=== PATIENT | female | born 1965 | race Caucasian/White ===

== ENCOUNTER 2020-05-28 18:52 | Inpatient (IN) | payer SELFPAY ==
--- NOTE | ~2020-05-28 | XR_ITS ---
XR chest 1V portable DATE: 05/28/2020 20:13 INDICATION: Seizure. Hypertension. Trembling. TECHNIQUE: AP chest COMPARISON: 01/04/2018 PA chest FINDINGS: Chronic mild elevation of the right leaf of the diaphragm. No pulmonary infiltrate or conso lidation, pleural effusion or pulmonary vascular congestion or pneumothorax. Heart size appears borde rline. Degenerative spurring of the thoracic spine. IMPRESSION: No active disease Reviewed, dictated and finalized at location [facility]. IMPRESSION: No active disease
--- NOTE | ~2020-05-28 | US_ITS ---
US right upper quadrant DATE: 05/29/2020 14:36 INDICATION: Abnormal liver function tests TECHNIQUE: Real-time imaging of liver, pancreas, gallbladder areas COMPARISON: None FINDINGS: There is surface nodularity of the liver and heterogeneous echotexture, which may be compat ible with cirrhosis as clinically suggested. Hepatic steatosis is suggested as well. Normal hepatopedal portal venous flow. No gallstones or gallbladder wall thickening. Negative sonographic Tilley's sign. The pancreas is not well demonstrated due to interference from overlying bowel gas. The common bile duct measures approximately 7 mm diameter. IMPRESSION: Surface nodularity of the liver which would be compatible with cirrhosis. Hepatic steatosis is suggested as well Limited evaluation of the pancreas Reviewed, dictated and finalized at [facility]. Reviewed, dictated and finalized at location A. IMPRESSION: Surface nodularity of the liver which would be compatible with cirr hosis. Hepatic steatosis is suggested as well Limited evaluation of the pancreas
--- NOTE | ~2020-05-28 | CT_ITS ---
EXAMINATION: CT brain wo con DATE: 05/28/2020 20:00 INDICATION: Seizure. Hypotension. TECHNIQUE: Computed tomography (CT) of the head was performed without intravenous contrast. The mA wa s adjusted according to patient size. Iterative reconstruction technique was employed. Exam dose: 60 5.33 mGy-cm total exam DLP. COMPARISON: 01/04/2018 CTA brain/carotid 01/04/2018 CT brain FINDINGS: There is cerebral atherosclerosis. There is nonspecific diminished attenuation of the cereb ral white matter, likely due to chronic small vessel ischemic changes. Normal ventricular size. No intracranial mass lesion or hemorrhage or cerebrovascular accident. No mi dline shift or mass effects. No subdural or epidural hematoma. No fracture or bone destruction of the cranial vault. Included paranasal sinuses and the mastoid air cells are normally developed and aerated. IMPRESSION: Cerebral atherosclerosis and chronic small vessel ischemic changes of the cerebral white matter; no acute intracranial finding Reviewed, dictated and finalized at [facility]. Reviewed, dictated and finalized at location [facility].
[2020-05-28 19:07] LABS: Glucose Point of Care 94 (65-105)
[2020-05-28 19:11] VITALS: BP 104/66; PULSE 86; RESP 18; TEMP 36.4; O2SAT 97
--- NOTE | 2020-05-28 19:26 | ECG_ITS ---
Measurements Intervals [place] Rate: 78 P: 29 UT: 166 QRS: 14 QRSD: 105 T: 11 QT: 418 QTc: 478 Interpretive Statements SINUS RHYTHM BASELINE ARTIFACT- I, III, AVL NORMAL ECG Electronically Signed On 05-29-2020 6:45:19 CDT by Rocky Carlin D.O.
--- NOTE | 2020-05-28 19:27 | ED.SEIZURE ---
HPI - Seizure General Chief Complaint: Unspecified Stated Complaint: seizure like activity Time Seen by Provider: 05/28/20 19:00 Source: patient and family Mode of arrival: EMS Limitations: no limitations History of Present Illness HPI Narrative: This patient is a 55 year old female who presents via EMS for evaluation of possible seizure. Her is at bedside providing history. He states patient is an alcoholic and she has not had any alcohol today. She returned home from work 1.5 hours ago. He states she was sitting on the couch when he turned around to find her bleeding from her mouth with both arm shaking. He called 911 and they found patient had a blood sugar of 46. She was given glucose and her blood sugar was 40. He reports patient is a diabetic and she has not eaten today. Patient denies history of seizures but reports withdrawal history of tremors. She reports she normally drinks 2 pints of vodka daily but she has not had any today because she had to work. MD complaint: seizure Related Data Home Medications Medication Instructions Recorded Confirmed atenolol-chlorthalidone 1 tablet PO DAILY 05/28/20 05/28/20 glyburide-metformin 1 tablet PO BIDWM 05/28/20 05/28/20 levothyroxine [Euthyrox] 125 mcg PO DAILY 05/28/20 05/28/20 naltrexone 50 mg PO DAILY 05/28/20 05/28/20 potassium chloride 10 meq PO BID 05/28/20 05/28/20 pravastatin 10 mg PO HS 05/28/20 05/28/20 spironolactone 25 mg PO DAILY 05/28/20 05/28/20 Allergies Allergy/AdvReac Type Severity Reaction Status Date / Time No Known Allergies Allergy Verified 05/28/20 19:22 Review of Systems Review of Systems: All systems reviewed & are unremarkable except as noted in HPI and below Constitutional: Constitutional: Denies chills and Denies fever(s) ENT: Denies dizziness Respiratory: Respiratory: Denies cough and Denies dyspnea Gastrointestinal: Gastrointestinal: Denies abdominal pain, Denies diarrhea, Denies nausea and Denies vomiting Neurologic: Denies headache(s) Psychiatric: Psychiatric: Reports anxiety PMFSH Past Medical History Medical History (Updated 05/29/20 @ 07:47 by Cydney More DO) ADHD Alcoholism Depression with anxiety Diabetes mellitus hemoglobin A1c 05/29/2020 4.8 Dyslipidemia Essential hypertension Hypothyroidism Surgical History Surgical History (Updated 05/29/20 @ 07:47 by Cydney More DO) History of appendectomy History of colonoscopy with polypectomy History of total hysterectomy with bilateral salpingo-oophorectomy (BSO) due to fibroid Hx of tonsillectomy Family History Family History (Updated 05/29/20 @ 07:48 by Cydney More DO) Sibling Asthma Diabetes mellitus Mother Cerebrovascular accident Hypertension Sibling Diabetes mellitus Alcoholism Father Hypertension Social History Social History (Updated 05/29/20 @ 07:51 by Cydney More DO) Social History: The patient lives in [facility] with her of 12 years. She has had a struggle with alcoholism for the last 20 years. She went through alcohol treatment programs 13 years ago when her 1st . She went through alcohol treatment program again about 2 years ago at [place]. She drinks 2 pt of vodka several times a week. She does not retain the use marijuana and states that she does not like it because it makes her sleep. She has never smoked. 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 Primary care physician: Dr. Bud Valladares Smoking status: Never smoker Second hand tobacco smoke exposure: Yes Alcohol intake: current Drinks per week: 149 Alcohol use details: 2 pints vodka daily Substance use: never Other substance usage details: drinks 2 pts of vodka/day Last use: 05/27/2020 Gender identity (if verbalized by the patient): Female Spiritual care concerns: No Exam Const: General: no acute distress and alert Orientation/consciousness: patient oriented
[2020-05-28] MEDS: LACTATED RINGERS 1,000 ML 999 ML IV CONT (19:38)
[2020-05-28 19:50] LABS: Basophils Percent Auto 0.6 % (0.2-1.2); Eosinophils Percent Auto 0.3 % (0-4.4); Hematocrit 36.2 % (37.0-47.0); Hemoglobin 12.8 g/dL (12.0-15.0); Immature Granulocyte Absolute 0.02 K/mm3 (0.00-0.031); Immature Granulocyte Percent A 0.6 % (0-0.5); Lymphocytes Absolute Auto 0.84 K/mm3 (0.9-3.2); Lymphocytes Percent Auto 24.3 % (18.3-44.2); Mean Corpuscular HGB Conc 35.4 g/dl (32-36); Mean Platelet Volume 8.7 fl (7.4-10.4); Monocytes Absolute Auto 0.2 K/mm3 (0.1-0.6); Monocytes Percent Auto 6.1 % (2.6-8.5); Neutrophils Absolute Auto 2.4 K/mm3 (1.3-6.7); Neutrophils Percent Auto 68.1 % (45.5-73.1); Platelet Count Result 123 k/mm3 (150-375); Red Blood Count 3.77 M/mm3 (4.2-5.4); Red Cell Distribution Width 13.8 % (11.5-14.5); White Blood Count 3.5 K/mm3 (4.5-10.0)
[2020-05-28 20:00] LABS: INR 1.4; Prothrombin Time 16.8 Seconds (11.1-14.7)
[2020-05-28 20:01] LABS: Ammonia 11 umol/L (9-30); Ethanol < 10 mg/dL (<10)
[2020-05-28 20:08] LABS: Alanine Aminotransferase 38 U/L (4-35); Alkaline Phosphatase 99 U/L (38-126); Anion Gap 16 mmol/L (8-16); Aspartate Amino Transferase 87 U/L (14-36); Bilirubin,Total 0.7 mg/dL (0.2-1.3); Blood Urea Nitrogen 10 mg/dL (7-17); Calcium 8.4 mg/dL (8.4-10.2); Carbon Dioxide 26 mmol/L (22-30); Chloride 91 mmol/L (98-107); Creatine Kinase 94 U/L (30-135); Estimated CRCL calculation 103 ml/min; Estimated Glomerular Filt Rate > 60; Glucose 59 mg/dL (65-105); Magnesium 1.1 mg/dL (1.6-2.3); Potassium 3.2 mmol/L (3.4-5.0); Sodium 133 mmol/L (137-145)
[2020-05-28 20:37] LABS: Add Urine Microscopic? YES; Appearance Urine Cloudy (Clear); Bilirubin Urine Negative (Negative); Blood Urine Negative (Negative); Color Urine Yellow (Yellow); Glucose Urine UA Negative (Negative); Ketones Urine Trace mg/dL (Negative); Leukocyte Esterase Ur Negative LEU/UL (Negative); Mucus Urine Rare /lpf; Nitrate Urine Positive (Negative); Protein Urine Negative (Negative); RBC Urine 0-2 /hpf (0-2); Specific Grav Ur 1.017 (1.001-1.035); Squamous Epithelial Cell Urine Few /hpf (Few); Urobilinogen Urine Negative mg/dL (<2.0); WBC Urine 0-3 /hpf
[2020-05-28] MEDS: DEXTROSE 50% 25 GM/50 ML SYRINGE IV PUSH (20:45)
[2020-05-28 20:46] VITALS: BP 118/67; PULSE 84; RESP 24; O2SAT 95
[2020-05-28 20:46] LABS: Glucose Point of Care 113 (65-105)
[2020-05-28 20:52] LABS: Amphetamine Screen Urine Negative (Negative); Barbiturate Screen Urine Negative (Negative); Benzodiazepines Screen Urine Negative (Negative); Cannabinoid Screen Urine Negative (Negative); Cocaine Screen Urine Negative (Negative); Methadone Screen Urine Negative (Negative); Opiate Screen Urine Negative (Negative); Phencyclidine Screen Urine Negative (Negative)
[2020-05-28 21:01] VITALS: BP 114/69; PULSE 83; RESP 26; O2SAT 98
[2020-05-28 21:16] VITALS: BP 115/68; PULSE 81; RESP 23
[2020-05-28] MEDS: MAGNESIUM SULF 2 GM/WATER 50ML 2 GM/50 ML BAG IVPB (21:43)
[2020-05-28 21:58] LABS: Glucose Point of Care 289 (65-105)
[2020-05-28 22:32] VITALS: BP 116/63; PULSE 81; RESP 18; TEMP 37.7; O2SAT 96
[2020-05-28 22:33] VITALS: BMI 26.9
[2020-05-28 22:37] VITALS: PULSE 79
--- NOTE | 2020-05-28 23:24 | PC.NURSE ---
This patient, Viktoria Grant, was admitted to IMU Room 204-01. Pt too drowsy to receive full orientation. Valuables list has been completed.
[2020-05-29] VITALS (12 sets, daily range): BP systolic 108–124; BP diastolic 56–72; PULSE 79–88; RESP 16–18; TEMP 36.2–37.1; O2SAT 96–100
[2020-05-29 00:40] LABS: Glucose Point of Care 87 (65-105)
[2020-05-29 00:40] LABS: Glucose Point of Care 89 (65-105)
[2020-05-29] MEDS: DEXTROSE 5%/0.45% SOD CHL 1,000 ML 100 ML IV CONT ×2 (00:44→16:42)
[2020-05-29 03:55] LABS: Glucose Point of Care 72 (65-105)
[2020-05-29 04:59] LABS: Basophils Percent Auto 0.4 % (0.2-1.2); Eosinophils Percent Auto 0.8 % (0-4.4); Hematocrit 31.7 % (37.0-47.0); Hemoglobin 11.1 g/dL (12.0-15.0); Immature Granulocyte Absolute 0.01 K/mm3 (0.00-0.031); Immature Granulocyte Percent A 0.4 % (0-0.5); Lymphocytes Absolute Auto 0.95 K/mm3 (0.9-3.2); Lymphocytes Percent Auto 37.5 % (18.3-44.2); Mean Corpuscular Hemoglobin 33.5 pg (26-34); Mean Corpuscular Volume 95.8 fl (80-100); Mean Platelet Volume 9.2 fl (7.4-10.4); Monocytes Absolute Auto 0.2 K/mm3 (0.1-0.6); Monocytes Percent Auto 9.1 % (2.6-8.5); Neutrophils Absolute Auto 1.3 K/mm3 (1.3-6.7); Neutrophils Percent Auto 51.8 % (45.5-73.1); Platelet Count Result 112 k/mm3 (150-375); Red Blood Count 3.31 M/mm3 (4.2-5.4); Red Cell Distribution Width 13.6 % (11.5-14.5); White Blood Count 2.5 K/mm3 (4.5-10.0)
[2020-05-29 05:29] LABS: Alanine Aminotransferase 30 U/L (4-35); Albumin Level 3.2 g/dL (3.5-5.1); Alkaline Phosphatase 87 U/L (38-126); Anion Gap 7 mmol/L (8-16); Aspartate Amino Transferase 65 U/L (14-36); Bilirubin,Total 1.3 mg/dL (0.2-1.3); Blood Urea Nitrogen 9 mg/dL (7-17); Calcium 7.7 mg/dL (8.4-10.2); Carbon Dioxide 30 mmol/L (22-30); Chloride 94 mmol/L (98-107); Estimated CRCL calculation 103 ml/min; Estimated Glomerular Filt Rate > 60; Glucose 81 mg/dL (65-105); Magnesium 1.8 mg/dL (1.6-2.3); Phosphorus 2.5 mg/dL (2.5-4.5); Potassium 2.6 mmol/L (3.4-5.0); Sodium 131 mmol/L (137-145)
[2020-05-29] MEDS: LEVOTHYROXINE SODIUM 125 MCG TABLET PO (05:50)
[2020-05-29] MEDS: POTASSIUM CHLORIDE 20 MEQ TABLET 40 MEQ PO (05:50)
[2020-05-29 06:06] LABS: Hemoglobin A1C 4.8 % (<5.7)
[2020-05-29 06:45] LABS: Glucose Point of Care 125 (65-105)
--- NOTE | 2020-05-29 07:18 | PM.IMHP ---
H&P: HPI History of Present Illness Date/Time: 05/29/20 07:18 Chief complaint: seizure, low blood sugar Narrative: Viktoria Grant is a 55 year old pleasant female with a past medical history of alcoholism, hypothyroidism, depression and anxiety who presented to the ER via EMS after having a seizure at home. 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 She reported that she was feeling tired and laid down on the couch. While she was sitting on the couch her noted that she was making some unusual noises. When he looked over at her she was bleeding from her mouth and twitching her arms. Her called EMS. On EMS arrival to the patient's house patient was found to be hypoglycemic. Her initial glucose was 46. Her repeat blood sugar after IV dextrose administration was 40. The patient is a diabetic and has been continuing to take her glimepiride and metformin twice a day despite not eating. She denies having history of prior seizures. She has had a problem with alcohol for 20 years. She drinks 2 pt of vodka every 2 or 3 days. She has been to alcohol treatment programs multiple times the last time was about 2 or 3 years ago. She reports that she has been working 6 and a 7 days a week and has been under extra stress. Subsequently, she has not been eating as much in may be drinking more alcohol than usual. She does have symptoms of alcohol withdrawal. She reports that if she does not drink alcohol every 2 or 3 days she will get shaky and irritable. She has not had any alcohol since the evening of the . She denies feeling any more anxious than usual. She reports that she does chew on her thumbs and she has wounds in various stages of healing from where she chronically pick since she was at the base of her nail beds. She denies any nausea or vomiting. She has not been having any shortness of breath, cough or congestion. She reports that she sleeps poorly. She does struggle with anxiety and depression and has a prescription for Cymbalta. However, the patient had not picked up her prescription for Cymbalta in a couple of months. She denies any changes in her bowel habits. She had a colonoscopy several years ago and had several small polyps removed. She has not had any hematochezia or melena since that time. She denies any dysuria or changes in urinary frequency or urgency. She has not been having any fevers or chills. The patient is currently alert orient x4 and reports some mild generalized headache. She thinks that her headache is actually more related to the pain she is having in her tongue from where she bit her tongue. Review of Systems Review of Systems: Narrative: 12 systems were reviewed with pertinent positives and negatives per HPI. Except as documented in the HPI, all other systems were reviewed and are negative. [facility] Past Medical History Medical History (Updated 05/29/20 @ 07:59 by Cydney More DO) ADHD Alcoholism Depression with anxiety Diabetes mellitus hemoglobin A1c 05/29/2020 4.8 Dyslipidemia Essential hypertension Hypothyroidism Surgical History Surgical History (Updated 05/29/20 @ 07:47 by Cydney More DO) History of appendectomy History of colonoscopy with polypectomy History of total hysterectomy with bilateral salpingo-oophorectomy (BSO) due to fibroid Hx of tonsillectomy Family History Family History (Updated 05/29/20 @ 07:48 by Cydney More DO) Sibling Asthma Diabetes mellitus Mother Cerebrovascular accident Hypertension Sibling Diabetes mellitus Alcoholism Father Hypertension Social History Social History (Updated 05/29/20 @ 07:51 by Cydney More DO) Social History: The [facility] [place] her [facility] 12 years. She has had a struggle with alcoholism for the last 20 years. She went through alcohol treatment programs 13 years ago when her 1st . She went through alcohol treatment program again abou
[2020-05-29 08:04] LABS: Folic Acid > 20.0 ng/mL (2.76->20)
[2020-05-29 08:35] LABS: Glucose Point of Care 115 (65-105)
--- NOTE | 2020-05-29 09:24 | PM.IMPN ---
Progress Note: A&P Assessment and Plan (1) Diabetes mellitus with hypoglycemia: Qualifiers: Diabetes mellitus type: type 2 Diabetes mellitus mcc insulin use: without mcc use Diabetes mellitus complication detail: without coma Qualified Code(s): E11.649 - Type 2 diabetes mellitus with hypoglycemia without coma Code(s): E11.649 - Type 2 diabetes mellitus with hypoglycemia without coma Status: Acute Assessment and Plan: Manage w/o oral hypoglycemics (diet alone) (2) Pancytopenia: Code(s): D61.818 - Other pancytopenia Status: Acute Assessment and Plan: Suspect cirrhosis with portal HTN vs alcohol suppression of marrow vs both Medication induced marrow suppressiion less likely B12 and folate deficiencies excluded by lab (3) Abnormal liver enzymes: Code(s): R74.8 - Abnormal levels of other serum enzymes Status: Acute Assessment and Plan: Likely due to alcohol Check for hepatitis B & C FIB-4 score = 6.93 (based on admission labs) --> Advanced Fibrosis Likely U/s liver (4) Hypokalemia: Code(s): E87.6 - Hypokalemia Status: Acute Assessment and Plan: PO & IV KCL 05/29 f/u lab (5) Hypomagnesemia: Code(s): E83.42 - Hypomagnesemia Status: Acute Assessment and Plan: IV mag 05/28, 05/29 f/u lab (6) Seizure: Code(s): R56.9 - Unspecified convulsions Status: Acute Assessment and Plan: Hypoglycemia vs alcohol w/d Subjective Date/time seen: 05/29/20 09:24 Interval history: 05/29: Generalized aching. No further seizures. Tolerated breakfast. Tip of tongue very sore. Review of Systems Review of Systems: All systems reviewed & are unremarkable except as noted in HPI and below Exam Narrative: Exam Narrative: HEENT: EOMI, PERRL, sclerae nonicteric, pharyngeal mucosa pink and intact, except left tip of tongue with bite fern and ecchymosis NECK: No JVD CHEST: Clear to auscultation. Normal effort. HEART: NL S1/S2, regular, no murmur ABDOMEN: BS+, soft, nontender, no mass, no bruits EXTREMITIES: No cyanosis, edema, or clubbing NEUROLOGIC: CN intact and symmetric to inspection. MUSCULOSKELETAL: Tone and strength symmetric. PSYCH: Alert. Oriented to person, place, and time. Objective Data Vital Signs Vital Signs: Vital Signs - 24 hr 05/28/20 19:11 05/28/20 20:46 05/28/20 21:01 Temperature 97.6 F Pulse Rate 86 84 83 Respiratory Rate 18 24 H 26 H Blood Pressure 104/66 118/67 114/69 Pulse Oximetry 97 95 98 05/28/20 21:16 05/28/20 22:32 05/28/20 22:37 Temperature 99.8 F H Pulse Rate 81 81 79 Respiratory Rate 23 H 18 Blood Pressure 115/68 116/63 Pulse Oximetry 96 05/29/20 00:00 05/29/20 02:00 05/29/20 04:00 Temperature 97.3 F L 98.7 F Pulse Rate 81 79 81 Respiratory Rate 18 16 Blood Pressure 108/56 L 117/58 L Pulse Oximetry 96 98 05/29/20 06:00 05/29/20 07:54 Temperature 97.1 F L Pulse Rate 79 80 Respiratory Rate 16 Blood Pressure 118/70 Pulse Oximetry 98 Intake/Output Intake/Output: Intake & Output 05/26/20 05/27/20 05/28/20 05/29/20 23:59 23:59 23:59 23:59 Intake Total 2063.2 674 Output Total 1100 Balance 2063.2 -426 Meds/Results Medications: Active Medications Generic Name Dose Route Start Last Admin Trade Name Freq PRN Reason Stop Dose Admin Dextrose 12.5 gm 05/28/20 21:09 Dextrose 50% Syringe IV PUSH PRN PRN Hypoglycemia Protocol Folic Acid 1 mg 05/29/20 09:00 Folic Acid PO DAILY SHERRON Glucose 15 gm 05/28/20 21:09 Glutose 15 PO PRN PRN Hypoglycemia Protocol Dextrose 1,000 mls @ 100 mls/hr 05/28/20 21:09 Dextrose 5% 1,000 Ml IVPB PRN PRN Hypoglycemia Protocol Dextrose/Sodium Chloride 1,000 mls @ 100 mls/hr 05/29/20 00:40 05/29/20 05:59 Dextrose 5% Sodium Chloride 0.45% IV CONT 0 mls/hr .Q10H SHERRON Infusion Potassium Chlori
[2020-05-29] MEDS: POTASSIUM CHLORIDE 10 MEQ TABLET.ER PO ×2 (11:50→16:50)
[2020-05-29] MEDS: THIAMINE HCL 100 MG TABLET PO (12:44)
[2020-05-29] MEDS: FOLIC ACID 1 MG TABLET PO (12:44)
[2020-05-29 12:59] LABS: Glucose Point of Care 136 (65-105)
[2020-05-29 13:19] LABS: Magnesium 1.5 mg/dL (1.6-2.3); Potassium 3.7 mmol/L (3.4-5.0)
[2020-05-29 13:31] LABS: Anion Gap 7 mmol/L (8-16); Blood Urea Nitrogen 7 mg/dL (7-17); Calcium 7.9 mg/dL (8.4-10.2); Carbon Dioxide 28 mmol/L (22-30); Chloride 95 mmol/L (98-107); Estimated CRCL calculation 103 ml/min; Estimated Glomerular Filt Rate > 60; Glucose 143 mg/dL (65-105); Sodium 130 mmol/L (137-145)
[2020-05-29 13:45] LABS: Potassium 3.6 mmol/L (3.4-5.0)
[2020-05-29] MEDS: MAGNESIUM SULF 2 GM/WATER 50ML 2 GM/50 ML BAG IVPB (16:43)
[2020-05-29 16:58] LABS: Glucose Point of Care 161 (65-105)
--- NOTE | 2020-05-29 17:11 | PC.NURSE ---
This patient, Viktoria Grant, was received from U on 05/29/20 at 1714. Personal belongings list checked and signed. Patient/family oriented to unit policies and routines. Report received from MINERVA Shukla.
--- NOTE | 2020-05-29 17:21 | PC.NURSE ---
This patient, Viktoria Grant, was transferred to [2nd medical room 240] on 05/29/20 at 1710. Personal belongings sent with patient. Belongings list checked and signed with receiving [X ]. Report given to [Xiomara ]. Appropriate documentation sent with patient.
[2020-05-29] MEDS: PRAVASTATIN SODIUM 10 MG TABLET PO (20:05)
[2020-05-29 21:30] LABS: Glucose Point of Care 150 (65-105)
[2020-05-29 23:59] LABS: Glucose Point of Care 125 (65-105)
[2020-05-30 00:33] VITALS: BP 136/72; PULSE 84; RESP 16; TEMP 37.1; O2SAT 98
[2020-05-30] MEDS: DEXTROSE 5%/0.45% SOD CHL 1,000 ML 100 ML IV CONT ×2 (03:54→14:14)
[2020-05-30] MEDS: LEVOTHYROXINE SODIUM 125 MCG TABLET PO (05:44)
[2020-05-30 05:47] LABS: Glucose Point of Care 142 (65-105)
[2020-05-30 05:58] LABS: Iron 74 ug/dL (37-170)
[2020-05-30 06:00] VITALS: BP 149/79; PULSE 80; RESP 16; TEMP 36.9; O2SAT 98
[2020-05-30 06:07] LABS: Percent Iron Saturation 27 % (20-50)
[2020-05-30 06:47] LABS: Hepatitis C Virus Antibody Negative (Negative)
[2020-05-30 07:49] LABS: Glucose Point of Care 145 (65-105)
[2020-05-30] MEDS: FOLIC ACID 1 MG TABLET PO (08:44)
[2020-05-30] MEDS: THIAMINE HCL 100 MG TABLET PO (08:44)
[2020-05-30] MEDS: POTASSIUM CHLORIDE 10 MEQ TABLET.ER PO ×2 (08:44→16:53)
--- NOTE | 2020-05-30 09:09 | WPDGICN ---
Assessment and Plan Assessment and plan (1) Alcoholism: Code(s): F10.20 - Alcohol dependence, uncomplicated Status: Acute Assessment and Plan: Patient with long history of alcoholism. Patient is still drinking rather heavily. Alcohol rehab strongly encourage for this patient. (2) Alcoholic liver disease: Code(s): K70.9 - Alcoholic liver disease, unspecified Status: Acute Assessment and Plan: Patient with elevated liver function tests consistent with alcohol abuse. Ultrasound raises the question of underlying cirrhosis of liver. Long discussion with patient regarding implications of cirrhosis. Essential need to stop alcohol use. Continued supportive care. At present no external findings for cirrhosis. Follow-up electively as an outpatient is encouraged. (3) Pancytopenia: Code(s): D61.818 - Other pancytopenia Status: Acute Assessment and Plan: Pancytopenia noted at admission likely secondary to alcoholic bone marrow suppression. Possible platelet see quest radiation in within the enlarged spleen. Alcohol avoidance encourage. Follow-up CBC is an outpatient. Consider hematology evaluation should this worsen. (4) Diabetes mellitus with hypoglycemia: Qualifiers: Diabetes mellitus type: type 2 Diabetes mellitus termite control representative insulin use: without termite control representative use Diabetes mellitus complication detail: without coma Qualified Code(s): E11.649 - Type 2 diabetes mellitus with hypoglycemia without coma Code(s): E11.649 - Type 2 diabetes mellitus with hypoglycemia without coma Status: Acute (5) Seizure: Code(s): R56.9 - Unspecified convulsions Status: Acute Assessment and Plan: Seizure at admission may be secondary to hypoglycemia. However with her long history of alcohol abuse. And no alcohol for several days prior to presentation this could be an alcohol withdrawal seizure. Continue to monitor for signs of alcohol withdrawal. GI Consult Note Consult date/time: 05/30/20 09:09 HPI: Viktoria Grant is a 55 year old female seen in evaluation at the request of the hospitalist service. Patient has an underlying history of alcohol abuse. Hypothyroidism. At home she was noted to have a seizure. Apparently bit her tongue with some bleeding. Upon presenting to the emergency room was found to have significant hypoglycemia. Since admission her dose of diabetic medications has been adjusted. She had abstain from alcohol for 2 days prior to admission. After admission ultrasound of the right upper quadrant suggest that she likely has cirrhosis of the liver. Patient denies any peripheral edema. She states her mentation is normal in appears oriented today. She has had no prior history of blood loss or obvious bleeding. There is no family history of liver disease that she is aware of. She has never been exposed to hepatitis. Review of Systems Review of Systems: All systems reviewed & are unremarkable except as noted in HPI and below PMFSH Past Medical History Medical History (Updated 05/30/20 @ 09:14 by Ziyad Sheldon MD) ADHD Alcoholism Depression with anxiety Diabetes mellitus hemoglobin A1c 05/29/2020 4.8 Dyslipidemia Essential hypertension Hypothyroidism Surgical History Surgical History (Updated 05/29/20 @ 07:47 by Cydney More DO) History of appendectomy History of colonoscopy with polypectomy History of total hysterectomy with bilateral salpingo-oophorectomy (BSO) due to fibroid Hx of tonsillectomy Family History Family History (Updated 05/29/20 @ 07:48 by Cydney More DO) Sibling Asthma Diabetes mellitus Mother Cerebrovascular accident Hypertension Sibling Diabetes mellitus Alcoholism Father Hypertension Social History Social History (Updated 05/29/20 @ 07:51 by Cydney More DO) Social History: The patient lives in [facility] with her of 12 years. She has had a struggle
--- NOTE | 2020-05-30 09:29 | PM.IMPN ---
Progress Note: A&P Assessment and Plan (1) Diabetes mellitus with hypoglycemia: Qualifiers: Diabetes mellitus complication detail: without coma Diabetes mellitus long-term insulin use: without long-term use Diabetes mellitus type: type 2 Qualified Code(s): E11.649 - Type 2 diabetes mellitus with hypoglycemia without coma Code(s): E11.649 - Type 2 diabetes mellitus with hypoglycemia without coma Status: Acute Assessment and Plan: Manage w/o oral hypoglycemics (diet alone) (2) Pancytopenia: Code(s): D61.818 - Other pancytopenia Status: Acute Assessment and Plan: Suspect cirrhosis with portal HTN w/ alcohol suppression of marrow Medication induced marrow suppressiion less likely B12 and folate deficiencies excluded by lab (3) Abnormal liver enzymes: Code(s): R74.8 - Abnormal levels of other serum enzymes Status: Acute Assessment and Plan: Likely due to alcohol Check for hepatitis B & C FIB-4 score = 6.93 (based on admission labs) --> Advanced Fibrosis Likely U/s liver c/w cirrhosis (4) Hypokalemia: Code(s): E87.6 - Hypokalemia Status: Acute Assessment and Plan: PO & IV KCL 05/29 f/u lab (5) Hypomagnesemia: Code(s): E83.42 - Hypomagnesemia Status: Acute Assessment and Plan: IV mag 05/28, 05/29 f/u lab (6) Seizure: Code(s): R56.9 - Unspecified convulsions Status: Acute Assessment and Plan: Hypoglycemia vs alcohol w/d (7) Alcoholism: Code(s): F10.20 - Alcohol dependence, uncomplicated Status: Acute Assessment and Plan: 05/30 day 4 w/o alcohol Home 05/31 if stable Subjective Date/time seen: 05/30/20 09:29 Interval history: 05/30: Less generalized aching. No further seizures. Tolerated diet. Tip of tongue still sore. Review of Systems Review of Systems: All systems reviewed & are unremarkable except as noted in HPI and below Exam Narrative: Exam Narrative: HEENT: EOMI, PERRL, sclerae nonicteric, pharyngeal mucosa pink and intact, except left tip of tongue with bite fern and ecchymosis NECK: No JVD CHEST: Clear to auscultation. Normal effort. HEART: NL S1/S2, regular, no murmur ABDOMEN: BS+, soft, nontender, no mass, no bruits EXTREMITIES: No cyanosis, edema, or clubbing NEUROLOGIC: CN intact and symmetric to inspection. MUSCULOSKELETAL: Tone and strength symmetric. PSYCH: Alert. Oriented to person, place, and time. Objective Data Vital Signs Vital Signs: Vital Signs - 24 hr 05/29/20 10:00 05/29/20 12:00 05/29/20 12:11 Temperature 97.3 F L Pulse Rate 83 81 81 Pulse Rate [Bilateral Pedal (Dorsalis Pedis) Palpation] 81 Respiratory Rate 16 Blood Pressure 114/72 Pulse Oximetry 99 05/29/20 14:00 05/29/20 16:00 05/29/20 22:01 Temperature 97.2 F L 98.5 F Pulse Rate 83 88 81 Pulse Rate [Bilateral Pedal (Dorsalis Pedis) Palpation] 85 Respiratory Rate 16 16 Blood Pressure 123/71 124/69 Pulse Oximetry 100 97 05/30/20 00:33 05/30/20 06:00 Temperature 98.7 F 98.4 F Pulse Rate 84 80 Pulse Rate [Bilateral Pedal (Dorsalis Pedis) Palpation] Respiratory Rate 16 16 Blood Pressure 136/72 149/79 H Pulse Oximetry 98 98 Intake/Output Intake/Output: Intake & Output 05/27/20 05/28/20 05/29/20 05/30/20 23:59 23:59 23:59 23:59 Intake Total 2063.2 2660 890 Output Total 1950 Balance 2063.2 710 890 Meds/Results Medications: Active Medications Generic Name Dose Route Start Last Admin Trade Name Freq PRN Reason Stop Dose Admin Dextrose 12.5 gm 05/28/20 21:09 Dextrose 50% Syringe IV PUSH PRN PRN Hypoglycemia Protocol Folic Acid 1 mg 05/29/20 09:00 05/30/20 08:44 Folic Acid PO 1 mg DAILY SHERRON Administration Glucose 15 gm 05/28/20 21:09 Glutose 15 PO PRN PRN Hypoglycemia Protocol Dextrose 1,000 mls @ 100 mls/hr 05/28/20 21:09 Dextrose 5% 1,000 Ml IVPB PRN
[2020-05-30 10:00] VITALS: BP 129/82; PULSE 83; RESP 16; TEMP 36.6; O2SAT 99
[2020-05-30 12:35] LABS: Glucose Point of Care 137 (65-105)
[2020-05-30 14:00] VITALS: BP 133/77; PULSE 84; RESP 15; TEMP 37; O2SAT 98
[2020-05-30 14:40] LABS: Hepatitis B Surface Antigen Negative (Negative)
[2020-05-30 16:15] LABS: Glucose Point of Care 159 (65-105)
[2020-05-30 17:37] VITALS: BP 127/86; PULSE 88; RESP 15; TEMP 37; O2SAT 100
--- NOTE | 2020-05-30 18:30 | PC.NURSE ---
I sent the patient's Naltrexone to pharmacy to be verified.
--- NOTE | 2020-05-30 19:09 | PHAR ---
Drug Name: Naltrexone Hydrochloride Ingredients: Naltrexone Hydrochloride -- 50 MG Related Documents: [employer]UGDEX Evaluations - NALTREXONE Color: Yellow Shape: Capsule-shape Imprint: 1170 , 50 Form: Oral Tablet
[2020-05-30] MEDS: PRAVASTATIN SODIUM 10 MG TABLET PO (20:46)
[2020-05-30 20:56] LABS: Glucose Point of Care 136 (65-105)
[2020-05-30 22:00] VITALS: BP 138/78; PULSE 83; RESP 16; TEMP 37.2; O2SAT 100
[2020-05-31 00:39] LABS: Glucose Point of Care 137 (65-105)
[2020-05-31] MEDS: DEXTROSE 5%/0.45% SOD CHL 1,000 ML 100 ML IV CONT (00:41)
[2020-05-31 00:57] VITALS: BP 150/84; PULSE 81; RESP 18; TEMP 36.9; O2SAT 99
[2020-05-31 05:21] VITALS: BP 148/82; PULSE 84; RESP 16; TEMP 36.7; O2SAT 99
[2020-05-31 05:52] LABS: Basophils Percent Auto 0.7 % (0.2-1.2); Eosinophils Absolute Auto 0.1 K/mm3 (0-0.3); Eosinophils Percent Auto 2.7 % (0-4.4); Hematocrit 34.8 % (37.0-47.0); Hemoglobin 12.1 g/dL (12.0-15.0); Immature Granulocyte Absolute 0.01 K/mm3 (0.00-0.031); Immature Granulocyte Percent A 0.3 % (0-0.5); Lymphocytes Absolute Auto 1.08 K/mm3 (0.9-3.2); Lymphocytes Percent Auto 37.1 % (18.3-44.2); Mean Corpuscular HGB Conc 34.8 g/dl (32-36); Mean Corpuscular Hemoglobin 34.2 pg (26-34); Mean Corpuscular Volume 98.3 fl (80-100); Mean Platelet Volume 9.9 fl (7.4-10.4); Monocytes Absolute Auto 0.2 K/mm3 (0.1-0.6); Monocytes Percent Auto 7.6 % (2.6-8.5); Neutrophils Absolute Auto 1.5 K/mm3 (1.3-6.7); Neutrophils Percent Auto 51.6 % (45.5-73.1); Platelet Count Result 92 k/mm3 (150-375); Red Blood Count 3.54 M/mm3 (4.2-5.4); Red Cell Distribution Width 13.1 % (11.5-14.5); White Blood Count 2.9 K/mm3 (4.5-10.0)
[2020-05-31 05:59] LABS: INR 1.4; Prothrombin Time 16.5 Seconds (11.1-14.7)
[2020-05-31] MEDS: LEVOTHYROXINE SODIUM 125 MCG TABLET PO (06:00)
[2020-05-31 06:05] LABS: Glucose Point of Care 153 (65-105)
[2020-05-31 06:14] LABS: Alanine Aminotransferase 35 U/L (4-35); Albumin Level 3.2 g/dL (3.5-5.1); Alkaline Phosphatase 93 U/L (38-126); Anion Gap 6 mmol/L (8-16); Aspartate Amino Transferase 78 U/L (14-36); Bilirubin,Total 1.5 mg/dL (0.2-1.3); Blood Urea Nitrogen 6 mg/dL (7-17); Calcium 8.4 mg/dL (8.4-10.2); Carbon Dioxide 26 mmol/L (22-30); Chloride 101 mmol/L (98-107); Estimated CRCL calculation 103 ml/min; Estimated Glomerular Filt Rate > 60; Glucose 139 mg/dL (65-105); Magnesium 1.1 mg/dL (1.6-2.3); Potassium 3.6 mmol/L (3.4-5.0); Sodium 133 mmol/L (137-145)
--- NOTE | 2020-05-31 07:22 | WPDGIPROGNO ---
Progress Note: A&P Additional Plan Patient comfortable this morning. Denies being jittery. Denies abdominal pain. No additional seizure activity. Tolerating diet. Physical exam reveals patient be alert. Anicteric. Vital signs stable. Lungs are clear. Heart without murmur. Abdomen bowel sounds present soft without organomegaly. Labs reveal total bilirubin 1.5, AST 78, ALT 35, hepatitis B and C serologies are negative. Impression 1. Alcoholic liver disease. Cirrhosis suggested by ultrasound. Recommend conservative management at this time. Alcohol avoidance strongly encourage. Outpatient follow-up suggested. 2. Seizure. Likely secondary to hypoglycemia. I cannot exclude alcohol withdrawal seizure. Better control of diabetic glucose control encourage. 3. Diabetes mellitus. Subjective Date/time seen: 05/31/20 07:22 Objective Data Vital Signs Vital Signs: Vital Signs - 24 hr 05/30/20 10:00 05/30/20 14:00 05/30/20 17:37 Temperature 97.8 F 98.6 F 98.6 F Pulse Rate 83 84 88 Respiratory Rate 16 15 15 Blood Pressure 129/82 133/77 127/86 Pulse Oximetry 99 98 100 05/30/20 22:00 05/31/20 00:57 05/31/20 05:21 Temperature 99.0 F 98.5 F 98.0 F Pulse Rate 83 81 84 Respiratory Rate 16 18 16 Blood Pressure 138/78 150/84 H 148/82 H Pulse Oximetry 100 99 99 Intake/Output Intake/Output: Intake & Output 05/28/20 05/29/20 05/30/20 05/31/20 23:59 23:59 23:59 23:59 Intake Total 2063.2 2660 2960 890 Output Total 1950 500 600 Balance 2063.2 710 2460 290 Meds/Results Medications: Active Medications Generic Name Dose Route Start Last Admin Trade Name Freq PRN Reason Stop Dose Admin Dextrose 12.5 gm 05/28/20 21:09 Dextrose 50% Syringe IV PUSH PRN PRN Hypoglycemia Protocol Folic Acid 1 mg 05/29/20 09:00 05/30/20 08:44 Folic Acid PO 1 mg DAILY SHERRON Administration Glucose 15 gm 05/28/20 21:09 Glutose 15 PO PRN PRN Hypoglycemia Protocol Dextrose 1,000 mls @ 100 mls/hr 05/28/20 21:09 Dextrose 5% 1,000 Ml IVPB PRN PRN Hypoglycemia Protocol Dextrose/Sodium Chloride 1,000 mls @ 100 mls/hr 05/29/20 00:40 05/31/20 00:42 Dextrose 5% Sodium Chloride 0.45% IV CONT Not Given .Q10H SHERRON Levothyroxine Sodium 125 mcg 05/29/20 06:30 05/31/20 06:00 Synthroid PO 125 mcg DAILY@0630 SHERRON Administration Lorazepam 1 mg 05/28/20 21:08 Ativan Inj IV PUSH Q4H PRN CIWA score greater than 7 Ondansetron HCl 4 mg 05/28/20 21:09 Zofran Inj IV PUSH Q4H PRN Nausea Potassium Chloride 10 meq 05/29/20 08:00 05/30/20 16:53 Kcl Tablet PO 10 meq BIDWM SHERRON Administration Pravastatin Sodium 10 mg 05/29/20 21:00 05/30/20 20:46 Pravastatin Sodium PO 10 mg HS SHERRON Administration Thiamine HCl 100 mg 05/29/20 09:00 05/30/20 08:44 Vitamin B-1 PO 100 mg QAM SHERRON Administration Radiology Results: ITS Impressions Head CT 05/28/20 20:22 IMPRESSION: Cerebral atherosclerosis and chronic small vessel ischemic changes of the cerebral white matter; no acute intracranial finding Chest X-Ray 05/28/20 20:26 IMPRESSION: No active disease Upper Quadrant Ultrasound 05/29/20 18:08 IMPRESSION: Surface nodularity of the liver which would be compatible with cirrhosis. Hepatic steatosis is suggested as well Limited evaluation of the pancreas Labs Labs: Laboratory Results - last 24 hr 05/30/20 05/30/20 05/30/20 04:55 07:32 12:31 WBC RBC Hgb Hct MCV MCH MCHC RDW Plt Count MPV Immature Gran % (Auto) Neut % (Auto) Lymph % (Auto) Baker % (Auto) Eos % (Auto) Baso % (Auto) Lymph # (Auto) Baker # (Auto) Eos # (Auto) Baso # (Auto) Abs Immat Gran (auto) Absolute Neuts (auto) Absolute Nucleated RBC Nucleated RBC % PT INR Sodium Potassium Chloride Carbon
[2020-05-31 07:45] LABS: Glucose Point of Care 147 (65-105)
[2020-05-31] MEDS: POTASSIUM CHLORIDE 10 MEQ TABLET.ER PO (07:59)
[2020-05-31] MEDS: THIAMINE HCL 100 MG TABLET PO (07:59)
[2020-05-31] MEDS: FOLIC ACID 1 MG TABLET PO (07:59)
[2020-05-31] MEDS: MAGNESIUM SULF 2 GM/WATER 50ML 2 GM/50 ML BAG IVPB (09:35)
[2020-05-31 10:00] VITALS: BP 139/77; PULSE 81; RESP 14; TEMP 36.8; O2SAT 98
[2020-05-31 11:24] LABS: Glucose Point of Care 123 (65-105)
[2020-05-31 14:00] VITALS: BP 133/79; PULSE 81; RESP 15; TEMP 36.8; O2SAT 99
[2020-05-31 14:18] LABS: Magnesium 1.6 mg/dL (1.6-2.3)
--- NOTE | 2020-05-31 14:45 | PM.DS ---
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 A1c is 4.8. (2) Pancytopenia: Code(s): D61.818 - Other pancytopenia Status: Acute Assessment and Plan: This is likely secondary to cirrhosis with alcohol suppression of marrow. B12 and folate wnl. Repeat CBC in 1 week with results to PCP. Hematology referral may be beneficial at discretion of PCP. (3) Abnormal liver enzymes: Code(s): R74.8 - Abnormal levels of other serum enzymes Status: Acute Assessment and Plan: Likely due to alcohol. Hepatitis B and C negative. FIB-4 score = 6.93 based on admission labs indicating advanced fibrosis likely. RUQ US is consistent with cirrhosis. She was seen in consultation by gastroenterology and will follow up with Dr. Sheldon. (4) Hypokalemia: Code(s): E87.6 - Hypokalemia Status: Acute Assessment and Plan: Replaced with PO and IV potassium. Labs were monitored and remained stable. Repeat BMP in 1 week. (5) Hypomagnesemia: Code(s): E83.42 - Hypomagnesemia Status: Acute Assessment and Plan: Replaced with IV mag. Levels remained mildly low and therefore was given short course PO magnesium and should repeat mag level in 1 week. (6) Seizure: Code(s): R56.9 - Unspecified convulsions Status: Acute Assessment and Plan: Most likely secondary to hypoglycemia as initial blood sugar was 46. She denies any history of seizures. She bit her tongue during the episode. Blood sugards improved with IV dextrose. Patient had poor PO intake as she had been binge drinking vodka but continued to take her metformin and glimepiride, which is the likely etiology for hypoglycemia. Both oral hypoglycemic agents have been discontinued. Given her binge drinking, alcohol withdrawal seizure could not be ruled out, although less likely given blood sugar of 46. Patient instructed not to drive until follow up. (7) Alcoholism: Code(s): F10.20 - Alcohol dependence, uncomplicated Status: Acute Assessment and Plan: Reports drinking 2 pints of vodka every 2-3 days. She has completed outpatient treatment programs in the past. She did not have any signs of alcohol withdrawal. Discussed at length importance of complete alcohol cessation and attending formal rehab program. She understood and is motivated to quit drinking. She was given information on programs. She was started on thiamine and folate. DS: Summary Hospital Course Reason for hospitalization: Seizure Hospital Course: Date of admission: 05/28/2020 Date of discharge: 05/31/2020 Viktoria Grant is a 55 year old female with a history of alcoholism, HTN, hypothyroidism, HTN, and diabetes mellitus who presented to the emergency department on 05/28/2020 after having a seizure witnessed by her at home. She was found to be hypoglycemic by EMS. She bit her tongue during the episode. At presentation, vital signs stable, sodium 131, potassium 2.6, glucose 81, head CT with no acute findings, and CXR with no acute cardiopulmonary findings. She was admitted to the hospitalist service for further evaluation and management. Please see above for further details. Patient began feeling better and had no evidence of alcohol withdrawal. Blood sugars improved with cessation of oral hypoglycemics. We discussed alcohol cessation at length. She began f
[2020-06-03 05:34] LABS: Hepatitis B Core Ab Total Nonreactive (Nonreactive)
== END 2020-05-31 16:23 | disposition home or self-care (01) | DRG 420 ==
LOC: ANHED 21:16 → ANHIMU 21:42 → ANH2MED 05-31 07:46 → ANHIMU 06-04 09:03
PROVIDERS: Internal Medicine; Admitting Provider Internal Medicine; Emergency Provider General Practice; PCP Internal Medicine; Visit Provider Physician Assistant
DX: E11.649 Type 2 diabetes mellitus with hypoglycemia without coma (principal); G40.89 Other seizures; K70.30 Alcoholic cirrhosis of liver without ascites; F10.20 Alcohol dependence, uncomplicated; F41.8 Other specified anxiety disorders; E87.6 Hypokalemia; E83.42 Hypomagnesemia; D61.818 Other pancytopenia; F90.9 Attention-deficit hyperactivity disorder, unspecified type; E78.5 Hyperlipidemia, unspecified; E03.9 Hypothyroidism, unspecified; I10 Essential (primary) hypertension; Z90.710 Acquired absence of both cervix and uterus; Z90.722 Acquired absence of ovaries, bilateral
CPT/HCPCS: 36415; 70450; 71045; 76705; 80048; 80053; 80307; 81001; 82140; 82550; 82607; 82746; 82948; 83036; 83540; 83550; 83735; 84100; 84132; 84443; 85025; 85610; 85730; 86704; 86803; 87340; 93005; 96361; 96365; 96375; 99285; A9270; J2060; J3411; J3475; J3480; J7042; J7120

== ENCOUNTER 2020-06-08 20:02 | Emergency (ER) | payer SELFPAY ==
--- NOTE | ~2020-06-08 | XR_ITS ---
EXAMINATION: XR finger 5th LT min 2V DATE: 06/08/2020 22:42 INDICATION: Dislocation of left fifth metacarpophalangeal joint status post reduction. TECHNIQUE: 2 views of left hand fifth digit were obtained. COMPARISON: Left hand radiographs at 9:39 PM FINDINGS: There is dorsal dislocation of the fifth proximal phalanx with respect to the metacarpal. N o fracture. Other joint spaces are normal. IMPRESSION: 1. Persistent dislocation of fifth metacarpophalangeal joint. Reviewed, dictated and finalized at location A.
--- NOTE | ~2020-06-08 | XR_ITS ---
EXAMINATION: XR wrist LT min 3V DATE: 06/08/2020 21:54 INDICATION: Left wrist injury. TECHNIQUE: 4 views of left wrist were obtained. COMPARISON: None. FINDINGS: There is dorsal dislocation of fifth proximal phalanx with respect to the metacarpal. No fr acture. There is mild osteoarthritis of first carpometacarpal joint. IMPRESSION: 1. Dislocation of fifth metacarpophalangeal joint. Reviewed, dictated and finalized at location A.
--- NOTE | ~2020-06-08 | XR_ITS ---
EXAMINATION: XR hand LT min 3V DATE: 06/08/2020 21:53 INDICATION: Left hand injury. TECHNIQUE: 3 views of left hand were obtained. COMPARISON: None. FINDINGS: There is dorsal dislocation of fifth proximal phalanx with respect to the metacarpal. No fr acture. There is mild osteoarthritis of first carpometacarpal joint. IMPRESSION: 1. Dislocation of fifth metacarpophalangeal joint. Reviewed, dictated and finalized at location A.
[2020-06-08 20:14] VITALS: BP 138/80; PULSE 76; RESP 17; TEMP 35.9; O2SAT 100
--- NOTE | 2020-06-08 22:11 | ED.UPPEXIN ---
HPI - Extremity Injury (Upper) General Chief Complaint: Extremity Injury, Upper Stated Complaint: left hand injury Time Seen by Provider: 06/08/20 22:11 Source: patient Mode of arrival: ambulatory Limitations: no limitations History of Present Illness HPI narrative: Patient is a 55-year-old female with a history of diabetes and alcohol abuse who presents for evaluation of left finger pain. Patient states she had been drinking her others evening, fell while getting up from the couch, landing on her left hand. Patient is right-hand dominant. She reports dull, aching pain in the left hand and difficulty moving the left pinky finger. Patient denies head trauma or neck pain. No vision changes, nausea or vomiting. Patient denies numbness in that hand. Patient denies headache, head trauma, vision changes, nausea, vomiting or difficulty walking. She denies hip or back pain. Patient does endorse drinking alcohol this evening, states she is a daily drinker. denies any seizure activity or altered mentation. Related Data Home Medications Medication Instructions Recorded Confirmed atenolol-chlorthalidone 1 tablet PO DAILY 05/28/20 05/28/20 levothyroxine [Euthyrox] 125 mcg PO DAILY 05/28/20 05/28/20 naltrexone 50 mg PO DAILY 05/28/20 05/28/20 potassium chloride 10 meq PO BID 05/28/20 05/28/20 pravastatin 10 mg PO HS 05/28/20 05/28/20 spironolactone 25 mg PO DAILY 05/28/20 05/28/20 Allergies Allergy/AdvReac Type Severity Reaction Status Date / Time No Known Allergies Allergy Verified 06/08/20 20:13 Review of Systems Review of Systems: Narrative: CONSTITUTIONAL: Denies fever CARDIOVASCULAR: Denies chest pain RESPIRATORY: Denies cough or dyspnea. GASTROINTESTINAL: Denies abdominal pain SKIN: Denies rash MUSCULOSKELETAL: Denies back pain NEUROLOGIC: Denies headache [facility] Past Medical History Medical History ADHD Alcoholism Depression with anxiety Diabetes mellitus hemoglobin A1c 05/29/2020 4.8 Dyslipidemia Essential hypertension Hypothyroidism Surgical History Surgical History History of appendectomy History of colonoscopy with polypectomy History of total hysterectomy with bilateral salpingo-oophorectomy (BSO) due to fibroid Hx of tonsillectomy Family History Family History (Updated 05/29/20 @ 07:48 by Cydney More DO) Sibling Asthma Diabetes mellitus Mother Cerebrovascular accident Hypertension Sibling Diabetes mellitus Alcoholism Father Hypertension Social History Social History Social History: The patient lives in [facility] [place] with her of 12 years. She has had a struggle with alcoholism for the last 20 years. She went through alcohol treatment programs 13 years ago when her 1st . She went through alcohol treatment program again about 2 years ago at [place]. She drinks 2 pt of vodka several times a week. She does not retain the use marijuana and states that she does not like it because it makes her sleep. She has never smoked. 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 Primary care physician: Dr. Bud Valladares Smoking status: Never smoker Second hand tobacco smoke exposure: Yes Alcohol intake: current Drinks per week: 149 Substance use: never Other substance usage details: drinks 2 pts of vodka/day Last use: 05/27/2020 Gender identity (if verbalized by the patient): Female Spiritual care concerns: No Exam Narrative: Exam Narrative: GENERAL: Awake, alert, conversant HEAD: Normocephalic, atraumatic. EYES: PERRLA and EOMI. ENT: Nares clear, no rhinorrhea or epistaxis. Mucous membranes moist. NECK: Supple. CHEST: No respiratory distress, breathing even and non labored HEART: Regular rate, sinus rhythm ABDOMEN:Non distended, non tender EXTREMITIES: Deformity of left fif
== END 2020-06-08 22:53 | disposition home or self-care (01) ==
PROVIDERS: Emergency Provider Emergency Medicine; PCP Internal Medicine
DX: S63.267A Dislocation of metacarpophalangeal joint of left little finger, initial encounter (principal); F90.9 Attention-deficit hyperactivity disorder, unspecified type; F32.9 Major depressive disorder, single episode, unspecified; F41.9 Anxiety disorder, unspecified; E11.9 Type 2 diabetes mellitus without complications; E78.5 Hyperlipidemia, unspecified; I10 Essential (primary) hypertension; E03.9 Hypothyroidism, unspecified; W01.0XXA Fall on same level from slipping, tripping and stumbling without subsequent striking against object, initial encounter
CPT/HCPCS: 26770; 73110; 73130; 73140; 99285

== ENCOUNTER 2020-10-03 10:38 | Emergency (ER) | payer OTHER, SELFPAY ==
--- NOTE | ~2020-10-03 | XR_ITS ---
XR shoulder LT min 2V, XR humerus LT 10/03/2020 11:16 Indication: Left arm pain Procedure: 3 views left shoulder and 2 views left humerus Comparison: No prior studies for comparison. Findings: There is a spiral fracture of the left humeral diaphysis with approximately one cortical madhu ne width displacement. There are degenerative changes of the left glenohumeral joint with adjacent lo ose bodies. No significant angulation of humeral fracture. Impression: 1: Mildly displaced spiral fracture left humeral diaphysis. Reviewed, dictated and finalized at location A. [employer] Impression: 1: Mildly displaced spiral fracture left humeral diaphysis. Impression: 1: Mildly displaced spiral fracture left humeral diaphysis.
[2020-10-03 10:46] VITALS: BP 152/96; PULSE 131; RESP 18; TEMP 36.4; O2SAT 99
[2020-10-03] MEDS: MORPHINE SULFATE (*CRX) 4 MG/ML INJ IV PUSH (10:59)
[2020-10-03] MEDS: MORPHINE SULFATE (*CRX) 4 MG/ML INJ (12:17)
--- NOTE | 2020-10-03 12:23 | ED.GENADULT ---
HPI - General Adult General Chief complaint: Extremity Injury, Upper Stated complaint: fall, arm injury Time Seen by Provider: 10/03/20 10:49 Source: patient Mode of arrival: ambulatory Limitations: no limitations History of Present Illness HPI narrative: Patient is a 55-year-old female who presents to emergency department for evaluation of left shoulder injury occurred yesterday sustained a ground-level fall injuring the left shoulder patient notes it was a ground-level fall injured the shoulder only went home last night and continued to have pain in the morning and presented due to increasing pain and inability to perform range of motion. Patient denies head injury neck pain radicular symptoms or paresthesias and localizes the pain to the mid humerus and shoulder region patient has not had anything for pain presents in an uncomfortable state but does not appear to be distressed Related Data Home Medications Medication Instructions Recorded Confirmed atenolol-chlorthalidone 1 tablet PO DAILY 05/28/20 05/28/20 levothyroxine [Euthyrox] 125 mcg PO DAILY 05/28/20 05/28/20 naltrexone 50 mg PO DAILY 05/28/20 05/28/20 potassium chloride 10 meq PO BID 05/28/20 05/28/20 pravastatin 10 mg PO HS 05/28/20 05/28/20 spironolactone 25 mg PO DAILY 05/28/20 05/28/20 Allergies Allergy/AdvReac Type Severity Reaction Status Date / Time No Known Allergies Allergy Verified 10/03/20 10:50 Review of Systems Review of Systems: All systems reviewed & are unremarkable except as noted in HPI and below PMFSH Past Medical History Medical History (Updated 10/03/20 @ 12:28 by Nguyễn Gordon PA-C) ADHD Alcoholism Depression with anxiety Diabetes mellitus hemoglobin A1c 05/29/2020 4.8 Dyslipidemia Essential hypertension Hypothyroidism Surgical History Surgical History History of appendectomy History of colonoscopy with polypectomy History of total hysterectomy with bilateral salpingo-oophorectomy (BSO) due to fibroid Hx of tonsillectomy Family History Family History (Updated 05/29/20 @ 07:48 by Cydney More DO) Sibling Asthma Diabetes mellitus Mother Cerebrovascular accident Hypertension Sibling Diabetes mellitus Alcoholism Father Hypertension Social History Social History Social History: The patient lives in [facility] with her of 12 years. She has had a struggle with alcoholism for the last 20 years. She went through alcohol treatment programs 13 years ago when her 1st . She went through alcohol treatment program again about 2 years ago at [place]. She drinks 2 pt of vodka several times a week. She does not retain the use marijuana and states that she does not like it because it makes her sleep. She has never smoked. 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 Primary care physician: Dr. Bud Valladares Smoking status: Never smoker Second hand tobacco smoke exposure: Yes Alcohol intake: current Drinks per week: 149 Substance use: never Other substance usage details: drinks 2 pts of vodka/day Last use: 05/27/2020 Gender identity (if verbalized by the patient): Female Spiritual care concerns: No Exam Narrative: Exam Narrative: GENERAL: Well-appearing, well-nourished, and in no acute distress. HEAD: Normocephalic, atraumatic. EYES: PERRLA and EOMI. ENT: Nares clear, no rhinorrhea or epistaxis. Mucous membranes moist. CHEST: Clear to auscultation. No respiratory distress. No wheezes rales or rhonchi HEART: Regular rate and rhythm. No murmur heard. Normal peripheral pulses. ABDOMEN: Soft, nontender, nondistended EXTREMITIES: Slight swelling and tenderness of the left proximal humerus remainder of extremity nontender no deformity. No cervical spine tenderness SKIN: Warm, dry, no rash. NEURO: No focal deficits. Alert and oriented x3. Neurovascularly
[2020-10-03 13:01] VITALS: BP 146/105; PULSE 116; RESP 18; O2SAT 97
== END 2020-10-03 13:02 | disposition home or self-care (01) ==
PROVIDERS: Emergency Provider Emergency Medicine; PCP Internal Medicine
DX: S49.092A Other physeal fracture of upper end of humerus, left arm, initial encounter for closed fracture (principal); E11.9 Type 2 diabetes mellitus without complications; F41.8 Other specified anxiety disorders; F10.20 Alcohol dependence, uncomplicated; E78.5 Hyperlipidemia, unspecified; I10 Essential (primary) hypertension; E03.9 Hypothyroidism, unspecified; W19.XXXA Unspecified fall, initial encounter
CPT/HCPCS: 73030; 73060; 96374; 96376; 99284; A4565; J2270

== ENCOUNTER 2020-10-10 13:06 | Emergency (ER) | payer SELFPAY ==
[2020-10-10 13:25] VITALS: BP 150/91; PULSE 78; RESP 20; TEMP 36.6; O2SAT 96
--- NOTE | 2020-10-10 13:32 | ED.UPPEXIN ---
HPI - Extremity Injury (Upper) General Chief Complaint: Extremity Injury, Upper Stated Complaint: arm fracture/hand swelling Time Seen by Provider: 10/10/20 13:21 Source: patient Mode of arrival: ambulatory Limitations: no limitations History of Present Illness HPI narrative: A 55-year-old female presents to the emergency department with complaints of pain and swelling in her left upper extremity. Patient has a history of a fall with a humeral fracture for which she is already been seen. Patient was placed in a coaptation OCL splint, and a sling. She had followed up with her orthopedist who has left her in the sling at this point. Patient last night was sleeping noted that her arm slipped out of the sling and was dangling down. Patient notes increased pain and swelling associated with this. Upon arrival to the ED she notes that nursing staff readjusted her sling and moved her arm back into the sling into proper position. Between this and my interview the patient notes relief of her symptoms, decreased swelling and significant improvement in pain. Related Data Home Medications Medication Instructions Recorded Confirmed atenolol-chlorthalidone 1 tablet PO DAILY 05/28/20 05/28/20 levothyroxine [Euthyrox] 125 mcg PO DAILY 05/28/20 05/28/20 naltrexone 50 mg PO DAILY 05/28/20 05/28/20 potassium chloride 10 meq PO BID 05/28/20 05/28/20 pravastatin 10 mg PO HS 05/28/20 05/28/20 spironolactone 25 mg PO DAILY 05/28/20 05/28/20 Allergies Allergy/AdvReac Type Severity Reaction Status Date / Time No Known Allergies Allergy Verified 10/10/20 13:30 Review of Systems Review of Systems: Narrative: CONSTITUTIONAL: Denies fever, chills, or sweats. EYES: Denies visual changes, redness, or discharge. ENT: Denies rhinorrhea, congestion, sore throat, or otalgia. CARDIOVASCULAR: Denies chest pain, palpitations, or edema. RESPIRATORY: Denies cough or dyspnea. GASTROINTESTINAL: Denies abdominal pain, nausea, vomiting, or diarrhea. GENITOURINARY: Denies dysuria or hematuria. SKIN: Denies rash or itching. MUSCULOSKELETAL: Denies back pain, joint pain, or myalgia. NEUROLOGIC: Denies headache, numbness, dizziness, or weakness. PSYCHIATRIC: Denies anxiety or depression. [facility] Past Medical History Medical History ADHD Alcoholism BMI 26.0-26.9,adult Depression with anxiety Diabetes mellitus hemoglobin A1c 05/29/2020 4.8 Dyslipidemia Essential hypertension Fracture of humeral shaft, left, closed Hypertension Hypothyroidism Surgical History Surgical History History of appendectomy History of colonoscopy with polypectomy History of total hysterectomy with bilateral salpingo-oophorectomy (BSO) due to fibroid Hx of tonsillectomy Previous back surgery removed tumor from back 2009, [facility] Family History Family History Sibling Asthma Diabetes mellitus Mother Cerebrovascular accident Hypertension Sibling Diabetes mellitus Alcoholism Father Hypertension Social History Social History Social History: The patient lives in [facility] [place] with her of 12 years. She has had a struggle with alcoholism for the last 20 years. She went through alcohol treatment programs 13 years ago when her 1st . She went through alcohol treatment program again about 2 years ago at [place]. She drinks 2 pt of vodka several times a week. She does not retain the use marijuana and states that she does not like it because it makes her sleep. She has never smoked. 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 Primary care physician: Dr. Bud Valladares Smoking status: Never smoker Second hand tobacco smoke exposure: Yes Alcohol intake: current Drinks per week: 149 Substance use: never Other substance usag
== END 2020-10-10 13:42 | disposition home or self-care (01) ==
PROVIDERS: Emergency Provider Emergency Medicine; PCP Internal Medicine
DX: S42.302D Unspecified fracture of shaft of humerus, left arm, subsequent encounter for fracture with routine healing (principal); R60.9 Edema, unspecified; E11.9 Type 2 diabetes mellitus without complications; E78.5 Hyperlipidemia, unspecified; I10 Essential (primary) hypertension; E03.9 Hypothyroidism, unspecified; F90.9 Attention-deficit hyperactivity disorder, unspecified type; F41.8 Other specified anxiety disorders; X58.XXXD Exposure to other specified factors, subsequent encounter
CPT/HCPCS: 99281

== ENCOUNTER 2020-10-12 10:17 | Outpatient (CLI) | payer SELFPAY ==
[2020-10-12 18:38] LABS: SARS-CoV-2 RNA PCR Negative
== END 2020-10-12 10:18 | disposition home or self-care (01) ==
LOC: ANHCOVIDDT 10:17
PROVIDERS: PCP Internal Medicine; Visit Provider Orthopaedic Surgery
DX: Z01.812 Encounter for preprocedural laboratory examination (principal); Z20.822 Contact with and (suspected) exposure to COVID-19
CPT/HCPCS: C9803; U0003; U0005

== ENCOUNTER 2020-10-14 01:24 | Day surgery (SDC) | payer OTHER, SELFPAY ==
--- NOTE | 2020-10-13 13:41 | WPDANESEPPF ---
Anes - Initial Pre Proc Eval Procedure: Operation Date: 10/14/20 13:00 Proposed Procedures p Left Humeral Rodding - Gabino Dillon MD Date/Time: 10/13/20 13:41 Surgeon: Gabino Dillon MD Pre Op Diagnosis: Left Humeral Shaft Fracture Patient Data Age: 55 Gender: F Height: Weight: Allergies Allergy/AdvReac Type Severity Reaction Status Date / Time No Known Allergies Allergy Verified 10/14/20 11:32 Home Medications Medication Instructions Recorded Confirmed Type atenolol-chlorthalidone 1 tablet PO HS 05/28/20 10/13/20 History levothyroxine [Euthyrox] 125 mcg PO HS 05/28/20 10/13/20 History potassium chloride 10 meq PO HS 05/28/20 10/13/20 History pravastatin 10 mg PO HS 05/28/20 10/13/20 History spironolactone 25 mg PO DAILY 05/28/20 10/13/20 History tramadol 50 mg tablet 50 mg PO Q6H PRN #30 tablet 10/05/20 10/13/20 Rx acetaminophen 650 mg 650 mg PO Q8H 10/12/20 10/13/20 History tablet,extended release folic acid 1 mg PO HS 10/13/20 10/13/20 History magnesium oxide 400 mg PO HS 10/13/20 10/13/20 History thiamine HCl (vitamin B1) [Vitamin 100 mg PO HS 10/13/20 10/13/20 History B-1] aspirin [Aspirin Low Dose] 81 mg PO DAILY 10/14/20 10/14/20 History Patient hx anesthesia problems: none Family hx anesthesia problems: none PMFSH Past Medical History Medical History ADHD Alcoholism BMI 26.0-26.9,adult Depression with anxiety Diabetes mellitus hemoglobin A1c 05/29/2020 4.8 Dyslipidemia Essential hypertension Fracture of humeral shaft, left, closed Hypertension Hypothyroidism Surgical History Surgical History History of appendectomy History of colonoscopy with polypectomy History of total hysterectomy with bilateral salpingo-oophorectomy (BSO) due to fibroid Hx of tonsillectomy Previous back surgery removed tumor from back 2009, [facility] Family History Family History Sibling Asthma Diabetes mellitus Mother Cerebrovascular accident Hypertension Sibling Diabetes mellitus Alcoholism Father Hypertension Social History Social History Social History: The patient lives in [facility] with her of 12 years. She has had a struggle with alcoholism for the last 20 years. She went through alcohol treatment programs 13 years ago when her 1st . She went through alcohol treatment program again about 2 years ago at [place]. She drinks 2 pt of vodka several times a week. She does not retain the use marijuana and states that she does not like it because it makes her sleep. She has never smoked. 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 Primary care physician: Dr. Bud Valladares Smoking status: Never smoker Second hand tobacco smoke exposure: No Alcohol intake: former Drinks per week: 149 Substance use: never Other substance usage details: STATES DRANK 2PT VODKA/DAY Last use: 05/27/2020 Living arrangements: with family Gender identity (if verbalized by the patient): Female Spiritual care concerns: No Anes - Eval Final PreProcedure Day of Procedure 10/13/20 13:41 Patient weight: overweight Heart: regular rate and rhythm Lungs: clear to auscultation and normal air movement Airway: Mallampati scale class II Neurological: alert and oriented Last oral intake: >/= 8 hours ASA classification: III Emergent: no Anesthetic plan: proceed Anesthesia type and monitoring: general ETT Informed Consent: The patient's anesthetic plan and its attendant risks and benefits were discussed with the patient/family/POA. Questions were solicited and answers provided to the satisfaction of the patient/family/POA.
[2020-10-13 14:56] VITALS: BMI 25.1
[2020-10-14] VITALS (8 sets, daily range): BP systolic 114–156; BP diastolic 61–79; PULSE 69–82; RESP 12–20; TEMP 36.6–36.7; O2SAT 97–100; BMI 26.7
--- NOTE | ~2020-10-14 | XR_ITS ---
EXAMINATION: XR surgery orthopedic DATE: 10/14/2020 15:42 INDICATION: Left humeral deepti fixation TECHNIQUE: 3 fluoroscopic spot images of the left humerus were obtained during procedure performed by Dr. Dillon. Radiologist was not present for the imaging or procedure. The amount of fluoroscopy time u sed during this procedure was 2.1 minutes. COMPARISON: 10/12/2020 FINDINGS: Interval reduction and internal fixation of a spiral fracture of the proximal left humeral diaphysis with an antegrade intramedullary deepti with a pair of proximal interlocking screws at the humeral head. There is tube cortical widths of residual posterior displacement and approximately 10 degrees field artillery operations specialist ior and medial angulation. Expected postoperative gas in seen in the soft tissues at the lateral left shoulder. IMPRESSION: 1. Fluoroscopy utilized during internal fixation of a spiral fracture of the proximal left humerus. S ee procedure note for further detail. Reviewed, dictated and finalized at location A. SKILLS CONSULTANT IMPRESSION: 1. Fluoroscopy utilized during internal fixation of a spiral fracture of the pr oximal left humerus. See procedure note for further detail.
--- NOTE | ~2020-10-14 | XR_ITS ---
EXAMINATION: XR shoulder LT min 2V DATE: 10/14/2020 16:18 INDICATION: Internal fixation of a left humeral diaphyseal fracture. TECHNIQUE: AP internally and externally rotated and transscapular Y lateral views of the left shoulde r were obtained. COMPARISON: 10/12/2020 FINDINGS: Interval reduction and internal fixation of a spiral fracture of the proximal left humerus with anteg rade intramedullary deepti and single distal and pair of proximal interlocking screws. There is approxim ately one cortical width anterior displacement and 12 degrees medial angulation. No new fractures hakeem ntified. Left femoral head remains normally centered over the left glenoid. Joint space at the acromi oclavicular and elbow joint appear normal. Visualized portions of the right lung are clear. IMPRESSION: Minimal displacement and mild residual medial angulation of a now internally fixed spiral fracture of the proximal left humeral diaphysis. Reviewed, dictated and finalized at location A. E OPERATOR IMPRESSION: Minimal displacement and mild residual medial angulation of a now internally fi xed spiral fracture of the proximal left humeral diaphysis.
--- NOTE | 2020-10-14 11:49 | WPDANESPNB ---
Anes - Peripheral Nerve Block Date/Time: 10/14/20 11:49 I have discussed with the patient/family/POA the placement of a peripheral nerve block for post-operative pain management, including associated risks, benefits, complications, and side effects. Alternative methods of post-operative analgesia were detailed. Questions were solicited and answers provided to the satisfaction of the patient/family/POA. Time-Out: A pre-procedural Time-Out was completed immediately before starting the procedure and confirmed: Patient Identification, Site, Procedure, Patient Position and the Availability of Requisite Equipment. Clinical Indications: Acute post-operative pain management requested by the operative surgeon. Nerve Block Insertion Note Anes-nerve block: supraclavicular left Patient position: supine Skin prep: chlorhexidine Needle: 22 gauge, stimulating, insulated echogenic needle. Needle length: 80 mm Technique: ultrasound (in plane) Injectate: bupivacaine 0.5% with epi 5 mcg/ml (20cc) Observations: tolerated well Complications: none Procedure start time:: 1240 Procedure end time:: 1245
[2020-10-14] MEDS: LACTATED RINGERS 1,000 ML 30 ML IV CONT ×2 (11:50→15:46)
[2020-10-14] MEDS: KETOROLAC 15 MG/ML VIAL (*BKC) IV PUSH (11:50)
[2020-10-14] MEDS: ACETAMINOPHEN 500 MG TABLET 1000 MG PO (11:50)
[2020-10-14 12:13] LABS: Anion Gap 5 mmol/L (8-16); Blood Urea Nitrogen 11 mg/dL (7-17); Carbon Dioxide 27 mmol/L (22-30); Chloride 102 mmol/L (98-107); Estimated CRCL calculation 103 ml/min; Estimated Glomerular Filt Rate > 60; Glucose 150 mg/dL (65-105); Potassium 3.9 mmol/L (3.4-5.0); Sodium 134 mmol/L (137-145)
--- NOTE | 2020-10-14 12:19 | WPDHPUPDATE1 ---
History and Physical Update Update Date/Time: 10/14/20 12:19 History and Physical has been reviewed, including an updated exam of the patient. There are NO changes in the patient's condition. Risks, benefits, and alternatives have been discussed and questions answered. Patient agrees to proceed with procedure.
[2020-10-14] MEDS: ceFAZolin 2 GM/D5W 50 ML 2 GM/50 ML BAG IVPB (13:04)
[2020-10-14] MEDS: ceFAZolin SODIUM 1 GM VIAL IV PUSH (15:19)
--- NOTE | 2020-10-14 15:52 | PM.PROC ---
Procedure Note - Detailed Date of procedure: 10/14/20 Pre-op diagnosis: Left Humeral Shaft Fracture Post-op diagnosis: same Procedure performed: IM deepti left humerus Description of procedure: Patient was identified and proper site identified. She was administered of left upper extremity block in the preop holding area by the anesthesia team. She was then taken to the operating room and transferred to the OR table placing her supine taking care to pad her torso extremities. After general anesthetic induction and intubation, she was positioned in the right lateral decubitus position taking care to properly pad positioner torso extremities. The left upper extremity was prepped and draped usual sterile fashion. A incision was made over the anterolateral deltoid. Subcutaneous tissue carried down to the deltoid. A 4 cm split was made between the anterior middle thirds of the deltoid exposing the rotator cuff. A small split was made in the rotator cuff to allow for passage of the pin under fluoroscopic visualization into the humeral head. A small incision was made over the fracture site because of Ellen to satisfactory lined up the fracture fragments. Once this was done finger was used to guide the guide deepti into the distal fragment. Under fluoroscopic control the humerus was reamed to 9 mm. Proximally was opened up to 10. A 240 mm long 7 mm humeral nail was then inserted and locked with two screws proximally using the targeting device and then the distal freehand screw was placed from a posterior to anterior direction through another incision under fluoroscopic control. The construct was stable. The wounds were irrigated antibiotic solution. The rotator cuff was repaired 2. Vicryl as was the deltoid fascia. Deeper layers of subcu reapproximated with 2. Vicryl and skin with three 0 nylon interrupted suture. Sterile dressing was applied to the incisions. She was awakened, extubated and placed into a sling and then taken to recovery area in stable condition. There were no intraoperative complications. Estimated blood loss was 150 cc. She received perioperative antibiotics. Anesthesia: GETA and regional Surgeon: Gabino Dillon MD Estimated blood loss (mL): 150 Drains: No Packing: No Complications: No immediate complications Condition: stable Disposition: PACU
== END 2020-10-14 17:36 | disposition home or self-care (01) ==
PROVIDERS: Anesthesiology; Family Provider Internal Medicine; PCP Internal Medicine; Visit Provider Orthopaedic Surgery
PROC: (CPT 24516; principal; 2020-10-14 13:00)
DX: S42.342A Displaced spiral fracture of shaft of humerus, left arm, initial encounter for closed fracture (principal); G89.18 Other acute postprocedural pain; I10 Essential (primary) hypertension; E78.5 Hyperlipidemia, unspecified; E03.9 Hypothyroidism, unspecified; F41.8 Other specified anxiety disorders; E11.9 Type 2 diabetes mellitus without complications; F10.20 Alcohol dependence, uncomplicated; W19.XXXA Unspecified fall, initial encounter
CPT/HCPCS: 24516; 64415; 36415; 73030; 80048; A9270; J0690; J1100; J1170; J1885; J2250; J2405; J2704; J3010; J7120

== ENCOUNTER 2021-03-16 17:56 | Outpatient (CLI) | payer BC, SELFPAY ==
[2021-03-16 18:14] LABS: Basophils Absolute Auto 0.04 K/mm3 (0.00-0.10); Basophils Percent Auto 0.6 % (0.0-1.0); Eosinophils Absolute Auto 0.04 K/mm3 (0.02-0.50); Eosinophils Percent Auto 0.6 % (1.0-6.0); Hematocrit 40.7 % (35.0-49.0); Hemoglobin 14.2 g/dL (12.0-15.0); Immature Granulocyte Absolute 0.03 K/mm3 (0.00-0.00); Immature Granulocyte Percent A 0.4 % (0.0-0.0); Immature Platelet Fraction Pct 2.3 % (1.0-7.0); Lymphocytes Absolute Auto 1.95 K/mm3 (1.10-4.50); Lymphocytes Percent Auto 28.3 % (18.0-42.0); Mean Corpuscular HGB Conc 34.9 g/dL (32.0-36.0); Mean Corpuscular Hemoglobin 32.9 pg (27.0-31.0); Mean Corpuscular Volume 94.2 fL (78.0-102.0); Mean Platelet Volume 10.2 fl (9.2-11.8); Monocytes Absolute Auto 0.61 K/mm3 (0.10-0.90); Monocytes Percent Auto 8.9 % (2.0-11.0); Neutrophils Absolute Auto 4.2 K/mm3 (1.7-7.2); Neutrophils Percent Auto 61.2 % (50.0-70.0); Platelet Count Result 146 K/mm3 (150-420); Red Blood Count 4.32 M/mm3 (4.20-5.40); Red Cell Distribution Width 12.5 % (11.6-14.4); White Blood Count 6.9 K/mm3 (4.8-10.8)
[2021-03-16 18:27] LABS: Hemoglobin A1C 8.7 % (<5.7)
[2021-03-16 18:36] LABS: Alanine Aminotransferase 37 U/L (14-59); Albumin Level 3.2 g/dL (3.4-5.0); Alkaline Phosphatase 184 U/L (46-116); Anion Gap 12 mmol/L (8-16); Aspartate Amino Transferase 83 U/L (15-37); Bilirubin,Total 1.9 mg/dL (0.00-1.00); Blood Urea Nitrogen 21 mg/dL (7-18); Carbon Dioxide 28 mmol/L (21-32); Chloride 89 mmol/L (98-108); Estimated Glomerular Filt Rate > 60; Glucose 350 mg/dL (70-99); Magnesium 1.2 mg/dL (1.8-2.4); Osmolality Calculated 285 mOsm/kg (285-295); Potassium 3.2 mmol/L (3.5-5.1); Sodium 129 mmol/L (136-145); Thyroid Stimulating Hormone 12.55 uIU/mL (0.36-3.74); Total Protein 8.4 g/dL (6.4-8.2)
== END 2021-03-16 17:57 | disposition home or self-care (01) ==
LOC: CHSLAB 17:59
PROVIDERS: PCP Internal Medicine; Visit Provider Internal Medicine
DX: E11.9 Type 2 diabetes mellitus without complications (principal); E87.6 Hypokalemia; I10 Essential (primary) hypertension
CPT/HCPCS: 36415; 80053; 83036; 83735; 84443; 85025; 85055

== ENCOUNTER 2021-04-01 10:07 | Emergency (ER) | payer OTHER, BC, SELFPAY ==
--- NOTE | ~2021-04-01 | US_ITS ---
US venous doppler UE LT DATE: 04/01/2021 10:58 INDICATION: Left upper arm pain TECHNIQUE: Real-time and color flow imaging and Doppler analysis COMPARISON: None FINDINGS: The left internal jugular, subclavian, axillary, brachial, basilic, cephalic, radial and ul silvia veins are patent, without evidence of intraluminal thrombus or obstruction. There is normal compr ession of veins where applicable. IMPRESSION: No evidence of deep venous thrombosis of left upper extremity Reviewed, dictated and finalized at Location [facility]. Reviewed, dictated and finalized at location A.
--- NOTE | ~2021-04-01 | XR_ITS ---
EXAMINATION: XR humerus LT DATE: 04/01/2021 11:51 INDICATION: Left upper arm pain. TECHNIQUE: 2 views of left humerus on 3 radiographs were obtained. COMPARISON: Left humerus radiograph 02/09/2021 FINDINGS: There is an oblique fracture of proximal humeral diaphysis. The distal fracture fragment de monstrates 19 degrees anterior angulation, one half shaft width lateral displacement, and 5 degrees m edial angulation. Internal fixation is seen with antegrade intramedullary deepti, distal interlocking sc rew, and 2 proximal interlocking screws. There is solid callus formation. No acute fracture. There is mild osteoarthritis of glenohumeral joint and acromioclavicular joint. There are loose bodies in the glenohumeral joint. IMPRESSION: 1. Healed fracture of humeral diaphysis with internal fixation. 2. Mild polyarticular osteoarthritis. 3. Loose bodies in left glenohumeral joint. Reviewed, dictated and finalized at location A.
[2021-04-01 10:32] VITALS: BP 116/82; PULSE 86; RESP 12; TEMP 36.4; O2SAT 99
[2021-04-01 11:08] VITALS: BP 112/66; PULSE 81; RESP 20; O2SAT 98
--- NOTE | 2021-04-01 12:02 | ED.EXTPRO ---
HPI - Extremity Problem General Chief complaint: Extremity Problem,Nontraumatic Stated complaint: L arm pain and bruising, r/o DVT Time Seen by Provider: 04/01/21 10:59 Source: patient Mode of arrival: ambulatory Limitations: no limitations History of Present Illness HPI Narrative: Patient is a 55-year-old female who presents complaining of bruising, swelling and mild tenderness to left upper extremity. Patient reports humeral fracture with internal fixation in 10/14. She reports awaking today with bruising, mild swelling mild tenderness to left upper arm. Patient reports calling Dr. Dillon's office and being sent to the emergency department for further evaluation to rule out DVT. She denies known injury to her arm, however states I guess I could have bumped it . She denies other significant medical history. She denies fever or other complaints at this time. Related Data Home Medications Medication Instructions Recorded Confirmed atenolol-chlorthalidone 1 tablet PO HS 05/28/20 02/09/21 levothyroxine [Euthyrox] 125 mcg PO HS 05/28/20 02/09/21 potassium chloride 10 meq PO HS 05/28/20 02/09/21 pravastatin 10 mg PO HS 05/28/20 02/09/21 spironolactone 25 mg PO DAILY 05/28/20 02/09/21 folic acid 1 mg PO HS 10/13/20 02/09/21 magnesium oxide 400 mg PO HS 10/13/20 02/09/21 thiamine HCl (vitamin B1) [Vitamin 100 mg PO HS 10/13/20 02/09/21 B-1] vitamin E 200 unit capsule 200 unit PO DAILY 01/12/21 02/09/21 Allergies Allergy/AdvReac Type Severity Reaction Status Date / Time No Known Allergies Allergy Verified 04/01/21 11:11 Review of Systems Review of Systems: Narrative: CONSTITUTIONAL: Denies fever, chills, or sweats. EYES: Denies visual changes, redness, or discharge. ENT: Denies rhinorrhea, congestion, sore throat, or otalgia. CARDIOVASCULAR: Denies chest pain, palpitations, or edema. RESPIRATORY: Denies cough or dyspnea. GASTROINTESTINAL: Denies abdominal pain, nausea, vomiting, or diarrhea. GENITOURINARY: Denies dysuria or hematuria. SKIN: Denies rash or itching. MUSCULOSKELETAL: Reports left upper extremity tenderness and bruising NEUROLOGIC: Denies headache, numbness, dizziness, or weakness. PSYCHIATRIC: Denies anxiety or depression. [facility] Past Medical History Medical History ADHD Alcoholism BMI 26.0-26.9,adult Depression with anxiety Diabetes mellitus hemoglobin A1c 05/29/2020 4.8 Dyslipidemia Essential hypertension Hypertension Hypothyroidism Surgical History Surgical History Fracture of humeral shaft, left, closed IM deepti 09/2020 History of appendectomy History of colonoscopy with polypectomy History of total hysterectomy with bilateral salpingo-oophorectomy (BSO) due to fibroid Hx of tonsillectomy Previous back surgery removed tumor from back 2009, [facility] Family History Family History Sibling Asthma Diabetes mellitus Mother Cerebrovascular accident Hypertension Sibling Diabetes mellitus Alcoholism Father Hypertension Social History Social History Social History: The patient lives in [facility] with her of 12 years. She has had a struggle with alcoholism for the last 20 years. She went through alcohol treatment programs 13 years ago when her 1st . She went through alcohol treatment program again about 2 years ago at [place]. She drinks 2 pt of vodka several times a week. She does not retain the use marijuana and states that she does not like it because it makes her sleep. She has never smoked. 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 Primary care physician: Dr. Bud Valladares Smoking status: Never smoker Second hand tobacco smoke exposure: No Alcohol intake: former Drinks per week: 149 Alcohol use details: 2 pin
[2021-04-01 12:26] LABS: Basophils Percent Auto 0.7 % (0.2-1.2); Eosinophils Absolute Auto 0.1 K/mm3 (0-0.3); Eosinophils Percent Auto 1.7 % (0-4.4); Hematocrit 33.3 % (37.0-47.0); Hemoglobin 11.4 g/dL (12.0-15.0); Immature Granulocyte Absolute 0.02 K/mm3 (0.00-0.031); Immature Granulocyte Percent A 0.7 % (0-0.5); Lymphocytes Absolute Auto 1.35 K/mm3 (0.9-3.2); Lymphocytes Percent Auto 45.2 % (18.3-44.2); Mean Corpuscular HGB Conc 34.2 g/dl (32-36); Mean Corpuscular Hemoglobin 32.7 pg (26-34); Mean Corpuscular Volume 95.4 fl (80-100); Mean Platelet Volume 9.4 fl (7.4-10.4); Monocytes Absolute Auto 0.3 K/mm3 (0.1-0.6); Neutrophils Absolute Auto 1.3 K/mm3 (1.3-6.7); Neutrophils Percent Auto 41.7 % (45.5-73.1); Platelet Count Result 89 k/mm3 (150-375); Red Blood Count 3.49 M/mm3 (4.2-5.4); Red Cell Distribution Width 12.6 % (11.5-14.5)
[2021-04-01 12:53] VITALS: BP 118/73; PULSE 80; RESP 20; O2SAT 97
[2021-04-01 13:21] LABS: Alanine Aminotransferase 35 U/L (4-35); Albumin Level 3.6 g/dL (3.5-5.1); Alkaline Phosphatase 173 U/L (38-126); Anion Gap 12 mmol/L (8-16); Aspartate Amino Transferase 99 U/L (14-36); Bilirubin,Total 0.6 mg/dL (0.2-1.3); Blood Urea Nitrogen 10 mg/dL (7-17); Calcium 8.4 mg/dL (8.4-10.2); Carbon Dioxide 27 mmol/L (22-30); Chloride 98 mmol/L (98-107); Estimated CRCL calculation 103 ml/min; Estimated Glomerular Filt Rate > 60; Glucose 271 mg/dL (65-105); Potassium 2.8 mmol/L (3.4-5.0); Sodium 137 mmol/L (137-145)
[2021-04-01 13:29] VITALS: BP 116/72; PULSE 81; RESP 20; O2SAT 99
[2021-04-01] MEDS: POTASSIUM CHLORIDE 20 MEQ PACKET (FOR LIQUID) 40 MEQ PO (14:11)
[2021-04-01 14:12] VITALS: BP 116/72; PULSE 80; RESP 20; O2SAT 99
== END 2021-04-01 14:13 | disposition home or self-care (01) ==
PROVIDERS: Emergency Provider Nurse Practitioner; PCP Internal Medicine
DX: S40.022A Contusion of left upper arm, initial encounter (principal); E87.6 Hypokalemia; E11.9 Type 2 diabetes mellitus without complications; E78.5 Hyperlipidemia, unspecified; I10 Essential (primary) hypertension; E03.9 Hypothyroidism, unspecified; F10.20 Alcohol dependence, uncomplicated; X58.XXXA Exposure to other specified factors, initial encounter
CPT/HCPCS: 36415; 73060; 80053; 85025; 93971; 99284; A9270

== ENCOUNTER 2021-05-24 18:47 | Emergency (ER) | payer BC, SELFPAY ==
[2021-05-24 19:26] VITALS: BP 115/72; PULSE 89; RESP 18; TEMP 37.1; O2SAT 96
== END 2021-05-24 21:00 | disposition left against medical advice (07) ==
PROVIDERS: PCP Internal Medicine
DX: J00 Acute nasopharyngitis [common cold] (principal); Z53.21 Procedure and treatment not carried out due to patient leaving prior to being seen by health care provider
CPT/HCPCS: 99199

== ENCOUNTER 2021-09-30 14:27 | Outpatient (CLI) | payer OTHER, SELFPAY ==
[2021-09-30 15:16] LABS: SARS-CoV-2 Ag Positive (Negative)
== END 2021-09-30 14:28 | disposition home or self-care (01) ==
LOC: CHSLAB 14:30
PROVIDERS: PCP Internal Medicine; Visit Provider Internal Medicine
DX: U07.1 COVID-19 (principal); J06.9 Acute upper respiratory infection, unspecified
CPT/HCPCS: 87426; C9803

== ENCOUNTER 2021-10-13 15:29 | Emergency (ER) | payer OTHER, SELFPAY ==
--- NOTE | ~2021-10-13 | XR_ITS ---
EXAMINATION: XR chest 1V portable EXAM DATE: 10/13/2021 16:01 INDICATION: Cough. TECHNIQUE: Portable AP frontal chest x-ray was obtained. Comparison is made to prior examination from 05/28/2020. FINDINGS: The lungs are clear. There are no pleural effusions. Cardiomediastinal silhouette is norm al. There is no pneumothorax suspected. The bones and soft tissues are unremarkable. IMPRESSION: No acute cardiopulmonary findings. Reviewed, dictated and finalized at location B. F ANALYTICS OFFICER
--- NOTE | ~2021-10-13 | CT_ITS ---
EXAMINATION: CTA chest PE protocol DATE: 10/13/2021 17:51 INDICATION: Shortness of breath, COVID 19 positive TECHNIQUE: Computed tomography angiography (CTA) of the chest was performed with 100 mL Omnipaque-350 intravenous contrast timed to evaluate the pulmonary arteries. Coronal maximum intensity projection 3D-reconstructions were created by the technologist. The dose-length product (DLP) was 380.74 mGy-cm. Automated exposure control and iterative reconstruction technique were employed. COMPARISON: None. FINDINGS: The pulmonary arteries are well-opacified. No pulmonary embolism is identified. The lungs a re free of acute opacities. There is no pleural effusion or pneumothorax. No pathologically enlarged thoracic lymph nodes are identified. The heart size is normal. Calcified right hilar lymph nodes are consistent with old granulomatous disease. There are bridging osteophytes at multiple levels in the s pine, consistent with diffuse idiopathic skeletal hyperostosis (DISH). IMPRESSION: 1. No pulmonary embolism or acute cardiopulmonary abnormality. Reviewed, dictated and finalized at location F. RANDUM STATEMENT CLERK
[2021-10-13 15:31] VITALS: BP 152/98; PULSE 115; RESP 20; TEMP 36.7; O2SAT 98
[2021-10-13] MEDS: SODIUM CHLORIDE 0.9% IV 1,000 ML 999 ML IV CONT (15:52)
[2021-10-13 15:53] LABS: Basophils Percent Auto 0.4 % (0.2-1.2); Eosinophils Percent Auto 0.1 % (0-4.4); Hematocrit 41.4 % (37.0-47.0); Hemoglobin 14.6 g/dL (12.0-15.0); Immature Granulocyte Absolute 0.02 K/mm3 (0.00-0.031); Immature Granulocyte Percent A 0.3 % (0-0.5); Lymphocytes Absolute Auto 2.55 K/mm3 (0.9-3.2); Lymphocytes Percent Auto 35.6 % (18.3-44.2); Mean Corpuscular HGB Conc 35.3 g/dl (32-36); Mean Corpuscular Hemoglobin 30.5 pg (26-34); Mean Corpuscular Volume 86.4 fl (80-100); Mean Platelet Volume 9.1 fl (7.4-10.4); Monocytes Absolute Auto 0.5 K/mm3 (0.1-0.6); Monocytes Percent Auto 6.6 % (2.6-8.5); Neutrophils Absolute Auto 4.1 K/mm3 (1.3-6.7); Platelet Count Result 123 k/mm3 (150-375); Red Blood Count 4.79 M/mm3 (4.2-5.4); Red Cell Distribution Width 14.5 % (11.5-14.5); White Blood Count 7.2 K/mm3 (4.5-10.0)
[2021-10-13] MEDS: ONDANSETRON INJ 4 MG/2 ML VIAL IV PUSH (15:53)
[2021-10-13 16:05] LABS: Alanine Aminotransferase 34 U/L (4-35); Albumin Level 4.4 g/dL (3.5-5.1); Alkaline Phosphatase 134 U/L (38-126); Anion Gap 19 mmol/L (8-16); Aspartate Amino Transferase 78 U/L (14-36); Bilirubin,Total 1.2 mg/dL (0.2-1.3); Blood Urea Nitrogen 17 mg/dL (7-17); Calcium 9.1 mg/dL (8.4-10.2); Carbon Dioxide 19 mmol/L (22-30); Chloride 100 mmol/L (98-107); Estimated CRCL calculation 75 ml/min; Estimated Glomerular Filt Rate > 60; Glucose 107 mg/dL (65-110); Potassium 3.9 mmol/L (3.4-5.0); Sodium 138 mmol/L (137-145)
[2021-10-13 17:21] VITALS: BP 131/93; PULSE 107; RESP 16; TEMP 37.2; O2SAT 98
--- NOTE | 2021-10-13 17:22 | PC.NURSE ---
pt attempting po challenge
--- NOTE | 2021-10-13 17:29 | ED.GENADULT ---
HPI - General Adult General Chief complaint: Upper Respiratory Infection Stated complaint: COVID+ 09/30/2021 STILL SYMPTOMATIC Time Seen by Provider: 10/13/21 15:37 Source: patient Mode of arrival: ambulatory Limitations: no limitations History of Present Illness HPI narrative: Patient is a 56-year-old COVID-positive female with chief complaint of fatigue, occasional vomiting, cough that she feels should have resolved at this point. Patient reports she has been vaccinated. Patient reports she also has occasional headaches. Patient reports some feelings of shortness of breath. She denies chest pain, syncope, neurological deficits. Patient reports she feels that she should feel be better at this time. Patient reports that her primary care prescribed her azithromycin but she has not noticed an improvement in her symptoms. Related Data Home Medications Medication Instructions Recorded Confirmed atenolol-chlorthalidone 1 tablet PO HS 05/28/20 08/24/21 levothyroxine [Euthyrox] 125 mcg PO HS 05/28/20 08/24/21 potassium chloride 10 meq PO HS 05/28/20 08/24/21 pravastatin 10 mg PO HS 05/28/20 08/24/21 spironolactone 25 mg PO DAILY 05/28/20 08/24/21 folic acid 1 mg PO HS 10/13/20 08/24/21 magnesium oxide 400 mg PO HS 10/13/20 08/24/21 thiamine HCl (vitamin B1) [Vitamin 100 mg PO HS 10/13/20 08/24/21 B-1] vitamin E 200 unit capsule 200 unit PO DAILY 01/12/21 08/24/21 Allergies Allergy/AdvReac Type Severity Reaction Status Date / Time No Known Allergies Allergy Verified 04/01/21 11:11 Review of Systems Review of Systems: CONSTITUTIONAL: Reports intermittent body aches denies fever, chills, or sweats. EYES: Denies visual changes, redness, or discharge. ENT: Denies rhinorrhea, congestion, sore throat, or otalgia. CARDIOVASCULAR: Denies chest pain, palpitations, or edema. RESPIRATORY: Reports cough or dyspnea. GASTROINTESTINAL: Reports occasional vomiting denies abdominal pain, nausea, or diarrhea. GENITOURINARY: Denies dysuria or hematuria. SKIN: Denies rash or itching. MUSCULOSKELETAL: Denies back pain, joint pain, or myalgia. NEUROLOGIC: Reports intermittent headache denies numbness, dizziness, or weakness. PSYCHIATRIC: Denies anxiety or depression. [facility] Past Medical History Medical History ADHD Alcoholism BMI 26.0-26.9,adult Depression with anxiety Diabetes mellitus hemoglobin A1c 05/29/2020 4.8 Dyslipidemia Essential hypertension Hypertension Hypothyroidism Surgical History Surgical History Fracture of humeral shaft, left, closed IM deepti 09/2020 History of appendectomy History of colonoscopy with polypectomy History of total hysterectomy with bilateral salpingo-oophorectomy (BSO) due to fibroid Hx of tonsillectomy Previous back surgery removed tumor from back 2009, [facility] Family History Family History Sibling Asthma Diabetes mellitus Mother Cerebrovascular accident Hypertension Sibling Diabetes mellitus Alcoholism Father Hypertension Social History Social History Social History: The patient lives in [facility] with her of 12 years. She has had a struggle with alcoholism for the last 20 years. She went through alcohol treatment programs 13 years ago when her 1st . She went through alcohol treatment program again about 2 years ago at [place]. She drinks 2 pt of vodka several times a week. She does not retain the use marijuana and states that she does not like it because it makes her sleep. She has never smoked. 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 Primary care physician: Dr. Bud Valladares Smoking status: Never smoker Second hand tobacco smoke exposure: No Alcohol intake: former Drinks per week: 149 Alcohol use details: 2 p
[2021-10-13 18:29] LABS: Add Urine Microscopic? YES; Appearance Urine Clear (Clear); Bilirubin Urine Negative (Negative); Blood Urine Negative (Negative); Color Urine Straw (Yellow); Glucose Urine UA Negative (Negative); Ketones Urine Trace mg/dL (Negative); Leukocyte Esterase Ur Negative LEU/UL (Negative); Mucus Urine Rare /lpf; Nitrate Urine Negative (Negative); Protein Urine Negative (Negative); Squamous Epithelial Cell Urine Few /hpf (Few); Urobilinogen Urine Negative mg/dL (<2.0); WBC Urine 0-3 /hpf
[2021-10-13 18:30] LABS: Specific Grav Ur > 1.060 (1.001-1.035)
== END 2021-10-13 18:40 | disposition home or self-care (01) ==
PROVIDERS: Physician Assistant; Emergency Provider Emergency Medicine; PCP Internal Medicine
DX: U07.1 COVID-19 (principal); E11.9 Type 2 diabetes mellitus without complications; E78.5 Hyperlipidemia, unspecified; I10 Essential (primary) hypertension; E03.9 Hypothyroidism, unspecified
CPT/HCPCS: 36415; 71045; 71275; 80053; 81001; 85025; 87804; 96361; 96374; 99284; J2405; J7030; Q9967

== ENCOUNTER 2021-12-08 07:18 | Emergency (ER) | payer SELFPAY ==
[2021-12-08] VITALS (26 sets, daily range): BP systolic 71–134; BP diastolic 7–103; PULSE 67–82; RESP 9–28; TEMP 36.6; O2SAT 93–100
--- NOTE | ~2021-12-08 | CT_ITS ---
EXAMINATION: CT brain wo con DATE: 12/08/2021 08:17 INDICATION: Confusion. TECHNIQUE: Computed tomography (CT) of the head was performed without intravenous contrast. The dose- length product was 605.33 mGy-cm. Automated exposure control and iterative reconstruction technique w ere employed. COMPARISON: CT dated 05/28/2020 FINDINGS: No acute intracranial hemorrhage, infarction, mass or mass effect. No ventriculomegaly or m idline shift. Basilar cisterns are patent. There is mucosal thickening of the maxillary sinuses with mucoperiosteal reaction. Mastoids are pneumatized. No depressed skull fractures. IMPRESSION: 1. No acute intracranial abnormality. 2: Mild chronic maxillary sinus disease. Reviewed, dictated and finalized at location B.
--- NOTE | 2021-12-08 07:28 | ECG_ITS ---
Measurements Intervals [place] Rate: 74 P: 31 CO: 201 QRS: 31 QRSD: 108 T: 10 QT: 402 QTc: 447 Interpretive Statements SINUS RHYTHM MODERATE INTRAVENTRICULAR CONDUCTION DELAY [105+ ms QRS DURATION, 80+ ms Q/S IN V1/V2, NO Q AND 60+ ms R IN I/aVL/V5/V6] COMPARED TO ECG 05/28/2020 19:46:05 NO SIGNIFICANT CHANGE Electronically Signed On 12-08-2021 13:58:16 CDT by Diamante Santos M.D.
[2021-12-08 07:36] LABS: Basophils Percent Auto 0.4 % (0.2-1.2); Eosinophils Absolute Auto 0.1 K/mm3 (0-0.3); Eosinophils Percent Auto 1.8 % (0-4.4); Hematocrit 37.4 % (37.0-47.0); Hemoglobin 12.7 g/dL (12.0-15.0); Immature Granulocyte Absolute 0.01 K/mm3 (0.00-0.031); Immature Granulocyte Percent A 0.2 % (0-0.5); Immature Platelet Fraction Pct 2.6 % (0.9-11.2); Lymphocytes Absolute Auto 2.77 K/mm3 (0.9-3.2); Lymphocytes Percent Auto 56.6 % (18.3-44.2); Mean Corpuscular Volume 94.2 fl (80-100); Mean Platelet Volume 9.5 fl (7.4-10.4); Monocytes Absolute Auto 0.5 K/mm3 (0.1-0.6); Monocytes Percent Auto 10.8 % (2.6-8.5); Neutrophils Absolute Auto 1.5 K/mm3 (1.3-6.7); Neutrophils Percent Auto 30.2 % (45.5-73.1); Platelet Count Result 142 k/mm3 (150-375); Red Blood Count 3.97 M/mm3 (4.2-5.4); Red Cell Distribution Width 14.2 % (11.5-14.5); White Blood Count 4.9 K/mm3 (4.5-10.0)
[2021-12-08 07:46] LABS: Alanine Aminotransferase 53 U/L (4-35); Albumin Level 4.1 g/dL (3.5-5.1); Alkaline Phosphatase 124 U/L (38-126); Anion Gap 11 mmol/L (8-16); Aspartate Amino Transferase 96 U/L (14-36); Bilirubin,Total 0.6 mg/dL (0.2-1.3); Blood Urea Nitrogen 16 mg/dL (7-17); Calcium 8.5 mg/dL (8.4-10.2); Carbon Dioxide 27 mmol/L (22-30); Chloride 103 mmol/L (98-107); Estimated CRCL calculation 102 ml/min; Estimated Glomerular Filt Rate > 60; Glucose 216 mg/dL (65-110); Potassium 3.6 mmol/L (3.4-5.0); Sodium 141 mmol/L (137-145)
--- NOTE | 2021-12-08 07:57 | PC.NURSE ---
Patient's mother called and was updated after receiving approval from patient. Mother willing to transport patient at discharge if necessary. [phone] Kanchan Sims
--- NOTE | 2021-12-08 08:05 | PC.NURSE ---
Dr. Wood at bedside to assess pt.
--- NOTE | 2021-12-08 08:11 | ED.AMS ---
HPI - Altered Mental Status General Chief Complaint: Altered Mental Status Stated Complaint: Confusion Time Seen by Provider: 12/08/21 07:21 Source: patient Limitations: clinical condition History of Present Illness HPI narrative: Patient is 56 years old white female brought to the emergency room because of confusion, not acting right noticed by her coworkers this morning, unknown duration of the beginning of the symptoms Related Data Home Medications Medication Instructions Recorded Confirmed atenolol-chlorthalidone 1 tablet PO HS 05/28/20 08/24/21 levothyroxine [Euthyrox] 125 mcg PO HS 05/28/20 08/24/21 potassium chloride 10 meq PO HS 05/28/20 08/24/21 pravastatin 10 mg PO HS 05/28/20 08/24/21 spironolactone 25 mg PO DAILY 05/28/20 08/24/21 folic acid 1 mg PO HS 10/13/20 08/24/21 magnesium oxide 400 mg PO HS 10/13/20 08/24/21 thiamine HCl (vitamin B1) [Vitamin 100 mg PO HS 10/13/20 08/24/21 B-1] vitamin E 200 unit capsule 200 unit PO DAILY 01/12/21 08/24/21 Allergies Allergy/AdvReac Type Severity Reaction Status Date / Time No Known Allergies Allergy Verified 12/08/21 07:43 [facility] Past Medical History Medical History ADHD Alcoholism BMI 26.0-26.9,adult Depression with anxiety Diabetes mellitus hemoglobin A1c 05/29/2020 4.8 Dyslipidemia Essential hypertension Hypertension Hypothyroidism Surgical History Surgical History Fracture of humeral shaft, left, closed IM deepti 09/2020 History of appendectomy History of colonoscopy with polypectomy History of total hysterectomy with bilateral salpingo-oophorectomy (BSO) due to fibroid Hx of tonsillectomy Previous back surgery removed tumor from back 2009, [facility] Family History Family History Sibling Asthma Diabetes mellitus Mother Cerebrovascular accident Hypertension Sibling Diabetes mellitus Alcoholism Father Hypertension Social History Social History Social History: The patient lives in [facility] with her of 12 years. She has had a struggle with alcoholism for the last 20 years. She went through alcohol treatment programs 13 years ago when her 1st . She went through alcohol treatment program again about 2 years ago at [place]. She drinks 2 pt of vodka several times a week. She does not retain the use marijuana and states that she does not like it because it makes her sleep. She has never smoked. 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 Primary care physician: Dr. Bud Valladares Smoking status: Never smoker Second hand tobacco smoke exposure: No Alcohol intake: former Drinks per week: 149 Alcohol use details: 2 pints vodka daily Substance use: never Other substance usage details: STATES DRANK 2PT VODKA/DAY Last use: 05/27/2020 Gender identity (if verbalized by the patient): Female Spiritual care concerns: No Exam Narrative: General appearance: Well-developed, well-nourished Skin: Normal color Head: Normocephalic, nontraumatic Eyes: Clear conjunctiva ENT: Oropharynx normal, ears normal, nose normal Neck: Supple, nontender Chest and respiratory: Airway patent, no respiratory distress, no accessory muscle use Heart: Regular rate/rhythm Abdomen: Soft, nontender, no organomegaly, quiet bowel sounds Vascular: Normal peripheral pulses, normal capillary refill. Musculoskeletal: Normal range of motion, nontender back Neurologic: Alert and oriented to her name only Course Vital Signs
[2021-12-08 08:29] LABS: Ethanol 475 mg/dL (<10)
[2021-12-08 08:53] LABS: Amphetamine Screen Urine Negative (Negative); Barbiturate Screen Urine Negative (Negative); Benzodiazepines Screen Urine Negative (Negative); Cannabinoid Screen Urine Negative (Negative); Cocaine Screen Urine Negative (Negative); Methadone Screen Urine Negative (Negative); Opiate Screen Urine Positive (Negative); Phencyclidine Screen Urine Negative (Negative)
--- NOTE | 2021-12-08 09:00 | PC.NURSE ---
Patient noted todesat to 87% on room air while sleeping. Patient placed on 2L O2 per NC. Oxygen saturation improved to 100%.
[2021-12-08] MEDS: SODIUM CHLORIDE 0.9% IV 1,000 ML 999 ML IV CONT (10:28)
--- NOTE | 2021-12-08 11:09 | PC.NURSE ---
Patient report given to MINERVA Dominguez. All questions answered and care of patient transferred.
== END 2021-12-08 11:49 | disposition home or self-care (01) ==
PROVIDERS: Emergency Provider Emergency Medicine; PCP Internal Medicine
DX: F10.20 Alcohol dependence, uncomplicated (principal); Y90.8 Blood alcohol level of 240 mg/100 ml or more; E11.9 Type 2 diabetes mellitus without complications; E78.5 Hyperlipidemia, unspecified; I10 Essential (primary) hypertension; E03.9 Hypothyroidism, unspecified; J32.0 Chronic maxillary sinusitis; I45.9 Conduction disorder, unspecified
CPT/HCPCS: 36415; 70450; 80053; 80307; 85025; 85055; 93005; 96360; 99284; J7030

== ENCOUNTER 2022-01-12 12:25 | Emergency (ER) | payer OTHER, SELFPAY ==
--- NOTE | ~2022-01-12 | XR_ITS ---
EXAMINATION: XR chest 2V DATE: 01/12/2022 13:19 INDICATION: Chest pain and shortness of breath. TECHNIQUE: Frontal and lateral views of the chest were obtained. COMPARISON: Chest single view 10/13/2021, chest CT 10/13/2021 FINDINGS: The chest demonstrates clear lungs without pneumonia, pleural effusion, or pneumothorax. Th e heart size is normal. There is internal fixation of left humerus. IMPRESSION: 1. No acute cardiopulmonary disease. Reviewed, dictated and finalized at location B.
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
--- NOTE | 2022-01-12 12:31 | ECG_ITS ---
Measurements Intervals [place] Rate: 86 P: 14 OR: 161 QRS: 20 QRSD: 122 T: 16 QT: 379 QTc: 455 Interpretive Statements SINUS RHYTHM MODERATE INTRAVENTRICULAR CONDUCTION DELAY [110+ ms QRS DURATION] BORDERLINE ECG COMPARED TO ECG 12/08/2021 07:30:21 NO SIGNIFICANT CHANGES Electronically Signed On 01-12-2022 17:06:44 CDT by Kashmir Abreu M.D.
[2022-01-12 12:56] VITALS: BP 137/67; PULSE 87; RESP 18; TEMP 36.7; O2SAT 100
[2022-01-12 13:14] LABS: Basophils Percent Auto 0.5 % (0.2-1.2); Eosinophils Percent Auto 0.3 % (0-4.4); Hematocrit 38.3 % (37.0-47.0); Hemoglobin 13.3 g/dL (12.0-15.0); Immature Granulocyte Absolute 0.01 K/mm3 (0.00-0.031); Immature Granulocyte Percent A 0.3 % (0-0.5); Lymphocytes Absolute Auto 1.09 K/mm3 (0.9-3.2); Lymphocytes Percent Auto 29.6 % (18.3-44.2); Mean Corpuscular HGB Conc 34.7 g/dl (32-36); Mean Corpuscular Hemoglobin 31.8 pg (26-34); Mean Corpuscular Volume 91.6 fl (80-100); Mean Platelet Volume 9.8 fl (7.4-10.4); Monocytes Absolute Auto 0.3 K/mm3 (0.1-0.6); Monocytes Percent Auto 8.2 % (2.6-8.5); Neutrophils Absolute Auto 2.3 K/mm3 (1.3-6.7); Neutrophils Percent Auto 61.1 % (45.5-73.1); Platelet Count Result 139 k/mm3 (150-375); Red Blood Count 4.18 M/mm3 (4.2-5.4); Red Cell Distribution Width 13.6 % (11.5-14.5); White Blood Count 3.7 K/mm3 (4.5-10.0)
[2022-01-12 13:27] LABS: Alanine Aminotransferase 41 U/L (4-35); Albumin Level 4.1 g/dL (3.5-5.1); Alkaline Phosphatase 116 U/L (38-126); Anion Gap 14 mmol/L (8-16); Aspartate Amino Transferase 77 U/L (14-36); Bilirubin,Total 0.9 mg/dL (0.2-1.3); Blood Urea Nitrogen 17 mg/dL (7-17); Calcium 8.3 mg/dL (8.4-10.2); Carbon Dioxide 28 mmol/L (22-30); Chloride 94 mmol/L (98-107); Estimated CRCL calculation 102 ml/min; Estimated Glomerular Filt Rate > 60; Glucose 233 mg/dL (65-110); Potassium 2.9 mmol/L (3.4-5.0); Sodium 136 mmol/L (137-145)
[2022-01-12 13:35] VITALS: BP 137/67; PULSE 87; RESP 18; TEMP 36.7; O2SAT 100
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
[2022-01-12] MEDS: HYDROcodone/acetaminophen (*CRX) 5-325 MG TABLET 1 TAB PO (14:18)
[2022-01-12] MEDS: CYCLOBENZAPRINE HCL 10 MG TABLET PO (14:18)
[2022-01-12 14:19] VITALS: BP 138/75; PULSE 82; RESP 18; O2SAT 100
[2022-01-12 15:12] VITALS: BP 138/81; PULSE 82; RESP 14; O2SAT 100
[2022-01-12] MEDS: POTASSIUM CHLORIDE 20 MEQ TABLET 40 MEQ PO (16:11)
[2022-01-12 17:05] VITALS: BP 138/81; PULSE 89; RESP 17; O2SAT 99
== END 2022-01-12 17:08 | disposition home or self-care (01) ==
PROVIDERS: Emergency Medicine; Emergency Provider Nurse Practitioner Family; PCP Internal Medicine
DX: S20.211A Contusion of right front wall of thorax, initial encounter (principal); E87.6 Hypokalemia; E11.9 Type 2 diabetes mellitus without complications; E78.5 Hyperlipidemia, unspecified; I10 Essential (primary) hypertension; E03.9 Hypothyroidism, unspecified; I45.9 Conduction disorder, unspecified; K74.60 Unspecified cirrhosis of liver; V49.40XA Driver injured in collision with unspecified motor vehicles in traffic accident, initial encounter
CPT/HCPCS: 36415; 71046; 71260; 80053; 85025; 93005; 99284; A9270; Q9967

== ENCOUNTER 2022-04-30 20:42 | Emergency (ER) | payer BC, SELFPAY ==
--- NOTE | ~2022-04-30 | XR_ITS ---
EXAM: XR elbow RT min 3V DATE: 04/30/2022 21:42 HISTORY: fall TODAY, decreased ROM, POSTERIOR SIDED PAIN . COMPARISON: None available. FINDINGS: Decreased mineralization. No discrete fracture or dislocation. Slight displacement of the anterior fat pad. No lytic or blastic lesion. Joint spaces are maintained. No erosion or periosteal c hange. Soft tissues within normal limits. IMPRESSION: Small right elbow joint effusion which may indicate presence of an occult nondisplaced ra dial head fracture. Reviewed, dictated and finalized at location K. IMPRESSION: Small right elbow joint effusion which may indicate presence of an occult nondisplaced radial head fracture.
--- NOTE | ~2022-04-30 | XR_ITS ---
EXAMINATION: XR humerus RT DATE: 05/01/2022 00:18 INDICATION: Right upper arm pain. TECHNIQUE: 2 views of right humerus were obtained. COMPARISON: Right elbow radiographs 04/30/2022, chest 2 views 01/12/2022 FINDINGS: Bone alignment is normal. There is a nondisplaced avulsion fracture of greater tuberosity o f proximal right humerus. Glenohumeral joint is normal. There is mild acromioclavicular joint osteoar thritis. IMPRESSION: 1. Nondisplaced avulsion fracture of greater tuberosity of proximal right humerus. Reviewed, dictated and finalized at location A. IMPRESSION: 1. Nondisplaced avulsion fracture of greater tuberosity of proximal right humer us.
[2022-04-30 21:15] VITALS: BP 118/77; PULSE 88; RESP 20; TEMP 36.4; O2SAT 97
--- NOTE | 2022-04-30 23:48 | ED.UPPEXIN ---
HPI - Extremity Injury (Upper) General Chief Complaint: Extremity Injury, Upper Stated Complaint: right arm pain Time Seen by Provider: 04/30/22 23:40 History of Present Illness HPI narrative: 57-year-old female presents the emergency room for evaluation of right upper arm pain. Patient states that she was at a restaurant earlier today and slipped and fell landing on her right elbow. Fall was from a standing position. No other injuries noted. Patient states that it hurts when she fully extends her elbow and pronation and supinates. Related Data Home Medications Medication Instructions Recorded Confirmed atenolol 50 mg-chlorthalidone 25 1 tablet PO HS 05/28/20 08/24/21 mg tablet levothyroxine 125 mcg tablet 125 mcg PO HS 05/28/20 08/24/21 (Euthyrox) potassium chloride 10 mEq 10 meq PO HS 05/28/20 08/24/21 tablet,extended release pravastatin 10 mg tablet 10 mg PO HS 05/28/20 08/24/21 spironolactone 25 mg tablet 25 mg PO DAILY 05/28/20 08/24/21 folic acid 1 mg tablet 1 mg PO HS 10/13/20 08/24/21 magnesium oxide 400 mg PO HS 10/13/20 08/24/21 thiamine HCl (vitamin B1) 100 mg 100 mg PO HS 10/13/20 08/24/21 tablet (Vitamin B-1) vitamin E 200 unit capsule 200 unit PO DAILY 01/12/21 08/24/21 Allergies Allergy/AdvReac Type Severity Reaction Status Date / Time No Known Allergies Allergy Verified 12/08/21 07:43 Review of Systems Review of Systems: CONSTITUTIONAL: Denies fever, chills, or sweats. EYES: Denies visual changes, redness, or discharge. ENT: Denies rhinorrhea, congestion, sore throat, or otalgia. CARDIOVASCULAR: Denies chest pain, palpitations, or edema. RESPIRATORY: Denies cough or dyspnea. GASTROINTESTINAL: Denies abdominal pain, nausea, vomiting, or diarrhea. GENITOURINARY: Denies dysuria or hematuria. SKIN: Denies rash or itching. MUSCULOSKELETAL: Reports right upper arm pain NEUROLOGIC: Denies headache, numbness, dizziness, or weakness. PSYCHIATRIC: Denies anxiety or depression. COUNT INCLUDES THE [facility] Past Medical History Medical History ADHD Alcoholism BMI 26.0-26.9,adult Depression with anxiety Diabetes mellitus hemoglobin A1c 05/29/2020 4.8 Dyslipidemia Essential hypertension Hypertension Hypothyroidism Surgical History Surgical History Fracture of humeral shaft, left, closed IM deepti 09/2020 History of appendectomy History of colonoscopy with polypectomy History of total hysterectomy with bilateral salpingo-oophorectomy (BSO) due to fibroid Hx of tonsillectomy Previous back surgery removed tumor from back 2009, [facility] Family History Family History Sibling Asthma Diabetes mellitus Mother Cerebrovascular accident Hypertension Sibling Diabetes mellitus Alcoholism Father Hypertension Social History Social History Social History: The patient lives in [facility] with her of 12 years. She has had a struggle with alcoholism for the last 20 years. She went through alcohol treatment programs 13 years ago when her 1st . She went through alcohol treatment program again about 2 years ago at [place]. She drinks 2 pt of vodka several times a week. She does not retain the use marijuana and states that she does not like it because it makes her sleep. She has never smoked. 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 Primary care physician: Dr. Bud Valladares Smoking status: Never smoker Second hand tobacco smoke exposure: No Alcohol intake: former Drinks per week: 149 Alcohol use details: 2 pints vodka daily Substance use: never Other substance usage details: STATES DRANK 2PT VODKA/DAY Last use: 05/27/2020 Gender identity (if verbalized by the patient): Female Spiritual care concerns: No Exam Narrative: GENER
[2022-05-01 00:53] VITALS: BP 147/68; PULSE 68; RESP 18; TEMP 36.7; O2SAT 98
== END 2022-05-01 00:54 | disposition home or self-care (01) ==
PROVIDERS: Emergency Provider Nurse Practitioner Family; PCP Internal Medicine
DX: S42.254A Nondisplaced fracture of greater tuberosity of right humerus, initial encounter for closed fracture (principal); I10 Essential (primary) hypertension; E11.9 Type 2 diabetes mellitus without complications; E78.5 Hyperlipidemia, unspecified; E03.9 Hypothyroidism, unspecified; W01.0XXA Fall on same level from slipping, tripping and stumbling without subsequent striking against object, initial encounter
CPT/HCPCS: 73060; 73080; 99284; A4565

== ENCOUNTER 2023-05-23 14:09 | Emergency (ER) | payer SELFPAY ==
--- NOTE | ~2023-05-23 | CT_ITS ---
EXAMINATION: CT lumbar spine wo con DATE: 05/23/2023 15:18 INDICATION: Left lower back pain post fall TECHNIQUE: Computed tomography (CT) of the lumbar spine was performed without intravenous contrast. A utomated exposure control and iterative reconstruction technique were employed. The dose-length produ ct was 573.09 mGy-cm. COMPARISON: Lumbar spine radiographs dated 02/01/[address] dated 01/12/2022 FINDINGS: 1-2 mm retrolisthesis L2 on L3. Alignment is otherwise normal. Age-indeterminate T12 burst fracture w ith progressive 60% anterior vertebral body height loss and 3 mm retropulsion of the superior aspect of the posterior wall which is new since 01/12/2022. No evident sharply angulated cortex, linear lucen t fracture line or paravertebral edema to suggest an acute fracture. Chronic L2 compression fracture with 40% central vertebral body height loss. Mild disc height loss at L1-L2, L3-L4 and L4-L5. There a re disc bulges contributing to mild central canal stenosis at L1-L2 through L5-S1. Additional mild ce ntral canal stenosis resulting from the retropulsion at T12. Lumbar facet osteoarthritis, moderate se verity bilaterally at L4-L5 and on the left at L5-S1 and mild at the remaining lumbar levels. There i s moderate neural foraminal stenosis on the left at L4-L5 and L5-S1 and mild at the remaining neural foramina from L2-L3 through L5-S1. Paravertebral soft tissues are unremarkable. IMPRESSION: 1. T12 burst fracture and L2 compression fracture which appear chronic, the former new since 2. 2. Mild lumbar spondylosis. Reviewed, dictated and finalized at location A. IMPRESSION: 1. T12 burst fracture and L2 compression fracture which appear chronic, the for lesly new since 01/12/2022. 2. Mild lumbar spondylosis.
--- NOTE | ~2023-05-23 | CT_ITS ---
EXAMINATION: CT pelvis wo con DATE: 05/23/2023 15:18 INDICATION: Left hip pain post fall TECHNIQUE: High resolution computed tomography (CT) of the pelvis was performed without intravenous c ontrast. Additional sagittal and coronal reconstructions were performed. Automated exposure control a nd iterative reconstruction technique were employed. The dose-length product was 220.04 mGy-cm. COMPARISON: Radiographs dated 02/01/2017 FINDINGS: Nondisplaced fracture of the left inferior pubic ramus. Minimally displaced fracture of the left supe rior pubic ramus and pubic body. Alignment remains essentially anatomic. No other fractures identifie d. Mild osteoarthritis at the bilateral hip and sacroiliac joints. No hip joint effusions. There are few scattered diverticula along the descending and sigmoid colon without associated inflammatory stra nding to suggest diverticulitis. Postoperative change of prior appendectomy bladder is normal. The ut erus is not identified and has likely been surgically resected. No free fluid in the pelvis. No patho logically enlarged pelvic or inguinal lymphadenopathy. IMPRESSION: 1. Non to minimally displaced fracture of the left superior and inferior pubic rami and intervening p ubic body. Reviewed, dictated and finalized at location A. IMPRESSION: 1. Non to minimally displaced fracture of the left superior and inferior pubic rami and intervening pubic body.
[2023-05-23 14:08] VITALS: BP 114/76; PULSE 84; RESP 12; TEMP 36.4; O2SAT 100
--- NOTE | 2023-05-23 15:56 | ED.GENADULT ---
HPI - General Adult General Chief complaint: Extremity Injury, Lower Stated complaint: fall Time Seen by Provider: 05/23/23 14:26 Source: patient Mode of arrival: EMS Limitations: no limitations History of Present Illness HPI narrative: This is a 58-year-old female who presents to the ED with chief complaint of left hip pain after an injury that occurred 5 days ago. Patient states that she was carrying laundry down the stairs when she slipped and fell on her butt down 6 stairs. She reports that she has pain in the left hip especially when weightbearing. Certain movements also create the hip pain. She reports pain is in the left posterior buttocks area. There is minimal pain in the back. Denies any further site of pain or injury. Denies LOC, numbness, weakness. Related Data Home Medications Medication Instructions Recorded Confirmed atenolol 50 mg-chlorthalidone 25 1 tablet PO HS 05/28/20 05/16/22 mg tablet levothyroxine 125 mcg tablet 125 mcg PO HS 05/28/20 05/16/22 (Euthyrox) potassium chloride 10 mEq 10 meq PO HS 05/28/20 05/16/22 tablet,extended release pravastatin 10 mg tablet 10 mg PO HS 05/28/20 05/16/22 spironolactone 25 mg tablet 25 mg PO DAILY 05/28/20 05/16/22 folic acid 1 mg tablet 1 mg PO HS 10/13/20 05/16/22 magnesium oxide 400 mg PO HS 10/13/20 05/16/22 vitamin E 200 unit capsule 200 unit PO DAILY 01/12/21 05/16/22 multivitamin 1 tablet PO DAILY 05/16/22 05/16/22 Allergies Allergy/AdvReac Type Severity Reaction Status Date / Time No Known Allergies Allergy Verified 05/16/22 14:45 Review of Systems Review of Systems: All systems as dictated in [facility] Past Medical History Medical History ADHD Alcoholism BMI 26.0-26.9,adult Depression with anxiety Diabetes mellitus hemoglobin A1c 05/29/2020 4.8 Dyslipidemia Essential hypertension Hypertension Hypothyroidism Surgical History Surgical History Fracture of humeral shaft, left, closed IM deepti 09/2020 History of appendectomy History of colonoscopy with polypectomy History of total hysterectomy with bilateral salpingo-oophorectomy (BSO) due to fibroid Hx of tonsillectomy Previous back surgery removed tumor from back 2009, [facility] Family History Family History Sibling Asthma Diabetes mellitus Mother Cerebrovascular accident Hypertension Sibling Diabetes mellitus Alcoholism Father Hypertension Social History Social History Social History: The patient lives in [facility] with her of 12 years. She has had a struggle with alcoholism for the last 20 years. She went through alcohol treatment programs 13 years ago when her 1st . She went through alcohol treatment program again about 2 years ago at [place]. She drinks 2 pt of vodka several times a week. She does not retain the use marijuana and states that she does not like it because it makes her sleep. She has never smoked. 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 Primary care physician: Dr. Bud Valladares Smoking status: Never smoker Second hand tobacco smoke exposure: No Alcohol intake: former Drinks per week: 149 Alcohol use details: 2 pints vodka daily Substance use: never Other substance usage details: STATES DRANK 2PT VODKA/DAY Last use: 05/27/2020 Living arrangements: with family Gender identity (if verbalized by the patient): Female Spiritual care concerns: No Exam Narrative: GENERAL: Well-appearing, well-nourished, and in no acute distress. HEAD: Normocephalic, atraumatic. EYES: PERRLA and EOMI. ENT: Nares clear, no rhinorrhea or epistaxis. Mucous membranes moist. Oropharynx without tonsillar hypertrophy exudate or other lesions. NECK: Supple. No adenopathy or masses.
[2023-05-23] MEDS: HYDROmorphone HCL INJ (*CRX) 1 MG/ML SYR 0.5 MG IV PUSH (17:31)
[2023-05-23 19:30] VITALS: BP 108/75; PULSE 83; RESP 18; O2SAT 98
== END 2023-05-23 19:30 | disposition home or self-care (01) ==
PROVIDERS: Emergency Provider Physician Assistant; PCP Internal Medicine
DX: S32.592A Other specified fracture of left pubis, initial encounter for closed fracture (principal); E78.5 Hyperlipidemia, unspecified; E11.9 Type 2 diabetes mellitus without complications; I10 Essential (primary) hypertension; E03.9 Hypothyroidism, unspecified; W10.9XXA Fall (on) (from) unspecified stairs and steps, initial encounter
CPT/HCPCS: 72131; 72192; 96374; 99284; J1170

== ENCOUNTER 2023-10-10 11:47 | Inpatient (IN) | payer SELFPAY ==
[2023-10-10] VITALS (33 sets, daily range): BP systolic 105–150; BP diastolic 64–93; PULSE 99–143; RESP 13–33; TEMP 36.3–36.6; O2SAT 92–100; BMI 24.7
--- NOTE | ~2023-10-10 | CT_ITS ---
Clinical Indication: Tachycardia, shortness of breath CT Scan of the Chest with Contrast: Technique: Contiguous sections were acquired throughout the chest after intravenous administration of 100 cc of Omnipaque 350. Dose reduction technique was used on this scan by utilizing automated expos ure control and iterative reconstruction technique. The dose-length product (DLP) was 282.87 mGy-cm. COMPARISON: 01/12/2022 Findings: There is no evidence of any significant mediastinal, hilar or axillary lymphadenopathy. There is no f illing defect in the pulmonary arterial tree to suggest pulmonary embolus. There is no evidence of ao rtic dissection or aneurysm. There is no evidence of pleural or pericardial effusion. The lungs are clear. No pulmonary nodules or infiltrates are noted. Images through the upper abdomen reveal probable cirrhotic change of the liver, stable from prior exa m. T12 compression fractures partially imaged, new from prior exam. Impression: No evidence of pulmonary embolus, aortic dissection, or aortic aneurysm. Clear lungs. T12 compression fracture, new from prior exam. Reviewed, dictated and finalized at location [facility] Impression: No evidence of pulmonary embolus, aortic dissection, or aortic aneurysm. Clear lungs. T12 compression fracture, new from prior exam.
--- NOTE | 2023-10-10 12:26 | ECG_ITS ---
Measurements Intervals [place] Rate: 124 P: 161 UT: 188 QRS: 53 QRSD: 101 T: 34 QT: 333 QTc: 479 Interpretive Statements SINUS TACHYCARDIA ABNORMAL ECG COMPARED TO ECG 01/12/2022 13:03:52 SINUS TACHYCARDIA NOW PRESENT Electronically Signed On 10-10-2023 13:02:55 [employer] by Rocky Carlin D.O.
--- NOTE | 2023-10-10 12:27 | ED.GENADULT ---
HPI - General Adult General Chief complaint: Unspecified Stated complaint: sore throat, cough Time Seen by Provider: 10/10/23 12:01 History of Present Illness HPI narrative: Patient is a 58-year-old female with a history of hypertension presenting with cough. Patient states that several of her family members had cold-like symptoms over the holidays. For about the last week she has had persistent coughing. States it has been keeping her up at night. Reports mild chest pain and shortness of breath only with coughing. States it has been hard for her to keep her meds down and she has coughing fits that lead to emesis. States she is otherwise able to keep fluids down. No abdominal pain, diarrhea, leg swelling. No fevers or chills. No further complaints. Related Data Home Medications Medication Instructions Recorded Confirmed atenolol 50 mg-chlorthalidone 25 1 tablet PO HS 05/28/20 10/10/23 mg tablet levothyroxine 125 mcg tablet 125 mcg PO HS 05/28/20 10/10/23 (Euthyrox) potassium chloride 10 mEq 10 meq PO HS 05/28/20 10/10/23 tablet,extended release pravastatin 10 mg tablet 10 mg PO HS 05/28/20 10/10/23 spironolactone 25 mg tablet 25 mg PO DAILY 05/28/20 10/10/23 folic acid 1 mg tablet 1 mg PO HS 10/13/20 10/10/23 magnesium oxide 400 mg PO HS 10/13/20 10/10/23 vitamin E 200 unit capsule 200 unit PO DAILY 01/12/21 10/10/23 multivitamin 1 tablet PO DAILY 05/16/22 10/10/23 Allergies Allergy/AdvReac Type Severity Reaction Status Date / Time No Known Allergies Allergy Verified 10/10/23 12:00 Review of Systems Review of Systems: All systems reviewed & are unremarkable except as noted in HPI and below [facility] Past Medical History Medical History (Updated 10/14/23 @ 13:59 by Darlyn Turner MD) ADHD Alcoholism BMI 26.0-26.9,adult Depression with anxiety Diabetes mellitus hemoglobin A1c 05/29/2020 4.8 Dyslipidemia Essential hypertension Hypertension Hypothyroidism Surgical History Surgical History (Updated 10/10/23 @ 23:50 by Eva Chirinos APRN) Fracture of humeral shaft, left, closed IM deepti 09/2020 History of appendectomy History of colonoscopy with polypectomy History of total hysterectomy with bilateral salpingo-oophorectomy (BSO) due to fibroid Hx of tonsillectomy Previous back surgery removed tumor from back 2009, [facility] Family History Family History Sibling Asthma Diabetes mellitus Mother Cerebrovascular accident Hypertension Sibling Diabetes mellitus Alcoholism Father Hypertension Social History Social History Social History: The patient lives in [facility] with her of 12 years. She has had a struggle with alcoholism for the last 20 years. She went through alcohol treatment programs 13 years ago when her 1st . She went through alcohol treatment program again about 2 years ago at [place]. She drinks 2 pt of vodka several times a week. She does not retain the use marijuana and states that she does not like it because it makes her sleep. She has never smoked. 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 Primary care physician: Dr. Bud Valladares Smoking status: Never smoker Second hand tobacco smoke exposure: No Alcohol intake: current Drinks per week: 149 Alcohol use details: 2 pints vodka daily Substance use: never Other substance usage details: STATES DRANK 2PT VODKA/DAY Last use: last drink 09/23/23 Do You Feel Safe in your Home?: Yes Lack of Transportation: No Lack of Food: Never True Current Housing: I Have Housing Concerned About Future Housing: No Difficulty Paying Gas/Electric Bills: No Difficulty Paying for Meds: No Currently Unemployed: No Education: Associate Degree Difficulty w/ Childcare or Family Care: No Living arrangements: with family Gender identity (if ve
[2023-10-10 12:45] LABS: Strep Group A RT-PCR NOT DETECTED (Negative)
[2023-10-10] MEDS: SODIUM CHLORIDE 0.9% IV 1,000 ML 999 ML IV CONT ×2 (12:48→14:41)
[2023-10-10 12:57] LABS: Basophils Percent Auto 0.6 % (0.2-1.2); Eosinophils Percent Auto 0.3 % (0-4.4); Hemoglobin 11.8 g/dL (12.0-15.0); Immature Granulocyte Absolute 0.03 K/mm3 (0.00-0.031); Immature Granulocyte Percent A 0.5 % (0-0.5); Lymphocytes Absolute Auto 0.79 K/mm3 (0.9-3.2); Lymphocytes Percent Auto 12.2 % (18.3-44.2); Mean Corpuscular HGB Conc 34.7 g/dl (32-36); Mean Corpuscular Hemoglobin 31.4 pg (26-34); Mean Corpuscular Volume 90.4 fl (80-100); Mean Platelet Volume 9.8 fl (7.4-10.4); Monocytes Absolute Auto 0.5 K/mm3 (0.1-0.6); Monocytes Percent Auto 8.3 % (2.6-8.5); Neutrophils Absolute Auto 5.1 K/mm3 (1.3-6.7); Neutrophils Percent Auto 78.1 % (45.5-73.1); Platelet Count Result 116 k/mm3 (150-375); Red Blood Count 3.76 M/mm3 (4.2-5.4); Red Cell Distribution Width 12.8 % (11.5-14.5); White Blood Count 6.5 K/mm3 (4.5-10.0)
[2023-10-10 12:59] LABS: Influenza A QL RT-PCR Negative (Negative); Influenza B QL RT-PCR Negative (Negative); RSV RNA, RT-PCR Negative (Negative); SARS-CoV-2 RNA PCR Negative (Negative)
[2023-10-10 13:12] LABS: Alanine Aminotransferase 21 U/L (6-35); Albumin Level 3.6 g/dL (3.5-5.1); Alkaline Phosphatase 123 U/L (38-126); Anion Gap 9 mmol/L (8-16); Aspartate Amino Transferase 40 U/L (14-36); Blood Urea Nitrogen 13 mg/dL (7-17); Carbon Dioxide 28 mmol/L (22-30); Chloride 95 mmol/L (98-107); Estimated CRCL calculation 99 ml/min; Estimated Glomerular Filt Rate > 60; Glucose 270 mg/dL (65-110); Potassium 3.1 mmol/L (3.4-5.0); Sodium 132 mmol/L (137-145)
[2023-10-10 13:22] LABS: D Dimer 0.89 ug/mL (<0.48)
[2023-10-10 13:28] LABS: Troponin I 0.051 ng/mL (0.000-0.034)
[2023-10-10] MEDS: POTASSIUM CHLORIDE INJ 40 MEQ in SODIUM CHLORIDE 0.9% IV 500 ML 130 MEQ IVPB (14:41)
--- NOTE | 2023-10-10 14:51 | ECG_ITS ---
Measurements Intervals [place] Rate: 117 P: -9 OK: 159 QRS: 44 QRSD: 100 T: 14 QT: 338 QTc: 472 Interpretive Statements SINUS TACHYCARDIA ABNORMAL ECG COMPARED TO ECG 10/10/2023 12:54:05 NO SIGNIFICANT CHANGES Electronically Signed On 10-10-2023 15:22:24 [employer]IC [employer]OR[employer] by Rocky Carlin D.O.
[2023-10-10 15:16] LABS: Troponin I 0.047 ng/mL (0.000-0.034)
[2023-10-10] MEDS: BENZONATATE 100 MG CAPSULE 200 MG PO (16:54)
[2023-10-10 17:46] LABS: Total Triiodothyronine (T3) 1.49 NG/ML (0.97-1.69)
[2023-10-10 18:10] LABS: Troponin I 0.033 ng/mL (0.000-0.034)
--- NOTE | 2023-10-10 18:52 | PM.IMHP ---
H&P: HPI History of Present Illness Date/Time: 10/10/23 18:52 Chief Complaint: Cough, Dizziness Narrative: 58-year-old female presents here with cough, sore throat, nausea/vomiting with past medical history of ADHD, former alcoholism, depression/anxiety, diabetes, dyslipidemia, HTN, and hypothyroidism. Patient reports that she is been experiencing a cough, sore throat, post-tussive nausea/vomiting, and insomnia secondary to the cough. Reports multiple family members were sick around [place] and [place]. Symptom onset was 6 days ago. Also accompanied by dizziness with position changes. Due to nausea/vomiting secondary to cough, she has been unable to keep down her medications for the past 5 days. No current diarrhea or constipation. Poor p.o. intake. Reports history of alcohol abuse, now occasionally binge drinks approximately 1 pint of hard alcohol every few weeks. last drink was on e. ED workup revealed a normal WBC, mild anemia at 11.8, elevated D-dimer, mild hyponatremia with a sodium of 132, mild hypokalemia at 3.1, creatinine at baseline at 0.5, initial glucose 270, calcium 8.0, and troponin 0.047. Chest CTA showed no PE or dissection, clear lungs and new T12 compression fracture when compared to prior. Review of Systems Review of Systems: All systems reviewed & are unremarkable except as noted in HPI and below PMF[facility] Past Medical History Medical History (Updated 10/10/23 @ 23:50 by Eva Chirinos APRN) ADHD Alcoholism BMI 26.0-26.9,adult Depression with anxiety Diabetes mellitus hemoglobin A1c 05/29/2020 4.8 Dyslipidemia Essential hypertension Hypertension Hypothyroidism Surgical History Surgical History (Updated 10/10/23 @ 23:50 by Eva Chirinos APRN) Fracture of humeral shaft, left, closed IM deepti 09/2020 History of appendectomy History of colonoscopy with polypectomy History of total hysterectomy with bilateral salpingo-oophorectomy (BSO) due to fibroid Hx of tonsillectomy Previous back surgery removed tumor from back 2009, [facility] Family History Family History Sibling Asthma Diabetes mellitus Mother Cerebrovascular accident Hypertension Sibling Diabetes mellitus Alcoholism Father Hypertension Social History Social History Social History: The patient lives in [facility] with her of 12 years. She has had a struggle with alcoholism for the last 20 years. She went through alcohol treatment programs 13 years ago when her 1st . She went through alcohol treatment program again about 2 years ago at [place]. She drinks 2 pt of vodka several times a week. She does not retain the use marijuana and states that she does not like it because it makes her sleep. She has never smoked. 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 Primary care physician: Dr. Bud Valladares Smoking status: Never smoker Second hand tobacco smoke exposure: No Alcohol intake: current Drinks per week: 149 Alcohol use details: 2 pints vodka daily Substance use: never Other substance usage details: STATES DRANK 2PT VODKA/DAY Last use: last drink 09/23/23 Do You Feel Safe in your Home?: Yes Lack of Transportation: No Lack of Food: Never True Current Housing: I Have Housing Concerned About Future Housing: No Difficulty Paying Gas/Electric Bills: No Difficulty Paying for Meds: No Currently Unemployed: No Education: Associate Degree Difficulty w/ Childcare or Family Care: No Living arrangements: with family Gender identity (if verbalized by the patient): Female Spiritual care concerns: No Meds Home Medications and Allergies Home Medications Medication Instructions Recorded Confirmed Type atenolol 50 mg-chlorthalidone 25 1 tablet PO HS 05/28/20 10/10/23 History mg tablet levothyroxine 125
[2023-10-10] MEDS: POTASSIUM CHLORIDE 10 MEQ ER TABLET PO (22:09)
[2023-10-10] MEDS: CHLORTHALIDONE 25 MG TABLET PO (22:09)
[2023-10-10] MEDS: MAGNESIUM OXIDE 400 MG TABLET PO (22:10)
[2023-10-10] MEDS: FOLIC ACID 1 MG TABLET PO (22:10)
[2023-10-10] MEDS: PRAVASTATIN SODIUM 10 MG TABLET PO (22:10)
[2023-10-10] MEDS: atenoloL 50 MG TABLET PO (22:25)
[2023-10-10 22:29] LABS: Glucose Point of Care 103 mg/dl (65-105)
[2023-10-10] MEDS: IPRATROPIUM 0.5 MG/ALBUTEROL SULFATE 2.5 MG AMPUL.NEB 3 ML INHALATION (22:34)
[2023-10-11] VITALS (21 sets, daily range): BP systolic 120–142; BP diastolic 65–112; PULSE 89–111; RESP 15–25; TEMP 36.6–37.6; O2SAT 92–100
--- NOTE | 2023-10-11 | ECHO_ITS ---
Patient Info Name: Viktoria Grant Age: 58 years : 1965 Gender: Female Ht: 67 in Wt: 159 lbs BSA: 1.86 m2 HR: 92 bpm BP: 120 / 65 mmHg Heart Rhythm: Indeterminant Technical Quality: Fair Exam Date: 10/11/2023 1:03 PM Exam Location: Echo Lab Exam Room: ICU5 Patient Status: Inpatient Admit Date: 10/10/2023 Staff Ordering Physician: Viviane Luevano MD Multi Slide Machine Tender: Malinda Saucedo RDCS Attending Provider: Joshua Sheridan MD Exam Type: CA echo doppler color flow Study Info Indications - ELEVATED TROPONINS Complete two-dimensional, color flow and Doppler transthoracic echocardiogram is performed. Summary 1. Complete two-dimensional, color flow and Doppler transthoracic echocardiogram is performed. 2. Normal left ventricular size and thickness with good contractility of all segments. No segmental wall motion abnormalities. Ejection fraction 60-65%. Normal diastolic function. 3. Left atrial chamber dimension is mildly enlarged. 4. No significant valve disease. 5. Borderline pulmonary hypertension, RVSP 35 mmHg. 6. Probable sinus rhythm. Left Ventricle Left ventricular chamber dimension is normal. Left ventricular systolic function is normal, estimated at 60-65%. There is no increased left ventricular wall thickness. Left ventricular septal wall motion is normal. The left ventricular diastolic function is normal. Right Ventricle Right ventricular chamber dimension is normal. Right ventricular systolic function is normal. Left Atria Left atrial chamber dimension is mildly enlarged. Right Atria Right atrial chamber dimension is normal. Aortic Valve The aortic valve is trileaflet. There is no aortic valve sclerosis. There is no aortic valve stenosis. There is no aortic valve regurgitation. Pulmonic Valve The pulmonic valve is normal. There is no pulmonic valve stenosis. There is no pulmonic regurgitation. Mitral Valve The mitral valve has thickened leaflets. There is no mitral valve stenosis. There is no mitral valve regurgitation. The mitral valve annulus is mildly calcified. Tricuspid Valve The tricuspid valve leaflets are normal. There is no significant tricuspid valve stenosis. There is trace tricuspid valve regurgitation. Mild pulmonary hypertension, estimated pulmonary arterial systolic pressure is 35 mmHg. Pericardium/Pleural The pericardium appears normal. There is no pericardial effusion. Inferior Vena Cava Normal inferior vena cava with >50% collapse upon inspiration consistent with Empty right atrial pressure, 10 mmHg. Aorta The aortic root size at the sinus of Valsalva is normal. The prox ascending aorta size is normal. Left Ventricular Outflow Tract Name Value Normal LVOT 2D LVOT Diameter 2.0 cm LVOT Doppler LVOT Peak Gradient 4 mmHg LVOT Mean Gradient 3 mmHg LVOT VTI 20 cm LVOT VTI/AV VTI Ratio 0.8 LVOT Stroke Volume 64 ml LVOT CO 15.8 l/min LVOT CI 8.5 l/min/m2 Pulmonic Valve
[2023-10-11] MEDS: IPRATROPIUM 0.5 MG/ALBUTEROL SULFATE 2.5 MG AMPUL.NEB 3 ML INHALATION ×4 (01:50→20:20)
[2023-10-11 04:17] LABS: Basophils Percent Auto 0.5 % (0.2-1.2); Eosinophils Absolute Auto 0.1 K/mm3 (0-0.3); Eosinophils Percent Auto 0.9 % (0-4.4); Hematocrit 34.8 % (37.0-47.0); Hemoglobin 11.3 g/dL (12.0-15.0); Immature Granulocyte Absolute 0.03 K/mm3 (0.00-0.031); Immature Granulocyte Percent A 0.5 % (0-0.5); Immature Platelet Fraction Pct 3.9 % (0.9-11.2); Lymphocytes Absolute Auto 0.91 K/mm3 (0.9-3.2); Lymphocytes Percent Auto 16.4 % (18.3-44.2); Mean Corpuscular HGB Conc 32.5 g/dl (32-36); Mean Corpuscular Hemoglobin 30.9 pg (26-34); Mean Corpuscular Volume 95.1 fl (80-100); Mean Platelet Volume 10.6 fl (7.4-10.4); Monocytes Absolute Auto 0.6 K/mm3 (0.1-0.6); Monocytes Percent Auto 10.4 % (2.6-8.5); Neutrophils Percent Auto 71.3 % (45.5-73.1); Platelet Count Result 118 k/mm3 (150-375); Red Blood Count 3.66 M/mm3 (4.2-5.4); Red Cell Distribution Width 13.1 % (11.5-14.5); White Blood Count 5.6 K/mm3 (4.5-10.0)
[2023-10-11 04:28] LABS: Alanine Aminotransferase 19 U/L (6-35); Albumin Level 3.2 g/dL (3.5-5.1); Alkaline Phosphatase 122 U/L (38-126); Anion Gap 8 mmol/L (8-16); Aspartate Amino Transferase 45 U/L (14-36); Bilirubin,Total 2.1 mg/dL (0.2-1.3); Blood Urea Nitrogen 10 mg/dL (7-17); Calcium 7.9 mg/dL (8.4-10.2); Carbon Dioxide 25 mmol/L (22-30); Chloride 99 mmol/L (98-107); Estimated CRCL calculation 84 ml/min; Estimated Glomerular Filt Rate > 60; Glucose 149 mg/dL (65-110); Magnesium 0.9 mg/dL (1.6-2.3); Potassium 3.4 mmol/L (3.4-5.0); Sodium 132 mmol/L (137-145)
[2023-10-11 04:40] LABS: Hemoglobin A1C 6.1 % (<5.7)
[2023-10-11] MEDS: LEVOTHYROXINE SODIUM INJ 100 MCG/5 ML VIAL 62.5 MCG IV PUSH (06:36)
[2023-10-11] MEDS: SODIUM CHLORIDE 0.9% IV 1,000 ML 100 ML IV CONT (06:37)
[2023-10-11 08:03] LABS: Glucose Point of Care 132 mg/dl (65-105)
--- NOTE | 2023-10-11 08:46 | PM.IMPN ---
Progress Note: A&P Assessment and Plan (1) Hypothyroidism: Code(s): E03.9 - Hypothyroidism, unspecified Status: Acute (2) Elevated hemoglobin: Code(s): D58.2 - Other hemoglobinopathies Status: Acute (3) Cough: Code(s): R05.9 - Cough, unspecified Status: Acute (4) Elevated troponin: Code(s): R79.89 - Other specified abnormal findings of blood chemistry Status: Acute (5) Diabetes mellitus: Code(s): E11.9 - Type 2 diabetes mellitus without complications Status: Acute (6) Hypokalemia: Code(s): E87.6 - Hypokalemia Status: Acute (7) Seizure: Code(s): R56.9 - Unspecified convulsions Status: Acute Plan 58-year-old female presents here with cough, sore throat, nausea/vomiting with past medical history of ADHD, former alcoholism, depression/anxiety, diabetes, dyslipidemia, HTN, and hypothyroidism. Patient reports that she is been experiencing a cough, sore throat, post-tussive nausea/vomiting, and insomnia secondary to the cough.?? Symptom onset was 6 days ago.? Also accompanied by dizziness with position changes.? Due to nausea/vomiting secondary to cough, she has been unable to keep down her medications for the past 5 days.? No current diarrhea or constipation.? Poor p.o. intake.? Reports history of alcohol abuse, now occasionally binge drinks approximately 1 pint of hard alcohol every few weeks. last drink was on new year's [place]. ED workup revealed a normal WBC, mild anemia at 11.8, elevated D-dimer, mild hyponatremia with a sodium of 132, mild hypokalemia at 3.1, creatinine at baseline at 0.5, initial glucose 270, calcium 8.0, and troponin 0.047.? Chest CTA showed no PE or dissection, clear lungs and new T12 compression fracture when compared to prior. (1) Elevated troponin: ?Code(s): R79.89 - Other specified abnormal findings of blood chemistry ?Status:?Acute ?Assessment and Plan: Troponin: 0.051 ->? 0.047 -> 0.033. EKG, initial:? Sinus tachycardia with a rate of 124, abnormal EKG when compared to prior in 2021, sinus tachycardia now present.? EKG, repeat:? Sinus tachycardia with a rate of 117, abnormal EKG, when compared to prior earlier today, no significant changes. Initial heart rate 130s to 140s, post IV fluids, now low 100s.? Suspect initial troponin bumped due to demand ischemia secondary to heart rate and possible dehydration. 10/11 TNP nwl and ekg shows sinus rhythm, sinus tachycardia nonspecific ST T-wave changes Telemetry monitoring order echocardiogram (2) Cough, possible atypical pneumonia ?Code(s): R05.9 - Cough, unspecified ?Status:?Acute ?Assessment and Plan: Viral PCR negative for COVID, flu, RSV.? Strep A negative.? CTA of chest showed no evidence of PE, aortic dissection, or aortic aneurysm.? Clear lungs.? T12 compression fracture, new compared to prior exam in 2021.? Started on antitussives and lozenges. cough is dry Continue albuterol/Atrovent. Patient still has severe cough, shortness with cough Denies any previous history of smoking. Patient may have atypical pneumonia Start Levaquin IV and methylprednisolone IV Follow-up chlamydia pneumoniae PCR and Legionella urine antigen Possible alcoholic gastritis N&V, starting PPI - pantoprazole IVP. Dehydration, hyponatremia, hypokalemia, hypomagnesemia anemia RBC 3.76, hemoglobin 11.8, hct 34 - hemoconcentrated.? Has been unable to tolerate p.o. for 5 days and reporting dizziness with positional changes.? Suspect dehydration.? Given 2 L of NS and 520 mLs for K IVPB. Started on maintenance fluids - 100 mL/hr of NS x1L. Reassess CBC and orthostatic VS QShift. Magnesium 0.9, potassium 3.1 sodium 132 Start normal saline IV Replete with potassium chloride IV and p.o., replete with magnesium sulfate 2 g IV x2 (4) Diabetes mellitus: ?Code(s): E11.9 - Type 2 diabetes mellitus without complications ?Status:?Acute ?Assessment and Erica
[2023-10-11] MEDS: MAGNESIUM SULF 2 GM/WATER 50ML 2 GM/50 ML BAG IVPB ×2 (09:11→12:17)
[2023-10-11] MEDS: POTASSIUM CHLORIDE 20 MEQ ER TABLET 40 MEQ PO (09:12)
[2023-10-11] MEDS: ENOXAPARIN 40 MG/0.4 ML SYRINGE SUB-Q (09:12)
[2023-10-11] MEDS: SPIRONOLACTONE 25 MG TABLET PO (09:12)
[2023-10-11] MEDS: BENZONATATE 100 MG CAPSULE 200 MG PO ×3 (09:12→17:42)
[2023-10-11] MEDS: VITAMIN E 100 UNIT CAPSULE 200 UNIT PO (09:13)
[2023-10-11] MEDS: PANTOPRAZOLE SODIUM IV 40 MG VIAL IV PUSH (09:13)
[2023-10-11] MEDS: MULTIVITAMINS THERAPEUTIC TAB (*BKC) 1 TABLET PO (09:14)
[2023-10-11 11:28] LABS: Glucose Point of Care 220 mg/dl (65-105)
[2023-10-11] MEDS: guaiFENesin/DEXTROMETHORPHAN 10 ML UDC PO (12:18)
[2023-10-11] MEDS: INSULIN ASPART (*BKC) 100 UNITS/ML SUB-Q ×2 (12:20→20:14)
[2023-10-11 14:00] LABS: Anion Gap 8 mmol/L (8-16); Blood Urea Nitrogen 9 mg/dL (7-17); Calcium 7.8 mg/dL (8.4-10.2); Carbon Dioxide 23 mmol/L (22-30); Chloride 100 mmol/L (98-107); Estimated CRCL calculation 84 ml/min; Estimated Glomerular Filt Rate > 60; Glucose 184 mg/dL (65-110); Potassium 3.4 mmol/L (3.4-5.0); Sodium 131 mmol/L (137-145)
[2023-10-11 14:30] LABS: Magnesium 2.4 mg/dL (1.6-2.3)
[2023-10-11 15:54] LABS: Glucose Point of Care 160 mg/dl (65-105)
[2023-10-11] MEDS: methylPREDNISolone SOD SUCC 40 MG VIAL IV PUSH (17:44)
[2023-10-11] MEDS: levoFLOXacin 750 MG/D5W 150 ML 750 MG/150 ML BAG 100 MG IVPB (17:44)
[2023-10-11] MEDS: guaiFENesin/CODEINE (*CRX) 200/20 MG 10 ML SYRUP PO ×2 (18:05→22:07)
[2023-10-11] MEDS: atenoloL 50 MG TABLET PO (20:08)
[2023-10-11] MEDS: POTASSIUM CHLORIDE 10 MEQ ER TABLET PO (20:08)
[2023-10-11] MEDS: MAGNESIUM OXIDE 400 MG TABLET PO (20:08)
[2023-10-11] MEDS: CHLORTHALIDONE 25 MG TABLET PO (20:08)
[2023-10-11] MEDS: FOLIC ACID 1 MG TABLET PO (20:08)
[2023-10-11] MEDS: PRAVASTATIN SODIUM 10 MG TABLET PO (20:09)
[2023-10-11 20:20] LABS: Glucose Point of Care 232 mg/dl (65-105)
[2023-10-12] VITALS (12 sets, daily range): BP systolic 110–130; BP diastolic 67–84; PULSE 86–133; RESP 19–28; TEMP 36.3–37.3; O2SAT 94–99
[2023-10-12] MEDS: methylPREDNISolone SOD SUCC 40 MG VIAL IV PUSH ×4 (00:33→22:52)
[2023-10-12] MEDS: IPRATROPIUM 0.5 MG/ALBUTEROL SULFATE 2.5 MG AMPUL.NEB 3 ML INHALATION ×2 (02:05→08:19)
[2023-10-12] MEDS: guaiFENesin/CODEINE (*CRX) 200/20 MG 10 ML SYRUP PO ×5 (02:40→21:48)
[2023-10-12] MEDS: LEVOTHYROXINE SODIUM INJ 100 MCG/5 ML VIAL 62.5 MCG IV PUSH (06:41)
[2023-10-12 08:02] LABS: Glucose Point of Care 266 mg/dl (65-105)
[2023-10-12] MEDS: VITAMIN E 100 UNIT CAPSULE 200 UNIT PO (08:30)
[2023-10-12] MEDS: INSULIN ASPART (*BKC) 100 UNITS/ML SUB-Q ×4 (08:30→21:56)
[2023-10-12] MEDS: BENZONATATE 100 MG CAPSULE 200 MG PO ×3 (08:30→16:29)
[2023-10-12] MEDS: PANTOPRAZOLE SODIUM IV 40 MG VIAL IV PUSH (08:30)
[2023-10-12] MEDS: MULTIVITAMINS THERAPEUTIC TAB (*BKC) 1 TABLET PO (08:30)
[2023-10-12] MEDS: ENOXAPARIN 40 MG/0.4 ML SYRINGE SUB-Q (08:30)
[2023-10-12] MEDS: SPIRONOLACTONE 25 MG TABLET PO (08:30)
[2023-10-12] MEDS: BENZOCAINE/MENTHOL (*BKC) 18 EA LOZENGE 1 LOZENGE PO (08:40)
--- NOTE | 2023-10-12 10:37 | PM.IMPN ---
Progress Note: A&P Assessment and Plan (1) Hypothyroidism: Code(s): E03.9 - Hypothyroidism, unspecified Status: Acute (2) Elevated hemoglobin: Code(s): D58.2 - Other hemoglobinopathies Status: Acute (3) Cough: Code(s): R05.9 - Cough, unspecified Status: Acute (4) Elevated troponin: Code(s): R79.89 - Other specified abnormal findings of blood chemistry Status: Acute (5) Diabetes mellitus: Code(s): E11.9 - Type 2 diabetes mellitus without complications Status: Acute (6) Hypokalemia: Code(s): E87.6 - Hypokalemia Status: Acute (7) Seizure: Code(s): R56.9 - Unspecified convulsions Status: Acute Plan 58-year-old female presents here with cough, sore throat, nausea/vomiting with past medical history of ADHD, former alcoholism, depression/anxiety, diabetes, dyslipidemia, HTN, and hypothyroidism. Patient reports that she is been experiencing a cough, sore throat, post-tussive nausea/vomiting, and insomnia secondary to the cough.?? Symptom onset was 6 days ago.? Also accompanied by dizziness with position changes.? Due to nausea/vomiting secondary to cough, she has been unable to keep down her medications for the past 5 days.? No current diarrhea or constipation.? Poor p.o. intake.? Reports history of alcohol abuse, now occasionally binge drinks approximately 1 pint of hard alcohol every few weeks. last drink was on new year's [place]. ED workup revealed a normal WBC, mild anemia at 11.8, elevated D-dimer, mild hyponatremia with a sodium of 132, mild hypokalemia at 3.1, creatinine at baseline at 0.5, initial glucose 270, calcium 8.0, and troponin 0.047.? Chest CTA showed no PE or dissection, clear lungs and new T12 compression fracture when compared to prior. (1) Elevated troponin: ?Code(s): R79.89 - Other specified abnormal findings of blood chemistry ?Status:?Acute ?Assessment and Plan: Troponin: 0.051 ->? 0.047 -> 0.033. EKG, initial:? Sinus tachycardia with a rate of 124, abnormal EKG when compared to prior in 2021, sinus tachycardia now present.? EKG, repeat:? Sinus tachycardia with a rate of 117, abnormal EKG, when compared to prior earlier today, no significant changes. Initial heart rate 130s to 140s, post IV fluids, now low 100s.? Suspect initial troponin bumped due to demand ischemia secondary to heart rate and possible dehydration. 10/11 TNP nwl and ekg shows sinus rhythm, sinus tachycardia nonspecific ST T-wave changes Telemetry monitoring order echocardiogram (2) Cough, possible atypical pneumonia ?Code(s): R05.9 - Cough, unspecified ?Status:?Acute ?Assessment and Plan: Viral PCR negative for COVID, flu, RSV.? Strep A negative.? CTA of chest showed no evidence of PE, aortic dissection, or aortic aneurysm.? Clear lungs.? T12 compression fracture, new compared to prior exam in 2021.? Started on antitussives and lozenges. cough is dry Continue albuterol/Atrovent. Patient still has severe cough, shortness with cough Denies any previous history of smoking. Patient may have atypical pneumonia Start Levaquin IV and methylprednisolone IV Follow-up mycoplasma IgM and Legionella urine antigen Patient feels symptoms have improved significantly, continue Levaquin and with Apresoline IV 10/12 Possible alcoholic gastritis N&V, starting PPI - pantoprazole IVP. Dehydration, hyponatremia, hypokalemia, hypomagnesemia anemia RBC 3.76, hemoglobin 11.8, hct 34 - hemoconcentrated.? Has been unable to tolerate p.o. for 5 days and reporting dizziness with positional changes.? Suspect dehydration.? Given 2 L of NS and 520 mLs for K IVPB. Started on maintenance fluids - 100 mL/hr of NS x1L. Reassess CBC and orthostatic VS QShift. Magnesium 0.9, potassium 3.1 sodium 132 Start normal saline IV Replete with potassium chloride IV and p.o., replete with magnesium sulfate 2 g IV x2 Magnesium 2.1 today 10/12 (4) Diabetes mellitus: ? ?
[2023-10-12 11:09] LABS: Basophils Percent Auto 0.1 % (0.2-1.2); Hematocrit 34.6 % (37.0-47.0); Hemoglobin 11.6 g/dL (12.0-15.0); Immature Granulocyte Absolute 0.14 K/mm3 (0.00-0.031); Lymphocytes Percent Auto 5.6 % (18.3-44.2); Mean Corpuscular HGB Conc 33.5 g/dl (32-36); Mean Corpuscular Hemoglobin 31.3 pg (26-34); Mean Corpuscular Volume 93.3 fl (80-100); Mean Platelet Volume 9.9 fl (7.4-10.4); Monocytes Absolute Auto 0.3 K/mm3 (0.1-0.6); Monocytes Percent Auto 4.4 % (2.6-8.5); Neutrophils Absolute Auto 6.3 K/mm3 (1.3-6.7); Neutrophils Percent Auto 87.9 % (45.5-73.1); Platelet Count Result 151 k/mm3 (150-375); Red Blood Count 3.71 M/mm3 (4.2-5.4); Red Cell Distribution Width 12.9 % (11.5-14.5); White Blood Count 7.1 K/mm3 (4.5-10.0)
[2023-10-12 11:27] LABS: Anion Gap 12 mmol/L (8-16); Blood Urea Nitrogen 13 mg/dL (7-17); Calcium 8.6 mg/dL (8.4-10.2); Carbon Dioxide 20 mmol/L (22-30); Chloride 100 mmol/L (98-107); Estimated CRCL calculation 84 ml/min; Estimated Glomerular Filt Rate > 60; Glucose 264 mg/dL (65-110); Potassium 3.5 mmol/L (3.4-5.0); Sodium 132 mmol/L (137-145)
[2023-10-12 12:15] LABS: Glucose Point of Care 286 mg/dl (65-105)
--- NOTE | 2023-10-12 16:08 | ADMGEN ---
This patient, Viktoria Grant, was admitted to 3 Medical Room 340-01 from ICU - 5. Patient/family oriented to hospital policies and general routines including ID bracelet, bed and alarms, visiting hours, pain management, procedures, bathroom and other care routines, personal items, smoking policy, room service/diet, and visiting hours. Information on how to activate the Rapid Response Team has been discussed. Patient/Family are encouraged to report perceived risks to care and to ask questions if they do not understand what they are told or what they should do.
--- NOTE | 2023-10-12 16:11 | PC.NURSE ---
This patient, Viktoria Grant, was transferred to [340 ] on 10/12/23 at 1600. Personal belongings sent with patient. Appropriate documentation sent with patient.
[2023-10-12] MEDS: levoFLOXacin 750 MG/D5W 150 ML 750 MG/150 ML BAG 100 MG IVPB (16:22)
[2023-10-12 17:41] LABS: Glucose Point of Care 310 mg/dl (65-105)
[2023-10-12] MEDS: CHLORTHALIDONE 25 MG TABLET PO (21:47)
[2023-10-12] MEDS: MAGNESIUM OXIDE 400 MG TABLET PO (21:47)
[2023-10-12] MEDS: FOLIC ACID 1 MG TABLET PO (21:47)
[2023-10-12] MEDS: POTASSIUM CHLORIDE 10 MEQ ER TABLET PO (21:47)
[2023-10-12] MEDS: PRAVASTATIN SODIUM 10 MG TABLET PO (21:47)
[2023-10-12] MEDS: atenoloL 50 MG TABLET PO (22:03)
[2023-10-13] MEDS: guaiFENesin/CODEINE (*CRX) 200/20 MG 10 ML SYRUP PO ×2 (01:53→06:23)
[2023-10-13 06:00] VITALS: BP 158/90; PULSE 73; RESP 20; TEMP 36.1; O2SAT 98
[2023-10-13] MEDS: LEVOTHYROXINE SODIUM INJ 100 MCG/5 ML VIAL 62.5 MCG IV PUSH (06:23)
[2023-10-13 07:02] LABS: Glucose Point of Care 242 mg/dl (65-105)
[2023-10-13 07:42] VITALS: BP 158/90; PULSE 73; RESP 20; TEMP 36.1; O2SAT 98
[2023-10-13] MEDS: methylPREDNISolone SOD SUCC 40 MG VIAL IV PUSH (08:26)
[2023-10-13] MEDS: MULTIVITAMINS THERAPEUTIC TAB (*BKC) 1 TABLET PO (08:26)
[2023-10-13] MEDS: PANTOPRAZOLE SODIUM IV 40 MG VIAL IV PUSH (08:26)
[2023-10-13] MEDS: SPIRONOLACTONE 25 MG TABLET PO (08:26)
[2023-10-13] MEDS: ENOXAPARIN 40 MG/0.4 ML SYRINGE SUB-Q (08:26)
[2023-10-13] MEDS: BENZONATATE 100 MG CAPSULE 200 MG PO ×2 (08:26→12:31)
[2023-10-13 08:32] LABS: Glucose Point of Care 219 mg/dl (65-105)
[2023-10-13] MEDS: INSULIN ASPART (*BKC) 100 UNITS/ML SUB-Q ×2 (08:39→12:23)
[2023-10-13] MEDS: VITAMIN E 100 UNIT CAPSULE 200 UNIT PO (10:00)
[2023-10-13 10:11] LABS: Basophils Percent Auto 0.1 % (0.2-1.2); Hematocrit 35.1 % (37.0-47.0); Hemoglobin 11.2 g/dL (12.0-15.0); Immature Granulocyte Absolute 0.07 K/mm3 (0.00-0.031); Immature Granulocyte Percent A 0.8 % (0-0.5); Lymphocytes Absolute Auto 0.67 K/mm3 (0.9-3.2); Lymphocytes Percent Auto 7.8 % (18.3-44.2); Mean Corpuscular HGB Conc 31.9 g/dl (32-36); Mean Corpuscular Hemoglobin 30.9 pg (26-34); Mean Corpuscular Volume 96.7 fl (80-100); Mean Platelet Volume 9.7 fl (7.4-10.4); Monocytes Absolute Auto 0.5 K/mm3 (0.1-0.6); Monocytes Percent Auto 6.1 % (2.6-8.5); Neutrophils Absolute Auto 7.3 K/mm3 (1.3-6.7); Neutrophils Percent Auto 85.2 % (45.5-73.1); Platelet Count Result 160 k/mm3 (150-375); Red Blood Count 3.63 M/mm3 (4.2-5.4); Red Cell Distribution Width 13.2 % (11.5-14.5); White Blood Count 8.6 K/mm3 (4.5-10.0)
[2023-10-13 10:21] LABS: Anion Gap 10 mmol/L (8-16); Blood Urea Nitrogen 19 mg/dL (7-17); Calcium 8.8 mg/dL (8.4-10.2); Carbon Dioxide 23 mmol/L (22-30); Chloride 100 mmol/L (98-107); Estimated CRCL calculation 84 ml/min; Estimated Glomerular Filt Rate > 60; Glucose 250 mg/dL (65-110); Potassium 3.8 mmol/L (3.4-5.0); Sodium 133 mmol/L (137-145)
--- NOTE | 2023-10-13 10:27 | PM.IMPN ---
Progress Note: A&P Assessment and Plan (1) Hypothyroidism: Code(s): E03.9 - Hypothyroidism, unspecified Status: Acute (2) Elevated hemoglobin: Code(s): D58.2 - Other hemoglobinopathies Status: Acute (3) Cough: Code(s): R05.9 - Cough, unspecified Status: Acute (4) Elevated troponin: Code(s): R79.89 - Other specified abnormal findings of blood chemistry Status: Acute (5) Diabetes mellitus: Code(s): E11.9 - Type 2 diabetes mellitus without complications Status: Acute (6) Hypokalemia: Code(s): E87.6 - Hypokalemia Status: Acute (7) Seizure: Code(s): R56.9 - Unspecified convulsions Status: Acute Plan 58-year-old female presents here with cough, sore throat, nausea/vomiting with past medical history of ADHD, former alcoholism, depression/anxiety, diabetes, dyslipidemia, HTN, and hypothyroidism. Patient reports that she is been experiencing a cough, sore throat, post-tussive nausea/vomiting, and insomnia secondary to the cough.?? Symptom onset was 6 days ago.? Also accompanied by dizziness with position changes.? Due to nausea/vomiting secondary to cough, she has been unable to keep down her medications for the past 5 days.? No current diarrhea or constipation.? Poor p.o. intake.? Reports history of alcohol abuse, now occasionally binge drinks approximately 1 pint of hard alcohol every few weeks. last drink was on new year's Lam[place]. ED workup revealed a normal WBC, mild anemia at 11.8, elevated D-dimer, mild hyponatremia with a sodium of 132, mild hypokalemia at 3.1, creatinine at baseline at 0.5, initial glucose 270, calcium 8.0, and troponin 0.047.? Chest CTA showed no PE or dissection, clear lungs and new T12 compression fracture when compared to prior. (1) Elevated troponin: ?Code(s): R79.89 - Other specified abnormal findings of blood chemistry ?Status:?Acute ?Assessment and Plan: Troponin: 0.051 ->? 0.047 -> 0.033. EKG, initial:? Sinus tachycardia with a rate of 124, abnormal EKG when compared to prior in 2021, sinus tachycardia now present.? EKG, repeat:? Sinus tachycardia with a rate of 117, abnormal EKG, when compared to prior earlier today, no significant changes. Initial heart rate 130s to 140s, post IV fluids, now low 100s.? Suspect initial troponin bumped due to demand ischemia secondary to heart rate and possible dehydration. 10/11 TNP nwl and ekg shows sinus rhythm, sinus tachycardia nonspecific ST T-wave changes Telemetry monitoring order echocardiogram 10/13: echo reports ? 1. Complete two-dimensional, color flow and Doppler transthoracic echocardiogram is performed. ? 2. Normal left ventricular size and thickness with good contractility of all segments.? No segmental wall motion abnormalities.? Ejection fraction 60-65%. Normal diastolic function. ? 3. Left atrial chamber dimension is mildly enlarged. ? 4. No significant valve disease. ? 5. Borderline pulmonary hypertension, RVSP 35 mmHg. ? 6. Probable sinus rhythm. Elevated troponin likely secondary to demand ischemia (2) Cough, possible atypical pneumonia ?Code(s): R05.9 - Cough, unspecified ?Status:?Acute ?Assessment and Plan: Viral PCR negative for COVID, flu, RSV.? Strep A negative.? CTA of chest showed no evidence of PE, aortic dissection, or aortic aneurysm.? Clear lungs.? T12 compression fracture, new compared to prior exam in 2021.? Started on antitussives and lozenges. cough is dry Continue albuterol/Atrovent. Patient still has severe cough, shortness with cough Denies any previous history of smoking. Patient may have atypical pneumonia Start Levaquin IV and methylprednisolone IV Follow-up mycoplasma IgM and Legionella urine antigen Patient feels symptoms have improved significantly, continue Levaquin and with methylprednisolone IV 10/12 10/13 dc methylprednisolone today, changed to Levaquin 750 mg daily for 4 more days, Possible alcoholic g
[2023-10-13 12:02] LABS: Glucose Point of Care 350 mg/dl (65-105)
--- NOTE | 2023-10-13 12:27 | PM.DS ---
DS: Admitting Diagnosis Discharge Date 10/13/23 Admitting Diagnosis (1) Hypothyroidism: ?Code(s): E03.9 - Hypothyroidism, unspecified ?Status:?Acute (2) Elevated hemoglobin: ?Code(s): D58.2 - Other hemoglobinopathies ?Status:?Acute (3) Cough: ?Code(s): R05.9 - Cough, unspecified ?Status:?Acute (4) Elevated troponin: ?Code(s): R79.89 - Other specified abnormal findings of blood chemistry ?Status:?Acute (5) Diabetes mellitus: ?Code(s): E11.9 - Type 2 diabetes mellitus without complications ?Status:?Acute (6) Hypokalemia: ?Code(s): E87.6 - Hypokalemia ?Status:?Acute (7) Seizure: ?Code(s): R56.9 - Unspecified convulsions ?Status:?Acute DS: Discharge Diagnosis Discharge Diagnosis (1) Hypothyroidism: Code(s): E03.9 - Hypothyroidism, unspecified Status: Acute (2) Elevated hemoglobin: Code(s): D58.2 - Other hemoglobinopathies Status: Acute (3) Cough: Code(s): R05.9 - Cough, unspecified Status: Acute (4) Elevated troponin: Code(s): R79.89 - Other specified abnormal findings of blood chemistry Status: Acute (5) Diabetes mellitus: Code(s): E11.9 - Type 2 diabetes mellitus without complications Status: Acute (6) Hypokalemia: Code(s): E87.6 - Hypokalemia Status: Acute (7) Seizure: Code(s): R56.9 - Unspecified convulsions Status: Acute DS: Summary Hospital Course Hospital Course: Per H&P, 58-year-old female presents here with cough, sore throat, nausea/vomiting with past medical history of ADHD, former alcoholism, depression/anxiety, diabetes, dyslipidemia, HTN, and hypothyroidism. Patient reports that she is been experiencing a cough, sore throat, post-tussive nausea/vomiting, and insomnia secondary to the cough.?? Symptom onset was 6 days ago.? Also accompanied by dizziness with position changes.? Due to nausea/vomiting secondary to cough, she has been unable to keep down her medications for the past 5 days.? No current diarrhea or constipation.? Poor p.o. intake.? Reports history of alcohol abuse, now occasionally binge drinks approximately 1 pint of hard alcohol every few weeks. last drink was on new year's [place]. ED workup revealed a normal WBC, mild anemia at 11.8, elevated D-dimer, mild hyponatremia with a sodium of 132, mild hypokalemia at 3.1, creatinine at baseline at 0.5, initial glucose 270, calcium 8.0, and troponin 0.047.? Chest CTA showed no PE or dissection, clear lungs and new T12 compression fracture when compared to prior. The following medical issues have been addressed during hospitalization (1) Elevated troponin: ?Code(s): R79.89 - Other specified abnormal findings of blood chemistry ?Status:?Acute ?Assessment and Plan: Troponin: 0.051 ->? 0.047 -> 0.033. EKG, initial:? Sinus tachycardia with a rate of 124, abnormal EKG when compared to prior in 2021, sinus tachycardia now present.? EKG, repeat:? Sinus tachycardia with a rate of 117, abnormal EKG, when compared to prior earlier today, no significant changes. Initial heart rate 130s to 140s, post IV fluids, now low 100s.? Suspect initial troponin bumped due to demand ischemia secondary to heart rate and possible dehydration. 10/11 TNP nwl and ekg shows sinus rhythm, sinus tachycardia nonspecific ST T-wave changes Telemetry monitoring order echocardiogram 10/13: echo reports ? 1. Complete two-dimensional, color flow and Doppler transthoracic echocardiogram is performed. ? 2. Normal left ventricular size and thickness with good contractility of all segments.? No segmental wall motion abnormalities.? Ejection fraction 60-65%. Normal diastolic function. ? 3. Left atrial chamber dimension is mildly enlarged. ? 4. No significant valve disease. ? 5. Borderline pulmonary hypertension, RVSP 35 mmHg. ? 6. Probable sinus rhythm. Elevated troponin likely secondary to demand ischemia (2) Coug
[2023-10-16 14:11] LABS: Mycoplasma IgM Antibody Titer 576 U/mL (<770)
== END 2023-10-13 14:10 | disposition home or self-care (01) | DRG 198 ==
LOC: ANHED 14:05 → ANHICU 15:10 → ANH3MED 10-13 12:19 → ANHICU 10-15 15:34
PROVIDERS: Student in an Organized Health Care Education/Training Program; Admitting Provider Internal Medicine; Emergency Provider Emergency Medicine; PCP Internal Medicine; Visit Provider Hospitalist
DX: R79.89 Other specified abnormal findings of blood chemistry (principal); I24.89 Other forms of acute ischemic heart disease; E87.1 Hypo-osmolality and hyponatremia; E86.0 Dehydration; E87.6 Hypokalemia; I10 Essential (primary) hypertension; R05.9 Cough, unspecified; D58.2 Other hemoglobinopathies; E11.9 Type 2 diabetes mellitus without complications; E78.5 Hyperlipidemia, unspecified; E03.9 Hypothyroidism, unspecified; F10.20 Alcohol dependence, uncomplicated; F41.8 Other specified anxiety disorders; R56.9 Unspecified convulsions; Z90.49 Acquired absence of other specified parts of digestive tract; Z20.822 Contact with and (suspected) exposure to COVID-19; Z90.710 Acquired absence of both cervix and uterus
CPT/HCPCS: 36415; 71275; 80048; 80053; 82948; 83036; 83735; 84439; 84443; 84480; 84484; 85025; 85055; 85380; 86738; 87486; 87637; 87651; 93005; 93306; 94640; 96361; 96365; 96366; 96367; 96372; 96374; 96375; 96376; 99285; A9270; C9113; G0378; J1650; J1815; J1956; J2920; J3475; J3480; J7030; J7040; Q9967

== ENCOUNTER 2024-03-23 18:15 | Emergency (ER) | payer OTHER, SELFPAY ==
--- NOTE | ~2024-03-23 | XR_ITS ---
EXAMINATION: XR forearm RT 2V DATE: 03/23/2024 19:05 INDICATION: Fall. Right forearm injury. TECHNIQUE: 2 views of right forearm were obtained. COMPARISON: Right elbow radiograph 03/16/2022 FINDINGS: Bone alignment is normal. No fracture. Joint spaces are normal. No elbow joint effusion. IMPRESSION: 1. No fracture. Reviewed, dictated and finalized at location E. IMPRESSION: 1. No fracture.
[2024-03-23 18:18] VITALS: BP 167/94; PULSE 102; RESP 16; TEMP 37; O2SAT 100
--- NOTE | 2024-03-23 19:48 | ED.FALL ---
HPI - Fall General Chief Complaint: Fall Stated Complaint: fall Time Seen by Provider: 03/23/24 19:13 Source: patient Mode of arrival: ambulatory Limitations: no limitations History of Present Illness HPI Narrative: Patient presents to the emergency department for right forearm injury sustained several days prior to arrival. Reports hitting her forearm on a table. She did not hit her head or lose consciousness. Reports bruising and mild pain to the area. Her work wanted to make sure that she did not have a fracture and wanted her to be seen. Denies decreased ROM or numbness. Related Data Home Medications Medication Instructions Recorded Confirmed atenolol 50 mg-chlorthalidone 25 1 tablet PO HS 05/28/20 10/10/23 mg tablet levothyroxine 125 mcg tablet 125 mcg PO HS 05/28/20 10/10/23 (Euthyrox) potassium chloride 10 mEq 10 meq PO HS 05/28/20 10/10/23 tablet,extended release pravastatin 10 mg tablet 10 mg PO HS 05/28/20 10/10/23 spironolactone 25 mg tablet 25 mg PO DAILY 05/28/20 10/10/23 folic acid 1 mg tablet 1 mg PO HS 10/13/20 10/10/23 magnesium oxide 400 mg PO HS 10/13/20 10/10/23 vitamin E 200 unit capsule 200 unit PO DAILY 01/12/21 10/10/23 multivitamin 1 tablet PO DAILY 05/16/22 10/10/23 Allergies Allergy/AdvReac Type Severity Reaction Status Date / Time No Known Allergies Allergy Verified 10/10/23 12:00 Review of Systems Review of Systems: CONSTITUTIONAL: Denies fever SKIN: Reports bruising MUSCULOSKELETAL: Denies joint pain, or myalgia. All systems reviewed & are unremarkable except as noted in HPI and below [facility] Past Medical History Medical History (Updated 03/23/24 @ 19:49 by Liliana Chauhan PA-C) ADHD Alcoholism BMI 26.0-26.9,adult Depression with anxiety Diabetes mellitus hemoglobin A1c 05/29/2020 4.8 Dyslipidemia Essential hypertension Hypertension Hypothyroidism Surgical History Surgical History (Updated 10/10/23 @ 23:50 by Eva Chirinos APRN) Fracture of humeral shaft, left, closed IM deepti 09/2020 History of appendectomy History of colonoscopy with polypectomy History of total hysterectomy with bilateral salpingo-oophorectomy (BSO) due to fibroid Hx of tonsillectomy Previous back surgery removed tumor from back 2009, [facility] Family History Family History Sibling Asthma Diabetes mellitus Mother Cerebrovascular accident Hypertension Sibling Diabetes mellitus Alcoholism Father Hypertension Social History Social History Social History: The patient lives [facility] with her of 12 years. She has had a struggle with alcoholism for the last 20 years. She went through alcohol treatment programs 13 years ago when her 1st . She went through alcohol treatment program again about 2 years ago at [place]. She drinks 2 pt of vodka several times a week. She does not retain the use marijuana and states that she does not like it because it makes her sleep. She has never smoked. 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 Primary care physician: Dr. Bud Valladares Smoking status: Never smoker Second hand tobacco smoke exposure: No Alcohol intake: current Drinks per week: 149 Alcohol use details: 2 pints vodka daily Substance use: never Other substance usage details: STATES DRANK 2PT VODKA/DAY Last use: last drink 09/23/23 Do You Feel Safe in your Home?: Yes Lack of Transportation: No Lack of Food: Never True Current Housing: I Have Housing Concerned About Future Housing: No Difficulty Paying Gas/Electric Bills: No Difficulty Paying for Meds: No Currently Unemployed: No Education: Associate Degree Difficulty w/ Childcare or Family Care: No Living arrangements: with family Gender identity (if verbalized by the patient): Female Spiritual care concerns: No Exa
== END 2024-03-23 20:04 | disposition home or self-care (01) ==
PROVIDERS: Emergency Provider Physician Assistant; PCP Internal Medicine
DX: S50.11XA Contusion of right forearm, initial encounter (principal); I10 Essential (primary) hypertension; E78.5 Hyperlipidemia, unspecified; E11.9 Type 2 diabetes mellitus without complications; E03.9 Hypothyroidism, unspecified; Z86.010 Personal history of colon polyps; Z90.710 Acquired absence of both cervix and uterus; Z90.79 Acquired absence of other genital organ(s); Z90.722 Acquired absence of ovaries, bilateral; W01.190A Fall on same level from slipping, tripping and stumbling with subsequent striking against furniture, initial encounter; Z79.84 Long term (current) use of oral hypoglycemic drugs; Z79.899 Other long term (current) drug therapy
CPT/HCPCS: 73090; 99283

== ENCOUNTER 2024-05-19 11:35 | Emergency (ER) | payer OTHER, SELFPAY ==
--- NOTE | ~2024-05-19 | CT_ITS ---
EXAMINATION: CT cervical spine wo con DATE: 05/19/2024 12:37 INDICATION: Fall with unsteady gait and slurred speech TECHNIQUE: Computed tomography (CT) of the cervical spine was performed without intravenous contrast. Automated exposure control and iterative reconstruction technique were employed. The dose-length pro duct was 387.12 mGy-cm. COMPARISON: None FINDINGS: Bone alignment is normal. Vertebral body heights are normal. No fracture. Moderate disc height loss a t C5-C6. Mild disc height loss at C3-C4 and C4-C5. Disc bulges result in mild central canal stenosis at C2-C3 through C5-C6. There is moderate to severe bilateral uncovertebral osteoarthritis at C5-C6 w ith mild to moderate uncovertebral osteoarthritis at the remainder of the cervical spine. There is se laura facet osteoarthritis on the right that C3-C4 and C4-C5. Mild to moderate facet osteoarthritis th roughout remainder of the cervical spine. There is moderate neural foraminal stenosis on the right at C5-C6 with mild neural from stenosis. Additional levels in both the left and right. Densely calcifie d small bilateral thyroid nodules. Cervical soft tissues are otherwise unremarkable. The visualized a pices of the lungs are clear. IMPRESSION: 1. Moderate cervical spondylosis. No acute osseous abnormality. Reviewed, dictated and finalized at location A.
--- NOTE | ~2024-05-19 | XR_ITS ---
Clinical Indication: Status post fall PA and lateral views of the chest: Comparison: 01/12/2022 Findings: The lungs are clear, without evidence of focal consolidation or pleural effusion. Cardiome diastinal silhouette is within normal limits. There is moderate compression deformity of L1. Impression: Clear lungs. Moderate L1 compression deformity, age-indeterminate. Reviewed, dictated and finalized at location . Impression: Clear lungs. Moderate L1 compression deformity, age-indeterminate.
--- NOTE | ~2024-05-19 | XR_ITS ---
EXAMINATION: XR hand LT min 3V DATE: 05/19/2024 12:57 INDICATION: Fall with injury, decreased range of motion and abrasions to the left fifth digit TECHNIQUE: Posteroanterior, oblique and lateral views of the left hand were obtained. COMPARISON: None. FINDINGS: There is dorsal dislocation at the fifth metacarpophalangeal joint with one similar proximal migratio n of the base of the proximal phalanx relative to the head of the fifth metacarpal. No fracture. Alig nment is otherwise normal. Mild particular osteoporosis of multiple joints in the left hand. Diffuse osteopenia. IMPRESSION: 1. Dorsal dislocation of the left fifth metacarpophalangeal joint. No fracture. Reviewed, dictated and finalized at location A.
--- NOTE | ~2024-05-19 | XR_ITS ---
EXAMINATION: XR pelvis 1-2V DATE: 05/19/2024 12:57 INDICATION: Pelvic pain post fall TECHNIQUE: An anteroposterior view of the pelvis was obtained. COMPARISON: 05/23/2023 FINDINGS: Alignment is normal. Old healed fracture deformity of the left pubic body and inferior pubic ramus. N o acute fracture. Mild osteoarthritis of the bilateral hip and sacroiliac joints. A few phleboliths i n the pelvis. IMPRESSION: 1. No acute osseous abnormality. Reviewed, dictated and finalized at location A.
--- NOTE | ~2024-05-19 | CT_ITS ---
EXAMINATION: CT brain wo con DATE: 05/19/2024 12:37 INDICATION: Fall with slurred speech and unsteady gait. TECHNIQUE: Computed tomography (CT) of the head was performed without intravenous contrast. Sagittal and coronal reconstructions were performed. The mA was adjusted according to patient size. Iterative reconstruction technique was employed. The dose-length product was 605.33 mGy-cm. COMPARISON: head CT dated 12/08/2021 FINDINGS: No fracture. No acute intracranial hemorrhage, acute infarction or abnormal extra axial fluid collect ion. There is mild scattered white matter hypoattenuation consistent with chronic small vessel ischem ic disease. Ventricles are normal and symmetric. Symmetric prominence of the sulci consistent with mi ld age-appropriate diffuse cerebral volume loss. No mass/mass effect. Moderate mucosal thickening in the bilateral ethmoid sinuses. The orbits and mastoid air cells are normal. IMPRESSION: 1. No fracture or acute intracranial process. Line 2. Age-related changes in the brain including mild diffuse volume loss and mild scattered white matte r hypoattenuation consistent with chronic small vessel ischemic disease. Reviewed, dictated and finalized at location A. IMPRESSION: 1. No fracture or acute intracranial process. Line 2. Age-related changes in the brain including mild diffuse volume loss and mild scattered white matter hypoattenuation consistent with chronic small vessel is chemic disease.
[2024-05-19 11:55] VITALS: BP 123/70; PULSE 82; RESP 16; TEMP 36.4; O2SAT 97
--- NOTE | 2024-05-19 12:16 | ECG_ITS ---
Test Date: 2024-05-19 12:17:52 Measurements Intervals Howe Rate: 80 P: 7 OH: 159 QRS: 12 QRSD: 119 T: 0 QT: 407 QTc: 470 Interpretive Statements SINUS RHYTHM WITHIN NORMAL LIMITS No previous ECG available for comparison Electronically Signed On 05-20-2024 07:23:53 CDT by Reji Kim M.D.
--- NOTE | 2024-05-19 12:17 | ED.NEUROSD ---
HPI - Neuro Symptoms/Deficit General Chief Complaint: Neuro Symptoms/Deficit <Liliana Chauhan PA-C - Last Filed: 05/20/24 09:43> Stated Complaint: unable to keep balance, slurring when speaking <Liliana Chauhan PA-C - Last Filed: 05/20/24 09:43> Time Seen by Provider: 05/19/24 12:17 <Liliana Chauhan PA-C - Last Filed: 05/20/24 09:43> Focused HPI: This is a 59 year old female that presents to the ER after a fall at work today. Reports she tripped and fell. Her coworkers were concerned that she didn't seem to be able to keep her balance and was slurring her words so sent her in for evaluation. She sustained an injury to her left hand. Otherwise has no complaints. GENERAL: Well-appearing, well-nourished, and in no acute distress. HEAD: Normocephalic, atraumatic. CHEST: Clear to auscultation. ?No respiratory distress. HEART: Regular rate and rhythm.? NEURO: ?Alert and oriented x3. Patient screened in triage and initial orders placed.? ?Additional care and disposition to be based upon?diagnostic testing and treatment. <Liliana Chauhan PA-C - Last Filed: 05/20/24 09:43> History of Present Illness HPI Narrative: 59-year-old with a history of hypertension hypercholesteremia, alcoholism was brought in with slurring of speech and fall. Patient states that she drinks alcohol daily had few drinks before going to work fell at work no complaints of pain to her left breast and her 5th finger of the left hand <Vamsi Lewis MD - Last Filed: 05/19/24 20:23> History of same: Yes <Vamsi Lewis MD - Last Filed: 05/19/24 20:23> Context: sudden onset <Vamsi Lewis MD - Last Filed: 05/19/24 20:23> Associated symptoms: denies other symptoms <Vamsi Lewis MD - Last Filed: 05/19/24 20:23> Related Data Home Medications: Home Medications Medication Instructions Recorded Confirmed atenolol 50 mg-chlorthalidone 25 1 tablet PO HS 05/28/20 10/10/23 mg tablet levothyroxine 125 mcg tablet 125 mcg PO HS 05/28/20 10/10/23 (Euthyrox) potassium chloride 10 mEq 10 meq PO HS 05/28/20 10/10/23 tablet,extended release pravastatin 10 mg tablet 10 mg PO HS 05/28/20 10/10/23 spironolactone 25 mg tablet 25 mg PO DAILY 05/28/20 10/10/23 folic acid 1 mg tablet 1 mg PO HS 10/13/20 10/10/23 magnesium oxide 400 mg PO HS 10/13/20 10/10/23 vitamin E 200 unit capsule 200 unit PO DAILY 01/12/21 10/10/23 multivitamin 1 tablet PO DAILY 05/16/22 10/10/23 <Liliana Chauhan PA-C - Last Filed: 05/20/24 09:43> Allergies/Adverse Reactions: Allergies Allergy/AdvReac Type Severity Reaction Status Date / Time No Known Allergies Allergy Verified 05/19/24 11:36 <Liliana Chauhan PA-C - Last Filed: 05/20/24 09:43> Review of Systems Review of Systems: All systems reviewed & are unremarkable except as noted in HPI and below <Vamsi Lewis MD - Last Filed: 05/19/24 20:23> Constitutional: Constitutional: Reports no additional constitutional complaints <Vamsi Lewis MD - Last Filed: 05/19/24 20:23> Eyes: Eyes: Reports no additional eye complaints <Vamsi Lewis MD - Last Filed: 05/19/24 20:23> ENT: Reports system reviewed and no additional complaints, except as documented <Vamsi Lewis MD - Last Filed: 05/19/24 20:23> Cardiovascular: Cardiovascular: Reports no additional cardiovascular complaints <Vamsi Lewis MD - Last Filed: 05/19/24 20:23> Respiratory: Respiratory: Reports no additional respiratory complaints <Vamsi Lewis MD - Last Filed: 05/19/24 20:23> Gastrointestinal: Gastrointestinal: Reports no additional gastrointestinal complaints <Vasmi Lewis MD - Last Filed: 05/19/24 20:23> Musculoskeletal: Musculoskeletal: Reports as per HPI <Vamsi Lewis MD - Last Filed: 05/19/24 20:23> Neurologic: Reports system reviewed and no additional complaints, except as documented <Vamsi Lewis MD - Last Filed: 05/19/24 20:23> PMFSH Past Medical History Medical His
[2024-05-19 12:33] LABS: Basophils Absolute Auto 0.1 K/mm3 (0.0-0.1); Basophils Percent Auto 1.1 % (0.2-1.2); Eosinophils Absolute Auto 0.1 K/mm3 (0-0.3); Eosinophils Percent Auto 1.9 % (0-4.4); Hematocrit 34.1 % (37.0-47.0); Hemoglobin 11.3 g/dL (12.0-15.0); Immature Granulocyte Absolute 0.02 K/mm3 (0.00-0.031); Immature Granulocyte Percent A 0.4 % (0-0.5); Lymphocytes Absolute Auto 2.08 K/mm3 (0.9-3.2); Mean Corpuscular HGB Conc 33.1 g/dl (32-36); Mean Corpuscular Hemoglobin 27.8 pg (26-34); Mean Corpuscular Volume 83.8 fl (80-100); Mean Platelet Volume 9.5 fl (7.4-10.4); Monocytes Absolute Auto 0.5 K/mm3 (0.1-0.6); Monocytes Percent Auto 8.8 % (2.6-8.5); Neutrophils Absolute Auto 2.6 K/mm3 (1.3-6.7); Neutrophils Percent Auto 48.8 % (45.5-73.1); Platelet Count Result 114 k/mm3 (150-375); Red Blood Count 4.07 M/mm3 (4.2-5.4); Red Cell Distribution Width 17.2 % (11.5-14.5); White Blood Count 5.3 K/mm3 (4.5-10.0)
[2024-05-19 12:44] LABS: Alanine Aminotransferase 24 U/L (6-35); Albumin Level 3.7 g/dL (3.5-5.1); Alkaline Phosphatase 142 U/L (38-126); Anion Gap 18 mmol/L (4-12); Aspartate Amino Transferase 69 U/L (14-36); Bilirubin,Total 1.3 mg/dL (0.2-1.3); Blood Urea Nitrogen 15 mg/dL (7-17); Calcium 7.7 mg/dL (8.4-10.2); Carbon Dioxide 27 mmol/L (22-30); Chloride 93 mmol/L (98-107); Estimated CRCL calculation 83 ml/min; Estimated Glomerular Filt Rate > 60; Glucose 337 mg/dL (65-110); Potassium 2.9 mmol/L (3.4-5.0); Sodium 138 mmol/L (137-145)
[2024-05-19 12:50] LABS: INR 1.7; Prothrombin Time 20.6 Seconds (11.1-14.7)
[2024-05-19 13:17] LABS: Ethanol 488 mg/dL (<10)
[2024-05-19 15:36] VITALS: O2SAT 97
[2024-05-19 17:18] LABS: Add Urine Microscopic? YES; Appearance Urine Cloudy (Clear); Bacteria Urine 3+ /hpf; Bilirubin Urine Negative (Negative); Blood Urine 2+ (Negative); Budding Yeast Urine Present /hpf; Color Urine Yellow (Yellow); Glucose Urine UA Negative (Negative); Ketones Urine Negative (Negative); Leukocyte Esterase Ur Negative LEU/UL (Negative); Need Manual Microscopic Reviewed; Nitrate Urine Negative (Negative); Non Pathogenic Casts 0-2; Protein Urine Trace mg/dL (Negative); RBC Urine 21-50 /hpf (0-2); Specific Grav Ur 1.022 (1.001-1.035); Squamous Epithelial Cell Urine Many /hpf (Few)
[2024-05-19] MEDS: SODIUM CHLORIDE 0.9% IV 1,000 ML 250 ML IV CONT (18:26)
[2024-05-19] MEDS: KCL 20 MEQ/SW 100 ML 100 ML 50 MEQ IVPB (18:27)
[2024-05-19 18:32] VITALS: BP 125/71; PULSE 84; RESP 16; O2SAT 94
[2024-05-19 18:38] LABS: Ethanol 358 mg/dL (<10)
[2024-05-19 19:50] VITALS: O2SAT 93
[2024-05-19 19:52] VITALS: BP 105/65; PULSE 83; RESP 16; O2SAT 92
== END 2024-05-19 20:57 | disposition home or self-care (01) ==
PROVIDERS: Physician Assistant; Emergency Provider Family Medicine; PCP Internal Medicine
DX: S63.267A Dislocation of metacarpophalangeal joint of left little finger, initial encounter (principal); E87.6 Hypokalemia; F10.20 Alcohol dependence, uncomplicated; Y90.8 Blood alcohol level of 240 mg/100 ml or more; I10 Essential (primary) hypertension; E11.9 Type 2 diabetes mellitus without complications; E03.9 Hypothyroidism, unspecified; E78.5 Hyperlipidemia, unspecified; F41.8 Other specified anxiety disorders; F90.9 Attention-deficit hyperactivity disorder, unspecified type; Z79.84 Long term (current) use of oral hypoglycemic drugs; Z79.899 Other long term (current) drug therapy; M47.812 Spondylosis without myelopathy or radiculopathy, cervical region; W01.0XXA Fall on same level from slipping, tripping and stumbling without subsequent striking against object, initial encounter
CPT/HCPCS: 26700; 26770; 36415; 70450; 71046; 72125; 72170; 73130; 80053; 80307; 81001; 85025; 85610; 85730; 87086; 87088; 93005; 96365; 96366; 99285; J3480; J7030

== ENCOUNTER 2024-09-27 11:25 | Emergency (ER) | payer OTHER, SELFPAY ==
[2024-09-27 11:32] VITALS: BP 117/75; PULSE 91; RESP 18; TEMP 36.7; O2SAT 100
--- NOTE | 2024-09-27 13:47 | PC.NURSE ---
Patient seen walking out of ED without difficulty and in no distress. patient then seen getting into car and car leaving facility.
--- OUTSIDE RECORDS SUMMARY | 2024-10-04 16:12 | XMS_ITS | Encounter Summary ---
Author Organization [facility] Address [address] [place] [id number] Care Team Providers Care Executive Business Coach Name Role Phone Unavailable Primary Care Provider Unavailabl e Encounter Details Date Type Department Care Team (Late st Contact Info) Description 09/22/2020 12:30 PM DATA DELIVERABLES MANAGER Rapid Evaluation [place] [facility] [address] [address] Social History Tobacco Use Types Packs/Day Years Used Date Smoking Tobacco: Never Assessed Comments Unknown Sex and Gender Information Value Date Recorded Sex Assigned at Not on file Legal Sex Female 12:09 PM DATA 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
--- OUTSIDE RECORDS SUMMARY | 2024-10-04 16:12 | XMS_ITS | Clinical Summary ---
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 Gender Identity Not on file Sexual Orientation Not on file Plan of Treatment Health Maintenance Due Date Last Done Comments Hepatitis C Virus (HCV) Screening 1965 TdaP Immunization 1965 Hepatitis B Immunization (1 of 3 - 19+ 3-dose series) 1984 Pap Smear 1986 Cervical Cancer Screening (CCS) 1995 HPV/Cotest 1995 Colonoscopy 2010 Colorectal Cancer Screening 2010 Cologuard 2015 Immunochemical Fecal Occult Blood 2015 Mammogram 2015 Zoster Immunization (1 of 2) 2015 Pneumococcal Immunization (5 0+ years) (2 of 2 - PCV) 09/27/2019 09/27/2018 Influenza Immunization (#1) 2024 06/16/2019 SARS-COV-2 Immunization ( season) 2024 Respiratory Syncytial Virus (RSV) Immunization (Adult) (1 - 1-dose 75+ series) 2040 Pneumococcal Immunization Combined Discontinued 2018 Meningococcal Immunization (ACWY) Aged Out No longer eligible based on patient's age to complete this topic Rotavirus Immunization Aged Out No lo nger eligible based on patient's age to complete this topic
--- OUTSIDE RECORDS SUMMARY | 2024-10-04 16:12 | XMS_ITS | Clinical Summary ---
Author Organization [facility] Address [address] [place] [address]. [place], [place] [id number] [place] [address] Care Team Providers Care Customs Compliance Manager Name Role Phone Unavailable Primary Care Provider Unavailabl e Social History Tobacco Use Types Packs/Day Years Used Date Smoking Tobacco: Never Assessed Comments Unknown Sex and Gender Information Value Date Recorded Sex Assigned at Not on file Legal Sex Female 9:58 AM CDT Gender Identity Not on file Sexual Orientation Not on file Plan of Treatment Health Maintenance Due Date Last Done Comments Cervical Cancer Screening Pa p Smear (Age 30 to 64) Every 3 Years 1965 Colorectal Cancer Screening Colonoscopy (10 Years) 1965 Annual Physical 1968 Hepatitis C 1983 Cervical Cancer Screening Pa p with HPV Testing (Age 30 to 64) Every 5 Years 1995 Cervical Cancer Screening wi th HPV 1995 Mammogram Screening 2005 Zoster Vaccines (2 of 2) 05/24/2022 03/29/2022 COVID-19 Vaccine (2 - 2023-2 5 season) 2024 02/13/2021 Influenza Adult (#1) 2024 09/29/2022, 06/16/2021, 06/16/2019 DTaP, Tdap and Td Vaccines ( 2 - Td or Tdap) 03/29/2032 03/29/2022 Pneumococcal Vaccine: Pediatrics (0 to 5 Years) and At-Risk Patients (6 to 64 Years) Aged Out 09/27/2018 No longer eligible b ased on patient's age to complete this topic Meningococcal Vaccine Aged Out No tete melanie eligible based on patient's age to complete this topic RSV Immunizations Under 20 Months Aged Out No longer eligible b ased on patient's age to complete this topic
--- OUTSIDE RECORDS SUMMARY | 2024-10-04 16:12 | XMS_ITS | Clinical Summary ---
Author Organization [facility] on Address [address] [place] [address] GW[place] Amaya [address] Phone Care Team Providers Care Compressor Station Chief Engineer Name Role Phone Bud Valladares MD Primary Care Provider [phone] Allergies No known active allergies Medications Medication Sig Dispensed Refills Start Date End Date Status ATENOLOL ORAL Take by mouth. Active SITAGLIPTIN PHOS/METFORMIN HCL (JANUMET ORAL) Take by mouth. Active PRAVASTATIN SODIUM (PRAVASTATIN ORAL) Take by mouth. Ac tive LEVOTHYROXINE SODIUM (LEVOTHYROXINE ORAL) Take by mouth. Active fluticasone (FLONASE) 50 mcg/spray Both Nostril SpSnIndications:Nasa l congestion Administer 2 Sprays in each nostril daily. 1 Gram 0 06/18/2012 Active Active Problems No known active problems Social History Tobacco Use Types Packs/Day Years Used Date Smoking Tobacco: Never Alcohol Use Standard Drinks/Week Comments Yes 0 (1 standard drink = 0.6 oz pur e alcohol) Sex and Gender Information Value Date Recorded Sex Assigned at Not on file Gender Identity Not on file Sexual Orientation Not on file Last Filed Vital Signs Vital Sign Reading Time Taken Comments Blood Pressure 146/86 06/18/2012 1:09 PM CDT Pulse 88 06/18/2012 1:09 PM CDT Temperature 37 ??C (98.6 ??F) 06/18/2012 1:09 PM CDT Respiratory Rate 16 06/18/2012 1:09 PM CDT Oxygen Saturation 99% 06/18/2012 1:09 PM CDT Inhaled Oxygen Concentration - - Weight 95.3 kg (210 lb) 06/18/2012 1:09 PM CDT Height 167.6 cm (5' 6 ) 06/18/2012 1:09 PM CDT Body Mass Index 33.89 06/18/2012 1:09 PM CDT Plan of Treatment Health Maintenance Due Date Last Done Comments DTAP/TDAP/TD VACCINES (1 - Tdap) 1984 HEPATITIS B VACCINES (1 of 3 - 19+ 3-dose series) 1984 CERVICAL CANCER SCREENING 1995 BREAST CANCER SCREENING 2005 COLORECTAL SCREENING 2010 Colorectal Cancer Screening 2010 FIT-DNA Q 3 years 2010 FIT/FOBT Q 1 year 2010 Flex Sig/CT Colonography Q 5 years 2010 ZOSTER VACCINE (1 of 2) 2015 INFLUENZA VACCINE (#1) 2024 PNEUMOCOCCAL VACCINE 0-64 YEARS Aged Out No longer eligible based on patient's age to complete this topic Care Teams Compressor Station Chief Engineer Relationship Specialty Start Date End Date Bud Valladares MD [address] [place] [address] PCP - General 09/14/15
--- OUTSIDE RECORDS SUMMARY | 2024-10-04 16:12 | XMS_ITS | Encounter Summary ---
Author Organization [facility] Address [address] [place] [address] Care Team Providers Care Vmware Consultant Name Role Phone Bud Valladares MD Primary Care Provider [phone] Encounter Details Date Type Department Care Team (Late st Contact Info) Description 01/29/2000 Outpatient Historical [facility] [place] [facility], Authorized P NO ADDRESS ON FILE Acute atopic conjunctivitis (Primary Dx) Social History Tobacco Use Types Packs/Day Years Used Date Smoking Tobacco: Never Assessed Sex and Gender Information Value Date Recorded Sex Assigned at Not on file Gender Identity Not on file Sexual Orientation Not on file documented as of this encounter Plan of Treatment Not on file documented as of this encounter Visit Diagnoses Diagnosis Acute atopic conjunctivitis- Primary documented in this encounter Care Teams Vmware Consultant Relationship Specialty Start Date End Date Bud Valladares MD [address] [place] [address] PCP - General 09/14/15 documented as of this encounter
--- OUTSIDE RECORDS SUMMARY | 2024-10-04 16:12 | XMS_ITS | Encounter Summary ---
Author Organization [facility] Address [address] [place] [address]. [place] [id number] [place] [address] Care Team Providers Care Business Agent Name Role Phone Unavailable Primary Care Provider Unavailabl e Encounter Details Date Type Department Care Team (Latest Contact Info) Description 03/10/2024 Travel Social History Tobacco Use Types Packs/Day Years [...]
--- OUTSIDE RECORDS SUMMARY | 2024-10-04 16:12 | XMS_ITS | Encounter Summary ---
Author Organization [facility] Address [address] [place] [address] Care Team Providers Care Software Quality Test Engineer Name Role Phone Unavailable Primary Care Provider Unavailabl e Encounter Details Date Type Department Care Team (Late st Contact Info) Description 09/22/2020 Lab Requisition [facility] Community [facility] [address] [place] [address] Libby, [place] [address] [place] [address] Social History Tobacco Use Types Packs/Day Years Used Date Smoking Tobacco: Never Assessed Comments Unknown Sex and Gender Information Value Date Recorded Sex Assigned at Not on file Legal Sex Female 12:09 PM CONSULTING SERVICES ASSOCIATE Gender Identity Not on file Sexual Orientation Not on file documented as of this encounter Plan of Treatment Not on file documented as of this encounter Procedures Procedure Name Priority Date/Time Associated Diagnosis Comments SARS-COV-2 PCR [facility] ONLY Routine 09/22/2020 12:34 PM CONSULTING SERVICES ASSOCIATE documented in this encounter Visit Diagnoses Not on filedocumented in this encounter
--- OUTSIDE RECORDS SUMMARY | 2024-10-04 16:12 | XMS_ITS | Encounter Summary ---
Author Organization [facility] Address [address] [place] [address] Care Team Providers Care Services Delivery Driver Name Role Phone Bud Valladares MD Primary Care Provider Unavaila ble Reason for Visit * Reason Comments Headache with cough for the l ast two weeks. [email or web address] 06/18/12 1306 * Auth/Cert - Closed Specialty Diagnoses / Procedures Referred By Contac t Referred To Contact Urgent Care Diagnoses COUGH,HEADACHE [facility] Carlos Alberto [address], [address] [address] Referral ID Status Reason Start Date Expiration Date Visits Re quested Visits Authorized [id number] Closed 1 1 Encounter Details Date Type Department Care Team (Late st Contact Info) Description 06/18/2012 12:55 PM CDT [facility] [address], [place] [address] [place] [address] Kanu Van, [address] [place] [address] Gray Carvalho, OPHTHALMIC TECHNICIAN NO ADDRESS ON FILE Acute sinusitis (Primary Dx); Nasal congestion Social History Tobacco Use Types Packs/Day Years Used Date Smoking Tobacco: Never Alcohol Use Standard Drinks/Week Comments Yes 0 (1 standard drink = 0.6 oz pur e alcohol) Sex and Gender Information Value Date Recorded Sex Assigned at Not on file Gender Identity Not on file Sexual Orientation Not on file documented as of this encounter Last Filed Vital Signs Vital Sign Reading [...] Mass Index 33.89 06/18/2012 1:09 PM CDT documented in this encounter Progress Notes * Christy Carvalho NP - 06/18/2012 1:41 PM CDT Subjective: Viktoria Rebolledo 47 y.o. female presents with a 14 day history of nasal congestion, cough, postnasal d/c, WYMAN. She noted the sinus pain and WYMAN worsened today. Tried Tylenol with no improvement. Patient denies chest pain or SOB. No N/V/D. Positive ROS for fatigue. History Social History ??? Marital Status: Spouse Name: N/A Number of Children: N/A ??? Years of Education: N/A Occupational History ??? Not on file. Social History Main Topics ??? Smoking status: Never Smoker ??? Smokeless tobacco: Not on file ??? Alcohol Use: Yes ??? Drug Use: No ??? Sexually Active: Other Topics Concern ??? Not on file Social History Narrative ??? No narrative on file Objective: BP 146/86 Pulse 88 Temp(Src) 98.6 ??F (37 ??C) (Oral) Resp 16 Ht 5' 6 (1.676 m) Wt 210 lb (95.255 kg) BMI 33.89 kg/m2 SpO2 99% LMP 06/10/2012 Gen'l: NAD HEENT: Perrla, eomi. Sinuses tender to palpation over the frontal sinuses. Throat erythematous without exudates. Neck: Supple. No lymphadenopathy Lungs: Clear CV: RRR. No murmur. Ext: No edema Skin: No rash 1. Acute sinusitis (461.9) amoxicillin-clavulanate (AUGMENTIN) 875-125 mg Oral tablet 2. Nasal congestion (478.19) fluticasone (FLONASE) 50 mcg/spray Both Nostril SpSn Augmentin and Flonase as above. Rest, fluids. F/U with PCP if symptoms do not improve or worsen. * Rukhsana Barber RN - 06/18/2012 1:08 PM CDT Pt with headache, light sensitive, and cough for the last two weeks. Pt alert and oriented, pt skinPWD<pt afebrile. documented in this encounter Miscellaneous Notes * Assessment & Plan Note - [facility] - 06/18/2012 8:31 PM CDT * Patient Instructions - Christy Carvalho NP - 06/18/2012 1:26 PM CDT Images from the original note were not included. Kazakh Bulgarian Rima Patient Instructions Sinusitis: After Your Visit Your Care Instructions Sinusitis is an infection of the lining of the sinus cavities in your head. Sinusitis often followsa cold and causes pain and pressure in your head and face. Antibiotics can help cure sinusitis caused by bacteria. You should begin to feel better within a couple of days, but some symptoms may last for a month or more. If your doctor thinks that you have a bacterial infection, he or she will probably prescribe antibiotics. Follow-up care is a tavera part of your treatment and safety. Be sure to make and go to all appointments, and call your doctor if you are having problems. It???s also a good idea to know your test results and keep a list of the medicines you take. How can you care for yourself at home? ?? Take your antibiotics as directed. Do not stop taking them just because you feel better. You need to take the full course of antibiotics. ?? Take an iodg-syf-ksszmnp pain medicine, such as acetaminophen (Tylenol), ibuprofen (Advil, Motrin), or naproxen (Aleve). Read and follow all instructions on the label. ?? Be careful when taking wgbj-dnl-inweyoc cold or flu medicines and Tylenol at the same time. Manyof these medicines have acetaminophen, which is Tylenol. Read the labels to make sure that you are not taking more than the recommended dose. Too much acetaminophen (Tylenol) can be harmful. ?? Breathe warm, moist air from a steamy shower, a hot bath, or a sink filled with hot water. Avoidcold, dry air. Using a humidifier in your home may help. Follow the instructions for cleaning the machine. ?? Use saline (saltwater) nasal washes to help keep your nasal passages open and wash out mucus andbacteria. You can buy saline nose drops at a grocery store or drugstore. Or you can make your own at home by adding 1 teaspoon of salt and 1 teaspoon of baking soda to 2 cups of distilled water. If you make your own, fill a bulb syringe with the solution, insert the tip into your nostril, and squeeze gently. Blow your nose. ?? Put a hot, wet towel or a warm gel pack on your face 3 or 4 times a day for 5 to 10 minutes eachtime. ?? Try a decongestant nasal spray like oxymetazoline (Afrin). Do not use it for more than 3 days birgit row. Using it for more than 3 days can make your congestion worse. ?? Take a decongestant such as pseudoephedrine (Sudafed) if your doctor recommends it. ?? Try a cough medicine with guaifenesin if your doctor recommends it. This can thin your mucus. ?? If you need to blow your nose, do it gently. Forceful blowing may force thick mucus back into your sinuses. Keep both nostrils open when you blow your nose. When should you call for help? Call your doctor now or seek immediate medical care if: ?? You have new or worse swelling or redness in your face or around your eyes. Watch closely for changes in your health, and be sure to contact your doctor if: ?? You have a new or higher fever. ?? You have new or worse facial pain. ?? You are not getting better after 2 days (48 hours). ?? The mucus from your nose becomes thicker (like pus) or has new blood in it. Where can you learn more? Go to www.[employer].net in the Health Information search box Enter I933 in the search box to learn more about Sinusitis: After Your Visit. ?? 4918-2102 [employer]. Care instructions adapted under license by Rima. Rima disclaims any warranty or liability for your use of this information. This information is not intended to represent the ethical and buddhist beliefs of Rima. This care instruction is for use with your licensed healthcare professional. If you have questions about a medical condition or this instruction, always ask your healthcare professional. [employer] disclaims any warranty or liability for your use of this information. Content Version: 9.4.56626; Last Revised: November 06, 2011 Please follow with your primary care physician, Bud Valladares MD in 48-72 hours if NO better. If your symptoms worsen recheck at your local ER. If you do not have a primary doctor, [facility] offers a free referral service by calling [phone], , or toll free . This information can also be accessed on the web at [email or web address]. If a test or physician referral was ordered for you today, you can schedule these by calling Central Testing Scheduling (CTS),[phone], or Central Referral Scheduling (CRS), during normal work hours. Inform them you had a test or referral ordered during your visit at the [facility]. If you are female and on hormone based control there is a slight increase in risk with the use of antibiotics, the patient is asked to back up her OCP with condom or other method during this (or any) cycle during which she is taking antibiotics. Thank you for choosing to the [facility] Location [address] [facility] [address] [place] [address] [place], [place] [id number] [place] [address] [facility] [address] [place] [address] IMPORTANT: You were examined and treated today on an urgent basis. This was not a substitute for, nor an effort to provide, complete and ongoing medical care. On arrival to [facility], you may have reported taking home medications that will be listed on your After Visit Summary. If applicable, this regimen is not being changed, except as noted and discussed with you. You should follow up with your primary care physician for ongoing medication management. This AVS (after visit summary) is a printed copy of the form that is part of your permanent electronic medical record. By accepting this form you acknowledge that your tests, diagnosis, treatment plan, and follow up care has been discussed with you by appropriate medical personnel. Thank-you again for choosing [facility]. documented in this encounter Plan of Treatment Not on file documented as of this encounter Visit Diagnoses Diagnosis Acute sinusitis- Primary Acute sinusitis, unspecified Nasal congestion Other diseases of nasal cavity and sinuses documented in this encounter Care Teams Services Delivery Driver Relationship Specialty Start Date End Date Bud Valladares MD PCP - General Internal Medicine 06/18/12 09/13/15 documented as of this encounter
--- OUTSIDE RECORDS SUMMARY | 2024-10-04 20:54 | XMS_ITS | Encounter Summary ---
Author Organization [facility] Address [address] [place] [address] Care Team Providers Care Datastage Developer Name Role Phone Bud Valladares MD Primary Care Provider [phone] Encounter Details Date Type Department Care Team [...] Primary documented in this encounter Care Teams Datastage Developer Relationship Specialty Start Date End Date Bud Valladares MD [address] [place] [address] PCP - General 09/14/15 documented as of this encounter
--- OUTSIDE RECORDS SUMMARY | 2024-10-04 20:54 | XMS_ITS | Clinical Summary ---
Author Organization [facility] on Address [address] [place] [address] [place] [address] Phone Care Team Providers Care Journeyman Lineman Name Role Phone Bud Valladares MD Primary Care Provider [phone] Allergies No known active allergies Medications Medication [...] age to complete this topic Care Teams Journeyman Lineman Relationship Specialty Start Date End Date Bud Valladares MD [address] [place] [address] PCP - General 09/14/15
--- OUTSIDE RECORDS SUMMARY | 2024-10-04 20:54 | XMS_ITS | Encounter Summary ---
Author Organization [facility] Address [address] [place] [address] Care Team Providers Care Telecommunications Field Engineer Name Role Phone Unavailable Primary Care Provider Unavailabl e Encounter Details Date Type Department Care Team (Late st Contact Info) Description 09/22/2020 12:30 PM INSPECTOR COATED FABRICS Rapid Evaluation [place] [facility] Community Testing [address] [address] Social History Tobacco Use Types Packs/Day Years Used Date Smoking Tobacco: Never Assessed Comments Unknown Sex and Gender Information Value Date Recorded Sex Assigned at Not on file Legal Sex Female 12:09 PM INSPECTOR COATED FABRICS Gender Identity Not on file Sexual Orientation Not on file documented as of this encounter Plan of Treatment Not on file documented as of this encounter Visit Diagnoses Not on filedocumented in this encounter
--- OUTSIDE RECORDS SUMMARY | 2024-10-04 20:54 | XMS_ITS | Encounter Summary ---
Author Organization [facility] Address [address] [place] [address] Care Team Providers Care Sex Offender Treatment Professional Name Role Phone Bud Valladares MD Primary Care Provider Unavaila ble Reason for Visit * Reason Comments Headache with cough for the l ast two weeks. [email or web address] 06/18/12 1306 * Auth/Cert - Closed Specialty Diagnoses / Procedures Referred By Contac t Referred To Contact Urgent Care Diagnoses COUGH,HEADACHE [facility] Carlos Alberto [address], [address] [address] Referral ID Status Reason Start Date Expiration Date Visits Re quested Visits Authorized [id number] Closed 1 1 Encounter Details Date Type Department Care Team (Late st Contact Info) Description 06/18/2012 12:55 PM CDT Office [facility] [address], [place] [address] [place] [address] Kanu Van, [address] [place] [address] Gray Carvalho, HOUSE VISITOR NO ADDRESS ON FILE Acute sinusitis (Primary [...] Assessment & Plan Note - [facility] - 06/18/2012 8:31 PM CDT * Patient Instructions - Christy Carvalho NP - 06/18/2012 1:26 PM CDT Images from the original note were not included. Yoruba Irish Rima Patient Instructions Sinusitis: After Your Visit [...] full course of antibiotics. ?? Take an bnnj-gva-zisgjig pain medicine, such as acetaminophen (Tylenol), ibuprofen (Advil, Motrin), or naproxen (Aleve). Read and follow all instructions on the label. ?? Be careful when taking tzyt-mak-ogfzxnm cold or flu medicines and Tylenol at [...] Where can you learn more? Go to www.[employer] You.net in the Health Information search box Enter I933 in the search box to learn more about Sinusitis: After Your Visit. ?? [id number] [employer]. Care instructions adapted under license by Rima. Rima disclaims any warranty or liability for your use of this information. This information is not intended to represent the ethical and hoahaoism beliefs of Rima. This care instruction is for use with your licensed healthcare professional. If you have questions about a medical condition or this instruction, always ask your healthcare professional. [employer] disclaims any warranty or liability for your use of this information. Content Version: 9.4.46367; Last Revised: November 06, 2011 Please follow with your primary care physician, Bud Valladares MD in 48-72 hours if NO better. If your symptoms worsen recheck at your local ER. If you do not have a primary doctor, [facility] offers a free referral service by calling [phone], , or toll free . This information can also be accessed on the web at [email or web address] Solutions. If a test or physician referral was ordered for you today, you can schedule these by calling Central Testing Scheduling (CTS),[phone], or Central Referral Scheduling (CRS), during normal work hours. Inform them you had a test or referral ordered during your visit at the [facility]. If you are female and on hormone based control there is a slight increase in risk with the use of antibiotics, the patient is asked to back up her OCP with condom or other method during this (or any) cycle during which she is taking antibiotics. Thank you for choosing to the [facility] Location [address] [facility] [address] [place] [address] [place], [place] [id number] [place] [address] [facility] [address] [place] [address] IMPORTANT: You were examined and treated today on an urgent basis. This was not a substitute for, nor an effort to provide, complete and ongoing medical care. On arrival to [facility], you may have reported taking home medications [...] appropriate medical personnel. Thank-you again for choosing [facility]. documented in this encounter Plan of Treatment Not on file documented as of this encounter Visit Diagnoses Diagnosis Acute sinusitis- Primary Acute sinusitis, unspecified Nasal congestion Other diseases of nasal cavity and sinuses documented in this encounter Care Teams Sex Offender Treatment Professional Relationship Specialty Start Date End Date Bud Valladares MD PCP - General Internal Medicine 06/18/12 09/13/15 documented as of this encounter
--- OUTSIDE RECORDS SUMMARY | 2024-10-04 20:54 | XMS_ITS | Clinical Summary ---
Author Organization [facility] Address [address] [place] [address]. [place], [place] [address] [place] [address] Care Team Providers Care Tape Recorder Mechanic Name Role Phone Unavailable Primary Care Provider [...]
--- OUTSIDE RECORDS SUMMARY | 2024-10-04 20:54 | XMS_ITS | Encounter Summary ---
Author Organization [facility] Address [address] [place] [id number] Care Team Providers Care Material Mover Name Role Phone Unavailable Primary Care Provider Unavailabl e Encounter Details Date Type Department Care Team (Late st Contact Info) Description 09/22/2020 Lab Requisition [facility] Community Testing [facility] [address] [place] [address] [place], [place] [address] [place] [address] Social History Tobacco Use Types Packs/Day Years Used Date Smoking Tobacco: Never Assessed Comments Unknown Sex and Gender Information Value Date Recorded Sex Assigned at Not on file Legal Sex Female 12:09 PM COUNTY HOME DEMONSTRATION AGENT Gender Identity Not on file Sexual Orientation Not on file documented as of this encounter Plan of Treatment Not on file documented as of this encounter Procedures Procedure Name Priority Date/Time Associated Diagnosis Comments SARS-COV-2 PCR [facility] ONLY Routine 09/22/2020 12:34 PM COUNTY HOME DEMONSTRATION AGENT documented in this encounter Visit Diagnoses Not on filedocumented in this encounter
--- OUTSIDE RECORDS SUMMARY | 2024-10-04 20:54 | XMS_ITS | Encounter Summary ---
Author Organization [facility] Address [address] [place] [address]. [place] [id number] [place] [address] Care Team Providers Care Armor Senior Sergeant Name Role Phone Unavailable Primary Care Provider [...]
--- OUTSIDE RECORDS SUMMARY | 2024-10-04 20:54 | XMS_ITS | Clinical Summary ---
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
== END 2024-09-27 14:18 | disposition left against medical advice (07) ==
PROVIDERS: PCP Internal Medicine
DX: R23.4 Changes in skin texture (principal)
CPT/HCPCS: 99199

== ENCOUNTER 2024-12-27 13:02 | Inpatient (IN) | payer SELFPAY ==
[2024-12-27] VITALS (12 sets, daily range): BP systolic 126–145; BP diastolic 76–114; PULSE 114–126; RESP 16–29; TEMP 36.4–37.4; O2SAT 92–100; BMI 29.2
--- NOTE | ~2024-12-27 | CT_ITS ---
EXAMINATION: CT abdomen pelvis w con DATE: 12/27/2024 15:36 INDICATION: abd pain TECHNIQUE: Computed tomography (CT) of the abdomen and pelvis was performed with 100 mL Omnipaque-350 intravenous contrast. Automated exposure control and iterative reconstruction technique were employe d. The dose-length product was 689.93 mGy-cm. COMPARISON: CT pelvis 05/23/2023; CTPA 10/10/2023. FINDINGS: Lower thorax: Coronary artery/mitral calcification, minimal bibasilar scar/atelectasis. Liver: Enlarged. Diffusely heterogeneous parenchyma, with innumerable small hypodensities. Biliary/Gallbladder: Gallbladder is distended, with mild pericholecystic fluid, probably related to a scites. No bile duct dilation. Pancreas: No mass or duct dilation. Spleen: Enlarged. Adrenals:No mass. Kidneys: Punctate bilateral calcifications. Simple left renal cyst. Bilateral hypodensities that are too small to characterize but most likely represent cysts. GI tract: Mild distal esophageal and gastric wall edema. Mild diffuse colonic wall edema. No small or large bowel dilation. Appendix not confidently visualized. Mesentery/Peritoneum: No mass or free air. Moderate volume of simple ascites. Retroperitoneum: No mass. Atherosclerotic calcifications of intra-abdominal arterial vessels. Pelvis: The urinary bladder is decompressed by Malone catheter. Absent uterus. Atrophic or surgically absent ovaries. Soft Tissues: Uncomplicated small fat-containing umbilical hernia. Mild body wall edema. Bones: No acute osseous finding. Stable moderate T12 burst fracture and superior endplate deformity at L2. IMPRESSION: Cirrhosis with portal hypertension and moderate ascites. Heterogeneous liver parenchyma with the suggestion of multiple low density lesions, may be related to cirrhotic change, hepatic microabscesses, or metastatic disease. Gallbladder hydrops, without inflammatory change or bile duct dilation. Mild esophagitis/gastritis. Mild diffuse colonic wall edema, may be related to portal enteropathy or colitis. Reviewed, dictated and finalized at location K. IMPRESSION: Cirrhosis with portal hypertension and moderate ascites. Heterogeneous liver parenchyma with the suggestion of multiple low density lesi ons, may be related to cirrhotic change, hepatic microabscesses, or metastatic disease. Gallbladder hydrops, without inflammatory change or bile duct dilation. Mild esophagitis/gastritis. Mild diffuse colonic wall edema, may be related to portal enteropathy or coliti s.
--- NOTE | ~2024-12-27 | US_ITS ---
EXAMINATION: US paracentesis abd w/image DATE: 12/29/2024 11:31 INDICATION: Ascites and abdominal pain. Concern for spontaneous bacterial peritonitis. TECHNIQUE: The procedure and its risks and benefits were discussed with the patient. Potential risks discussed included bleeding and infection. The skin was prepped and draped in sterile fashion. 1% lid ocaine was used for local anesthesia. Under ultrasound guidance, a 5 Fr catheter with trochar was adv anced into the ascites in the right lower quadrant. Fluid was aspirated into vacuum bottles. The cath eter was removed, and a dressing was applied. There were no immediate complications. FINDINGS: Ultrasound images demonstrate ascites and the catheter within the fluid. IMPRESSION: 1. Successful ultrasound-guided paracentesis yielding 1300 mL of yellow-colored fluid. Reviewed, dictated and finalized at location A. IMPRESSION: 1. Successful ultrasound-guided paracentesis yielding 1300 mL of yellow-colore d fluid.
--- OUTSIDE RECORDS SUMMARY | 2024-12-27 13:05 | XMS_ITS | Clinical Summary ---
Author Organization [facility] Address [facility] [place] [address] Care Team Providers Care Credit Card Analyst Name Role Phone Unavailable Primary Care Provider [...] Every 5 Years 1995 Cervical Cancer Screening with HPV 1995 Mammogram Screening 2005 Zoster Vaccines (2 of 2) 05/24/2022 03/29/2022 COVID-19 Vaccine (2 - 2023-2 5 season) 2024 02/13/2021 PHQ-2 (Physician Bethany) 09/24/2024 DTaP, Tdap and Td Vaccines ( 2 - Td or Tdap) 03/29/2032 03/29/2022 Pneumococcal Vaccine: Pediat rics (0 to 5 Years) and At-Risk Patients (6 to 64 Years) Aged Out 09/27/2018 No longer eligi ble based on patient's age to complete this topic Meningococcal B Vaccine Aged Out No l onger eligible based on patient's age to complete this topic Meningococcal Vaccine Aged Out No tete melanie eligible based on patient's age to complete this topic RSV Immunizations Under 20 Months Aged Out No longer eligible based on patient's age to complete this topic
--- OUTSIDE RECORDS SUMMARY | 2024-12-27 13:05 | XMS_ITS | Clinical Summary ---
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
--- OUTSIDE RECORDS SUMMARY | 2024-12-27 13:05 | XMS_ITS | Encounter Summary ---
Author Organization [facility] Address 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
--- OUTSIDE RECORDS SUMMARY | 2024-12-27 13:05 | XMS_ITS | Clinical Summary ---
Author Organization [facility] on Address [address] [facility] [place] [address] Phone Care Team Providers Care Rectifier Operator Name Role Phone Bud Valladares MD Primary Care Provider [phone] Allergies No known active allergies Medications ATENOLOL ORAL Take by mouth. A ctive SITAGLIPTIN PHOS/METFORMIN HCL (JANUMET ORAL) Take by mouth. Activ e PRAVASTATIN SODIUM (PRAVASTATIN ORAL) Take by mouth. Activ e LEVOTHYROXINE SODIUM (LEVOTHYROXINE ORAL) Take by mouth. Activ e fluticasone (FLONASE) 50 mcg/spray Both Nostril SpSnIndications :Nasal congestion Administer 2 Sprays in each nostril daily. 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 Gender Identity Not on file Sexual Orientation Not on file Last Filed Vital Signs Vital Sign Reading Time Taken Comments Blood Pressure 146/86 06/18/2012 1:09 PM CDT Pulse 88 06/18/2012 1:09 PM CDT Temperature 37 C (98.6 F) 06/18/2012 1:09 PM CDT Respiratory Rate 16 [...] of 3 - 19+ 3-dose series) 1984 HPV/Cotest (21-29) 1986 PAP SMEAR 1986 CERVICAL CANCER SCREENING 1995 HPV/Cotest (30-65) 1995 PAP SMEAR 1995 BREAST CANCER SCREENING 2005 COLORECTAL SCREENING 2010 Colorectal Cancer Screening 2010 FIT-DNA Q 3 years 2010 FIT/FOBT Q 1 year 2010 Flex Sig/CT Colonography Q 5 years 2010 ZOSTER VACCINE (1 of 2) 2015 INFLUENZA VACCINE (#1) 2024 PNEUMOCOCCAL VACCINE 0-49 YEARS Aged Out No longer eligible based on patient's age to complete this topic Insurance BLUE ACCESS CHOICE Care Teams Rectifier Operator Relationship Specialty Start Date End Date Bud Valladares MD [address] [place] [address] PCP - General 09/14/15
--- NOTE | 2024-12-27 14:18 | PC.NURSE ---
pt has had a hysterectomy years ago
--- NOTE | 2024-12-27 14:22 | PC.NURSE ---
this RN bladder scanned pt due to pt saying she hasnt peed since last night. bladder scan found >739 mL of urine. this RN reported this to EDP Nina and EDP gave verbal order to place krishnamurthy catheter
[2024-12-27 14:28] LABS: Basophils Percent Auto 0.9 % (0.2-1.2); Eosinophils Percent Auto 0.6 % (0-4.4); Hematocrit 31.8 % (37.0-47.0); Immature Granulocyte Absolute 0.02 K/mm3 (0.00-0.031); Immature Granulocyte Percent A 0.6 % (0-0.5); Immature Platelet Fraction Pct 2.7 % (0.9-11.2); Lymphocytes Absolute Auto 0.84 K/mm3 (0.9-3.2); Lymphocytes Percent Auto 24.7 % (18.3-44.2); Mean Corpuscular HGB Conc 31.4 g/dl (32-36); Mean Corpuscular Hemoglobin 26.5 pg (26-34); Mean Corpuscular Volume 84.4 fl (80-100); Mean Platelet Volume 9.3 fl (7.4-10.4); Monocytes Absolute Auto 0.3 K/mm3 (0.1-0.6); Monocytes Percent Auto 8.2 % (2.6-8.5); Neutrophils Absolute Auto 2.2 K/mm3 (1.3-6.7); Platelet Count Result 63 k/mm3 (150-375); Red Blood Count 3.77 M/mm3 (4.2-5.4); Red Cell Distribution Width 20.8 % (11.5-14.5); White Blood Count 3.4 K/mm3 (4.5-10.0)
[2024-12-27 14:31] LABS: Bacteria Urine 2+ /hpf; RBC Urine 0-2 /hpf (0-2); Squamous Epithelial Cell Urine None Seen /hpf (Few)
[2024-12-27 14:36] LABS: Alanine Aminotransferase 22 U/L (6-35); Albumin Level 3.6 g/dL (3.5-5.1); Alkaline Phosphatase 142 U/L (38-126); Anion Gap 19 mmol/L (4-12); Aspartate Amino Transferase 59 U/L (14-36); Bilirubin,Total 1.3 mg/dL (0.2-1.3); Blood Urea Nitrogen 9 mg/dL (7-17); Calcium 7.7 mg/dL (8.4-10.2); Carbon Dioxide 21 mmol/L (22-30); Chloride 101 mmol/L (98-107); Estimated CRCL calculation 93 ml/min; Estimated Glomerular Filt Rate > 60; Glucose 265 mg/dL (65-110); Lipase 101 U/L (23-300); Potassium 3.5 mmol/L (3.4-5.0); Sodium 141 mmol/L (137-145)
[2024-12-27 14:39] LABS: Ethanol 275 mg/dL (<10)
[2024-12-27 14:43] LABS: Add Urine Microscopic? YES; Appearance Urine Clear (Clear); Bilirubin Urine 1+ (Negative); Blood Urine Negative (Negative); Color Urine Orange (Yellow); Glucose Urine UA Trace mg/dL (Negative); Ketones Urine Trace mg/dL (Negative); Leukocyte Esterase Ur 1+ LEU/UL (Negative); Nitrate Urine Positive (Negative); Protein Urine 1+ mg/dL (Negative); Specific Grav Ur 1.025 (1.001-1.035); pH Urine 5.5 (5.0-9.0)
[2024-12-27 14:49] LABS: Platelet Estimate Decreased (Adequate)
[2024-12-27 14:50] LABS: Anisocytosis 1+; Hypochromasia 1+; Schistocytes Rare
--- NOTE | 2024-12-27 14:52 | ED.ABDPAIN ---
HPI - Abdominal Pain General Chief Complaint: Abdominal Pain Stated Complaint: ABD BLOATING SINCE TODAY, HX ETOH ABUSE Time Seen by Provider: 12/27/24 14:45 Source: patient Mode of arrival: ambulatory Limitations: no limitations History of Present Illness HPI narrative: 59 years old white female came to the ED from home with her complaining of abdominal distension without any pain noticed this morning. at the bedside. Is telling me that patient drinks 3-4 pt of vodka daily for years. Last drink was last night, patient usually started drinking roll bucker. Patient denies any fever, chills, nausea, vomiting, diarrhea, constipation, feeling restless and shaking. Related Data Home Medications ?Medication ?Instructions ?Recorded ?Confirmed ?Last Taken ?Type atenolol 50 mg-chlorthalidone 25 1 tablet PO 05/28/20 10/10/23 10/05/23 09:00 History mg tablet levothyroxine 125 mcg tablet 125 mcg PO 05/28/20 10/10/23 10/05/23 09:00 History (Euthyrox) 125 potassium chloride 10 mEq 10 meq PO 05/28/20 10/10/23 10/05/23 09:00 History tablet,extended release 10 pravastatin 10 mg tablet 10 mg PO 05/28/20 10/10/23 10/05/23 09:00 History 10 spironolactone 25 mg tablet 25 mg PO DAILY 05/28/20 10/10/23 10/05/23 09:00 History 25 folic acid 1 mg tablet 1 mg PO 10/13/20 10/10/23 10/05/23 09:00 History 1 magnesium oxide 400 mg PO 10/13/20 10/10/23 10/05/23 09:00 History 400 vitamin E 200 unit capsule 200 unit PO DAILY 01/12/21 10/10/23 10/05/23 09:00 History 200 multivitamin 1 tablet PO DAILY 05/16/22 10/10/23 10/05/23 09:00 History Allergies Allergy/AdvReac Type Severity Reaction Status Date / Time No Known Allergies Allergy Verified 12/27/24 14:25 Review of Systems Review of Systems: All systems reviewed & are unremarkable except as noted in HPI and below PMFSH Past Medical History Medical History BMI 26.0-26.9,adult Hypertension Depression with anxiety ADHD Dyslipidemia Essential hypertension Hypothyroidism Alcoholism Diabetes mellitus hemoglobin A1c 05/29/2020 4.8 Surgical History Surgical History Fracture of humeral shaft, left, closed IM deepti 09/2020 Previous back surgery removed tumor from back 2009, [facility] History of total hysterectomy with bilateral salpingo-oophorectomy (BSO) due to fibroid Hx of tonsillectomy History of appendectomy History of colonoscopy with polypectomy Family History Family History Sibling Asthma Diabetes mellitus Mother Cerebrovascular accident Hypertension Sibling Diabetes mellitus Alcoholism Father Hypertension Social History Social History Social History: The patient lives in [facility] with her of 12 years. She has had a struggle with alcoholism for the last 20 years. She went through alcohol treatment programs 13 years ago when her 1st . She went through alcohol treatment program again about 2 years ago at [facility]. She drinks 2 pt of vodka several times a week. She does not retain the use marijuana and states that she does not like it because it makes her sleep. She has never smoked. 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 Primary care physician: Dr. Bud Valladares Smoking status: Never smoker Second hand tobacco smoke exposure: No Alcohol intake: current Drinks per week: 149 Alcohol use details: 2 pints vodka daily Substance use: never Other substance usage details: STATES DRANK 2PT VODKA/DAY Last use: last drink 09/23/23 Do You Feel Safe in your Home?: Yes Lack of Transportation: No Lack of Food: Never True Current Housing: I Have Housing Concerned About Future Housing: No Difficulty Paying Gas/Electric Bills: No Difficulty Paying for Meds: No Currently Unemployed: No Education: Associate Degree Difficulty w/ Childcare or Family Care: No Living arrangements: with family Gender identity (if verbalized by the patient): Female Spiritual care concerns: No Exam Narrative: General appearance: Well-developed, well-nourished, shaking, restless Skin: Normal color Head: Normocephalic, nontraumatic Eyes: Clear conjunctiva ENT: Oropharynx normal, ears normal, nose normal Neck: Supple, nontender Chest and respiratory: Airway patent, no respiratory distress, no accessory muscle use Heart: Regular rate/rhythm Abdomen: Soft, nontender, no organomegaly, quiet bowel sounds, distended, ascites Vascular: Normal peripheral pulses, normal capillary refill. 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 OROZCO Date: 12/27/24 Vital Signs Vital signs: Vital Signs Temperature 36.4 C 12/27/24 13:16 Pulse Rate 126 H 12/27/24 13:16 Respiratory Rate 20 12/27/24 13:16 Blood Pressure 126/85 12/27/24 13:16 Pulse Oximetry 99 12/27/24 13:16 Oxygen Delivery Room Air 12/27/24 13:16 Temperature 36.4 C 12/27/24 13:16 Pulse Rate 121 H 12/27/24 20:47 Respiratory Rate 21 H 12/27/24 20:47 Blood Pressure 134/77 12/27/24 20:47 Pulse Oximetry 99 12/27/24 20:47 Oxygen Delivery Room Air 12/27/24 13:16 MDM - Abdominal Pain MDM Narrative Medical decision making narrative: Patient came to the ED with abdominal distension Vital signs showing heart rate of 126 otherwise within normal limit Physical examination showing large nontender abdomen, us itis Differential diagnosis and liver cirrhosis with ascites, ileus, constipation. Blood workup today includes CBC, CMP, lipase showed hemoglobin of 10.0, platelets 63, glucose 265, calcium 7.7, Urinalysis showed urine infection CT abdomen and pelvis with IV contrast showed cirrhosis with portal hypertension and moderate ascites, mild gastritis, esophagitis, Differential Diagnosis Differential diagnosis: Likely other (As above) Medical Records Attestation: I reviewed the patient's medical records. Lab Data Attestation: I reviewed the patient's lab results. 12/27/24 14:17 12/27/24 14:17 Labs: Lab Results 12/27/24 Range/Units 14:17 WBC 3.4 L (4.5-10.0) K/mm3 RBC 3.77 L (4.2-5.4) M/mm3 Hgb 10.0 L (12.0-15.0) g/dL Hct 31.8 L (37.0-47.0) % MCV 84.4 (80-100) fl MCH 26.5 (26-34) pg MCHC 31.4 L (32-36) g/dl RDW 20.8 H (11.5-14.5) % Plt Count 63 L (150-375) k/mm3 MPV 9.3 (7.4-10.4) fl Immature Gran % (Auto) 0.6 H (0-0.5) % Neut % (Auto) 65.0 (45.5-73.1) % Lymph % (Auto) 24.7 (18.3-44.2) % [place]gett % (Auto) 8.2 (2.6-8.5) % Eos % (Auto) 0.6 (0-4.4) % Baso % (Auto) 0.9 (0.2-1.2) % Lymph # (Auto) 0.84 L (0.9-3.2) K/mm3 Daggett # (Auto) 0.3 (0.1-0.6) K/mm3 Eos # (Auto) 0.0 (0-0.3) K/mm3 Baso # (Auto) 0.0 (0.0-0.1) K/mm3 Abs Immat Gran (auto) 0.02 (0.00-0.031) K/mm3 Absolute Neuts (auto) 2.2 (1.3-6.7) K/mm3 Absolute Nucleated RBC 0.000 (0.0-0.012) K/mm3 Band Neutrophils % Not Reportable Nucleated RBC % 0.0 (0.0-0.2) % Platelet Estimate Decreased (Adequate) % Immature Plt Fraction 2.7 (0.9-11.2) % Hypochromasia 1+ Anisocytosis 1+ Schistocytes Rare Sodium 141 (137-145) mmol/L Potassium 3.5 (3.4-5.0) mmol/L Chloride 101 (98-107) mmol/L Carbon Dioxide 21 L (22-30) mmol/L Anion Gap 19 H (4-12) mmol/L BUN 9 D (7-17) mg/dL Creatinine 0.53 L (0.7-1.0) mg/dL Estim Creat Clear Calc 93 ml/min Estimated GFR > 60 (59 - ) Glucose 265 H (65-110) mg/dL Calcium 7.7 L (8.4-10.2) mg/dL Total Bilirubin 1.3 (0.2-1.3) mg/dL AST 59 H (14-36) U/L ALT 22 (6-35) U/L Alkaline Phosphatase 142 H (38-126) U/L Total Protein 7.0 (6.3-8.2) g/dL Albumin 3.6 (3.5-5.1) g/dL Lipase 101 (23-300) U/L Urine Color [place] H (Yellow) Urine Appearance Clear (Clear) Urine pH 5.5 (5.0-9.0) Ur Specific [place] 1.025 (1.001-1.035) Urine Protein 1+ H (Negative) mg/dL Urine Glucose (UA) Trace H (Negative) mg/dL Urine Ketones Trace H (Negative) mg/dL Ur Blood (Man) Negative (Negative) Urine Nitrate Positive H (Negative) Urine Bilirubin 1+ H (Negative) Urine Urobilinogen 1.0 (<2.0) mg/dL Leukocyte Esterase Rfl 1+ H (Negative) TIM/UL Urine RBC 0-2 (0-2) /hpf Urine WBC 11-20 H (0-3) /hpf Ur Squamous Epith Cells None seen (Few) /hpf Urine Bacteria 2+ H /hpf Urine Casts 3-5 Ethyl Alcohol 275 (<10) mg/dL Imaging Data Radiologist's impression: ITS Impressions Abdomen/Pelvis CT 12/27/24 15:50 IMPRESSION: Cirrhosis with portal hypertension and moderate ascites. Heterogeneous liver parenchyma with the suggestion of multiple low density lesions, may be related to cirrhotic change, hepatic microabscesses, or metastatic disease. Gallbladder hydrops, without inflammatory change or bile duct dilation. Mild esophagitis/gastritis. Mild diffuse colonic wall edema, may be related to portal enteropathy or colitis. Critical Care Time Critical Care Time Critical Care Time: No Discharge Plan Discharge Clinical Impression: Alcoholic cirrhosis of liver with ascites, Hypertension, portal, Urinary tract infection, Alcoholic Patient Disposition: Home, Self-Care Condition: Stable
[2024-12-27] MEDS: NACL 0.9% IRRIGATION POUR BOTTLE 500 ML (15:01)
--- NOTE | 2024-12-27 15:01 | PC.NURSE ---
pt krishnamurthy stopped draining. this RN tried to deflate the balloon, push the catheter in further and reinflate the balloon. attempt was unsuccessful. tried irrigating the bladder but bladder still not draining
[2024-12-27] MEDS: LORazepam INJ (*CRX) 2 MG/ML VIAL IV PUSH (15:10)
--- NOTE | 2024-12-27 15:11 | PC.NURSE ---
pt says she drinks every day, last drink was last night, 12/26/24, around 1999. pt is having tremors. sezirure precautions in place and seizure pads are on the rails
--- OUTSIDE RECORDS SUMMARY | 2024-12-27 15:23 | XMS_ITS | Clinical Summary ---
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
--- OUTSIDE RECORDS SUMMARY | 2024-12-27 15:23 | XMS_ITS | Encounter Summary ---
Author Organization [facility] Address 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
--- OUTSIDE RECORDS SUMMARY | 2024-12-27 15:23 | XMS_ITS | Clinical Summary ---
Author Organization [facility] Address [facility] [place] [address] Care Team Providers Care Fire And Explosion Investigator Name Role Phone Unavailable Primary Care Provider [...] 2023-2 5 season) 2024 02/13/2021 PHQ-2 (Physician Bassett) 09/24/2024 DTaP, Tdap and Td Vaccines ( [...]
--- OUTSIDE RECORDS SUMMARY | 2024-12-27 15:23 | XMS_ITS | Clinical Summary ---
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
[2024-12-27] MEDS: THIAMINE HCL INJ 100 MG, FOLIC ACID INJ 1 MG, MAGNESIUM SULFATE INJ 1 GM, MULTIVITAMINS... 1000 MG IV CONT (16:18)
--- NOTE | 2024-12-27 20:02 | PC.NURSE ---
per edp ok to start abx without blood cultures.
--- NOTE | 2024-12-27 20:40 | PC.NURSE ---
[facility] EDP Wood Ativan 2 mg Q4-6 H PRN.
--- NOTE | 2024-12-27 20:54 | P.HP_ITS ---
H&P: HPI History of Present Illness Date/Time: 12/27/24 20:54 Chief Complaint: Abdominal distension Narrative: This is a 59-year-old female with past medical history impression and anxiety, hypertension, dyslipidemia, hypothyroidism, olc-wowmbnq-xaxeexjco diabetes mellitus, alcohol use disorder, tobacco dependence who presents to [facility] with complaint of abdominal swelling. Patient has been drinking 2 pt of vodka for 20 years at least. She denies any knowledge of liver disorder. She reports over 24 hours developed rapid swelling in the abdomen. It has caused her to have decreased mobility. She denies any pain, fever, diarrhea. Endorses difficulty urinating. Her last drink was about 1 day prior to admission and she reports she has had the onset of withdrawal with tremors in her arms. Your workup revealed sinus tachycardia, WBC 3.4, hemoglobin 10, platelet count 63, total bilirubin 1.3, AST 59, ALT 22, alkaline phosphatase 142, urinalysis positive for nitrites leukocyte esterase, wbc's, 2+ bacteria. Serum ETOH to 75. CT abdomen pelvis with contrast revealed cirrhosis with portal hypertension and moderate ascites, heterogeneous liver parenchyma, gallbladder hydrops without inflammatory change or bile duct dilation, mild esophagitis/gastritis, mild diffuse colonic wall edema. She was given Ativan, banana bag, 1 L normal saline, ceftriaxone, Protonix. Review of Systems Review of Systems: All systems reviewed & are unremarkable except as noted in HPI and below (HPI) PMFSH Past Medical History Medical History BMI 26.0-26.9,adult Hypertension Depression with anxiety ADHD Dyslipidemia Essential hypertension Hypothyroidism Alcoholism Diabetes mellitus hemoglobin A1c 05/29/2020 4.8 Surgical History Surgical History Fracture of humeral shaft, left, closed IM deepti 09/2020 Previous back surgery removed tumor from back 2009, [facility] History of total hysterectomy with bilateral salpingo-oophorectomy (BSO) due to fibroid Hx of tonsillectomy History of appendectomy History of colonoscopy with polypectomy Family History Family History Sibling Asthma Diabetes mellitus Mother Cerebrovascular accident Hypertension Sibling Diabetes mellitus Alcoholism Father Hypertension Social History Social History Social History: The patient lives in [facility] with her of 12 years. She has had a struggle with alcoholism for the last 20 years. She went through alcohol treatment programs 13 years ago when her 1st . She went through alcohol treatment program again about 2 years ago at [facility]. She drinks 2 pt of vodka several times a week. She does not retain the use marijuana and states that she does not like it because it makes her sleep. She has never smoked. 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 Primary care physician: Dr. Bud Valladares Smoking status: Never smoker Second hand tobacco smoke exposure: No Alcohol intake: current Drinks per week: 149 Alcohol use details: 2 pints vodka daily Substance use: never Other substance usage details: STATES DRANK 2PT VODKA/DAY Last use: last drink 09/23/23 Do You Feel Safe in your Home?: Yes Lack of Transportation: No Lack of Food: Never True Current Housing: I Have Housing Concerned About Future Housing: No Difficulty Paying Gas/Electric Bills: No Difficulty Paying for Meds: No Currently Unemployed: No Education: Associate Degree Difficulty w/ Childcare or Family Care: No Living arrangements: with family Gender identity (if verbalized by the patient): Female Spiritual care concerns: No Meds Home Medications and Allergies Home Medications ?Medication ?Instructions ?Recorded ?Confirmed ?Type atenolol 50 mg-chlorthalidone 25 1 tablet PO HS 05/28/20 10/10/23 History mg tablet levothyroxine 125 mcg tablet 125 mcg PO HS 05/28/20 10/10/23 History (Euthyrox) potassium chloride 10 mEq 10 meq PO HS 05/28/20 10/10/23 History tablet,extended release pravastatin 10 mg tablet 10 mg PO HS 05/28/20 10/10/23 History spironolactone 25 mg tablet 25 mg PO DAILY 05/28/20 10/10/23 History folic acid 1 mg tablet 1 mg PO HS 10/13/20 10/10/23 History magnesium oxide 400 mg PO HS 10/13/20 10/10/23 History vitamin E 200 unit capsule 200 unit PO DAILY 01/12/21 10/10/23 History multivitamin 1 tablet PO DAILY 05/16/22 10/10/23 History codeine 10 mg-guaifenesin 100 mg/5 5 ml PO Q4H PRN Cough #100 mL 10/13/23 Rx mL oral liquid levofloxacin 750 mg tablet 750 mg PO DAILY #4 tabs 10/13/23 Rx metformin 500 mg tablet 500 mg PO BID #60 tabs 10/13/23 Rx multivitamin with folic acid 400 1 tablet PO DAILY 10/13/23 Rx mcg tablet (Thera) pantoprazole 40 mg tablet,delayed 40 mg PO HS #30 tabs 10/13/23 Rx release (Protonix) pravastatin 20 mg tablet 10 mg (1/2 x 20 mg) PO HS 10/13/23 Rx Allergies Allergy/AdvReac Type Severity Reaction Status Date / Time No Known Allergies Allergy Verified 12/27/24 14:25 Vital Signs Vital Signs - 24 hr 12/27/24 13:16 12/27/24 14:31 12/27/24 14:46 Temperature 97.6 F Pulse Rate 126 H 116 H 123 H Respiratory Rate 20 20 23 H Blood Pressure 126/85 133/77 140/114 H Pulse Oximetry 99 99 99 Oxygen Delivery Room Air 12/27/24 15:01 12/27/24 17:00 12/27/24 17:30 Temperature Pulse Rate 116 H 114 H 124 H Respiratory Rate 29 H 21 H 22 H Blood Pressure 133/82 137/80 129/83 Pulse Oximetry 98 99 92 Oxygen Delivery 12/27/24 18:01 12/27/24 18:30 12/27/24 19:00 Temperature Pulse Rate 125 H 124 H 124 H Respiratory Rate 21 H 22 H 24 H Blood Pressure 130/76 129/80 145/81 H Pulse Oximetry 98 96 Oxygen Delivery 12/27/24 19:25 12/27/24 20:47 Temperature Pulse Rate 121 H 121 H Respiratory Rate 23 H 21 H Blood Pressure 137/88 134/77 Pulse Oximetry 98 99 Oxygen Delivery Exam Const: General: comfortable and no acute distress Other: A&O x3 HENMT: Mouth: Yes moist mucous membranes Eyes: Pupils: Equal, round and reactive pupils present Neck: Neck: supple Resp: Effort & Inspection: normal respiratory effort Auscultation: clear to auscultation bilaterally Cardio: Rate: regular rate Rhythm: regular rhythm GI: Inspection: distended GI Palp: Yes Soft to palpation Auscultation: normal bowel sounds Other: Dullness to percussion : General: Yes bladder normal to palpation Skin: Other: Spider angiomas Neuro: Motor exam (neuro): 5/5 motor strength present throughout Extrem: General: no edema H&P: Results Labs Labs: Short CBC 12/27/24 Range/Units 14:17 WBC 3.4 L (4.5-10.0) K/mm3 Hgb 10.0 L (12.0-15.0) g/dL Hct 31.8 L (37.0-47.0) % Plt Count 63 L (150-375) k/mm3 BMP 12/27/24 14:17 Sodium 141 Potassium 3.5 Chloride 101 Carbon Dioxide 21 L BUN 9 D Creatinine 0.53 L Glucose 265 H Calcium 7.7 L Liver Function 12/27/24 Range/Units 14:17 Total Bilirubin 1.3 (0.2-1.3) mg/dL AST 59 H (14-36) U/L ALT 22 (6-35) U/L Alkaline Phosphatase 142 H (38-126) U/L Albumin 3.6 (3.5-5.1) g/dL Urine 12/27/24 Range/Units 14:17 Urine Color [place] H (Yellow) Urine Appearance Clear (Clear) Urine pH 5.5 (5.0-9.0) Ur Specific [place] 1.025 (1.001-1.035) Urine Protein 1+ H (Negative) mg/dL Urine Glucose (UA) Trace H (Negative) mg/dL Assessment and Plan Assessment and plan (1) Alcoholic cirrhosis of liver with ascites: Code(s): K70.31 - Alcoholic cirrhosis of liver with ascites Status: Acute (2) Urinary tract infection: Code(s): N39.0 - Urinary tract infection, site not specified Status: Acute Plan This is a 59-year-old female with past medical history impression and anxiety, hypertension, dyslipidemia, hypothyroidism, bwe-cgrwveo-nqxfaaapt diabetes mellitus, alcohol use disorder, tobacco dependence who presents to [facility] with complaint of abdominal swelling. Patient has been drinking 2 pt of vodka for 20 years at least. She denies any knowledge of liver disorder. She reports over 24 hours developed rapid swelling in the abdomen. It has caused her to have decreased mobility. She denies any pain, fever, diarrhea. Endorses difficulty urinating. Her last drink was about 1 day prior to admission and she reports she has had the onset of withdrawal with tremors in her arms. Your workup revealed sinus tachycardia, WBC 3.4, hemoglobin 10, platelet count 63, total bilirubin 1.3, AST 59, ALT 22, alkaline phosphatase 142, urinalysis positive for nitrites leukocyte esterase, wbc's, 2+ bacteria. Serum ETOH to 75. CT abdomen pelvis with contrast revealed cirrhosis with portal hypertension and moderate ascites, heterogeneous liver parenchyma, gallbladder hydrops without inflammatory change or bile duct dilation, mild esophagitis/gastritis, mild diffuse colonic wall edema. She was given Ativan, banana bag, 1 L normal saline, ceftriaxone, Protonix. ----- Cirrhosis with fairly rapid onset of ascites. This has caused her to have decreased mobility. PT OT larry as. Will need to follow-up closely with hepatology. Patient requests to forego paracentesis for now. Begin 2 g salt restriction per day. Start spironolactone 100 mg p.o. q.a.m. and furosemide 40 mg p.o. q.a.m.. Will give a dose of furosemide 40 mg IV x1 now. Counseled on alcohol cessation and patient is amenable. Care coordination consult. Currently beginning to have alcohol withdrawal with mild tremors of the upper extremities. CIWA protocol. Received Ativan in the ER. Start Librium 25 mg p.o. q.6 hours. She received banana bag in the ER. Thiamine and folic acid daily. Continue ceftriaxone for UTI in follow-up urine cultures. Monitor pancytopenia likely related to cirrhosis. ----- SCDs. Full code. Salt restriction. PT ROGELIO juarez. CIWA protocol fall precautions, ambulate with assistance. Hospitalist MIPS Advance Care Plan I have confirmed that the patient's Advanced Care Plan is present, code status is documented, or surrogate decision maker is listed in patient medical record.: Yes Medication Reconciliation I have utilized all available resources to obtain, update and review the patients current medications (includes all prescriptions, OTC, herbals, cannabis, and nutritional supplements).: Yes
[2024-12-27] MEDS: chlordiazePOXIDE (*CRX) 25 MG CAPSULE PO ×2 (21:17→23:09)
--- NOTE | 2024-12-27 21:48 | ADMGEN ---
This patient, Viktoria Grant, was admitted to 2 Medical Room 259-01. Patient/family oriented to hospital policies and general routines including ID bracelet, bed and alarms, visiting hours, pain management, procedures, bathroom and other care routines, personal items, smoking policy, room service/diet, and visiting hours. Information on how to activate the Rapid Response Team has been discussed. Patient/Family are encouraged to report perceived risks to care and to ask questions if they do not understand what they are told or what they should do.
[2024-12-27] MEDS: FUROSEMIDE INJ 40 MG/4 ML VIAL IV PUSH (22:15)
[2024-12-28] VITALS (12 sets, daily range): BP systolic 107–144; BP diastolic 49–80; PULSE 96–127; RESP 16–18; TEMP 36.4–38.6; O2SAT 94–99
[2024-12-28 00:06] LABS: Glucose Point of Care 246 mg/dl (65-105)
[2024-12-28] MEDS: atenoloL 50 MG TABLET PO (05:26)
[2024-12-28] MEDS: LEVOTHYROXINE SODIUM 125 MCG TABLET PO (05:27)
[2024-12-28] MEDS: chlordiazePOXIDE (*CRX) 25 MG CAPSULE PO ×2 (05:27→06:05)
[2024-12-28 05:58] LABS: Basophils Percent Auto 0.5 % (0.2-1.2); Eosinophils Percent Auto 0.2 % (0-4.4); Immature Granulocyte Absolute 0.01 K/mm3 (0.00-0.031); Immature Granulocyte Percent A 0.2 % (0-0.5); Immature Platelet Fraction Pct 3.3 % (0.9-11.2); Lymphocytes Absolute Auto 0.94 K/mm3 (0.9-3.2); Lymphocytes Percent Auto 23.4 % (18.3-44.2); Mean Corpuscular HGB Conc 32.1 g/dl (32-36); Mean Corpuscular Hemoglobin 26.6 pg (26-34); Mean Corpuscular Volume 82.8 fl (80-100); Mean Platelet Volume 9.3 fl (7.4-10.4); Monocytes Absolute Auto 0.4 K/mm3 (0.1-0.6); Monocytes Percent Auto 9.2 % (2.6-8.5); Neutrophils Absolute Auto 2.7 K/mm3 (1.3-6.7); Neutrophils Percent Auto 66.5 % (45.5-73.1); Platelet Count Result 49 k/mm3 (150-375); Red Blood Count 3.38 M/mm3 (4.2-5.4); Red Cell Distribution Width 21.1 % (11.5-14.5)
[2024-12-28 06:07] LABS: Glucose Point of Care 200 mg/dl (65-105)
[2024-12-28 06:09] LABS: Alanine Aminotransferase 23 U/L (6-35); Albumin Level 3.5 g/dL (3.5-5.1); Alkaline Phosphatase 154 U/L (38-126); Anion Gap 12 mmol/L (4-12); Aspartate Amino Transferase 56 U/L (14-36); Bilirubin,Total 2.3 mg/dL (0.2-1.3); Blood Urea Nitrogen 6 mg/dL (7-17); Calcium 7.3 mg/dL (8.4-10.2); Carbon Dioxide 26 mmol/L (22-30); Chloride 96 mmol/L (98-107); Estimated CRCL calculation 122 ml/min; Estimated Glomerular Filt Rate > 60; Glucose 183 mg/dL (65-110); Magnesium 0.7 mg/dL (1.6-2.3); Potassium 2.9 mmol/L (3.4-5.0); Sodium 134 mmol/L (137-145)
[2024-12-28 06:38] LABS: Anisocytosis 2+; Ovalocytes 1+; Platelet Estimate Decreased (Adequate)
[2024-12-28 06:40] LABS: Schistocytes Rare
[2024-12-28] MEDS: MAGNESIUM SULF 4 GM/WATER100ML 4 GM/100 ML BAG IVPB (07:45)
[2024-12-28 08:08] LABS: Glucose Point of Care 193 mg/dl (65-105)
[2024-12-28] MEDS: SPIRONOLACTONE 50 MG TABLET 100 MG PO (08:20)
[2024-12-28] MEDS: MAGNESIUM OXIDE 400 MG TABLET PO (08:21)
[2024-12-28] MEDS: MULTIVITAMINS THERAPEUTIC TAB (*BKC) 1 TABLET PO (08:21)
[2024-12-28] MEDS: POTASSIUM CHLORIDE 20 MEQ ER TABLET 40 MEQ PO (08:21)
[2024-12-28] MEDS: PRAVASTATIN SODIUM 10 MG TABLET PO (08:21)
[2024-12-28] MEDS: FUROSEMIDE INJ 40 MG/4 ML VIAL IV PUSH (08:22)
[2024-12-28] MEDS: PANTOPRAZOLE SODIUM IV 40 MG VIAL IV PUSH (08:22)
[2024-12-28] MEDS: THIAMINE HCL 200 MG/2 ML VIAL 100 MG IV PUSH (08:35)
[2024-12-28] MEDS: FOLIC ACID 1 MG TABLET PO (08:57)
--- NOTE | 2024-12-28 10:55 | PM.IMPN ---
Progress Note: A&P Assessment and Plan (1) Alcoholic cirrhosis of liver with ascites: Code(s): K70.31 - Alcoholic cirrhosis of liver with ascites Status: Acute (2) Urinary tract infection: Code(s): N39.0 - Urinary tract infection, site not specified Status: Acute Plan This is a 59-year-old female with past medical history impression and anxiety, hypertension, dyslipidemia, hypothyroidism, lhz-skddnml-ydpeibagl diabetes mellitus, alcohol use disorder, tobacco dependence who presents to [place] [facility] with complaint of abdominal swelling. Patient has been drinking 2 pt of vodka for 20 years at least. She denies any knowledge of liver disorder. She reports over 24 hours developed rapid swelling in the abdomen. It has caused her to have decreased mobility. She denies any pain, fever, diarrhea. Endorses difficulty urinating. Her last drink was about 1 day prior to admission and she reports she has had the onset of withdrawal with tremors in her arms. Your workup revealed sinus tachycardia, WBC 3.4, hemoglobin 10, platelet count 63, total bilirubin 1.3, AST 59, ALT 22, alkaline phosphatase 142, urinalysis positive for nitrites leukocyte esterase, wbc's, 2+ bacteria. Serum ETOH to 75. CT abdomen pelvis with contrast revealed cirrhosis with portal hypertension and moderate ascites, heterogeneous liver parenchyma, gallbladder hydrops without inflammatory change or bile duct dilation, mild esophagitis/gastritis, mild diffuse colonic wall edema. She was given Ativan, banana bag, 1 L normal saline, ceftriaxone, Protonix. ----- Abdominal distension Secondary to cirrhosis and ascites Cirrhosis with fairly rapid onset of ascites. Plan for paracentesis diagnosis June 25 she needs to follow-up closely with hepatology. 2 g salt restriction per day. spironolactone 100 mg p.o. q.a.m. and furosemide 40 mg p.o. q.a.m.. Recommended to quit alcohol GI team has been consulted Alcohol abuse Counseled on alcohol cessation and patient is amenable. Care coordination consult. [facility] protocol. lorazepam. She received banana bag in the ER. Thiamine and folic acid daily. UTI: Continue ceftriaxone follow-up urine cultures. pancytopenia likely related to cirrhosis. Hypothyroidism Levothyroxin Hypokalemia, hyponatremia Replaced as needed DM 2 SSI and accuchecks Subjective Date/time seen: 12/28/24 10:55 Interval history: per HPI: This is a 59-year-old female with past medical history impression and anxiety, hypertension, dyslipidemia, hypothyroidism, upv-yezwyqk-rppyduqrg diabetes mellitus, alcohol use disorder, tobacco dependence who presents to [place] ER with complaint of abdominal swelling. Patient has been drinking 2 pt of vodka for 20 years at least. She denies any knowledge of liver disorder. She reports over 24 hours developed rapid swelling in the abdomen. It has caused her to have decreased mobility. She denies any pain, fever, diarrhea. Endorses difficulty urinating. Her last drink was about 1 day prior to admission and she reports she has had the onset of withdrawal with tremors in her arms. Your workup revealed sinus tachycardia, WBC 3.4, hemoglobin 10, platelet count 63, total bilirubin 1.3, AST 59, ALT 22, alkaline phosphatase 142, urinalysis positive for nitrites leukocyte esterase, wbc's, 2+ bacteria. Serum ETOH to 75. CT abdomen pelvis with contrast revealed cirrhosis with portal hypertension and moderate ascites, heterogeneous liver parenchyma, gallbladder hydrops without inflammatory change or bile duct dilation, mild esophagitis/gastritis, mild diffuse colonic wall edema. She was given Ativan, banana bag, 1 L normal saline, ceftriaxone, Protonix. 12/28/24 Patient seen examined at bedside. Denies any chest pain, shortness off illness, abdominal pain, nausea vomiting. denies any black stool. Her main complaint he has abdominal distension. Continue with Rocephin, Lasix, spironolactone continue with CIWA protocol. Plan for paracentesis diagnostic/therapeutic GI team has been consulted Review of Systems Review of Systems: All systems reviewed & are unremarkable except as noted in HPI and below (HPI) Exam Const: General: comfortable and no acute distress Other: A&O x3 HENMT: Mouth: Yes moist mucous membranes Eyes: Pupils: Equal, round and reactive pupils present Neck: Neck: supple Resp: Effort & Inspection: normal respiratory effort Auscultation: clear to auscultation bilaterally Cardio: Rate: regular rate Rhythm: regular rhythm GI: Inspection: distended Auscultation: normal bowel sounds Other: Dullness to percussion : General: Yes bladder normal to palpation Bimanual exam- vagina & uterus: bladder normal to palpation Skin: Other: Spider angiomas Neuro: Cranial nerves: Yes Equal, round and reactive pupils present Motor exam (neuro): /5 motor strength present throughout Extrem: General: no edema Objective Data Vital Signs Vital Signs: Vital Signs - 24 hr 12/27/24 13:16 12/27/24 14:31 12/27/24 14:46 Temperature 97.6 F Pulse Rate 126 H 116 H 123 H Respiratory Rate 20 20 23 H Blood Pressure 126/85 133/77 140/114 H Pulse Oximetry 99 99 99 Oxygen Delivery Room Air 12/27/24 15:01 12/27/24 17:00 12/27/24 17:30 Temperature Pulse Rate 116 H 114 H 124 H Respiratory Rate 29 H 21 H 22 H Blood Pressure 133/82 137/80 129/83 Pulse Oximetry 98 99 92 Oxygen Delivery 12/27/24 18:01 12/27/24 18:30 12/27/24 19:00 Temperature Pulse Rate 125 H 124 H 124 H Respiratory Rate 21 H 22 H 24 H Blood Pressure 130/76 129/80 145/81 H Pulse Oximetry 98 96 Oxygen Delivery 12/27/24 19:25 12/27/24 20:47 12/27/24 22:00 Temperature 99.4 F Pulse Rate 121 H 121 H 123 H Respiratory Rate 23 H 21 H 16 Blood Pressure 137/88 134/77 144/90 H Pulse Oximetry 98 99 100 Oxygen Delivery 12/27/24 22:00 12/28/24 00:00 12/28/24 00:00 Temperature 99.8 F H Pulse Rate 127 H 126 H Respiratory Rate 18 Blood Pressure 144/80 H Pulse Oximetry 98 Oxygen Delivery Room Air 12/28/24 04:00 12/28/24 04:00 12/28/24 05:18 Temperature 101.5 F H 99.2 F Pulse Rate 123 H 123 H Respiratory Rate 16 Blood Pressure 123/75 Pulse Oximetry 96 Oxygen Delivery 12/28/24 05:26 12/28/24 08:00 12/28/24 09:35 Temperature 97.7 F Pulse Rate 124 H 100 Respiratory Rate 17 Blood Pressure 118/49 L Pulse Oximetry 97 99 Oxygen Delivery Room Air Intake/Output Intake/Output: Intake & Output 12/25/24 12/26/24 12/27/24 12/28/24 23:59 23:59 23:59 23:59 Intake Total 1063.2 820 Output Total 1900 1050 Balance -836.8 -230 Meds/Results Medications: Active Medications Generic Name Dose Route Start Last Admin Trade Name Freq PRN Reason Stop Dose Admin Atenolol 50 mg 12/28/24 04:30 12/28/24 05:26 Atenolol 50 Mg Tablet PO 50 mg DAILY SHERRON Administration Chlordiazepoxide HCl 50 mg 12/28/24 12:00 Chlordiazepoxide (*Crx) 25 Mg Capsule PO Q6HR SHERRON Folic Acid 1 mg 12/28/24 09:00 12/28/24 08:57 Folic Acid 1 Mg Tablet PO 1 mg DAILY SHERRON Administration Furosemide 40 mg 12/27/24 20:50 12/28/24 08:22 Furosemide Inj 40 Mg/4 Ml Vial IV PUSH 40 mg DAILY SHERRON Administration Ceftriaxone Sodium 1 gm in 50 mls @ 100 mls/hr 12/27/24 20:00 12/27/24 20:45 Rocephin 1 Gm/Ns 50 Ml IVPB Infused Q24H SHERRON Infusion Magnesium Sulfate 4 gm in 100 mls @ 25 mls/hr 12/28/24 07:11 12/28/24 07:45 Magnesium Sulf 4 Gm/[id number] IVPB 12/28/24 11:10 25 mls/hr ONCE ONE Administration Levothyroxine Sodium 125 mcg 12/28/24 06:30 12/28/24 05:27 Levothyroxine Sodium 125 Mcg Tablet PO 125 mcg DAILY@0630 SHERRON Administration Lorazepam 2 mg 12/27/24 20:49 Lorazepam Inj (*Crx) 2 Mg/Ml Vial IV PUSH Q2H PRN CIWA > 15 Lorazepam 2 mg 12/27/24 21:19 Lorazepam Inj (*Crx) 2 Mg/Ml Vial IV PUSH Q4H PRN Agitation Magnesium Oxide 400 mg 12/28/24 09:00 12/28/24 08:21 Magnesium Oxide 400 Mg Tablet PO 400 mg DAILY SHERRON Administration Multivitamins Therapeutic 1 tablet 12/28/24 09:00 12/28/24 08:21 Multivitamins Therapeutic Tab (*Bkc) PO 1 tablet DAILY SHERRON Administration Pantoprazole Sodium 40 mg 12/28/24 09:00 12/28/24 08:22 Pantoprazole Sodium Iv 40 Mg Vial IV PUSH 40 mg QAM SHERRON Administration Pravastatin Sodium 10 mg 12/28/24 09:00 12/28/24 08:21 Pravastatin Sodium 10 Mg Tablet PO 10 mg DAILY SHERRON Administration Spironolactone 100 mg 12/28/24 09:00 12/28/24 08:20 Spironolactone 50 Mg Tablet PO 100 mg QAM SHERRON Administration Thiamine HCl 100 mg 12/28/24 09:00 12/28/24 08:35 Thiamine Hcl 200 Mg/2 Ml Vial IV PUSH 100 mg DAILY SHERRON Administration Radiology Results: ITS Impressions Abdomen/Pelvis CT 12/27/24 15:50 IMPRESSION: Cirrhosis with portal hypertension and moderate ascites. Heterogeneous liver parenchyma with the suggestion of multiple low density lesions, may be related to cirrhotic change, hepatic microabscesses, or metastatic disease. Gallbladder hydrops, without inflammatory change or bile duct dilation. Mild esophagitis/gastritis. Mild diffuse colonic wall edema, may be related to portal enteropathy or colitis. Labs Labs: Laboratory Results - last 24 hr 12/27/24 12/28/24 12/28/24 14:17 00:00 05:45 WBC 3.4 L 4.0 L RBC 3.77 L 3.38 L Hgb 10.0 L 9.0 L Hct 31.8 L 28.0 L MCV 84.4 82.8 MCH 26.5 26.6 MCHC 31.4 L 32.1 RDW 20.8 H 21.1 H Plt Count 63 L 49 L MPV 9.3 9.3 Immature Gran % (Auto) 0.6 H 0.2 Neut % (Auto) 65.0 66.5 Lymph % (Auto) 24.7 23.4 [place] % (Auto) 8.2 9.2 H Eos % (Auto) 0.6 0.2 Baso % (Auto) 0.9 0.5 Lymph # (Auto) 0.84 L 0.94 [place] # (Auto) 0.3 0.4 Eos # (Auto) 0.0 0.0 Baso # (Auto) 0.0 0.0 Abs Immat Gran (auto) 0.02 0.01 Absolute Neuts (auto) 2.2 2.7 Absolute Nucleated RBC 0.000 0.000 Band Neutrophils % Not Reportable Not Reportable Nucleated RBC % 0.0 0.0 Platelet Estimate Decreased Decreased % Immature Plt Fraction 2.7 3.3 Hypochromasia 1+ Anisocytosis 1+ 2+ Ovalocytes 1+ Schistocytes Rare Rare Sodium 141 134 L Potassium 3.5 2.9 L Chloride 101 96 L Carbon Dioxide 21 L 26 Anion Gap 19 H 12 BUN 9 D 6 L Creatinine 0.53 L 0.46 L Estim Creat Clear Calc 93 122 Estimated GFR > 60 > 60 Glucose 265 H 183 H POC Capillary Glucose 246 H Calcium 7.7 L 7.3 L Magnesium 0.7 L Total Bilirubin 1.3 2.3 H AST 59 H 56 H ALT 22 23 Alkaline Phosphatase 142 H 154 H Total Protein 7.0 7.0 Albumin 3.6 3.5 Lipase 101 Urine Color [place] H Urine Appearance Clear Urine pH 5.5 Ur Specific [place] 1.025 Urine Protein 1+ H Urine Glucose (UA) Trace H Urine Ketones Trace H Ur Blood (Man) Negative Urine Nitrate Positive H Urine Bilirubin 1+ H Urine Urobilinogen 1.0 Leukocyte Esterase Rfl 1+ H Urine RBC 0-2 Urine WBC 11-20 H Ur Squamous Epith Cells None seen Urine Bacteria 2+ H Urine Casts 3-5 Ethyl Alcohol 275 12/28/24 12/28/24 06:04 08:00 WBC RBC Hgb Hct MCV MCH MCHC RDW Plt Count MPV Immature Gran % (Auto) Neut % (Auto) Lymph % (Auto) [place] % (Auto) Eos % (Auto) Baso % (Auto) Lymph # (Auto) [place] # (Auto) Eos # (Auto) Baso # (Auto) Abs Immat Gran (auto) Absolute Neuts (auto) Absolute Nucleated RBC Band Neutrophils % Nucleated RBC % Platelet Estimate % Immature Plt Fraction Hypochromasia Anisocytosis Ovalocytes Schistocytes Sodium Potassium Chloride Carbon Dioxide Anion Gap BUN Creatinine Estim Creat Clear Calc Estimated GFR Glucose POC Capillary Glucose 200 H 193 H Calcium Magnesium Total Bilirubin AST ALT Alkaline Phosphatase Total Protein Albumin Lipase Urine Color Urine Appearance Urine pH Ur Specific [place] Urine Protein Urine Glucose (UA) Urine Ketones Ur Blood (Man) Urine Nitrate Urine Bilirubin Urine Urobilinogen Leukocyte Esterase Rfl Urine RBC Urine WBC Ur Squamous Epith Cells Urine Bacteria Urine Casts Ethyl Alcohol
[2024-12-28 11:38] LABS: Albumin Level 3.5 g/dL (3.5-5.1)
[2024-12-28 11:51] LABS: Hemoglobin A1C 7.1 % (<5.7)
[2024-12-28 12:14] LABS: Glucose Point of Care 220 mg/dl (65-105)
[2024-12-28] MEDS: chlordiazePOXIDE (*CRX) 25 MG CAPSULE 50 MG PO ×3 (12:15→23:54)
[2024-12-28] MEDS: INSULIN ASPART (*BKC) 100 UNITS/ML SUB-Q (12:19)
--- NOTE | 2024-12-28 13:44 | P.CONGI_ITS ---
Assessment and Plan Assessment and plan (1) Alcoholic cirrhosis of liver with ascites: Code(s): K70.31 - Alcoholic cirrhosis of liver with ascites Status: Acute Assessment and Plan: new diagnosis of cirrhosis, this is from alcohol abuse but will check also hepatitis will ask radiologist to get paracentesis and assess if SBP (on abx but for uti) she is aware that already has cirrhosis and needs to stop drinking altogether thiamine, nutrition support started on aldactone 100mg, will switch to oral lasix 40 mg and monitor lytes/renal function get inr tomorrow to calculate meld score (2) Abnormal liver enzymes: Code(s): R74.8 - Abnormal levels of other serum enzymes Status: Acute Assessment and Plan: from cirrhosis monitor (3) Urinary tract infection: Code(s): N39.0 - Urinary tract infection, site not specified Status: Acute Assessment and Plan: on abx (4) Alcohol withdrawal: Code(s): F10.939 - Alcohol use, unspecified with withdrawal, unspecified Status: Acute Assessment and Plan: ciks protocol thiamine, mvi (5) Pancytopenia: Code(s): D61.818 - Other pancytopenia Status: Acute Assessment and Plan: probably from cirrhosis and alcohol abuse GI Consult Note Consult date/time: 12/28/24 13:44 Reason for consult: alcoholic cirrhosis HPI: Viktoria Grant is a 59 year old female with past medical history anxiety, alcohol abuse (2 pint vodka every 2-3 days for several years), hypertension, lut-totttvf-gaibqclxl diabetes mellitus who came to [facility] ER with abdominal swelling. She noted last few days progressive increase abdominal girth, no fever or nausea. Also some difficulty urinating. Her last drink was about 1 day prior to admission. She had previous hospitalization visit with alcohol withdrawal. Blood work showed WBC 3.4, hemoglobin 10, platelet count 63, total bilirubin 1.3, AST 59, ALT 22, alkaline phosphatase 142, urinalysis positive for nitrites leukocyte esterase, wbc's, 2+ bacteria. Serum ETOH to 75. CT abdomen pelvis with contrast revealed cirrhosis with portal hypertension and moderate ascites, heterogeneous liver parenchyma, gallbladder hydrops without inflammatory change or bile duct dilation, mild esophagitis/gastritis, mild diffuse colonic wall edema. Started on rocephin for uti and diuretics. She says that had egd and colonoscopy about 5 years ago. No report of gib. Review of Systems 2 Constitutional: Constitutional: Denies chills Eyes: Eyes: Denies blurry vision ENT: Reports Normal hearing present, Denies headache(s) and Denies neck pain Cardiovascular: Cardiovascular: Denies chest pain and Denies dyspnea Respiratory: Respiratory: Denies dyspnea Gastrointestinal: Gastrointestinal: Reports no additional gastrointestinal complaints Genitourinary: Genitourinary: Reports dysuria Musculoskeletal: Musculoskeletal: Denies neck pain Integumentary/Breasts: Skin/Breast: Denies rash Neurologic: Reports Normal hearing present, Denies headache(s) and Denies weakness Psychiatric: Psychiatric: Reports anxiety PMFSH Past Medical History Medical History (Updated 12/28/24 @ 13:53 by Carlos Enrique Suero MD) Alcohol withdrawal BMI 26.0-26.9,adult Hypertension Depression with anxiety ADHD Dyslipidemia Essential hypertension Hypothyroidism Alcoholism Diabetes mellitus hemoglobin A1c 05/29/2020 4.8 Surgical History Surgical History Fracture of humeral shaft, left, closed IM deepti 09/2020 Previous back surgery removed tumor from back 2009, [facility] History of total hysterectomy with bilateral salpingo-oophorectomy (BSO) due to fibroid Hx of tonsillectomy History of appendectomy History of colonoscopy with polypectomy Family History Family History Sibling Asthma Diabetes mellitus Mother Cerebrovascular accident Hypertension Sibling Diabetes mellitus Alcoholism Father Hypertension Social History Social History Social History: The patient lives in [facility] with her of 12 years. She has had a struggle with alcoholism for the last 20 years. She went through alcohol treatment programs 13 years ago when her 1st . She went through alcohol treatment program again about 2 years ago at [place]. She drinks 2 pt of vodka several times a week. She does not retain the use marijuana and states that she does not like it because it makes her sleep. She has never smoked. 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 Primary care physician: Dr. Bud Valladares Smoking status: Never smoker Second hand tobacco smoke exposure: No Alcohol intake: current Drinks per week: 70 Alcohol use details: 2 pints vodka daily Substance use: never Substance use type: does not use Other substance usage details: STATES DRANK 2PT VODKA/DAY Last use: 12/26/2024 Do You Feel Safe in your Home?: Yes Lack of Transportation: No Lack of Food: Never True Current Housing: I Have Housing Concerned About Future Housing: No Difficulty Paying Gas/Electric Bills: No Difficulty Paying for Meds: No Currently Unemployed: No Education: Associate Degree Difficulty w/ Childcare or Family Care: No Living arrangements: with family Gender identity (if verbalized by the patient): Female Spiritual care concerns: No Meds Home Medications and Allergies Home Medications ?Medication ?Instructions ?Recorded ?Confirmed ?Type atenolol 50 mg-chlorthalidone 25 1 tablet PO HS 05/28/20 12/27/24 History mg tablet levothyroxine 125 mcg tablet 125 mcg PO DAILY@0630 05/28/20 12/27/24 History (Euthyrox) potassium chloride 10 mEq 10 meq PO DAILY 05/28/20 12/27/24 History tablet,extended release pravastatin 10 mg tablet 10 mg PO DAILY 05/28/20 12/27/24 History spironolactone 25 mg tablet 25 mg PO DAILY 05/28/20 12/27/24 History folic acid 1 mg tablet 1 mg PO HS 10/13/20 12/27/24 History magnesium oxide 400 mg PO DAILY 10/13/20 12/27/24 History vitamin E 200 unit capsule 200 unit PO DAILY 01/12/21 12/27/24 History multivitamin 1 tablet PO DAILY 05/16/22 12/27/24 History multivitamin with folic acid 400 1 tablet PO DAILY 10/13/23 12/27/24 Rx mcg tablet (Thera) pravastatin 20 mg tablet 10 mg (1/2 x 20 mg) PO HS 10/13/23 12/27/24 Rx glimepiride 1 mg tablet 1 mg PO BID 12/27/24 12/27/24 History Allergies Allergy/AdvReac Type Severity Reaction Status Date / Time No Known Allergies Allergy Verified 12/27/24 14:25 Vital Signs Vital Signs - 24 hr 12/27/24 14:31 12/27/24 14:46 12/27/24 15:01 Temperature Pulse Rate 116 H 123 H 116 H Respiratory Rate 20 23 H 29 H Blood Pressure 133/77 140/114 H 133/82 Pulse Oximetry 99 99 98 Oxygen Delivery 12/27/24 17:00 12/27/24 17:30 12/27/24 18:01 Temperature Pulse Rate 114 H 124 H 125 H Respiratory Rate 21 H 22 H 21 H Blood Pressure 137/80 129/83 130/76 Pulse Oximetry 99 92 98 Oxygen Delivery 12/27/24 18:30 12/27/24 19:00 12/27/24 19:25 Temperature Pulse Rate 124 H 124 H 121 H Respiratory Rate 22 H 24 H 23 H Blood Pressure 129/80 145/81 H 137/88 Pulse Oximetry 96 98 Oxygen Delivery 12/27/24 20:47 12/27/24 22:00 12/27/24 22:00 Temperature 99.4 F Pulse Rate 121 H 123 H Respiratory Rate 21 H 16 Blood Pressure 134/77 144/90 H Pulse Oximetry 99 100 Oxygen Delivery Room Air 12/28/24 00:00 12/28/24 00:00 12/28/24 04:00 Temperature 99.8 F H Pulse Rate 127 H 126 H 123 H Respiratory Rate 18 Blood Pressure 144/80 H Pulse Oximetry 98 Oxygen Delivery 12/28/24 04:00 12/28/24 05:18 12/28/24 05:26 Temperature 101.5 F H 99.2 F Pulse Rate 123 H 124 H Respiratory Rate 16 Blood Pressure 123/75 Pulse Oximetry 96 Oxygen Delivery 12/28/24 08:00 12/28/24 09:35 12/28/24 12:00 Temperature 97.7 F 97.6 F Pulse Rate 100 98 Respiratory Rate 17 18 Blood Pressure 118/49 L 116/58 L Pulse Oximetry 97 99 97 Oxygen Delivery Room Air Exam 2 Const: General: comfortable and no acute distress Other: tremors HENMT: Face/Nose/Sinus: Normal nares present Eyes: General: appearance normal, both eyes and all related structures Neck: Neck: supple Resp: Auscultation: clear to auscultation bilaterally Cardio: Rate: regular rate Rhythm: regular rhythm GI: Inspection: distended GI Palp: Yes Soft to palpation Auscultation: n ormal bowel sounds Other: + fluid wave, no rebound Skin: General skin exam: normal color Neuro: Speech: normal speech Other: tremors Extrem: General: normal to inspection Psych: Affect: Anxious affect present Results Labs 12/28/24 05:45 04/06/25 05:45 Labs: Short CBC 12/27/24 12/28/24 Range/Units 14:17 05:45 WBC 3.4 L 4.0 L (4.5-10.0) K/mm3 Hgb 10.0 L 9.0 L (12.0-15.0) g/dL Hct 31.8 L 28.0 L (37.0-47.0) % Plt Count 63 L 49 L (150-375) k/mm3 BMP 12/27/24 12/28/24 14:17 05:45 Sodium 141 134 L Potassium 3.5 2.9 L Chloride 101 96 L Carbon Dioxide 21 L 26 BUN 9 D 6 L Creatinine 0.53 L 0.46 L Glucose 265 H 183 H Calcium 7.7 L 7.3 L Liver Function 12/27/24 12/28/24 12/28/24 Range/Units 14:17 05:41 05:45 Total Bilirubin 1.3 2.3 H (0.2-1.3) mg/dL AST 59 H 56 H (14-36) U/L ALT 22 23 (6-35) U/L Alkaline Phosphatase 142 H 154 H (38-126) U/L Albumin 3.6 3.5 3.5 (3.5-5.1) g/dL Urine 12/27/24 Range/Units 14:17 Urine Color [place] H (Yellow) Urine Appearance Clear (Clear) Urine pH 5.5 (5.0-9.0) Ur Specific [place] 1.025 (1.001-1.035) Urine Protein 1+ H (Negative) mg/dL Urine Glucose (UA) Trace H (Negative) mg/dL
[2024-12-28 17:21] LABS: Glucose Point of Care 168 mg/dl (65-105)
[2024-12-28 20:30] LABS: Glucose Point of Care 171 mg/dl (65-105)
[2024-12-28 23:58] LABS: Glucose Point of Care 163 mg/dl (65-105)
[2024-12-29] VITALS (8 sets, daily range): BP systolic 90–114; BP diastolic 50–66; PULSE 86–103; RESP 12–18; TEMP 37–37.3; O2SAT 93–100; BMI 29.2
[2024-12-29 05:46] LABS: Hemoglobin 8.4 g/dL (12.0-15.0); Immature Platelet Fraction Pct 6.2 % (0.9-11.2); Mean Corpuscular HGB Conc 31.1 g/dl (32-36); Mean Corpuscular Hemoglobin 26.8 pg (26-34); Mean Platelet Volume 9.5 fl (7.4-10.4); Platelet Count Result 38 k/mm3 (150-375); Red Blood Count 3.14 M/mm3 (4.2-5.4); Red Cell Distribution Width 21.5 % (11.5-14.5); White Blood Count 2.3 K/mm3 (4.5-10.0)
[2024-12-29 05:48] LABS: Alanine Aminotransferase 17 U/L (6-35); Albumin Level 2.9 g/dL (3.5-5.1); Alkaline Phosphatase 120 U/L (38-126); Anion Gap 8 mmol/L (4-12); Aspartate Amino Transferase 42 U/L (14-36); Bilirubin,Total 2.5 mg/dL (0.2-1.3); Blood Urea Nitrogen 8 mg/dL (7-17); Calcium 7.1 mg/dL (8.4-10.2); Carbon Dioxide 30 mmol/L (22-30); Chloride 95 mmol/L (98-107); Estimated CRCL calculation 113 ml/min; Estimated Glomerular Filt Rate > 60; Glucose 154 mg/dL (65-110); Potassium 2.5 mmol/L (3.4-5.0); Sodium 133 mmol/L (137-145)
[2024-12-29 06:03] LABS: INR 1.9; Prothrombin Time 21.7 Seconds (11.1-14.7)
[2024-12-29] MEDS: LEVOTHYROXINE SODIUM 125 MCG TABLET PO (06:13)
[2024-12-29] MEDS: POTASSIUM CHLORIDE INJ 40 MEQ in SODIUM CHLORIDE 0.9% IV 500 ML 130 MEQ IVPB ×2 (06:13→11:33)
[2024-12-29] MEDS: chlordiazePOXIDE (*CRX) 25 MG CAPSULE 50 MG PO ×4 (06:13→23:53)
[2024-12-29 06:19] LABS: Magnesium 1.2 mg/dL (1.6-2.3)
[2024-12-29] MEDS: MAGNESIUM SULF 2 GM/WATER 50ML 2 GM/50 ML BAG IVPB (06:30)
[2024-12-29 09:27] LABS: Glucose Point of Care 162 mg/dl (65-105)
--- NOTE | 2024-12-29 10:14 | PM.IMPN ---
Progress Note: A&P Assessment and Plan (1) Alcoholic cirrhosis of liver with ascites: Code(s): K70.31 - Alcoholic cirrhosis of liver with ascites Status: Acute (2) Urinary tract infection: Code(s): N39.0 - Urinary tract infection, site not specified Status: Acute Plan This is a 59-year-old female with past medical history impression and anxiety, hypertension, dyslipidemia, hypothyroidism, [id number] diabetes mellitus, alcohol use disorder, tobacco dependence who presents to [facility] with complaint of abdominal swelling. Patient has been drinking 2 pt of vodka for 20 years at least. She denies any knowledge of liver disorder. She reports over 24 hours developed rapid swelling in the abdomen. It has caused her to have decreased mobility. She denies any pain, fever, diarrhea. Endorses difficulty urinating. Her last drink was about 1 day prior to admission and she reports she has had the onset of withdrawal with tremors in her arms. Your workup revealed sinus tachycardia, WBC 3.4, hemoglobin 10, platelet count 63, total bilirubin 1.3, AST 59, ALT 22, alkaline phosphatase 142, urinalysis positive for nitrites leukocyte esterase, wbc's, 2+ bacteria. Serum ETOH to 75. CT abdomen pelvis with contrast revealed cirrhosis with portal hypertension and moderate ascites, heterogeneous liver parenchyma, gallbladder hydrops without inflammatory change or bile duct dilation, mild esophagitis/gastritis, mild diffuse colonic wall edema. She was given Ativan, banana bag, 1 L normal saline, ceftriaxone, Protonix. ----- Abdominal distension Secondary to cirrhosis and ascites Cirrhosis with fairly rapid onset of ascites. Plan for paracentesis diagnosis today. follow analysis she needs to follow-up closely with hepatology. 2 g salt restriction per day. spironolactone 100 mg p.o. q.a.m. and furosemide 40 mg p.o. q.a.m.. Recommended to quit alcohol GI team has been consulted Alcohol abuse Counseled on alcohol cessation and patient is amenable. Care coordination consult. [facility] protocol. lorazepam. She received banana bag in the ER. Thiamine and folic acid daily. UTI: Continue ceftriaxone follow-up urine cultures. pancytopenia likely related to cirrhosis. monitor Hypothyroidism Levothyroxin Hypokalemia, hyponatremia Replaced as needed will repeat labs DM 2 SSI and accuchecks Subjective Date/time seen: 12/29/24 10:14 Interval history: per HPI: This is a 59-year-old female with past medical history impression and anxiety, hypertension, dyslipidemia, hypothyroidism, [id number] diabetes mellitus, alcohol use disorder, tobacco dependence who presents to [facility] with complaint of abdominal swelling. Patient has been drinking 2 pt of vodka for 20 years at least. She denies any knowledge of liver disorder. She reports over 24 hours developed rapid swelling in the abdomen. It has caused her to have decreased mobility. She denies any pain, fever, diarrhea. Endorses difficulty urinating. Her last drink was about 1 day prior to admission and she reports she has had the onset of withdrawal with tremors in her arms. Your workup revealed sinus tachycardia, WBC 3.4, hemoglobin 10, platelet count 63, total bilirubin 1.3, AST 59, ALT 22, alkaline phosphatase 142, urinalysis positive for nitrites leukocyte esterase, wbc's, 2+ bacteria. Serum ETOH to 75. CT abdomen pelvis with contrast revealed cirrhosis with portal hypertension and moderate ascites, heterogeneous liver parenchyma, gallbladder hydrops without inflammatory change or bile duct dilation, mild esophagitis/gastritis, mild diffuse colonic wall edema. She was given Ativan, banana bag, 1 L normal saline, ceftriaxone, Protonix. 12/28/24 Patient seen examined at bedside. Denies any chest pain, shortness off illness, abdominal pain, nausea vomiting. denies any black stool. Her main complaint he has abdominal distension. Continue with Rocephin, Lasix, spironolactone continue with CIWA protocol. Plan for paracentesis diagnostic/therapeutic GI team has been consulted 12/29/24 Patient was seen examined bedside. She is feeling better. Denies any chest pain, shortness off breath, nausea vomiting. Abdominal distended. Reviewed GI team recommendation. paracentesis today. Continue with the spironolactone and Lasix. Continue with CIWA protocol Patient has low potassium and magnesium. Will replace. Monitor levels Pancytopenia. Secondary to liver failure. Monitor for now Review of Systems Review of Systems: All systems reviewed & are unremarkable except as noted in HPI and below (HPI) Exam Const: General: comfortable and no acute distress Other: A&O x3 HENMT: Mouth: Yes moist mucous membranes Eyes: Pupils: Equal, round and reactive pupils present Neck: Neck: supple Resp: Effort & Inspection: normal respiratory effort Auscultation: clear to auscultation bilaterally Cardio: Rate: regular rate Rhythm: regular rhythm GI: Inspection: distended Auscultation: normal bowel sounds Other: Dullness to percussion : General: Yes bladder normal to palpation Bimanual exam- vagina & uterus: bladder normal to palpation Skin: Other: Spider angiomas Neuro: Cranial nerves: Yes Equal, round and reactive pupils present Motor exam (neuro): 5/5 motor strength present throughout Extrem: General: no edema Objective Data Vital Signs Vital Signs: Vital Signs - 24 hr 12/28/24 12:00 12/28/24 12:00 12/28/24 12:00 Temperature 97.6 F Pulse Rate 98 98 Pulse Rate [Apical Auscultation] Pulse Rate [Monitor] Respiratory Rate 18 Blood Pressure 116/58 L 116/58 L Pulse Oximetry 97 Oxygen Delivery 12/28/24 16:00 12/28/24 16:00 12/28/24 16:00 Temperature 97.8 F Pulse Rate 98 97 Pulse Rate [Apical Auscultation] Pulse Rate [Monitor] Respiratory Rate 18 Blood Pressure 116/58 L 120/66 Pulse Oximetry 98 Oxygen Delivery 12/28/24 20:00 12/28/24 20:00 12/28/24 20:15 Temperature 98.8 F Pulse Rate 101 H 101 H Pulse Rate [Apical Auscultation] 102 H Pulse Rate [Monitor] Respiratory Rate 18 Blood Pressure 114/72 114/72 Pulse Oximetry 99 Oxygen Delivery 12/28/24 20:15 12/28/24 23:46 12/28/24 23:52 Temperature 99.0 F Pulse Rate 96 Pulse Rate [Apical Auscultation] Pulse Rate [Monitor] 97 Respiratory Rate 16 Blood Pressure 107/58 L Pulse Oximetry 99 94 Oxygen Delivery Room Air 12/29/24 00:00 12/29/24 04:00 12/29/24 04:00 Temperature Pulse Rate 96 95 Pulse Rate [Apical Auscultation] Pulse Rate [Monitor] 95 Respiratory Rate Blood Pressure Pulse Oximetry Oxygen Delivery 12/29/24 04:26 12/29/24 08:00 12/29/24 08:00 Temperature 99.1 F 99.1 F Pulse Rate 98 103 H 96 Pulse Rate [Apical Auscultation] Pulse Rate [Monitor] Respiratory Rate 16 18 Blood Pressure 114/58 L 112/66 Pulse Oximetry 94 99 Oxygen Delivery 12/29/24 08:30 12/29/24 08:35 Temperature Pulse Rate Pulse Rate [Apical Auscultation] Pulse Rate [Monitor] Respiratory Rate Blood Pressure Pulse Oximetry Oxygen Delivery Room Air Room Air Intake/Output Intake/Output: Intake & Output 12/26/24 12/27/24 12/28/24 12/29/24 23:59 23:59 23:59 23:59 Intake Total 1063.2 1314 600 Output Total 1900 1051 Balance -836.8 263 600 Meds/Results Medications: Active Medications Generic Name Dose Route Start Last Admin Trade Name Freq PRN Reason Stop Dose Admin Atenolol 50 mg 12/28/24 04:30 12/28/24 05:26 Atenolol 50 Mg Tablet PO 50 mg DAILY SHERRON Administration Chlordiazepoxide HCl 50 mg 12/28/24 12:00 12/29/24 06:13 Chlordiazepoxide (*Crx) 25 Mg Capsule PO 50 mg Q6HR SH[facility]ON Administration Dextrose 12.5 gm 12/28/24 11:07 Dextrose 50% 25 Gm/50 Ml Syringe IV PUSH PRN PRN Hypoglycemia Protocol Folic Acid 1 mg 12/28/24 09:00 12/28/24 08:57 Folic Acid 1 Mg Tablet PO 1 mg DAILY SH[facility]ON Administration Furosemide 40 mg 12/29/24 09:00 Furosemide 40 Mg Tablet PO DAILY SHERRON Glucagon 1 mg 12/28/24 11:07 Glucagon For Inj 1 Mg Vial IM PRN PRN Hypoglycemia Protocol Glucose 15 gm 12/28/24 11:07 Glucose Oral Gel 15 Gm Of Glucse In 37.5 Gm Tube PO PRN PRN Hypoglycemia Protocol Ceftriaxone Sodium 1 gm in 50 mls @ 100 mls/hr 12/27/24 20:00 12/28/24 20:37 Rocephin 1 Gm/Ns 50 Ml IVPB Infused Q24H SH[facility]ON Infusion Dextrose 1,000 mls @ 100 mls/hr 12/28/24 11:07 Dextrose 5% 1,000 Ml IVPB PRN PRN Hypoglycemia Protocol Potassium Chloride 40 meq/ 520 mls @ 130 mls/hr 12/29/24 10:00 Sodium Chloride IVPB 12/29/24 13:59 ONCE ONE Insulin Aspart 1 - 2 units 12/28/24 21:00 12/28/24 20:29 Insulin Aspart (*Bkc) 100 Units/Ml SUB-Q Not Given HS [facility] Protocol Insulin Aspart 3 - 6 units 12/28/24 12:00 12/28/24 17:20 Insulin Aspart (*Bkc) 100 Units/Ml SUB-Q Not Given TIDWM [facility] Protocol Levothyroxine Sodium 125 mcg 12/28/24 06:30 12/29/24 06:13 Levothyroxine Sodium 125 Mcg Tablet PO 125 mcg DAILY@0630 [facility]ON Administration Lorazepam 2 mg 12/27/24 20:49 Lorazepam Inj (*Crx) 2 Mg/Ml Vial IV PUSH Q2H PRN CIWA > 15 Lorazepam 2 mg 12/27/24 21:19 Lorazepam Inj (*Crx) 2 Mg/Ml Vial IV PUSH Q4H PRN Agitation Magnesium Oxide 400 mg 12/28/24 09:00 12/28/24 08:21 Magnesium Oxide 400 Mg Tablet PO 400 mg DAILY SHERRON Administration Multivitamins Therapeutic 1 tablet 12/28/24 09:00 12/28/24 08:21 Multivitamins Therapeutic Tab (*Bkc) PO 1 tablet DAILY SH[facility]ON Administration Pantoprazole Sodium 40 mg 12/28/24 09:00 12/28/24 08:22 Pantoprazole Sodium Iv 40 Mg Vial IV PUSH 40 mg QAM SH[facility]ON Administration Pravastatin Sodium 10 mg 12/28/24 09:00 12/28/24 08:21 Pravastatin Sodium 10 Mg Tablet PO 10 mg DAILY SHERRON Administration Spironolactone 100 mg 12/28/24 09:00 12/28/24 08:20 Spironolactone 50 Mg Tablet PO 100 mg QAM SH[facility]ON Administration Thiamine HCl 100 mg 12/28/24 09:00 12/28/24 08:35 Thiamine Hcl 200 Mg/2 Ml Vial IV PUSH 100 mg DAILY SHERRNO Administration Radiology Results: ITS Impressions Abdomen/Pelvis CT 12/27/24 15:50 IMPRESSION: Cirrhosis with portal hypertension and moderate ascites. Heterogeneous liver parenchyma with the suggestion of multiple low density lesions, may be related to cirrhotic change, hepatic microabscesses, or metastatic disease. Gallbladder hydrops, without inflammatory change or bile duct dilation. Mild esophagitis/gastritis. Mild diffuse colonic wall edema, may be related to portal enteropathy or colitis. Labs Labs: Laboratory Results - last 24 hr 12/28/24 12/28/24 12/28/24 05:41 11:46 17:08 WBC RBC Hgb Hct MCV MCH MCHC RDW Plt Count MPV % Immature Plt Fraction PT INR Sodium Potassium Chloride Carbon Dioxide Anion Gap BUN Creatinine Estim Creat Clear Calc Estimated GFR Glucose POC Capillary Glucose 220 H 168 H Hemoglobin A1c 7.1 H Calcium Magnesium Total Bilirubin AST ALT Alkaline Phosphatase Total Protein Albumin 3.5 12/28/24 12/28/24 12/29/24 20:22 23:41 05:18 WBC 2.3 L RBC 3.14 L Hgb 8.4 L Hct 27.0 L MCV 86.0 MCH 26.8 MCHC 31.1 L RDW 21.5 H Plt Count 38 L MPV 9.5 % Immature Plt Fraction 6.2 PT 21.7 H INR 1.9 Sodium 133 L Potassium 2.5 L* Chloride 95 L Carbon Dioxide 30 Anion Gap 8 BUN 8 Creatinine 0.50 L Estim Creat Clear Calc 113 Estimated GFR > 60 Glucose 154 H POC Capillary Glucose 171 H 163 H Hemoglobin A1c Calcium 7.1 L Magnesium 1.2 L Total Bilirubin 2.5 H AST 42 H ALT 17 Alkaline Phosphatase 120 Total Protein 6.0 L Albumin 2.9 L 12/29/24 09:23 WBC RBC Hgb Hct MCV MCH MCHC RDW Plt Count MPV % Immature Plt Fraction PT INR Sodium Potassium Chloride Carbon Dioxide Anion Gap BUN Creatinine Estim Creat Clear Calc Estimated GFR Glucose POC Capillary Glucose 162 H Hemoglobin A1c Calcium Magnesium Total Bilirubin AST ALT Alkaline Phosphatase Total Protein Albumin
[2024-12-29] MEDS: SPIRONOLACTONE 50 MG TABLET 100 MG PO (11:29)
[2024-12-29] MEDS: MAGNESIUM OXIDE 400 MG TABLET PO (11:29)
[2024-12-29] MEDS: FOLIC ACID 1 MG TABLET PO (11:29)
[2024-12-29] MEDS: PRAVASTATIN SODIUM 10 MG TABLET PO (11:29)
[2024-12-29] MEDS: atenoloL 50 MG TABLET PO (11:30)
[2024-12-29] MEDS: FUROSEMIDE 40 MG TABLET PO (11:30)
[2024-12-29] MEDS: MULTIVITAMINS THERAPEUTIC TAB (*BKC) 1 TABLET PO (11:31)
[2024-12-29] MEDS: THIAMINE HCL 200 MG/2 ML VIAL 100 MG IV PUSH (11:32)
[2024-12-29] MEDS: PANTOPRAZOLE SODIUM IV 40 MG VIAL IV PUSH (11:33)
[2024-12-29 11:41] LABS: Glucose Point of Care 163 mg/dl (65-105)
[2024-12-29 12:58] LABS: Appearance Peritoneal Fluid Turbid (Clear); Color Peritoneal Fluid Yellow (Colorless); Lymphocytes Peritoneal Fluid 35 %; Macrophages Peritoneal Fluid 32 %; Mesothelial Cells Peritoneal Fluid 3 %; Monocytes Peritoneal Fluid 26 %; Neutrophils Peritoneal Fluid 4 % (0-25); Nucleated Cells Peritoneal Flu 189 /uL (0-500); RBC Peritoneal Fluid < 2000 /uL (0-10000); Source Peritoneal Fluid Peritoneal Fluid
[2024-12-29 16:42] LABS: Glucose Point of Care 278 mg/dl (65-105)
--- NOTE | 2024-12-29 17:21 | WPDGIPROGNO ---
Progress Note: A&P Assessment and Plan (1) Alcoholic cirrhosis of liver with ascites: Code(s): K70.31 - Alcoholic cirrhosis of liver with ascites Status: Acute Assessment and Plan: no sbp on oral aldactone and lasix, normal creatinine but will replace low K 2g na diet will need to follow-up in office and get liver us every 6 months meld 3 score 20 (2) Alcoholic liver disease: Code(s): K70.9 - Alcoholic liver disease, unspecified Status: Acute Assessment and Plan: thiamine, nutrition support ciwa protocol (3) Abnormal liver enzymes: Code(s): R74.8 - Abnormal levels of other serum enzymes Status: Acute (4) Hypokalemia: Code(s): E87.6 - Hypokalemia Status: Acute Assessment and Plan: repleting (5) Urinary tract infection: Code(s): N39.0 - Urinary tract infection, site not specified Status: Acute Assessment and Plan: on abx (6) Diabetes mellitus: Code(s): E11.9 - Type 2 diabetes mellitus without complications Status: Acute Subjective Date/time seen: 12/29/24 17:21 Interval history: had paracentesis with ~ 1 liter removed, feeling better Review of Systems Review of Systems: All systems reviewed & are unremarkable except as noted in HPI and below Exam Const: General: comfortable and no acute distress Other: tremors HENMT: Face/Nose/Sinus: Normal nares present Eyes: General: appearance normal, both eyes and all related structures Neck: Neck: supple Resp: Auscultation: clear to auscultation bilaterally Cardio: Rate: regular rate Rhythm: regular rhythm GI: Inspection: distended GI Palp: Yes Soft to palpation and No Guarding due to palpation present (GI) Auscultation: normal bowel sounds Other: less distended Skin: General skin exam: normal color Neuro: Speech: normal speech Other: tremors Extrem: General: normal to inspection Psych: Affect: Anxious affect present Objective Data Vital Signs Vital Signs: Vital Signs - 24 hr 12/28/24 20:00 12/28/24 20:00 12/28/24 20:15 Temperature 98.8 F Pulse Rate 101 H 101 H Pulse Rate [Apical Auscultation] 102 H Pulse Rate [Monitor] Respiratory Rate 18 Blood Pressure 114/72 114/72 Pulse Oximetry 99 Oxygen Delivery 12/28/24 20:15 12/28/24 23:46 12/28/24 23:52 Temperature 99.0 F Pulse Rate 96 Pulse Rate [Apical Auscultation] Pulse Rate [Monitor] 97 Respiratory Rate 16 Blood Pressure 107/58 L Pulse Oximetry 99 94 Oxygen Delivery Room Air 12/29/24 00:00 12/29/24 04:00 12/29/24 04:00 Temperature Pulse Rate 96 95 Pulse Rate [Apical Auscultation] Pulse Rate [Monitor] 95 Respiratory Rate Blood Pressure Pulse Oximetry Oxygen Delivery 12/29/24 04:26 12/29/24 08:00 12/29/24 08:00 Temperature 99.1 F 99.1 F Pulse Rate 98 103 H 96 Pulse Rate [Apical Auscultation] Pulse Rate [Monitor] Respiratory Rate 16 18 Blood Pressure 114/58 L 112/66 Pulse Oximetry 94 99 Oxygen Delivery 12/29/24 08:30 12/29/24 08:35 12/29/24 09:43 Temperature Pulse Rate Pulse Rate [Apical Auscultation] Pulse Rate [Monitor] Respiratory Rate Blood Pressure Pulse Oximetry Oxygen Delivery Room Air Room Air Room Air 12/29/24 11:30 12/29/24 12:00 12/29/24 12:00 Temperature 98.6 F Pulse Rate 96 97 94 Pulse Rate [Apical Auscultation] Pulse Rate [Monitor] Respiratory Rate 18 Blood Pressure 111/66 Pulse Oximetry 100 Oxygen Delivery 12/29/24 16:00 12/29/24 16:00 Temperature 98.8 F Pulse Rate 94 93 Pulse Rate [Apical Auscultation] Pulse Rate [Monitor] Respiratory Rate 18 Blood Pressure 90/50 L Pulse Oximetry 99 Oxygen Delivery Intake/Output Intake/Output: Intake & Output 12/26/24 12/27/24 12/28/24 12/29/24 23:59 23:59 23:59 23:59 Intake Total 1063.2 1314 600 Output Total 1900 1051 1300 Balance -836.8 263 -700 Meds/Results Medications: Active Medications Generic Name Dose Route Start Last Admin Trade Name Freq PRN Reason Stop Dose Admin Atenolol 50 mg 12/28/24 04:30 12/29/24 11:30 Atenolol 50 Mg Tablet PO 50 mg DAILY SHERRON Administration Chlordiazepoxide HCl 50 mg 12/28/24 12:00 12/29/24 11:32 Chlordiazepoxide (*Crx) 25 Mg Capsule PO 50 mg Q6HR SHERRON Administration Dextrose 12.5 gm 12/28/24 11:07 Dextrose 50% 25 Gm/50 Ml Syringe IV PUSH PRN PRN Hypoglycemia Protocol Folic Acid 1 mg 12/28/24 09:00 12/29/24 11:29 Folic Acid 1 Mg Tablet PO 1 mg DAILY SHERRON Administration Furosemide 40 mg 12/29/24 09:00 12/29/24 11:30 Furosemide 40 Mg Tablet PO 40 mg DAILY SHERRON Administration Glucagon 1 mg 12/28/24 11:07 Glucagon For Inj 1 Mg Vial IM PRN PRN Hypoglycemia Protocol Glucose 15 gm 12/28/24 11:07 Glucose Oral Gel 15 Gm Of Glucse In 37.5 Gm Tube PO PRN PRN Hypoglycemia Protocol Ceftriaxone Sodium 1 gm in 50 mls @ 100 mls/hr 12/27/24 20:00 12/28/24 20:37 Rocephin 1 Gm/Ns 50 Ml IVPB Infused Q24H [facility]ERRON Infusion Dextrose 1,000 mls @ 100 mls/hr 12/28/24 11:07 Dextrose 5% 1,000 Ml IVPB PRN PRN Hypoglycemia Protocol Insulin Aspart 1 - 2 units 12/28/24 21:00 12/28/24 20:29 Insulin Aspart (*Bkc) 100 Units/Ml SUB-Q Not Given HS [facility] Protocol Insulin Aspart 3 - 6 units 12/28/24 12:00 12/29/24 11:42 Insulin Aspart (*Bkc) 100 Units/Ml SUB-Q Not Given TIDWM [facility] Protocol Levothyroxine Sodium 125 mcg 12/28/24 06:30 12/29/24 06:13 Levothyroxine Sodium 125 Mcg Tablet PO 125 mcg DAILY@0630 [facility]ON Administration Lorazepam 2 mg 12/27/24 20:49 Lorazepam Inj (*Crx) 2 Mg/Ml Vial IV PUSH Q2H PRN CIWA > 15 Lorazepam 2 mg 12/27/24 21:19 Lorazepam Inj (*Crx) 2 Mg/Ml Vial IV PUSH Q4H PRN Agitation Magnesium Oxide 400 mg 12/28/24 09:00 12/29/24 11:29 Magnesium Oxide 400 Mg Tablet PO 400 mg DAILY SHERRON Administration Multivitamins Therapeutic 1 tablet 12/28/24 09:00 12/29/24 11:31 Multivitamins Therapeutic Tab (*Bkc) PO 1 tablet DAILY [facility]ERRON Administration Pantoprazole Sodium 40 mg 12/28/24 09:00 12/29/24 11:33 Pantoprazole Sodium Iv 40 Mg Vial IV PUSH 40 mg QAM [facility]ON Administration Pravastatin Sodium 10 mg 12/28/24 09:00 12/29/24 11:29 Pravastatin Sodium 10 Mg Tablet PO 10 mg DAILY SHERRON Administration Spironolactone 100 mg 12/28/24 09:00 12/29/24 11:29 Spironolactone 50 Mg Tablet PO 100 mg QAM SHERRON Administration Thiamine HCl 100 mg 12/28/24 09:00 12/29/24 11:32 Thiamine Hcl 200 Mg/2 Ml Vial IV PUSH 100 mg DAILY SHERRON Administration Radiology Results: ITS Impressions Abdomen/Pelvis CT 12/27/24 15:50 IMPRESSION: Cirrhosis with portal hypertension and moderate ascites. Heterogeneous liver parenchyma with the suggestion of multiple low density lesions, may be related to cirrhotic change, hepatic microabscesses, or metastatic disease. Gallbladder hydrops, without inflammatory change or bile duct dilation. Mild esophagitis/gastritis. Mild diffuse colonic wall edema, may be related to portal enteropathy or colitis. Paracentesis Ultrasound 12/29/24 11:48 IMPRESSION: 1. Successful ultrasound-guided paracentesis yielding 1300 mL of yellow-colored fluid. Labs Labs: Laboratory Results - last 24 hr 12/28/24 12/28/24 12/28/24 17:08 20:22 23:41 WBC RBC Hgb Hct MCV MCH MCHC RDW Plt Count MPV % Immature Plt Fraction PT INR Sodium Potassium Chloride Carbon Dioxide Anion Gap BUN Creatinine Estim Creat Clear Calc Estimated GFR Glucose POC Capillary Glucose 168 H 171 H 163 H Calcium Magnesium Total Bilirubin AST ALT Alkaline Phosphatase Total Protein Albumin Peritoneal Source Peritoneal Color Peritoneal Appearance Peritoneal RBC Periton Nuc Cells Periton Neutrophils Periton Lymphocytes Peritoneal Monocytes Periton Mesothelial Periton Macrophages 12/29/24 12/29/24 12/29/24 05:18 09:23 11:00 WBC 2.3 L RBC 3.14 L Hgb 8.4 L Hct 27.0 L MCV 86.0 MCH 26.8 MCHC 31.1 L RDW 21.5 H Plt Count 38 L MPV 9.5 % Immature Plt Fraction 6.2 PT 21.7 H INR 1.9 Sodium 133 L Potassium 2.5 L* Chloride 95 L Carbon Dioxide 30 Anion Gap 8 BUN 8 Creatinine 0.50 L Estim Creat Clear Calc 113 Estimated GFR > 60 Glucose 154 H POC Capillary Glucose 162 H Calcium 7.1 L Magnesium 1.2 L Total Bilirubin 2.5 H AST 42 H ALT 17 Alkaline Phosphatase 120 Total Protein 6.0 L Albumin 2.9 L Peritoneal Source Peritoneal fluid Peritoneal Color Yellow Peritoneal Appearance Turbid A Peritoneal RBC < 2000 Periton Nuc Cells 189 Periton Neutrophils 4 Periton Lymphocytes 35 Peritoneal Monocytes 26 Periton Mesothelial 3 Periton Macrophages 32 12/29/24 12/29/24 11:26 16:35 WBC RBC Hgb Hct MCV MCH MCHC RDW Plt Count MPV % Immature Plt Fraction PT INR Sodium Potassium Chloride Carbon Dioxide Anion Gap BUN Creatinine Estim Creat Clear Calc Estimated GFR Glucose POC Capillary Glucose 163 H 278 H Calcium Magnesium Total Bilirubin AST ALT Alkaline Phosphatase Total Protein Albumin Peritoneal Source Peritoneal Color Peritoneal Appearance Peritoneal RBC Periton Nuc Cells Periton Neutrophils Periton Lymphocytes Peritoneal Monocytes Periton Mesothelial Periton Macrophages
[2024-12-29 17:22] LABS: Platelet Count Result 42 k/mm3 (150-375)
[2024-12-29] MEDS: INSULIN ASPART (*BKC) 100 UNITS/ML SUB-Q (17:28)
[2024-12-29 17:31] LABS: Alanine Aminotransferase 20 U/L (6-35); Albumin Level 3.2 g/dL (3.5-5.1); Alkaline Phosphatase 116 U/L (38-126); Anion Gap 10 mmol/L (4-12); Aspartate Amino Transferase 43 U/L (14-36); Blood Urea Nitrogen 7 mg/dL (7-17); Calcium 7.2 mg/dL (8.4-10.2); Carbon Dioxide 28 mmol/L (22-30); Chloride 96 mmol/L (98-107); Estimated CRCL calculation 107 ml/min; Estimated Glomerular Filt Rate > 60; Glucose 233 mg/dL (65-110); Magnesium 1.3 mg/dL (1.6-2.3); Potassium 3.1 mmol/L (3.4-5.0); Sodium 134 mmol/L (137-145)
[2024-12-29] MEDS: POTASSIUM CHLORIDE 20 MEQ ER TABLET 40 MEQ PO (18:23)
[2024-12-29] MEDS: MAGNESIUM SULF 4 GM/WATER100ML 4 GM/100 ML BAG IVPB (18:45)
[2024-12-29 21:08] LABS: Glucose Point of Care 148 mg/dl (65-105)
[2024-12-30] VITALS (8 sets, daily range): BP systolic 98–138; BP diastolic 48–68; PULSE 68–101; RESP 16–18; TEMP 36.4–37.1; O2SAT 96–100
[2024-12-30] MEDS: LEVOTHYROXINE SODIUM 125 MCG TABLET PO (06:24)
[2024-12-30] MEDS: chlordiazePOXIDE (*CRX) 25 MG CAPSULE 50 MG PO ×4 (06:24→23:48)
[2024-12-30 07:28] LABS: Hepatitis B Surface Antigen Negative (Negative)
[2024-12-30 07:37] LABS: HAV RESULT Negative (Negative); Hepatitis B Core IgM Result Negative (Negative)
[2024-12-30 07:46] LABS: Hepatitis C Virus Antibody Negative (Negative)
[2024-12-30 08:09] LABS: Basophils Percent Auto 1.1 % (0.2-1.2); Eosinophils Absolute Auto 0.1 K/mm3 (0-0.3); Eosinophils Percent Auto 3.2 % (0-4.4); Hematocrit 25.5 % (37.0-47.0); Hemoglobin 7.7 g/dL (12.0-15.0); Immature Platelet Fraction Pct 8.5 % (0.9-11.2); Lymphocytes Absolute Auto 0.59 K/mm3 (0.9-3.2); Lymphocytes Percent Auto 31.7 % (18.3-44.2); Mean Corpuscular HGB Conc 30.2 g/dl (32-36); Mean Corpuscular Hemoglobin 26.6 pg (26-34); Mean Corpuscular Volume 87.9 fl (80-100); Mean Platelet Volume 9.9 fl (7.4-10.4); Monocytes Absolute Auto 0.2 K/mm3 (0.1-0.6); Monocytes Percent Auto 9.7 % (2.6-8.5); Neutrophils Percent Auto 54.3 % (45.5-73.1); Platelet Count Result 36 k/mm3 (150-375); Red Cell Distribution Width 21.6 % (11.5-14.5)
[2024-12-30 08:11] LABS: Anion Gap 4 mmol/L (4-12); Blood Urea Nitrogen 9 mg/dL (7-17); Calcium 7.1 mg/dL (8.4-10.2); Carbon Dioxide 28 mmol/L (22-30); Chloride 100 mmol/L (98-107); Estimated CRCL calculation 108 ml/min; Estimated Glomerular Filt Rate > 60; Glucose 205 mg/dL (65-110); Magnesium 1.9 mg/dL (1.6-2.3); Potassium 3.2 mmol/L (3.4-5.0); Sodium 132 mmol/L (137-145)
[2024-12-30 09:09] LABS: White Blood Count 1.9 K/mm3 (4.5-10.0)
[2024-12-30 09:10] LABS: Anisocytosis 2+; Hypochromasia 1+; Ovalocytes 1+; Schistocytes None Seen
[2024-12-30 09:13] LABS: Platelet Estimate Decreased (Adequate)
[2024-12-30] MEDS: SPIRONOLACTONE 50 MG TABLET 100 MG PO (09:38)
[2024-12-30] MEDS: FOLIC ACID 1 MG TABLET PO (09:38)
[2024-12-30] MEDS: PRAVASTATIN SODIUM 10 MG TABLET PO (09:39)
[2024-12-30] MEDS: MULTIVITAMINS THERAPEUTIC TAB (*BKC) 1 TABLET PO (09:39)
[2024-12-30] MEDS: MAGNESIUM OXIDE 400 MG TABLET PO (09:39)
[2024-12-30] MEDS: atenoloL 50 MG TABLET PO (09:39)
[2024-12-30] MEDS: FUROSEMIDE 40 MG TABLET PO (09:39)
[2024-12-30] MEDS: THIAMINE HCL 200 MG/2 ML VIAL 100 MG IV PUSH (09:40)
[2024-12-30] MEDS: ALPRAZolam (*CRX) 0.25 MG TABLET PO (09:40)
[2024-12-30] MEDS: POTASSIUM CHLORIDE 20 MEQ ER TABLET 40 MEQ PO (09:40)
[2024-12-30] MEDS: PANTOPRAZOLE SODIUM IV 40 MG VIAL IV PUSH (09:44)
--- NOTE | 2024-12-30 12:25 | P.PNGI_ITS ---
Progress Note: A&P Assessment and Plan (1) Alcoholic cirrhosis of liver with ascites: Code(s): K70.31 - Alcoholic cirrhosis of liver with ascites Status: Acute Assessment and Plan: no sbp continue with oral aldactone and lasix, still normal creatinine low K is repleted 2g na diet will need to follow-up in office and get liver us every 6 months meld 3 on admission score 20 (2) Alcoholic liver disease: Code(s): K70.9 - Alcoholic liver disease, unspecified Status: Acute Assessment and Plan: thiamine, nutrition support wa protocol (3) Abnormal liver enzymes: Code(s): R74.8 - Abnormal levels of other serum enzymes Status: Acute (4) Pancytopenia: Code(s): D61.818 - Other pancytopenia Status: Acute Assessment and Plan: this probably is combination from cirrhosis, BM suppression from alcohol abuse, 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 (5) Hypokalemia: Code(s): E87.6 - Hypokalemia Status: Acute Assessment and Plan: repleting, better today (6) Urinary tract infection: Code(s): N39.0 - Urinary tract infection, site not specified Status: Acute Assessment and Plan: on abx (7) Diabetes mellitus: Code(s): E11.9 - Type 2 diabetes mellitus without complications Status: Acute Subjective Date/time seen: 12/30/24 12:25 Interval history: no changes less distended after paracentesis yesterday at bedside- discussed that she has advanced liver disease and should stop drinking alcohol Review of Systems Review of Systems: All systems reviewed & are unremarkable except as noted in HPI and below Exam Const: General: comfortable and no acute distress Other: less tremors HENMT: Face/Nose/Sinus: Normal nares present Eyes: General: appearance normal, both eyes and all related structures Neck: Neck: supple Resp: Auscultation: clear to auscultation bilaterally Cardio: Rate: regular rate Rhythm: regular rhythm GI: Inspection: distended GI Palp: Yes Soft to palpation and No Guarding due to palpation present (GI) Auscultation: normal bowel sounds Other: less distended Skin: General skin exam: normal color Neuro: Speech: normal speech Other: tremors Extrem: General: normal to inspection Psych: Affect: Anxious affect present Objective Data Vital Signs Vital Signs: Vital Signs - 24 hr 12/29/24 16:00 12/29/24 16:00 12/29/24 20:00 Temperature 98.8 F 99.0 F Pulse Rate 94 93 86 Pulse Rate [Monitor] Respiratory Rate 18 12 Blood Pressure 90/50 L 102/60 Pulse Oximetry 99 93 Oxygen Delivery 12/29/24 20:00 12/29/24 20:00 12/29/24 20:00 Temperature Pulse Rate 90 Pulse Rate [Monitor] 90 Respiratory Rate Blood Pressure Pulse Oximetry Oxygen Delivery Room Air 12/30/24 00:00 12/30/24 00:00 12/30/24 04:00 Temperature 98.3 F 98.8 F Pulse Rate 97 93 85 Pulse Rate [Monitor] Respiratory Rate 16 16 Blood Pressure 111/68 107/62 Pulse Oximetry 99 98 Oxygen Delivery 12/30/24 04:28 12/30/24 08:00 12/30/24 08:00 Temperature 97.9 F Pulse Rate 88 76 88 Pulse Rate [Monitor] Respiratory Rate 18 Blood Pressure 111/66 Pulse Oximetry 100 Oxygen Delivery 12/30/24 09:39 12/30/24 09:40 Temperature Pulse Rate 76 Pulse Rate [Monitor] Respiratory Rate Blood Pressure Pulse Oximetry Oxygen Delivery Room Air Intake/Output Intake/Output: Intake & Output 12/27/24 12/28/24 12/29/24 12/30/24 23:59 23:59 23:59 23:59 Intake Total 1063.2 1314 890 530 Output Total 1900 1051 1300 Balance -836.8 263 -410 530 Meds/Results Medications: Active Medications Generic Name Dose Route Start Last Admin Trade Name Freq PRN Reason Stop Dose Admin Alprazolam 0.25 mg 12/30/24 09:32 12/30/24 09:40 Alprazolam (*Crx) 0.25 Mg Tablet PO 0.25 mg TID PRN Administration Anxiety Atenolol 50 mg 12/28/24 04:30 12/30/24 09:39 Atenolol 50 Mg Tablet PO 50 mg DAILY SHERRON Administration Chlordiazepoxide HCl 50 mg 12/28/24 12:00 12/30/24 06:24 Chlordiazepoxide (*Crx) 25 Mg Capsule PO 50 mg Q6HR SHERRON Administration Dextrose 12.5 gm 12/28/24 11:07 Dextrose 50% 25 Gm/50 Ml Syringe IV PUSH PRN PRN Hypoglycemia Protocol Folic Acid 1 mg 12/28/24 09:00 12/30/24 09:38 Folic Acid 1 Mg Tablet PO 1 mg DAILY SHERRON Administration Furosemide 40 mg 12/29/24 09:00 12/30/24 09:39 Furosemide 40 Mg Tablet PO 40 mg DAILY SHERRON Administration Glucagon 1 mg 12/28/24 11:07 Glucagon For Inj 1 Mg Vial IM PRN PRN Hypoglycemia Protocol Glucose 15 gm 12/28/24 11:07 Glucose Oral Gel 15 Gm Of Glucse In 37.5 Gm Tube PO PRN PRN Hypoglycemia Protocol Ceftriaxone Sodium 1 gm in 50 mls @ 100 mls/hr 12/27/24 20:00 12/29/24 23:06 Rocephin 1 Gm/Ns 50 Ml IVPB Infused Q24H SHERRON Infusion Dextrose 1,000 mls @ 100 mls/hr 12/28/24 11:07 Dextrose 5% 1,000 Ml IVPB PRN PRN Hypoglycemia Protocol Insulin Aspart 1 - 2 units 12/28/24 21:00 12/29/24 21:55 Insulin Aspart (*Bkc) 100 Units/Ml SUB-Q Not Given HS SHERRON Protocol Insulin Aspart 3 - 6 units 12/28/24 12:00 12/30/24 09:12 Insulin Aspart (*Bkc) 100 Units/Ml SUB-Q Not Given TIDWM SHERRON Protocol Levothyroxine Sodium 125 mcg 12/28/24 06:30 12/30/24 06:24 Levothyroxine Sodium 125 Mcg Tablet PO 125 mcg DAILY@0630 SHERRON Administration Lorazepam 2 mg 12/27/24 20:49 Lorazepam Inj (*Crx) 2 Mg/Ml Vial IV PUSH Q2H PRN CIWA > 15 Lorazepam 2 mg 12/27/24 21:19 Lorazepam Inj (*Crx) 2 Mg/Ml Vial IV PUSH Q4H PRN Agitation Magnesium Oxide 400 mg 12/28/24 09:00 12/30/24 09:39 Magnesium Oxide 400 Mg Tablet PO 400 mg DAILY SHERRON Administration Multivitamins Therapeutic 1 tablet 12/28/24 09:00 12/30/24 09:39 Multivitamins Therapeutic Tab (*Bkc) PO 1 tablet DAILY SHERRON Administration Pantoprazole Sodium 40 mg 12/28/24 09:00 12/30/24 09:44 Pantoprazole Sodium Iv 40 Mg Vial IV PUSH 40 mg QAM SHERRON Administration Pravastatin Sodium 10 mg 12/28/24 09:00 12/30/24 09:39 Pravastatin Sodium 10 Mg Tablet PO 10 mg DAILY SHERRON Administration Spironolactone 100 mg 12/28/24 09:00 12/30/24 09:38 Spironolactone 50 Mg Tablet PO 100 mg QAM SHERRON Administration Thiamine HCl 100 mg 12/28/24 09:00 12/30/24 09:40 Thiamine Hcl 200 Mg/2 Ml Vial IV PUSH 100 mg DAILY SHERRON Administration Radiology Results: ITS Impressions Abdomen/Pelvis CT 12/27/24 15:50 IMPRESSION: Cirrhosis with portal hypertension and moderate ascites. Heterogeneous liver parenchyma with the suggestion of multiple low density lesions, may be related to cirrhotic change, hepatic microabscesses, or metasta tic disease. Gallbladder hydrops, without inflammatory change or bile duct dilation. Mild esophagitis/gastritis. Mild diffuse colonic wall edema, may be related to portal enteropathy or colitis. Paracentesis Ultrasound 12/29/24 11:48 IMPRESSION: 1. Successful ultrasound-guided paracentesis yielding 1300 mL of yellow-colored fluid. Labs Labs: Laboratory Results - last 24 hr 12/29/24 12/29/24 12/29/24 11:00 16:35 17:17 WBC RBC Hgb Hct MCV MCH MCHC RDW Plt Count 42 L MPV TNP Immature Gran % (Auto) Neut % (Auto) Lymph % (Auto) [place] % (Auto) Eos % (Auto) Baso % (Auto) Lymph # (Auto) [place] # (Auto) Eos # (Auto) Baso # (Auto) Abs Immat Gran (auto) Absolute Neuts (auto) Absolute Nucleated RBC Band Neutrophils % Nucleated RBC % Platelet Estimate % Immature Plt Fraction Hypochromasia Anisocytosis Ovalocytes Schistocytes Sodium 134 L Potassium 3.1 L Chloride 96 L Carbon Dioxide 28 Anion Gap 10 BUN 7 Creatinine 0.53 L Estim Creat Clear Calc 107 Estimated GFR > 60 Glucose 233 H POC Capillary Glucose 278 H Calcium 7.2 L Magnesium 1.3 L Total Bilirubin 2.0 H AST 43 H ALT 20 Alkaline Phosphatase 116 Total Protein 7.0 Albumin 3.2 L Peritoneal Source Peritoneal fluid Peritoneal Color Yellow Peritoneal Appearance Turbid A Peritoneal RBC < 2000 Periton Nuc Cells 189 Periton Neutrophils 4 Periton Lymphocytes 35 Peritoneal Monocytes 26 Periton Mesothelial 3 Periton Macrophages 32 Hepatitis A IgM Ab Hep Bs Antigen Hep B Core IgM Ab Hepatitis C Ab Screen 12/29/24 12/30/24 12/30/24 20:45 04:42 04:43 WBC 1.9 L* RBC 2.90 L Hgb 7.7 L Hct 25.5 L MCV 87.9 MCH 26.6 MCHC 30.2 L RDW 21.6 H Plt Count 36 L MPV 9.9 Immature Gran % (Auto) 0.0 Neut % (Auto) 54.3 Lymph % (Auto) 31.7 [place] % (Auto) 9.7 H Eos % (Auto) 3.2 Baso % (Auto) 1.1 Lymph # (Auto) 0.59 L [place] # (Auto) 0.2 Eos # (Auto) 0.1 Baso # (Auto) 0.0 Abs Immat Gran (auto) 0.00 Absolute Neuts (auto) 1.0 L Absolute Nucleated RBC 0.000 Band Neutrophils % Not Reportable Nucleated RBC % 0.0 Platelet Estimate Decreased % Immature Plt Fraction 8.5 Hypochromasia 1+ Anisocytosis 2+ Ovalocytes 1+ Schistocytes None seen Sodium 132 L Potassium 3.2 L Chloride 100 Carbon Dioxide 28 Anion Gap 4 BUN 9 Creatinine 0.52 L Estim Creat Clear Calc 108 Estimated GFR > 60 Glucose 205 H POC Capillary Glucose 148 H Calcium 7.1 L Magnesium 1.9 Total Bilirubin AST ALT Alkaline Phosphatase Total Protein Albumin Peritoneal Source Peritoneal Color Peritoneal Appearance Peritoneal RBC Periton Nuc Cells Periton Neutrophils Periton Lymphocytes Peritoneal Monocytes Periton Mesothelial Periton Macrophages Hepatitis A IgM Ab Negative Hep Bs Antigen Negative Hep B Core IgM Ab Negative Hepatitis C Ab Screen Negative
--- NOTE | 2024-12-30 12:49 | P.PNIM_ITS ---
Progress Note: A&P Assessment and Plan (1) Alcoholic cirrhosis of liver with ascites: Code(s): K70.31 - Alcoholic cirrhosis of liver with ascites Status: Acute (2) Urinary tract infection: Code(s): N39.0 - Urinary tract infection, site not specified Status: Acute Plan This is a 59-year-old female with past medical history impression and anxiety, hypertension, dyslipidemia, hypothyroidism, [id number] diabetes mellitus, alcohol use disorder, tobacco dependence who presents to [place] ER with complaint of abdominal swelling. Patient has been drinking 2 pt of vodka for 20 years at least. She denies any knowledge of liver disorder. She reports over 24 hours developed rapid swelling in the abdomen. It has caused her to have decreased mobility. She denies any pain, fever, diarrhea. Endorses difficulty urinating. Her last drink was about 1 day prior to admission and she reports she has had the onset of withdrawal with tremors in her arms. Your workup revealed sinus tachycardia, WBC 3.4, hemoglobin 10, platelet count 63, total bilirubin 1.3, AST 59, ALT 22, alkaline phosphatase 142, urinalysis positive for nitrites leukocyte esterase, wbc's, 2+ bacteria. Serum ETOH to 75. CT abdomen pelvis with contrast revealed cirrhosis with portal hypertension and moderate ascites, heterogeneous liver parenchyma, gallbladder hydrops without inflammatory change or bile duct dilation, mild esophagitis/gastritis, mild diffuse colonic wall edema. She was given Ativan, banana bag, 1 L normal saline, ceftriaxone, Protonix. ----- Abdominal distension Secondary to cirrhosis and ascites Cirrhosis with fairly rapid onset of ascites. Successful ultrasound-guided paracentesis yielding 1300 mL of yellow-colored f luid. 12/29/24 follow analysis she needs to follow-up closely with hepatology. 2 g salt restriction per day. spironolactone 100 mg p.o. q.a.m. and furosemide 40 mg p.o. q.a.m.. Recommended to quit alcohol GI team has been consulted Alcohol abuse Counseled on alcohol cessation and patient is amenable. Care coordination consult. [facility] protocol. lorazepam. She received banana bag in the ER. Thiamine and folic acid daily. UTI: Continue levaquin follow-up urine cultures. pancytopenia likely related to cirrhosis/ alcohol abuse levaquin oncology has been consulted. monitor Hypothyroidism Levothyroxin Hypokalemia, hypomagnezemia Replaced as needed will repeat labs DM 2 SSI and accuchecks Subjective Date/time seen: 12/30/24 12:49 Interval history: per HPI: This is a 59-year-old female with past medical history impression and anxiety, hypertension, dyslipidemia, hypothyroidism, [id number] diabetes mellitus, alcohol use disorder, tobacco dependence who presents to [place] ER with complaint of abdominal swelling. Patient has been drinking 2 pt of vodka for 20 years at least. She denies any knowledge of liver disorder. She reports over 24 hours developed rapid swelling in the abdomen. It has caused her to have decreased mobility. She denies any pain, fever, diarrhea. Endorses difficulty urinating. Her last drink was about 1 day prior to admission and she reports she has had the onset of withdrawal with tremors in her arms. Your workup revealed sinus tachycardia, WBC 3.4, hemoglobin 10, platelet count 63, total bilirubin 1.3, AST 59, ALT 22, alkaline phosphatase 142, urinalysis positive for nitrites leukocyte esterase, wbc's, 2+ bacteria. Serum ETOH to 75. CT abdomen pelvis with contrast revealed cirrhosis with portal hypertension and moderate ascites, heterogeneous liver parenchyma, gallbladder hydrops without inflammatory change or bile duct dilation, mild esophagitis/gastritis, mild diffuse colonic wall edema. She was given Ativan, banana bag, 1 L normal saline, ceftriaxone, Protonix. 12/28/24 Patient seen examined at bedside. Denies any chest pain, shortness off illness, abdominal pain, nausea vomiting. denies any black stool. Her main complaint he has abdominal distension. Continue with Rocephin, Lasix, spironolactone continue with CIWA protocol. Plan for paracentesis diagnostic/therapeutic GI team has been consulted 12/29/24 Abdominal distended. Reviewed GI team recommendation. paracentesis today. Continue with the spironolactone and Lasix. Continue with CIWA protocol Patient has low potassium and magnesium. Will replace. Monitor levels Pancytopenia. Secondary to liver failure. Monitor for now 12/30/24 Patient was seen examined bedside. She is feeling better. Denies any chest pain, shortness off breath, nausea vomiting. Underwent paracentesis yesterday. Potassium and magnesium is getting better. Have worsening pancytopenia. Started on Levaquin. Oncology team has been consulted. Review of Systems Review of Systems: All systems reviewed & are unremarkable except as noted in HPI and below (HPI) Exam Const: General: comfortable and no acute distress Other: A&O x3 HENMT: Mouth: Yes moist mucous membranes Eyes: Pupils: Equal, round and reactive pupils present Neck: Neck: supple Resp: Effort & Inspection: normal respiratory effort Auscultation: clear to auscultation bilaterally Cardio: Rate: regular rate Rhythm: regular rhythm GI: Inspection: distended Auscultation: normal bowel sounds Other: Dullness to percussion : General: Yes bladder normal to palpation Bimanual exam- vagina & uterus: bladder normal to palpation Skin: Other: Spider angiomas Neuro: Cranial nerves: Yes Equal, round and reactive pupils present Motor exam (neuro): 5/5 motor strength present throughout Extrem: General: no edema Objective Data Vital Signs Vital Signs: Vital Signs - 24 hr 12/29/24 16:00 12/29/24 16:00 12/29/24 20:00 Temperature 98.8 F 99.0 F Pulse Rate 94 93 86 Pulse Rate [Monitor] Respiratory Rate 18 12 Blood Pressure 90/50 L 102/60 Pulse Oximetry 99 93 Oxygen Delivery 12/29/24 20:00 12/29/24 20:00 12/29/24 20:00 Temperature Pulse Rate 90 Pulse Rate [Monitor] 90 Respiratory Rate Blood Pressure Pulse Oximetry Oxygen Delivery Room Air 12/30/24 00:00 12/30/24 00:00 12/30/24 04:00 Temperature 98.3 F 98.8 F Pulse Rate 97 93 85 Pulse Rate [Monitor] Respiratory Rate 16 16 Blood Pressure 111/68 107/62 Pulse Oximetry 99 98 Oxygen Delivery 12/30/24 04:28 12/30/24 08:00 12/30/24 08:00 Temperature 97.9 F Pulse Rate 88 76 88 Pulse Rate [Monitor] Respiratory Rate 18 Blood Pressure 111/66 Pulse Oximetry 100 Oxygen Delivery 12/30/24 09:39 12/30/24 09:40 Temperature Pulse Rate 76 Pulse Rate [Monitor] Respiratory Rate Blood Pressure Pulse Oximetry Oxygen Delivery Room Air Intake/Output Intake/Output: Intake & Output 12/27/24 12/28/24 12/29/24 12/30/24 23:59 23:59 23:59 23:59 Intake Total 1063.2 1314 890 530 Output Total 1900 1051 1300 Balance -836.8 263 -410 530 Meds/Results Medications: Active Medications Generic Name Dose Route Start Last Admin Trade Name Freq PRN Reason Stop Dose Admin Alprazolam 0.25 mg 12/30/24 09:32 12/30/24 09:40 Alprazolam (*Crx) 0.25 Mg Tablet PO 0.25 mg TID PRN Administration Anxiety Atenolol 50 mg 12/28/24 04:30 12/30/24 09:39 Atenolol 50 Mg Tablet PO 50 mg DAILY SHERRON Administration Chlordiazepoxide HCl 50 mg 12/28/24 12:00 12/30/24 12:30 Chlordiazepoxide (*Crx) 25 Mg Capsule PO 50 mg Q6HR SHERRON Administration Dextrose 12.5 gm 12/28/24 11:07 Dextrose 50% 25 Gm/50 Ml Syringe IV PUSH PRN PRN Hypoglycemia Protocol Folic Acid 1 mg 12/28/24 09:00 12/30/24 09:38 Folic Acid 1 Mg Tablet PO 1 mg DAILY SHERRON Administration Furosemide 40 mg 12/29/24 09:00 12/30/24 09:39 Furosemide 40 Mg Tablet PO 40 mg DAILY SHERRON Administration Glucagon 1 mg 12/28/24 11:07 Glucagon For Inj 1 Mg Vial IM PRN PRN Hypoglycemia Protocol Glucose 15 gm 12/28/24 11:07 Glucose Oral Gel 15 Gm Of Glucse In 37.5 Gm Tube PO PRN PRN Hypoglycemia Protocol Ceftriaxone Sodium 1 gm in 50 mls @ 100 mls/hr 12/27/24 20:00 12/29/24 23:06 Rocephin 1 Gm/Ns 50 Ml IVPB Infused Q24H SHERRON Infusion Dextrose 1,000 mls @ 100 mls/hr 12/28/24 11:07 Dextrose 5% 1,000 Ml IVPB PRN PRN Hypoglycemia Protocol Insulin Aspart 1 - 2 units 12/28/24 21:00 12/29/24 21:55 Insulin Aspart (*Bkc) 100 Units/Ml SUB-Q Not Given HS SHERRON Protocol Insulin Aspart 3 - 6 units 12/28/24 12:00 12/30/24 12:30 Insulin Aspart (*Bkc) 100 Units/Ml SUB-Q Not Given TIDWM [facility] Protocol Levothyroxine Sodium 125 mcg 12/28/24 06:30 12/30/24 06:24 Levothyroxine Sodium 125 Mcg Tablet PO 125 mcg DAILY@0630 SHERRON Administration Lorazepam 2 mg 12/27/24 20:49 Lorazepam Inj (*Crx) 2 Mg/Ml Vial IV PUSH Q2H PRN CIWA > 15 Lorazepam 2 mg 12/27/24 21:19 Lorazepam Inj (*Crx) 2 Mg/Ml Vial IV PUSH Q4H PRN Agitation Magnesium Oxide 400 mg 12/28/24 09:00 12/30/24 09:39 Magnesium Oxide 400 Mg Tablet PO 400 mg DAILY SHERRON Administration Multivitamins Therapeutic 1 tablet 12/28/24 09:00 12/30/24 09:39 Multivitamins Therapeutic Tab (*Bkc) PO 1 tablet DAILY SHERRON Administration Pantoprazole Sodium 40 mg 12/28/24 09:00 12/30/24 09:44 Pantoprazole Sodium Iv 40 Mg Vial IV PUSH 40 mg QAM SHERRON Administration Pravastatin Sodium 10 mg 12/28/24 09:00 12/30/24 09:39 Pravastatin Sodium 10 Mg Tablet PO 10 mg DAILY SHERRON Administration Spironolactone 100 mg 12/28/24 09:00 12/30/24 09:38 Spironolactone 50 Mg Tablet PO 100 mg QAM SHERRON Administration Thiamine HCl 100 mg 12/28/24 09:00 12/30/24 09:40 Thiamine Hcl 200 Mg/2 Ml Vial IV PUSH 100 mg DAILY SHERRON Administration Radiology Results: ITS Impressions Abdomen/Pelvis CT 12/27/24 15:50 IMPRESSION: Cirrhosis with portal hypertension and moderate ascites. Heterogeneous liver parenchyma with the suggestion of multiple low density lesions, may be related to cirrhotic change, hepatic microabscesses, or metastatic disease. Gallbladder hydrops, without inflammatory change or bile duct dilation. Mild esophagitis/gastritis. Mild diffuse colonic wall edema, may be related to portal enteropathy or colitis. Paracentesis Ultrasound 12/29/24 11:48 IMPRESSION: 1. Successful ultrasound-guided paracentesis yielding 1300 mL of yellow-colored fluid. Labs Labs: Laboratory Results - last 24 hr 12/29/24 12/29/24 12/29/24 11:00 16:35 17:17 WBC RBC Hgb Hct MCV MCH MCHC RDW Plt Count 42 L MPV TNP Immature Gran % (Auto) Neut % (Auto) Lymph % (Auto) [place] % (Auto) Eos % (Auto) Baso % (Auto) Lymph # (Auto) [place] # (Auto) Eos # (Auto) Baso # (Auto) Abs Immat Gran (auto) Absolute Neuts (auto) Absolute Nucleated RBC Band Neutrophils % Nucleated RBC % Platelet Estimate % Immature Plt Fraction Hypochromasia Anisocytosis Ovalocytes Schistocytes Sodium 134 L Potassium 3.1 L Chloride 96 L Carbon Dioxide 28 Anion Gap 10 BUN 7 Creatinine 0.53 L Estim Creat Clear Calc 107 Estimated GFR > 60 Glucose 233 H POC Capillary Glucose 278 H Calcium 7.2 L Magnesium 1.3 L Total Bilirubin 2.0 H AST 43 H ALT 20 Alkaline Phosphatase 116 Total Protein 7.0 Albumin 3.2 L Peritoneal Source Peritoneal fluid Peritoneal Color Yellow Peritoneal Appearance Turbid A Peritoneal RBC < 2000 Periton Nuc Cells 189 Periton Neutrophils 4 Periton Lymphocytes 35 Peritoneal Monocytes 26 Periton Mesothelial 3 Periton Macrophages 32 Hepatitis A IgM Ab Hep Bs Antigen Hep B Core IgM Ab Hepatitis C Ab Screen 12/29/24 12/30/24 12/30/24 20:45 04:42 04:43 WBC 1.9 L* RBC 2.90 L Hgb 7.7 L Hct 25.5 L MCV 87.9 MCH 26.6 MCHC 30.2 L RDW 21.6 H Plt Count 36 L MPV 9.9 Immature Gran % (Auto) 0.0 Neut % (Auto) 54.3 Lymph % (Auto) 31.7 [place] % (Auto) 9.7 H Eos % (Auto) 3.2 Baso % (Auto) 1.1 Lymph # (Auto) 0.59 L [place] # (Auto) 0.2 Eos # (Auto) 0.1 Baso # (Auto) 0.0 Abs Immat Gran (auto) 0.00 Absolute Neuts (auto) 1.0 L Absolute Nucleated RBC 0.000 Band Neutrophils % Not Reportable Nucleated RBC % 0.0 Platelet Estimate Decreased % Immature Plt Fraction 8.5 Hypochromasia 1+ Anisocytosis 2+ Ovalocytes 1+ Schistocytes None seen Sodium 132 L Potassium 3.2 L Chloride 100 Carbon Dioxide 28 Anion Gap 4 BUN 9 Creatinine 0.52 L Estim Creat Clear Calc 108 Estimated GFR > 60 Glucose 205 H POC Capillary Glucose 148 H Calcium 7.1 L Magnesium 1.9 Total Bilirubin AST ALT Alkaline Phosphatase Total Protein Albumin Peritoneal Source Peritoneal Color Peritoneal Appearance Peritoneal RBC Periton Nuc Cells Periton Neutrophils Periton Lymphocytes Peritoneal Monocytes Periton Mesothelial Periton Macrophages Hepatitis A IgM Ab Negative Hep Bs Antigen Negative Hep B Core IgM Ab Negative Hepatitis C Ab Screen Negative
[2024-12-30 14:29] LABS: Glucose Point of Care 186 mg/dl (65-105)
[2024-12-30 17:04] LABS: Glucose Point of Care 183 mg/dl (65-105)
--- NOTE | 2024-12-30 18:00 | P.CONONC_ITS ---
Assessment and Plan Assessment and plan (1) Pancytopenia: Code(s): D61.818 - Other pancytopenia Status: Acute Assessment and Plan: This is the 59-year-old female with history of alcohol abuse and liver cirrhosis along with history of type 2 diabetes, hyperlipidemia, hypertension and hypothyroidism came into the hospital with abdominal distention. She has been drinking 2 pt of vodka per week for last [address] scan showed liver cirrhosis with portal hypertension and suggestion of multiple low-density lesions could be related to cirrhotic changes, micro abscesses or metastatic disease. Labs showed pancytopenia. ANC is 1000. If ANC drops below then we will start Neupogen for neutropenia. We would recommend supportive blood transfusion for platelet count of less than 20,000 and hemoglobin of less than 7. These findings are consistent with liver cirrhosis. I will order alpha- fetoprotein. I will also check iron studies, vitamin B12 level and folic acid level. I have strongly recommended to quit drinking. She will follow-up in the office. HPI Data of Consult Date/Time: 12/30/24 18:00 Requesting Physician: Len Collazo MD Primary Care Provider: Bud Valladares MD Consult Narrative Narrative: Viktoria Grant is a 59 year old female with history of alcohol abuse, hypertension, hyperlipidemia, hypothyroidism and type 2 diabetes came into the hospital with abdominal swelling and discomfort. She has been doing binge drinking. Denies any bleeding. CT scan abdomen and pelvis showed portal hypertension with moderate ascites and liver cirrhosis. There was multiple low- density lesions in the liver parenchyma concerning for cirrhotic changes, hepatic microabscesses are metastatic disease. Labs showed hemoglobin of 7.7 [place] 1[place] [address]. She denies any fevers and chills. No other new complaints. Review of Systems 2 Review of Systems: Review of system as per HPI otherwise negative [facility] Past Medical History Medical History (Updated 12/28/24 @ 13:53 by Carlos Enrique Suero MD) Alcohol withdrawal BMI 26.0-26.9,adult Hypertension Depression with anxiety ADHD Dyslipidemia Essential hypertension Hypothyroidism Alcoholism Diabetes mellitus hemoglobin A1c 05/29/2020 4.8 Surgical History Surgical History Fracture of humeral shaft, left, closed IM deepti 09/2020 Previous back surgery removed tumor from back 2009, [facility] History of total hysterectomy with bilateral salpingo-oophorectomy (BSO) due to fibroid Hx of tonsillectomy History of appendectomy History of colonoscopy with polypectomy Family History Family History Sibling Asthma Diabetes mellitus Mother Cerebrovascular accident Hypertension Sibling Diabetes mellitus Alcoholism Father Hypertension Social History Social History Social History: The patient lives in [facility] with her of 12 years. She has had a struggle with alcoholism for the last 20 years. She went through alcohol treatment programs 13 years ago when her 1st . She went through alcohol treatment program again about 2 years ago at [place]. She drinks 2 pt of vodka several times a week. She does not retain the use marijuana and states that she does not like it because it makes her sleep. She has never smoked. 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 Primary care physician: Dr. Bud Valladares Smoking status: Never smoker Second hand tobacco smoke exposure: No Alcohol intake: current Drinks per week: 70 Alcohol use details: 2 pints vodka daily Substance use: never Substance use type: does not use Other substance usage details: STATES DRANK 2PT VODKA/DAY Last use: 12/26/2024 Do You Feel Safe in your Home?: Yes Lack of Transportation: No Lack of Food: Never True Current Housing: I Have Housing Concerned About Future Housing: No Difficulty Paying Gas/Electric Bills: No Difficulty Paying for Meds: No Currently Unemployed: No Education: Associate Degree Difficulty w/ Childcare or Family Care: No Living arrangements: with family Gender identity (if verbalized by the patient): Female Spiritual care concerns: No Meds Home Medications and Allergies Home Medications ?Medication ?Instructions ?Recorded ?Confirmed ?Type atenolol 50 mg-chlorthalidone 25 1 tablet PO HS 05/28/20 12/27/24 History mg tablet levothyroxine 125 mcg tablet 125 mcg PO DAILY@0630 05/28/20 12/27/24 History (Euthyrox) potassium chloride 10 mEq 10 meq PO DAILY 05/28/20 12/27/24 History tablet,extended release pravastatin 10 mg tablet 10 mg PO DAILY 05/28/20 12/27/24 History spironolactone 25 mg tablet 25 mg PO DAILY 05/28/20 12/27/24 History folic acid 1 mg tablet 1 mg PO HS 10/13/20 12/27/24 History magnesium oxide 400 mg PO DAILY 10/13/20 12/27/24 History vitamin E 200 unit capsule 200 unit PO DAILY 01/12/21 12/27/24 History multivitamin 1 tablet PO DAILY 05/16/22 12/27/24 History multivitamin with folic acid 400 1 tablet PO DAILY 10/13/23 12/27/24 Rx mcg tablet (Thera) pravastatin 20 mg tablet 10 mg (1/2 x 20 mg) PO HS 10/13/23 12/27/24 Rx glimepiride 1 mg tablet 1 mg PO BID 12/27/24 12/27/24 History Allergies Allergy/AdvReac Type Severity Reaction Status Date / Time No Known Allergies Allergy Verified 12/27/24 14:25 Vital Signs Vital Signs - 24 hr 12/29/24 20:00 12/29/24 20:00 12/29/24 20:00 Temperature 37.2 C Pulse Rate 86 Pulse Rate [Monitor] 90 Respiratory Rate 12 Blood Pressure 102/60 Pulse Oximetry 93 Oxygen Delivery Room Air 12/29/24 20:00 12/30/24 00:00 12/30/24 00:00 Temperature 36.8 C Pulse Rate 90 97 93 Pulse Rate [Monitor] Respiratory Rate 16 Blood Pressure 111/68 Pulse Oximetry 99 Oxygen Delivery 12/30/24 04:00 12/30/24 04:28 12/30/24 08:00 Temperature 37.1 C 36.6 C Pulse Rate 85 88 76 Pulse Rate [Monitor] Respiratory Rate 16 18 Blood Pressure 107/62 111/66 Pulse Oximetry 98 100 Oxygen Delivery 12/30/24 08:00 12/30/24 09:39 12/30/24 09:40 Temperature Pulse Rate 88 76 Pulse Rate [Monitor] Respiratory Rate Blood Pressure Pulse Oximetry Oxygen Delivery Room Air 12/30/24 12:00 12/30/24 12:00 12/30/24 16:00 Temperature 36.9 C Pulse Rate 71 92 86 Pulse Rate [Monitor] Respiratory Rate 18 Blood Pressure 138/64 Pulse Oximetry 96 Oxygen Delivery 12/30/24 16:00 Temperature 36.4 C Pulse Rate 68 Pulse Rate [Monitor] Respiratory Rate 17 Blood Pressure 98/58 L Pulse Oximetry 100 Oxygen Delivery Exam 2 Narrative: Lungs are clear to auscultation bilaterally Cardiovascular regular rate rhythm no murmurs Abdomen soft nontender distended with ascites Extremities no edema Results Labs 12/30/24 04:42 12/30/24 04:42 Labs: Short CBC 12/30/24 Range/Units 04:42 WBC 1.9 L* (4.5-10.0) K/mm3 Hgb 7.7 L (12.0-15.0) g/dL Hct 25.5 L (37.0-47.0) % Plt Count 36 L (150-375) k/mm3 BMP 12/30/24 04:42 Sodium 132 L Potassium 3.2 L Chloride 100 Carbon Dioxide 28 BUN 9 Creatinine 0.52 L Glucose 205 H Calcium 7.1 L
[2024-12-30] MEDS: levoFLOXacin 750 MG TABLET PO (21:37)
[2024-12-30 21:50] LABS: Glucose Point of Care 221 mg/dl (65-105)
[2024-12-30] MEDS: INSULIN ASPART (*BKC) 100 UNITS/ML SUB-Q (21:55)
[2024-12-31] VITALS: BP 92/54; PULSE 70; PULSE 88; RESP 20; TEMP 36.9; O2SAT 95
[2024-12-31 04:00] VITALS: BP 108/66; PULSE 89; PULSE 91; RESP 20; TEMP 36.8; O2SAT 99
[2024-12-31 05:27] LABS: Anion Gap 5 mmol/L (4-12); Blood Urea Nitrogen 9 mg/dL (7-17); Calcium 7.5 mg/dL (8.4-10.2); Carbon Dioxide 30 mmol/L (22-30); Chloride 99 mmol/L (98-107); Estimated CRCL calculation 96 ml/min; Estimated Glomerular Filt Rate > 60; Glucose 166 mg/dL (65-110); Magnesium 1.1 mg/dL (1.6-2.3); Potassium 3.5 mmol/L (3.4-5.0); Sodium 134 mmol/L (137-145)
[2024-12-31 05:47] LABS: Iron 32 ug/dL (37-170)
[2024-12-31 05:56] LABS: Percent Iron Saturation 10 % (20-50)
[2024-12-31] MEDS: chlordiazePOXIDE (*CRX) 25 MG CAPSULE 50 MG PO (06:18)
[2024-12-31] MEDS: LEVOTHYROXINE SODIUM 125 MCG TABLET PO (06:18)
[2024-12-31] MEDS: ALPRAZolam (*CRX) 0.25 MG TABLET PO ×2 (06:22→10:17)
[2024-12-31 06:33] LABS: Folic Acid 16.4 ng/mL (2.76->20)
[2024-12-31 06:58] LABS: Basophils Percent Auto 0.5 % (0.2-1.2); Eosinophils Absolute Auto 0.1 K/mm3 (0-0.3); Eosinophils Percent Auto 2.3 % (0-4.4); Hematocrit 26.1 % (37.0-47.0); Hemoglobin 7.9 g/dL (12.0-15.0); Immature Granulocyte Absolute 0.02 K/mm3 (0.00-0.031); Immature Granulocyte Percent A 0.9 % (0-0.5); Immature Platelet Fraction Pct 6.3 % (0.9-11.2); Lymphocytes Absolute Auto 0.67 K/mm3 (0.9-3.2); Lymphocytes Percent Auto 30.5 % (18.3-44.2); Mean Corpuscular HGB Conc 30.3 g/dl (32-36); Mean Corpuscular Volume 89.1 fl (80-100); Mean Platelet Volume 10.4 fl (7.4-10.4); Monocytes Absolute Auto 0.3 K/mm3 (0.1-0.6); Monocytes Percent Auto 11.4 % (2.6-8.5); Neutrophils Absolute Auto 1.2 K/mm3 (1.3-6.7); Neutrophils Percent Auto 54.4 % (45.5-73.1); Platelet Count Result 46 k/mm3 (150-375); Red Blood Count 2.93 M/mm3 (4.2-5.4); White Blood Count 2.2 K/mm3 (4.5-10.0)
[2024-12-31 07:27] LABS: Platelet Estimate Decreased (Adequate)
[2024-12-31 07:29] LABS: Anisocytosis 1+; Hypochromasia 1+
[2024-12-31 07:30] LABS: Ovalocytes 1+; Schistocytes None Seen
[2024-12-31 08:00] VITALS: BP 108/62; BP 108/65; PULSE 78; PULSE 91; RESP 19; TEMP 36.6; O2SAT 98
[2024-12-31 08:10] LABS: Glucose Point of Care 170 mg/dl (65-105)
[2024-12-31] MEDS: PANTOPRAZOLE 40 MG TABLET PO (09:04)
[2024-12-31] MEDS: PRAVASTATIN SODIUM 10 MG TABLET PO (09:04)
[2024-12-31] MEDS: THIAMINE HCL 100 MG TABLET PO (09:04)
[2024-12-31] MEDS: MAGNESIUM SULF 2 GM/WATER 50ML 2 GM/50 ML BAG IVPB (09:05)
[2024-12-31] MEDS: MULTIVITAMINS THERAPEUTIC TAB (*BKC) 1 TABLET PO (09:05)
[2024-12-31] MEDS: FOLIC ACID 1 MG TABLET PO (09:05)
[2024-12-31] MEDS: MAGNESIUM OXIDE 400 MG TABLET PO (09:05)
[2024-12-31 10:13] VITALS: PULSE 91
[2024-12-31] MEDS: FUROSEMIDE 40 MG TABLET PO (10:13)
[2024-12-31] MEDS: atenoloL 50 MG TABLET PO (10:13)
[2024-12-31] MEDS: SPIRONOLACTONE 50 MG TABLET 100 MG PO (10:13)
[2024-12-31 12:00] VITALS: BP 110/60; PULSE 80; PULSE 88; RESP 18; TEMP 36.5; O2SAT 98
--- NOTE | 2024-12-31 12:12 | PCOTNOTE ---
The patient treatment was not able to be completed. Patient getting blood draw. Will plan to continue treatment per plan of care.
[2024-12-31 12:18] LABS: Glucose Point of Care 196 mg/dl (65-105)
[2024-12-31 13:48] LABS: Magnesium 1.5 mg/dL (1.6-2.3)
--- NOTE | 2024-12-31 14:37 | P.DS_ITS ---
DS: Admitting Diagnosis Discharge Date 12/31/24 Admitting Diagnosis Abdominal distension DS: Discharge Diagnosis Discharge Diagnosis (1) Alcoholic cirrhosis of liver with ascites: Code(s): K70.31 - Alcoholic cirrhosis of liver with ascites Status: Acute (2) Alcoholic: Code(s): F10.20 - Alcohol dependence, uncomplicated Status: Acute (3) Urinary tract infection: Code(s): N39.0 - Urinary tract infection, site not specified Status: Acute (4) Pancytopenia: Code(s): D61.818 - Other pancytopenia Status: Acute (5) Diabetes mellitus: Code(s): E11.9 - Type 2 diabetes mellitus without complications Status: Acute (6) Hypothyroidism: Code(s): E03.9 - Hypothyroidism, unspecified Status: Acute (7) Hypertension, portal: Code(s): K76.6 - Portal hypertension Status: Acute DS: Summary Hospital Course Reason for hospitalization: 59yo female with depression and anxiety, hypertension, dyslipidemia, hypothyroidism, [id number] diabetes mellitus, alcohol use disorder, tobacco dependence who presents to [facility] with complaint of abdominal swelling. Please see H&P for detials. Hospital Course: Patient has been drinking 2 pt of vodka for 20 years at least. She denies any knowledge of liver disorder. She reports over 24 hours developed rapid swelling in the abdomen. It has caused her to have decreased mobility. She denies any pain, fever, diarrhea. Endorses difficulty urinating. Her last drink was about 1 day prior to admission and she reports she has had the onset of withdrawal with tremors in her arms. WBC 3.4K, hemoglobin 10, platelet count 63K, total bilirubin 1.3, AST 59, ALT 22, alkaline phosphatase 142, urinalysis positive for nitrites leukocyte esterase, wbc's, 2+ bacteria. Serum ETOH to 75. CT abdomen pelvis with contrast revealed cirrhosis with portal hypertension and moderate ascites, heterogeneous liver parenchyma, gallbladder hydrops without inflamm atory change or bile duct dilation, mild esophagitis/gastritis, mild diffuse colonic wall edema. She was given Ativan, banana bag, 1 L normal saline, ceftriaxone, Protonix. It was felt the abdominal distension was secondary to cirrhosis and ascites. Viral Hepatitis panel was negative. She underwent a successful ultrasound-guided paracentesis yielding 1300 mL of yellow-colored fluid on 12/29/24. The fluid was turbid with <2000 RBC and 189 WBC with 4% PMNs. Other lab findings pending. Pathology showed benign findings. UCx grew coag negative staph >100K colonies. Peritoneal Cx NGTD. She continue to have pancytopenia felt related to her cirrhosis and the toxic effects of alcohol. She did see hematology here and AFP ordered and is pending. B12 and folate levels normal. Iron studies showing iron deficiency anemia. GI was consulted. Patient had a MELD score 20 on admission. She was started on thimaine and folate. Lasix and aldactone added. Multiple providers talked with her about the benefits of abstaining from alcohol. Information was given about alcohol rehab. She was started on Librium. CIWA protocol started and were never above 8. She feels well today. Walking to the BR. No n/v. Eating okay. No CP or SOB. She feels ready for discharge. She overall did well and was able to be discharged on 12/31/2024. Status at Discharge Cognitive/behavioral status at discharge: stable Time Spent with Patient Time attestation: Total time spent providing and/or coordinating discharge services: 35 minutes Time spent: Greater than 30 minutes Exam Narrative: AF 97.7 110/60 88 18 98% ra Gen - NARD Chest - bibasilar crackles o/w clear. CV - RRR S1/S2. Telemetry showing no significant dysrhythmias Abd - Soft, NT/ND, Positive BS Ext - No pedal edema Neuro - Alert and appropriate Psych - Nml mood and affect Skin - warm and mostly dry. mild diaphoresis back DS: Data Data Completed and Pending Completed studies during hospitalization: Pending at discharge 12/28/24 11:14 Cytology [PTH] Routine Labs on day of discharge: Labs from last 24 hours 12/31/24 12/31/24 12/31/24 12:16 12:13 08:06 WBC RBC Hgb Hct MCV MCH MCHC RDW Plt Count MPV Immature Gran % (Auto) Neut % (Auto) Lymph % (Auto) Potter % (Auto) Eos % (Auto) Baso % (Auto) Lymph # (Auto) Potter # (Auto) Eos # (Auto) Baso # (Auto) Abs Immat Gran (auto) Absolute Neuts (auto) Absolute Nucleated RBC Band Neutrophils % Nucleated RBC % Platelet Estimate % Immature Plt Fraction Hypochromasia Anisocytosis Ovalocytes Schistocytes Sodium Potassium Chloride Carbon Dioxide Anion Gap BUN Creatinine Estim Creat Clear Calc Estimated GFR Glucose POC Capillary Glucose 196 H 170 H Calcium Magnesium 1.5 L Iron TIBC % Saturation Ferritin Alpha Fetoprotein Vitamin B12 Folate 12/31/24 12/31/24 12/30/24 06:49 04:58 21:45 WBC 2.2 L RBC 2.93 L Hgb 7.9 L Hct 26.1 L MCV 89.1 MCH 27.0 MCHC 30.3 L RDW 22.0 H Plt Count 46 L MPV 10.4 Immature Gran % (Auto) 0.9 H Neut % (Auto) 54.4 Lymph % (Auto) 30.5 Potter % (Auto) 11.4 H Eos % (Auto) 2.3 Baso % (Auto) 0.5 Lymph # (Auto) 0.67 L Potter # (Auto) 0.3 Eos # (Auto) 0.1 Baso # (Auto) 0.0 Abs Immat Gran (auto) 0.02 Absolute Neuts (auto) 1.2 L Absolute Nucleated RBC 0.000 Band Neutrophils % Not Reportable Nucleated RBC % 0.0 Platelet Estimate Decreased % Immature Plt Fraction 6.3 Hypochromasia 1+ Anisocytosis 1+ Ovalocytes 1+ Schistocytes None seen Sodium 134 L Potassium 3.5 Chloride 99 Carbon Dioxide 30 Anion Gap 5 BUN 9 Creatinine 0.59 L Estim Creat Clear Calc 96 Estimated GFR > 60 Glucose 166 H POC Capillary Glucose 221 H Calcium 7.5 L Magnesium 1.1 L Iron 32 L TIBC 314 % Saturation 10 L Ferritin 26.40 Alpha Fetoprotein Pending Vitamin B12 843.0 Folate 16.4 12/30/24 16:23 WBC RBC Hgb Hct MCV MCH MCHC RDW Plt Count MPV Immature Gran % (Auto) Neut % (Auto) Lymph % (Auto) Potter % (Auto) Eos % (Auto) Baso % (Auto) Lymph # (Auto) Potter # (Auto) Eos # (Auto) Baso # (Auto) Abs Immat Gran (auto) Absolute Neuts (auto) Absolute Nucleated RBC Band Neutrophils % Nucleated RBC % Platelet Estimate % Immature Plt Fraction Hypochromasia Anisocytosis Ovalocytes Schistocytes Sodium Potassium Chloride Carbon Dioxide Anion Gap BUN Creatinine Estim Creat Clear Calc Estimated GFR Glucose POC Capillary Glucose 183 H Calcium Magnesium Iron TIBC % Saturation Ferritin Alpha Fetoprotein Vitamin B12 Folate Preliminary micro results at discharge 12/29/24 10:38 Anaerobic Culture - Preliminary Ascites Fluid Aerobic Culture - Preliminary Discharge Plan Discharge Attending physician on discharge: Bj Castellon Consulting providers: Carlos Enrique Suero; Jose Sheets Discharging Clinician: Bj Castellon Anticipated Discharge Date/Time: 12/31/24 14:57 Patient Disposition: Home Activity: no driving and as tolerated Diet: heart healthy and low sodium Discharge Instructions: Stop using all products that may contain alcohol. You are going home with a Librium (chlordiazepoxide) prescription for your alcohol withdrawal Use as prescribed. Dispose of properly if you no longer need these medications such as dropping off at a Police Station or other appropriate location that takes medications. Do not drink alcohol, drive or use heavy machinery if using Librium (chlordiazepoxide). No driving while taking Librium (chlordiazepoxide) taper Please check glucose before meals and before bed. Record and bring into your doctor for review. Please complete your antibiotic course even if you are starting to feel well. Take precautions to avoid falls. Rise slowly from a lying or sitting position. Pause before standing or walking. Contact your doctor or call 911 and come to the Emergency Room if you have lightheadedness with standing or other worrisome symptoms. Avoid NSAIDs (ibuprofen, naproxen, Aleve). Tylenol is safe to take. Follow-up with your primary care provider in 1-2 weeks. Please call for appointment. Follow-up with GI in 2-4 weeks. Please call for an appointment. Follow-up with Peripheral Vascular Tech in 2-4 weeks. Please call for an appointment. Thank you for using [facility] for your health care needs. Patient Instructions: Antibiotic Form Patient Language: Faroese Stand Alone Forms: General Discharge Information Follow-up/Referrals: Jose Sheets MD [Physician] - Call for Appointment Bud Valladares MD [Primary Care Provider] - Call for Appointment Carlos Enrique Suero MD [Physician] - Call for Appointment Discharge Medications: New chlordiazepoxide HCl 25 mg Capsule 25 mg PO DIRECTED Qty: 10 0RF Rx Instructions: Take 25mg every 8 hours through December 31 then decrease to 25mg every 12hours for 2 days then decrease to 25mg every night for 2 days then off. furosemide 40 mg Tablet 40 mg PO DAILY Qty: 30 1RF ferrous sulfate 325 mg (65 mg iron) Tablet,Delayed Release (Dr/Ec) 325 mg PO DAILY Qty: 30 1RF spironolactone [Aldactone] 50 mg Tablet 100 mg PO QAM Qty: 60 0RF atenolol 50 mg Tablet 50 mg PO DAILY Qty: 30 1RF thiamine HCl (vitamin B1) [Vitamin B-1] 100 mg Tablet 100 mg PO QAM Qty: 30 0RF Continued vitamin E 200 unit capsule 200 unit PO DAILY multivitamin Tablet 1 tablet PO DAILY folic acid 1 mg tablet 1 mg PO HS magnesium oxide 400 mg magnesium tablet 400 mg PO DAILY multivitamin with folic acid [Thera] 400 mcg Tablet 1 tablet PO DAILY 0RF levothyroxine [Euthyrox] 125 mcg tablet 125 mcg PO DAILY@0630 pravastatin 10 mg tablet 10 mg PO DAILY Held potassium chloride 10 mEq tablet extended release 10 meq PO DAILY Hold Instructions: HOLD - resume when okay with your doctor Discontinued pravastatin 20 mg Tablet 10 mg PO HS 0RF glimepiride 1 mg tablet 1 mg PO BID Patient Comments: pt states prescribed BID, but only takes once a day atenolol-chlorthalidone 50-25 mg tablet 1 tablet PO HS spironolactone 25 mg tablet 25 mg PO DAILY Date of admission: 12/29/24 10:11 Primary Care Provider: Bud Valladares Admitting Provider: Maggie Rolle Attending physician on admission: Len Collazo Condition: Stable Hospitalist MIPS Heart Failure (Exclusion) Patient has history of Heart Transplant or Left Ventricular Assistive Device?: No IF YES, STOP HERE Heart Failure (Qualifier) Patient has current or prior documentation of LVEF less than or equal to 40%, or mod/servere depressed LVSF?: No IF NO, STOP HERE
[2024-12-31] MEDS: levoFLOXacin 750 MG TABLET PO (15:12)
[2024-12-31 17:28] LABS: LDH Peritoneal Fluid 47 U/L (<63)
[2025-01-02 11:38] LABS: Alpha Fetoprotein Tumor Marker 6.4 ng/mL
[2025-01-03 00:49] LABS: Albumin Peritoneal Fluid 0.9 g/dL; Amylase Peritoneal Fluid <10 U/L; Glucose Peritoneal Fluid 161 mg/dL; Total Protein Peritoneal Fluid <3.0 g/dL
--- NOTE | 2025-01-06 08:12 | PC.NURSE ---
AFP elevated 6.4 Pleural fluid cx is negative. Pleural tests are all WNL.
== END 2024-12-31 15:40 | disposition home or self-care (01) | DRG 280 ==
LOC: ANHED 16:50 → ANH2MED 20:21
PROVIDERS: Family Medicine; Internal Medicine; Internal Medicine Gastroenterology; Internal Medicine Hematology & Oncology; Admitting Provider General Practice; Emergency Provider Emergency Medicine; PCP Internal Medicine; Visit Provider Internal Medicine
DX: K70.31 Alcoholic cirrhosis of liver with ascites (principal); N39.0 Urinary tract infection, site not specified; K76.6 Portal hypertension; K20.90 Esophagitis, unspecified without bleeding; K29.70 Gastritis, unspecified, without bleeding; D61.818 Other pancytopenia; E87.1 Hypo-osmolality and hyponatremia; E87.6 Hypokalemia; I10 Essential (primary) hypertension; E78.5 Hyperlipidemia, unspecified; E03.9 Hypothyroidism, unspecified; E11.9 Type 2 diabetes mellitus without complications; F10.20 Alcohol dependence, uncomplicated; F32.A Depression, unspecified; F41.9 Anxiety disorder, unspecified; F90.9 Attention-deficit hyperactivity disorder, unspecified type
CPT/HCPCS: 36415; 49083; 74177; 80048; 80053; 80074; 81001; 82040; 82042; 82077; 82105; 82150; 82607; 82728; 82746; 82945; 82948; 83036; 83540; 83550; 83615; 83690; 83735; 84157; 85025; 85027; 85049; 85055; 85610; 87070; 87075; 87086; 87181; 87205; 88108; 88305; 88342; 89051; 96365; 96374; 96375; 97110; 97161; 97165; 97530; 97535; 99285; A9270; G0378; J0696; J1815; J1938; J2060; J2470; J3411; J3475; J3480; J7030; J7040; Q9967

== ENCOUNTER 2025-01-09 11:10 | Emergency (ER) | payer SELFPAY ==
[2025-01-09] VITALS (12 sets, daily range): BP systolic 100–124; BP diastolic 63–76; PULSE 93–98; RESP 12–20; TEMP 36.4; O2SAT 97–100
--- NOTE | ~2025-01-09 | CT_ITS ---
History: Altered mental status PROCEDURE: CT head without contrast. COMPARISON: 05/19/2024 TECHNIQUE: Axial imaging of the head performed from the skull base to the vertex without IV contrast. Sagittal a nd coronal reformations obtained. DLP: 605 mGy-cm FINDINGS: The ventricles are normal in size, shape and position. There is no mass, mass effect or midline shift. There is no abnormal extra-axial fluid collection or intracranial hemorrhage. Nasal ganglia calcifications are redemonstrated. Mucoperiosteal thickening within the bilateral maxillary sinuses, unchanged from prior. Sphenoid and frontal sinuses are clear. The mastoid air cells are well aerated. No acute displaced fractures within the overlying cranium. Impression: No acute intracranial hemorrhage or suspicious mass effect. Inflammatory sinus disease, unchanged. Reviewed, dictated and finalized at location A. Impression: No acute intracranial hemorrhage or suspicious mass effect. Inflammatory sinus disease, unchanged.
--- NOTE | ~2025-01-09 | XR_ITS ---
CHEST RADIOGRAPH CLINICAL HISTORY: Altered mental status/ confusion . COMPARISON: 05/19/2024 TECHNIQUE: Single portable view of the chest. FINDINGS The cardiomediastinal silhouette is unremarkable. The lungs are clear. Visualized osseous structures and soft tissues are unremarkable. IMPRESSION: No focal infiltrate or effusion. Reviewed, dictated and finalized at location A.
--- OUTSIDE RECORDS SUMMARY | 2025-01-09 11:21 | XMS_ITS | Clinical Summary ---
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
--- OUTSIDE RECORDS SUMMARY | 2025-01-09 11:21 | XMS_ITS | Encounter Summary ---
Author Organization [facility] Address 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
--- OUTSIDE RECORDS SUMMARY | 2025-01-09 11:21 | XMS_ITS | Clinical Summary ---
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
--- NOTE | 2025-01-09 11:24 | ECG_ITS ---
Test Date: 2025-01-09 11:53:44 Measurements Intervals [place] Rate: 93 P: 31 [place]: 172 QRS: 60 QRSD: 110 T: 16 QT: 384 QTc: 479 Interpretive Statements SINUS RHYTHM BASELINE WANDER- I, III, V4-V6 NORMAL ECG Compared to ECG 05/19/2024 12:17:52 No significant changes Electronically Signed On 01-09-2025 12:09:29 CDT by Rocky Carlin D.O.
--- NOTE | 2025-01-09 11:25 | ED.AMS ---
HPI - Altered Mental Status General Chief Complaint: Altered Mental Status Stated Complaint: confusion, abnormal labs from dr valladares office Source: patient Mode of arrival: ambulatory Limitations: no limitations History of Present Illness HPI narrative: 59 years old white female referred to our emergency room from her physician's office because feeling weird and lethargic for the last few days. History of alcoholic cirrhosis with ascites, pancytopenia, diabetes, hypothyroidism, hypertension, portal hypertension , depression, anxiety the hyperlipidemia. According to patient's record that patient drinks 2 packs of vodka for 20 years at least. Patient is telling me last alcohol intake was over 10 days ago She denies any fever, chills, nausea, vomiting, diarrhea, constipation or abdominal pain. Related Data Home Medications ?Medication ?Instructions ?Recorded ?Confirmed ?Last Taken ?Type levothyroxine 125 mcg tablet 125 mcg PO DAILY@0630 05/28/20 12/27/24 10/05/23 09:00 History (Euthyrox) 125 potassium chloride 10 mEq 10 meq PO DAILY 05/28/20 12/27/24 10/05/23 09:00 History tablet,extended release 10 pravastatin 10 mg tablet 10 mg PO DAILY 05/28/20 12/27/24 10/05/23 09:00 History 10 folic acid 1 mg tablet 1 mg PO HS 10/13/20 12/27/24 10/05/23 09:00 History 1 magnesium oxide 400 mg PO DAILY 10/13/20 12/27/24 10/05/23 09:00 History 400 vitamin E 200 unit capsule 200 unit PO DAILY 01/12/21 12/27/24 10/05/23 09:00 History 200 multivitamin 1 tablet PO DAILY 05/16/22 12/27/24 10/05/23 09:00 History Allergies Allergy/AdvReac Type Severity Reaction Status Date / Time No Known Allergies Allergy Verified 01/09/25 11:17 [facility] Past Medical History Medical History (Updated 01/09/25 @ 14:44 by Carmen Wood MD) Alcohol withdrawal BMI 26.0-26.9,adult Hypertension Depression with anxiety ADHD Dyslipidemia Essential hypertension Hypothyroidism Alcoholism Diabetes mellitus hemoglobin A1c 05/29/2020 4.8 Surgical History Surgical History Fracture of humeral shaft, left, closed IM deepti 09/2020 Previous back surgery removed tumor from back 2009, [facility] History of total hysterectomy with bilateral salpingo-oophorectomy (BSO) due to fibroid Hx of tonsillectomy History of appendectomy History of colonoscopy with polypectomy Family History Family History Sibling Asthma Diabetes mellitus Mother Cerebrovascular accident Hypertension Sibling Diabetes mellitus Alcoholism Father Hypertension Social History Social History Social History: The patient lives in [facility] with her of 12 years. She has had a struggle with alcoholism for the last 20 years. She went through alcohol treatment programs 13 years ago when her 1st . She went through alcohol treatment program again about 2 years ago at [facility]. She drinks 2 pt of vodka several times a week. She does not retain the use marijuana and states that she does not like it because it makes her sleep. She has never smoked. 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 Primary care physician: Dr. Bud Valladares Smoking status: Never smoker Second hand tobacco smoke exposure: No Alcohol intake: current Drinks per week: 70 Alcohol use details: 2 pints vodka daily Substance use: never Substance use type: does not use Other substance usage details: STATES DRANK 2PT VODKA/DAY Last use: 12/26/2024 Do You Feel Safe in your Home?: Yes Lack of Transportation: No Lack of Food: Never True Current Housing: I Have Housing Concerned About Future Housing: No Difficulty Paying Gas/Electric Bills: No Difficulty Paying for Meds: No Currently Unemployed: No Education: Associate Degree Difficulty w/ Childcare or Family Care: No Living arrangements: with family Gender identity (if verbalized by the patient): Female Spiritual care concerns: No Course Vital Signs Vital signs: Vital Signs Temperature 36.4 C 01/09/25 11:17 Pulse Rate 94 01/09/25 11:17 Respiratory Rate 18 01/09/25 11:17 Blood Pressure 106/75 01/09/25 11:17 Pulse Oximetry 100 01/09/25 11:17 Oxygen Delivery Room Air 01/09/25 11:17 Temperature 36.4 C 01/09/25 11:17 Pulse Rate 98 01/09/25 12:45 Respiratory Rate 19 01/09/25 12:45 Blood Pressure 104/63 01/09/25 12:15 Pulse Oximetry 99 01/09/25 12:01 Oxygen Delivery Room Air 01/09/25 12:01 MDM - Altered Mental Status MDM Narrative Medical decision making narrative: patient referred to the ED from her family physician's office because of looking weird and feeling weird. Vital signs are stable Physical examination showing a patient, awake, alert oriented x4 denying any symptoms. Lab Data 01/09/25 11:47 01/09/25 11:48 Labs: Lab Results 01/09/25 01/09/25 Range/Units 11:47 11:48 WBC 3.5 L (4.8-10.8) K/mm3 RBC 3.72 L (4.20-5.40) M/mm3 Hgb 9.7 L (12.0-15.0) g/dL Hct 31.9 L (35.0-49.0) % MCV 85.8 (78.0-102.0) fL MCH 26.1 L (27.0-31.0) pg MCHC 30.4 L (32-36) g/dL RDW 21.1 H (11.6-14.4) % Plt Count 165 (150-420) K/mm3 MPV 9.6 (9.2-11.8) fl Immature Gran % (Auto) Not Reportable Neut % (Auto) Not Reportable Lymph % (Auto) Not Reportable [place] % (Auto) Not Reportable Eos % (Auto) Not Reportable Baso % (Auto) Not Reportable Lymph # (Auto) Not Reportable [place] # (Auto) Not Reportable Eos # (Auto) Not Reportable Baso # (Auto) Not Reportable Abs Immat Gran (auto) Not Reportable Absolute Neuts (auto) Not Reportable Absolute Nucleated RBC Not Reportable Total Counted 100 Neutrophils % (Manual) 58 (46-73) % Band Neutrophils % 0 (0-6) % Lymphocytes % (Manual) 33 (18-44) % Monocytes % (Manual) 8 (3-9) % Eosinophils % (Manual) 1 (1-6) % Nucleated RBC % Not Reportable Abs Neuts (Manual) 2.03 (1.7-7.2) K/mm3 Abs Lymphs (Manual) 1.15 (1.1-4.5) K/mm3 Abs Monocytes (Manual) 0.28 (0.1-0.90) K/mm3 Absolute Eos (Manual) 0.03 (0.02-0.50) K/mm3 Platelet Estimate Adequate (Adequate) Schistocytes Not Reportable PT 14.9 H (9.50-12.1) Seconds INR 1.4 Sodium 140 (136-145) mmol/L Potassium 3.4 L (3.5-5.1) mmol/L Chloride 103 (98-108) mmol/L Carbon Dioxide 30 (21-32) mmol/L Anion Gap 7 (4-12) mmol/L BUN 7 (7-18) mg/dL Creatinine 0.79 (0.55-1.02) mg/dL Estim Creat Clear Calc 74 ml/min Estimated GFR > 60 (59 - ) Glucose 239 H (70-99) mg/dL Calculated Osmolality 296 H (285-295) mOsm/kg Calcium 8.8 (8.5-10.1) mg/dL Total Bilirubin 0.6 (0.00-1.00) mg/dL AST 72 H (15-37) U/L ALT 24 (14-59) U/L Alkaline Phosphatase 186 H (46-116) U/L Ammonia 40 H (11-32) umol/L Total Creatine Kinase 21 L (26-192) U/L Total Protein 7.8 (6.4-8.2) g/dL Albumin 3.0 L (3.4-5.0) g/dL TSH 11.42 H (0.36-3.74) uIU/mL Urine Color Yellow (Yellow) Urine Appearance Clear (Clear) Urine pH 6.0 (5.0-8.0) Ur Specific [place] 1.015 (1.010-1.020) Urine Protein Negative (Negative) Urine Glucose (UA) Negative (Negative) Urine Ketones Negative (Negative) Ur Blood (Man) Negative (Negative) Urine Nitrate Negative (Negative) Urine Bilirubin Negative (Negative) Urine Urobilinogen 1.0 (0.2-1.0) mg/dL Leukocyte Esterase Rfl Negative (Negative) TIM/UL Urine Opiates Screen Negative (Negative) Urine Methadone Screen Negative (Negative) Ur Barbiturates Screen Negative (Negative) Ur Phencyclidine Scrn Negative (Negative) Ur Amphetamine Screen Negative (Negative) U Benzodiazepines Scrn Positive A (Negative) Urine Cocaine Screen Negative (Negative) U Cannabinoids Screen Negative (Negative) Ethyl Alcohol 215 H* (0-6) mg/dL Discharge Plan Discharge Clinical Impression: Alcoholic, Hypothyroidism, Increased ammonia level Patient Disposition: Left Against Medical Advice Condition: Guarded Prognosis Patient Language: Persian Prescriptions: No Action vitamin E 200 unit capsule 200 unit PO DAILY multivitamin Tablet 1 tablet PO DAILY folic acid 1 mg tablet 1 mg PO HS magnesium oxide 400 mg magnesium tablet 400 mg PO DAILY multivitamin with folic acid [Thera] 400 mcg Tablet 1 tablet PO DAILY 0RF chlordiazepoxide HCl 25 mg Capsule 25 mg PO DIRECTED Qty: 10 0RF Rx Instructions: Take 25mg every 8 hours through December 31 then decrease to 25mg every 12hours for 2 days then decrease to 25mg every night for 2 days then off. thiamine HCl (vitamin B1) [Vitamin B-1] 100 mg Tablet 100 mg PO QAM Qty: 30 0RF ferrous sulfate 325 mg (65 mg iron) Tablet,Delayed Release (Dr/Ec) 325 mg PO DAILY Qty: 30 1RF spironolactone [Aldactone] 50 mg Tablet 100 mg PO QAM Qty: 60 0RF furosemide 40 mg Tablet 40 mg PO DAILY Qty: 30 1RF atenolol 50 mg Tablet 50 mg PO DAILY Qty: 30 1RF levothyroxine [Euthyrox] 125 mcg tablet 125 mcg PO DAILY@0630 potassium chloride 10 mEq tablet extended release 10 meq PO DAILY pravastatin 10 mg tablet 10 mg PO DAILY Follow-up/Referrals: Bud Valladares MD [Primary Care Provider] - Stand Alone Forms: Work/School Release IP
--- OUTSIDE RECORDS SUMMARY | 2025-01-09 11:45 | XMS_ITS | Encounter Summary ---
[facility] Organization [facility] Address 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
--- OUTSIDE RECORDS SUMMARY | 2025-01-09 11:45 | XMS_ITS | Clinical Summary ---
Author Organization [facility] Address [facility] [place] [address] Care Team Providers Care Hoop Driving Machine Operator Name Role Phone Unavailable Primary Care Provider [...] 2023-2 5 season) 2024 02/13/2021 PHQ-2 (Physician [place]) 09/24/2024 DTaP, Tdap and Td Vaccines ( [...]
--- OUTSIDE RECORDS SUMMARY | 2025-01-09 11:45 | XMS_ITS | Clinical Summary ---
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
--- OUTSIDE RECORDS SUMMARY | 2025-01-09 11:45 | XMS_ITS | Clinical Summary ---
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
[2025-01-09 11:55] LABS: Hematocrit 31.9 % (35.0-49.0); Hemoglobin 9.7 g/dL (12.0-15.0); Mean Corpuscular HGB Conc 30.4 g/dL (32-36); Mean Corpuscular Hemoglobin 26.1 pg (27.0-31.0); Mean Corpuscular Volume 85.8 fL (78.0-102.0); Mean Platelet Volume 9.6 fl (9.2-11.8); Platelet Count Result 165 K/mm3 (150-420); Red Blood Count 3.72 M/mm3 (4.20-5.40); Red Cell Distribution Width 21.1 % (11.6-14.4); White Blood Count 3.5 K/mm3 (4.8-10.8)
[2025-01-09 11:56] LABS: Add Urine Microscopic? NO; Appearance Urine Clear (Clear); Bilirubin Urine Negative (Negative); Blood Urine Negative (Negative); Color Urine Yellow (Yellow); Glucose Urine UA Negative (Negative); Ketones Urine Negative (Negative); Leukocyte Esterase Ur Negative LEU/UL (Negative); Nitrate Urine Negative (Negative); Protein Urine Negative (Negative); Specific Grav Ur 1.015 (1.010-1.020)
[2025-01-09 12:04] LABS: Amphetamine Screen Urine Negative (Negative); Barbiturate Screen Urine Negative (Negative); Benzodiazepines Screen Urine Positive (Negative); Cannabinoid Screen Urine Negative (Negative); Cocaine Screen Urine Negative (Negative); Methadone Screen Urine Negative (Negative); Opiate Screen Urine Negative (Negative); Phencyclidine Screen Urine Negative (Negative)
[2025-01-09 12:05] LABS: Band Neutrophils Percent 0 % (0-6); Eosinophils Absolute Manual 0.03 K/mm3 (0.02-0.50); Eosinophils Percent Manual 1 % (1-6); Lymphocytes Absolute Manual 1.15 K/mm3 (1.1-4.5); Lymphocytes Percent Manual 33 % (18-44); Monocytes Absolute Manual 0.28 K/mm3 (0.1-0.90); Monocytes Percent Manual 8 % (3-9); Neutrophils Absolute Manual 2.03 K/mm3 (1.7-7.2); Neutrophils Percent Manual 58 % (46-73); Total Cells Counted 100
[2025-01-09 12:06] LABS: Platelet Estimate Adequate (Adequate)
[2025-01-09 12:07] LABS: INR 1.4; Prothrombin Time 14.9 Seconds (9.50-12.1)
[2025-01-09 12:19] LABS: Alanine Aminotransferase 24 U/L (14-59); Alkaline Phosphatase 186 U/L (46-116); Ammonia 40 umol/L (11-32); Anion Gap 7 mmol/L (4-12); Aspartate Amino Transferase 72 U/L (15-37); Bilirubin,Total 0.6 mg/dL (0.00-1.00); Blood Urea Nitrogen 7 mg/dL (7-18); Calcium 8.8 mg/dL (8.5-10.1); Carbon Dioxide 30 mmol/L (21-32); Chloride 103 mmol/L (98-108); Creatine Kinase 21 U/L (26-192); Estimated CRCL calculation 74 ml/min; Estimated Glomerular Filt Rate > 60; Glucose 239 mg/dL (70-99); Osmolality Calculated 296 mOsm/kg (285-295); Potassium 3.4 mmol/L (3.5-5.1); Sodium 140 mmol/L (136-145); Thyroid Stimulating Hormone 11.42 uIU/mL (0.36-3.74); Total Protein 7.8 g/dL (6.4-8.2)
[2025-01-09 12:21] LABS: Ethanol 215 mg/dL (0-6)
--- NOTE | 2025-01-09 13:17 | PC.NURSE ---
pt eloped out the back door, returned to er with this bond underwriter. pt unsteady gait. requesting lab results and wants to go home. dr vasquez reviewing labs at this time. pt in wheelchair at nurses station for direct supervision.
--- NOTE | 2025-01-09 13:34 | PC.NURSE ---
SISTER IN ROOM WITH PT ATTEMPTING TO ENCOURAGE ADMISSION OR TRANSFER, PT CONTINUES TO WANT TO LEAVE. NOTED PT TO HAVE BUG CRAWLING IN HAIR. SISTER APPLIED GLOVES. LARGE AMOUNT OF HEAD LICE KNITS NOTED TO HAIR IN THE BACK. HAIR BONNET APPLIED PER PT FAMILY REQUEST.
--- NOTE | 2025-01-09 14:03 | PC.NURSE ---
pt refusing vital recheck, wanting to go home . attempting to find ride to take pt home. pt is alert to name, place, time, president.
== END 2025-01-09 14:45 | disposition left against medical advice (07) ==
PROVIDERS: Emergency Provider Emergency Medicine; PCP Internal Medicine
DX: E03.9 Hypothyroidism, unspecified (principal); F10.10 Alcohol abuse, uncomplicated; Y90.7 Blood alcohol level of 200-239 mg/100 ml; G47.00 Insomnia, unspecified; I10 Essential (primary) hypertension; E11.9 Type 2 diabetes mellitus without complications
CPT/HCPCS: 36415; 70450; 71045; 80053; 80307; 81003; 82077; 82140; 82550; 84443; 85025; 85610; 93005; 99284

== ENCOUNTER 2025-01-09 16:20 | Emergency (ER) | payer SELFPAY ==
[2025-01-09 16:22] VITALS: BP 117/71; PULSE 97; RESP 16; TEMP 36.6; O2SAT 100
--- OUTSIDE RECORDS SUMMARY | 2025-01-09 16:22 | XMS_ITS | Clinical Summary ---
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
--- OUTSIDE RECORDS SUMMARY | 2025-01-09 16:22 | XMS_ITS | Encounter Summary ---
Author Organization [employer] Address 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
--- OUTSIDE RECORDS SUMMARY | 2025-01-09 16:22 | XMS_ITS | Clinical Summary ---
Author Organization [employer] 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
--- OUTSIDE RECORDS SUMMARY | 2025-01-09 16:22 | XMS_ITS | Clinical Summary ---
Author Organization [facility] Address [facility] [place] [address] Care Team Providers Care It Senior Analyst Name Role Phone Unavailable Primary Care [...] 2023-2 5 season) 2024 02/13/2021 PHQ-2 (Physician [place]) 09/24/2024 DTaP, Tdap and Td Vaccines ( [...]
--- NOTE | 2025-01-09 18:02 | ECG_ITS ---
Test Date: 2025-01-09 19:22:47 Measurements Intervals [place] Rate: 101 P: 34 [place]: 185 QRS: 17 QRSD: 106 T: 10 QT: 371 QTc: 481 Interpretive Statements SINUS TACHYCARDIA CONSIDER INFERIOR INFARCT, AGE INDETERMINATE BASELINE ARTIFACT- I, II, III, AVR, AVL, V1 ABNORMAL ECG Compared to ECG 01/09/2025 11:53:44 NO SIGNIFICANT CHANGE Electronically Signed On 01-09-2025 20:35:12 CDT by Rocky Carlin D.O.
--- OUTSIDE RECORDS SUMMARY | 2025-01-09 18:50 | XMS_ITS | Clinical Summary ---
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
--- OUTSIDE RECORDS SUMMARY | 2025-01-09 18:50 | XMS_ITS | Clinical Summary ---
Author Organization [facility] Address [facility] [place] [address] Care Team Providers Care Computer Lab Aide Name Role Phone Unavailable Primary Care Provider [...] 2023-2 5 season) 2024 02/13/2021 PHQ-2 (Physician [place]) 09/24/2024 DTaP, Tdap and Td Vaccines ( [...]
--- OUTSIDE RECORDS SUMMARY | 2025-01-09 18:50 | XMS_ITS | Clinical Summary ---
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
--- OUTSIDE RECORDS SUMMARY | 2025-01-09 18:50 | XMS_ITS | Encounter Summary ---
Author Organization [facility] Address 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
[2025-01-09 19:02] LABS: Basophils Percent Auto 0.6 % (0.2-1.2); Eosinophils Absolute Auto 0.1 K/mm3 (0-0.3); Eosinophils Percent Auto 1.4 % (0-4.4); Hematocrit 31.9 % (37.0-47.0); Hemoglobin 9.8 g/dL (12.0-15.0); Immature Granulocyte Absolute 0.03 K/mm3 (0.00-0.031); Immature Granulocyte Percent A 0.8 % (0-0.5); Lymphocytes Percent Auto 22.4 % (18.3-44.2); Mean Corpuscular HGB Conc 30.7 g/dl (32-36); Mean Corpuscular Hemoglobin 26.6 pg (26-34); Mean Corpuscular Volume 86.7 fl (80-100); Mean Platelet Volume 9.8 fl (7.4-10.4); Monocytes Absolute Auto 0.4 K/mm3 (0.1-0.6); Monocytes Percent Auto 10.1 % (2.6-8.5); Neutrophils Absolute Auto 2.3 K/mm3 (1.3-6.7); Neutrophils Percent Auto 64.7 % (45.5-73.1); Platelet Count Result 153 k/mm3 (150-375); Red Blood Count 3.68 M/mm3 (4.2-5.4); Red Cell Distribution Width 21.3 % (11.5-14.5); White Blood Count 3.6 K/mm3 (4.5-10.0)
[2025-01-09 19:10] LABS: Ammonia 10 umol/L (9-30); Lactic Acid Reflex 2.5 mmol/L (0.7-2.0)
[2025-01-09 19:11] LABS: Alanine Aminotransferase 26 U/L (6-35); Albumin Level 3.6 g/dL (3.5-5.1); Alkaline Phosphatase 171 U/L (38-126); Anion Gap 12 mmol/L (4-12); Aspartate Amino Transferase 76 U/L (14-36); Bilirubin,Total 0.7 mg/dL (0.2-1.3); Blood Urea Nitrogen 9 mg/dL (7-17); Calcium 8.5 mg/dL (8.4-10.2); Carbon Dioxide 27 mmol/L (22-30); Chloride 101 mmol/L (98-107); Estimated CRCL calculation 93 ml/min; Estimated Glomerular Filt Rate > 60; Glucose 283 mg/dL (65-110); Lipase 174 U/L (23-300); Potassium 3.5 mmol/L (3.4-5.0); Sodium 140 mmol/L (137-145)
[2025-01-09 19:16] LABS: INR 1.7
[2025-01-09 19:17] LABS: Partial Thromboplastin Time 36.3 Seconds (22.3-36.8)
--- NOTE | 2025-01-09 19:17 | ED.GENADULT ---
HPI - General Adult General Chief complaint: Recheck/Abnormal Lab/Rx Stated complaint: high ammonia, cirrhosis Time Seen by Provider: 01/09/25 18:00 History of Present Illness HPI narrative: 59-year-old female history of liver disease presented emergency department for evaluation for an elevated ammonia level. Patient was initially at [facility] after having a near-syncopal episode and there parking lot. Patient was evaluated emergency department but stated that she had an interview and needed to leave against medical advice, patient then returned to the hospital to be evaluated patient states that she was turned away. Patient arrives arm urgency department for re-evaluation. Patient denies any complaints at this time and feels back to her baseline. Patient is already stating that she does not want to be admitted and is hoping she can have outpatient follow-up. Patient had a previous hospital admission related to liver disease when patient was drinking 2 pt of vodka a day. Patient states she did quit drinking alcohol at the time of her last admission. Related Data Home Medications ?Medication ?Instructions ?Recorded ?Confirmed ?Last Taken ?Type levothyroxine 125 mcg tablet 125 mcg PO DAILY@0630 05/28/20 12/27/24 10/05/23 09:00 History (Euthyrox) 125 potassium chloride 10 mEq 10 meq PO DAILY 05/28/20 12/27/24 10/05/23 09:00 History tablet,extended release 10 pravastatin 10 mg tablet 10 mg PO DAILY 05/28/20 12/27/24 10/05/23 09:00 History 10 folic acid 1 mg tablet 1 mg PO HS 10/13/20 12/27/24 10/05/23 09:00 History 1 magnesium oxide 400 mg PO DAILY 10/13/20 12/27/24 10/05/23 09:00 History 400 vitamin E 200 unit capsule 200 unit PO DAILY 01/12/21 12/27/24 10/05/23 09:00 History 200 multivitamin 1 tablet PO DAILY 05/16/22 12/27/24 10/05/23 09:00 History Allergies Allergy/AdvReac Type Severity Reaction Status Date / Time No Known Allergies Allergy Verified 01/09/25 11:17 Review of Systems Review of Systems: All systems reviewed & are unremarkable except as noted in HPI and below PMFSH Past Medical History Medical History (Updated 01/09/25 @ 19:28 by Keny Arciniega MD) Alcohol withdrawal BMI 26.0-26.9,adult Hypertension Depression with anxiety ADHD Dyslipidemia Essential hypertension Hypothyroidism Alcoholism Diabetes mellitus hemoglobin A1c 05/29/2020 4.8 Surgical History Surgical History Fracture of humeral shaft, left, closed IM deepti 09/2020 Previous back surgery removed tumor from back 2009, [facility] History of total hysterectomy with bilateral salpingo-oophorectomy (BSO) due to fibroid Hx of tonsillectomy History of appendectomy History of colonoscopy with polypectomy Family History Family History Sibling Asthma Diabetes mellitus Mother Cerebrovascular accident Hypertension Sibling Diabetes mellitus Alcoholism Father Hypertension Social History Social History Social History: The patient lives in [facility] with her of 12 years. She has had a struggle with alcoholism for the last 20 years. She went through alcohol treatment programs 13 years ago when her 1st . She went through alcohol treatment program again about 2 years ago at [place]. She drinks 2 pt of vodka several times a week. She does not retain the use marijuana and states that she does not like it because it makes her sleep. She has never smoked. 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 Primary care physician: Dr. Bud Valladares Smoking status: Never smoker Second hand tobacco smoke exposure: No Alcohol intake: current Drinks per week: 70 Alcohol use details: 2 pints vodka daily Substance use: never Substance use type: does not use Other substance usage details: STATES DRANK 2PT VODKA/DAY Last use: 12/26/2024 Do You Feel Safe in your Home?: Yes Lack of Transportation: No Lack of Food: Never True Current Housing: I Have Housing Concerned About Future Housing: No Difficulty Paying Gas/Electric Bills: No Difficulty Paying for Meds: No Currently Unemployed: No Education: Associate Degree Difficulty w/ Childcare or Family Care: No Living arrangements: with family Gender identity (if verbalized by the patient): Female Spiritual care concerns: No Exam Narrative: APPEARANCE: Well appearing, no pain, no distress, well-nourished. HEAD: normocephalic, atraumatic. EYES: PERRLA/EOMI, conjunctivae clear. NOSE: Normal no drainage EARS:TMS clear with good light reflex. THROAT: Pharynx clear, no exudate. NECK: Supple. No adenopathy, no masses. RESPIRATORY: Airway patent, respirations nonlabored. Clear to auscultation bilaterally, no rales, rhonchi, wheezing. CARDIOVASCULAR: Regular rate and rhythm without murmurs rubs or gallops. ABDOMINAL: Soft, nontender, nondistended, normal bowel sounds MUSCULOSKELETAL: Moves all extremities. Strength/ROM intact, No edema, No calf tenderness. NEURO: Alert. Cranial nerves II through XII intact. Good gait. Good coordination SKIN: Warm, dry. Normal Color PSYCHIATRIC: Normal affect/mood. Course Vital Signs Vital signs: Vital Signs Temperature 97.8 F 01/09/25 16:22 Pulse Rate 97 01/09/25 16:22 Respiratory Rate 16 01/09/25 16:22 Blood Pressure 117/71 01/09/25 16:22 Pulse Oximetry 100 01/09/25 16:22 Temperature 97.8 F 01/09/25 16:22 Pulse Rate 101 H 01/09/25 19:27 Respiratory Rate 19 01/09/25 19:27 Blood Pressure 127/77 01/09/25 19:27 Pulse Oximetry 98 01/09/25 19:27 Medical Decision Making [facility] Narrative Medical decision making narrative: 59-year-old female presented emergency department for evaluation for elevated liver enzymes and elevated ammonia. Patient is currently afebrile with no leukocytosis and hemoglobin of 9.8. Patient's creatinine is 0.53. Patient's blood sugars elevated to 83 and patient does have a lactic acid of 2.5. Patient was treated with 1 L of lactated Ringer's. Patient's T bili is normal, AST is mildly elevated at 76 ALT is 26 and patient's alk-phos is elevated at 171. Alk-phos is improved compared to her most recent admission. Ammonia level was checked and this is 10 micro moles per L. patient states she is following up with her primary care physician patient states she is trying to get scheduled follow-up with a structural welder. Patient states she has quit drinking. Differential Diagnosis Differential Diagnosis: Hyperammonemia, transaminitis, dehydration, altered mental state, UTI, alcohol intoxication Vital Signs Vital Signs: Vital Signs Temperature 97.8 F 01/09/25 16:22 Pulse Rate 97 01/09/25 16:22 Respiratory Rate 16 01/09/25 16:22 Blood Pressure 117/71 01/09/25 16:22 Pulse Oximetry 100 01/09/25 16:22 Temperature 97.8 F 01/09/25 16:22 Pulse Rate 101 H 01/09/25 19:27 Respiratory Rate 19 01/09/25 19:27 Blood Pressure 127/77 01/09/25 19:27 Pulse Oximetry 98 01/09/25 19:27 Lab Data Lab results reviewed: Yes I reviewed the patient's lab results. 01/09/25 18:56 01/09/25 18:56 Labs: Lab Results 01/09/25 Range/Units 18:56 WBC 3.6 L (4.5-10.0) K/mm3 RBC 3.68 L (4.2-5.4) M/mm3 Hgb 9.8 L (12.0-15.0) g/dL Hct 31.9 L (37.0-47.0) % MCV 86.7 (80-100) fl MCH 26.6 (26-34) pg MCHC 30.7 L (32-36) g/dl RDW 21.3 H (11.5-14.5) % Plt Count 153 D (150-375) k/mm3 MPV 9.8 (7.4-10.4) fl Immature Gran % (Auto) 0.8 H (0-0.5) % Neut % (Auto) 64.7 (45.5-73.1) % Lymph % (Auto) 22.4 (18.3-44.2) % Jessamine % (Auto) 10.1 H (2.6-8.5) % Eos % (Auto) 1.4 (0-4.4) % Baso % (Auto) 0.6 (0.2-1.2) % Lymph # (Auto) 0.80 L (0.9-3.2) K/mm3 Jessamine # (Auto) 0.4 (0.1-0.6) K/mm3 Eos # (Auto) 0.1 (0-0.3) K/mm3 Baso # (Auto) 0.0 (0.0-0.1) K/mm3 Abs Immat Gran (auto) 0.03 (0.00-0.031) K/mm3 Absolute Neuts (auto) 2.3 (1.3-6.7) K/mm3 Absolute Nucleated RBC 0.000 (0.0-0.012) K/mm3 Nucleated RBC % 0.0 (0.0-0.2) % PT 20.0 H (11.1-14.7) Seconds INR 1.7 APTT 36.3 (22.3-36.8) Seconds Sodium 140 (137-145) mmol/L Potassium 3.5 (3.4-5.0) mmol/L Chloride 101 (98-107) mmol/L Carbon Dioxide 27 (22-30) mmol/L Anion Gap 12 (4-12) mmol/L BUN 9 (7-17) mg/dL Creatinine 0.53 L (0.7-1.0) mg/dL Estim Creat Clear Calc 93 ml/min Estimated GFR > 60 (59 - ) Glucose 283 H (65-110) mg/dL Lactic Acid 2.5 H (0.7-2.0) mmol/L Calcium 8.5 (8.4-10.2) mg/dL Total Bilirubin 0.7 (0.2-1.3) mg/dL AST 76 H (14-36) U/L ALT 26 (6-35) U/L Alkaline Phosphatase 171 H (38-126) U/L Ammonia 10 (9-30) umol/L Total Protein 8.0 (6.3-8.2) g/dL Albumin 3.6 (3.5-5.1) g/dL Lipase 174 (23-300) U/L Discharge Plan Discharge Clinical Impression: Abnormal liver enzymes Patient Disposition: Home Condition: Stable Instructions: Antibiotic Form, Chronic Liver Disease (ED) Additional Instructions: Continue to refrain from drinking alcohol. Have close follow-up with your primary care physician. Have close follow-up with a liver specialist. If you have any worsening symptoms then please call or return to the emergency department. Patient Language: Azeri Prescriptions: No Action vitamin E 200 unit capsule 200 unit PO DAILY multivitamin Tablet 1 tablet PO DAILY folic acid 1 mg tablet 1 mg PO HS magnesium oxide 400 mg magnesium tablet 400 mg PO DAILY multivitamin with folic acid [Thera] 400 mcg Tablet 1 tablet PO DAILY 0RF chlordiazepoxide HCl 25 mg Capsule 25 mg PO DIRECTED Qty: 10 0RF Rx Instructions: Take 25mg every 8 hours through December 31 then decrease to 25mg every 12hours for 2 days then decrease to 25mg every night for 2 days then off. thiamine HCl (vitamin B1) [Vitamin B-1] 100 mg Tablet 100 mg PO QAM Qty: 30 0RF ferrous sulfate 325 mg (65 mg iron) Tablet,Delayed Release (Dr/Ec) 325 mg PO DAILY Qty: 30 1RF spironolactone [Aldactone] 50 mg Tablet 100 mg PO QAM Qty: 60 0RF furosemide 40 mg Tablet 40 mg PO DAILY Qty: 30 1RF atenolol 50 mg Tablet 50 mg PO DAILY Qty: 30 1RF levothyroxine [Euthyrox] 125 mcg tablet 125 mcg PO DAILY@0630 potassium chloride 10 mEq tablet extended release 10 meq PO DAILY pravastatin 10 mg tablet 10 mg PO DAILY Follow-up/Referrals: Bud Valladares MD [Primary Care Provider] -
--- NOTE | 2025-01-09 19:26 | PC.NURSE ---
patient states I forgot to tell you, but at the other hospital they said I may have lice or something
[2025-01-09 19:27] VITALS: BP 127/77; PULSE 101; RESP 19; O2SAT 98
[2025-01-09] MEDS: LACTATED RINGERS 1,000 ML 999 ML IV CONT (19:34)
[2025-01-09 20:59] LABS: Reflex Lactic Acid Yes or No Add Lactic
== END 2025-01-09 22:42 | disposition home or self-care (01) ==
PROVIDERS: Emergency Provider Emergency Medicine; PCP Internal Medicine
DX: R74.01 Elevation of levels of liver transaminase levels (principal); K76.9 Liver disease, unspecified; I10 Essential (primary) hypertension; E03.9 Hypothyroidism, unspecified; E78.5 Hyperlipidemia, unspecified; E11.9 Type 2 diabetes mellitus without complications; F41.8 Other specified anxiety disorders; F90.9 Attention-deficit hyperactivity disorder, unspecified type; Z86.0100 Personal history of colon polyps, unspecified; Z90.710 Acquired absence of both cervix and uterus; Z90.722 Acquired absence of ovaries, bilateral; Z90.79 Acquired absence of other genital organ(s); Z79.899 Other long term (current) drug therapy
CPT/HCPCS: 36415; 80053; 82140; 83605; 83690; 85025; 85610; 85730; 93005; 96360; 99283; J7120

== ENCOUNTER 2025-08-05 21:15 | Emergency (ER) | payer MEDICAID, SELFPAY ==
[2025-08-05 21:21] VITALS: BP 145/88; PULSE 120; RESP 20; TEMP 36.3; O2SAT 100
--- NOTE | 2025-08-05 22:35 | PC.NURSE ---
familia huang removing stitches in triage bay 2
--- NOTE | 2025-08-05 22:38 | ED.GENADULT ---
HPI - General Adult General Chief complaint: Unspecified Stated complaint: stitches removed;L hand, L leg Time Seen by Provider: 08/05/25 22:38 History of Present Illness HPI narrative: Patient had sutures placed in her left knee and left hand after a fall. These were placed at [place]. Related Data Home Medications ?Medication ?Instructions ?Recorded ?Confirmed ?Last Taken ?Type levothyroxine 125 mcg tablet 125 mcg PO DAILY@0630 05/28/20 12/27/24 10/05/23 09:00 History (Euthyrox) 125 potassium chloride 10 mEq 10 meq PO DAILY 05/28/20 12/27/24 10/05/23 09:00 History tablet,extended release 10 Held on 12/31/24. Instructions: HOLD - resume when okay with your doctor pravastatin 10 mg tablet 10 mg PO DAILY 05/28/20 12/27/24 10/05/23 09:00 History 10 folic acid 1 mg tablet 1 mg PO HS 10/13/20 12/27/24 10/05/23 09:00 History 1 magnesium oxide 400 mg PO DAILY 10/13/20 12/27/24 10/05/23 09:00 History 400 vitamin E 200 unit capsule 200 unit PO DAILY 01/12/21 12/27/24 10/05/23 09:00 History 200 multivitamin 1 tablet PO DAILY 05/16/22 12/27/24 10/05/23 09:00 History Allergies Allergy/AdvReac Type Severity Reaction Status Date / Time No Known Allergies Allergy Verified 01/09/25 11:17 [facility] Past Medical History Medical History (Updated 08/06/25 @ 00:01 by Kathie Ellis) Alcohol withdrawal BMI 26.0-26.9,adult Hypertension Depression with anxiety ADHD Dyslipidemia Essential hypertension Hypothyroidism Alcoholism Diabetes mellitus hemoglobin A1c 05/29/2020 4.8 Surgical History Surgical History Fracture of humeral shaft, left, closed IM deepti 09/2020 Previous back surgery removed tumor from back 2009, [facility] History of total hysterectomy with bilateral salpingo-oophorectomy (BSO) due to fibroid Hx of tonsillectomy History of appendectomy History of colonoscopy with polypectomy Family History Family History Sibling Asthma Diabetes mellitus Mother Cerebrovascular accident Hypertension Sibling Diabetes mellitus Alcoholism Father Hypertension Social History Social History Social History: The patient lives in [facility] with her of 12 years. She has had a struggle with alcoholism for the last 20 years. She went through alcohol treatment programs 13 years ago when her 1st . She went through alcohol treatment program again about 2 years ago at [place]. She drinks 2 pt of vodka several times a week. She does not retain the use marijuana and states that she does not like it because it makes her sleep. She has never smoked. 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 Primary care physician: Dr. Bud Valladares Smoking status: Never smoker Second hand tobacco smoke exposure: No Alcohol intake: current Drinks per week: 70 Alcohol use details: 2 pints vodka daily Substance use: never Substance use type: does not use Other substance usage details: STATES DRANK 2PT VODKA/DAY Last use: 12/26/2024 Do You Feel Safe in your Home?: Yes Lack of Transportation: No Lack of Food: Never True Current Housing: I Have Housing Concerned About Future Housing: No Difficulty Paying Gas/Electric Bills: No Difficulty Paying for Meds: No Currently Unemployed: No Education: Associate Degree Difficulty w/ Childcare or Family Care: No Living arrangements: with family Gender identity (if verbalized by the patient): Female Spiritual care concerns: No Exam Narrative: APPEARANCE: Well appearing, no pain, no distress, well-nourished. HEAD: normocephalic, atraumatic. EYES: PERRLA/EOMI, conjunctivae clear. NOSE: Normal no drainage EARS:TMS clear with good light reflex. THROAT: Pharynx clear, no exudate. NECK: Supple. No adenopathy, no masses. RESPIRATORY: Airway patent, respirations nonlabored. Clear to auscultation bilaterally, no rales, rhonchi, wheezing. CARDIOVASCULAR: Regular rate and rhythm without murmurs rubs or gallops. ABDOMINAL: Soft, nontender, nondistended, normal bowel sounds MUSCULOSKELETAL: Moves all extremities. Strength/ROM intact, No edema, No calf tenderness. NEURO: Alert. Cranial nerves II through XII intact. Good gait. Good coordination SKIN: Healing laceration to knee and hand sutures intact PSYCHIATRIC: Normal affect/mood. Course Vital Signs Vital signs: Vital Signs Temperature 97.3 F L 08/05/25 21:21 Pulse Rate 120 H 08/05/25 21:21 Respiratory Rate 20 08/05/25 21:21 Blood Pressure 145/88 H 08/05/25 21:21 Pulse Oximetry 100 08/05/25 21:21 Temperature 97.3 F L 08/05/25 21:21 Pulse Rate 120 H 08/05/25 21:21 Respiratory Rate 20 08/05/25 21:21 Blood Pressure 145/88 H 08/05/25 21:21 Pulse Oximetry 100 08/05/25 21:21 Medical Decision Making MDM Narrative Medical decision making narrative: At least 12 sutures were removed from the knee along with multiple sutures from the left hand. Wound well-appearing after suture removal. Vital Signs Vital Signs: Vital Signs Temperature 97.3 F L 08/05/25 21:21 Pulse Rate 120 H 08/05/25 21:21 Respiratory Rate 20 08/05/25 21:21 Blood Pressure 145/88 H 08/05/25 21:21 Pulse Oximetry 100 08/05/25 21:21 Temperature 97.3 F L 08/05/25 21:21 Pulse Rate 120 H 08/05/25 21:21 Respiratory Rate 20 08/05/25 21:21 Blood Pressure 145/88 H 08/05/25 21:21 Pulse Oximetry 100 08/05/25 21:21 Discharge Plan Discharge Clinical Impression: Encounter for removal of sutures Patient Disposition: Home Condition: Stable Instructions: Antibiotic Form, Care For Your Stitches (DC) Additional Instructions: Wound care as directed. Continue to have close follow-up with your physicians. If you have any worsening symptoms then please call or return to the emergency department. Patient Language: New Zealander Prescriptions: No Action vitamin E 200 unit capsule 200 unit PO DAILY multivitamin Tablet 1 tablet PO DAILY folic acid 1 mg tablet 1 mg PO HS magnesium oxide 400 mg magnesium tablet 400 mg PO DAILY multivitamin with folic acid [Thera] 400 mcg Tablet 1 tablet PO DAILY 0RF chlordiazepoxide HCl 25 mg Capsule 25 mg PO DIRECTED Qty: 10 0RF Rx Instructions: Take 25mg every 8 hours through December 31 then decrease to 25mg every 12hours for 2 days then decrease to 25mg every night for 2 days then off. thiamine HCl (vitamin B1) [Vitamin B-1] 100 mg Tablet 100 mg PO QAM Qty: 30 0RF ferrous sulfate 325 mg (65 mg iron) Tablet,Delayed Release (Dr/Ec) 325 mg PO DAILY Qty: 30 1RF spironolactone [Aldactone] 50 mg Tablet 100 mg PO QAM Qty: 60 0RF furosemide 40 mg Tablet 40 mg PO DAILY Qty: 30 1RF atenolol 50 mg Tablet 50 mg PO DAILY Qty: 30 1RF malathion 0.5 % lotion 1 applic topical WEEKLY Qty: 59 0RF Rx Instructions: Apply to affected area and then wash after 8 hours. Repeat again in 7 days. levothyroxine [Euthyrox] 125 mcg tablet 125 mcg PO DAILY@0630 potassium chloride 10 mEq tablet extended release 10 meq PO DAILY pravastatin 10 mg tablet 10 mg PO DAILY Follow-up/Referrals: Bud Valladares MD [Primary Care Provider, Internal Medicine]
== END 2025-08-05 22:52 | disposition home or self-care (01) ==
LOC: ANHED 22:47
PROVIDERS: Emergency Provider Emergency Medicine; PCP Internal Medicine
DX: Z48.02 Encounter for removal of sutures (principal); E03.9 Hypothyroidism, unspecified; I10 Essential (primary) hypertension; E11.9 Type 2 diabetes mellitus without complications; F10.20 Alcohol dependence, uncomplicated
CPT/HCPCS: 15854; 99282

== ENCOUNTER 2025-09-22 15:02 | Emergency (ER) | payer MEDICAID, SELFPAY ==
--- NOTE | ~2025-09-22 | CT_ITS ---
EXAMINATION: CT brain wo con DATE: 09/22/2025 16:06 INDICATION: Head injury. Fall. TECHNIQUE: Computed tomography (CT) of the head was performed without intravenous contrast. The mA was adjusted according to patient size. Iterative reconstruction technique was employed. The dose-length product was 605.33 mGy-cm. COMPARISON: Head CT 01/09/2025 FINDINGS: There are scattered areas of low attenuation in the cerebral white matter, which is within normal limits for the patient's age. There is no intracranial hemorrhage, acute infarction, or abnormal intracranial mass lesion. The ventricles are normal in size. There is a right frontal scalp hematoma. There is right periorbital soft tissue swelling. There is mucosal thickening in the paranasal sinuses. The orbits are normal. The mastoid air cells are normal. IMPRESSION: 1. Normal aging brain. Reviewed, dictated and finalized at location E. ETARIAL STENOGRAPHER IMPRESSION: 1. Normal aging brain.
--- NOTE | ~2025-09-22 | CT_ITS ---
EXAMINATION: CT facial & cervical spine wo DATE: 09/22/2025 16:06 INDICATION: Head injury. TECHNIQUE: Computed tomography (CT) of the maxillofacial region and cervical spine was performed without intravenous contrast. Automated exposure control and iterative reconstruction technique were employed. The dose-length product was 327.33 mGy-cm. COMPARISON: CT cervical spine 05/19/2024 FINDINGS: MAXILLOFACIAL CT: There is a right frontal scalp hematoma. There is right periorbital soft tissue swelling. The orbits are normal. There is mucosal thickening in the paranasal sinuses. There is leftward deviation of the nasal septum. The mastoid air cells are normal. CERVICAL SPINE CT: Bone alignment is normal. Vertebral body heights are normal. There is mildly decreased disc height at C3-C4 and C4-C5, severely decreased disc height at C5- C6, and mildly decreased disc height at C6-C7. 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 There is multilevel uncovertebral joint osteoarthritis, severe on the right at C3-C4 and C4-C5 and bilaterally at C5-C6. There is multilevel mild neural foraminal stenosis. There is mild central canal stenosis at C2-C3, C4-C5, C5-C6, and C6-C7. IMPRESSION: 1. No fracture. 2. Severe cervical spondylosis. Reviewed, dictated and finalized at location E. ICAL BIOCHEMIST
--- NOTE | 2025-09-22 15:11 | ED_ITS ---
HPI - Head Injury General Chief complaint: Head Injury <RENETTA Rios Last Filed: 09/22/25 15:20> Stated complaint: fall with head injury no blood thinner <RENETTA Rios Last Filed: 09/22/25 15:20> Time Seen by Provider: 09/22/25 15:10 <RENETTA Rios Last Filed: 09/22/25 15:20> Focused HPI: Patient is a 60 y/o female who presents to the ED with c/o HI. Patient's at bedside provided information. Reports patient is an alcoholic, drinks everyday. Has had a fifth of vodka today. He reports patient fell out of a stationary car today head first. Sustained large laceration to R eyebrow with significant swelling to R eye. Patient states she is unable to see out of her R eye. denies LOC. Patient is not on any anticoagulation. Patient denies any other areas of pain. Tetanus up to date as of 2021 per records. GENERAL: Mildly unkempt / intoxicated appearing, in no acute distress. HEAD: Normocephalic. Contusion/swelling to R forehead/periorbital region EYES: Severe swelling/bruising to R periorbital region, unable to visualize sclera. Patient unable to open eye. L eye PERRL/EOMI. Large 2-3cm horizontal laceration through R eyebrow with slight active bleeding. CHEST: Clear to auscultation. ?No respiratory distress. HEART: Regular rate and rhythm.? MSK: No appreciable midline cervical spinal tenderness NEURO: ?Alert, answering most questions. No appreciable focal deficits. Patient screened in triage and initial orders placed.? ?Additional care and disposition to be based upon?diagnostic testing and treatment. <RENETTA Rios Last Filed: 09/22/25 15:20> Source: patient <RENETTA Rios Last Filed: 09/22/25 15:20> Mode of arrival: ambulatory <RENETTA Rios Last Filed: 09/22/25 15:20> Limitations: no limitations <RENETTA Rios Last Filed: 09/22/25 15:20> Related Data Home medications: Home Medications ?Medication ?Instructions ?Recorded ?Confirmed ?Last Taken ?Type levothyroxine 125 mcg tablet 125 mcg PO DAILY@0630 01/1112/27/24 10/05/23 09:00 History (Euthyrox) 125 potassium chloride 10 mEq 10 meq PO DAILY 05/28/2002/1510/05/23 09:00 History tablet,extended release 10 Held on 12/31/24. Instructions: HOLD - resume when okay with your doctor pravastatin 10 mg tablet 10 mg PO DAILY 05/28/20 0402/1510/05/23 09:00 History 10 folic acid 1 mg tablet 1 mg PO HS 10/13/20 12/27/24 10/05/23 09:00 History 1 magnesium oxide 400 mg PO DAILY 10/13/2002/1510/05/23 09:00 History 400 vitamin E 200 unit capsule 200 unit PO DAILY 01/12/21 12/27/24 10/05/23 09:00 History 200 multivitamin 1 tablet PO DAILY 05/16/22 0 12/27/24 10/05/23 09:00 History <Hyun Flood PA-C - Last Filed: 09/22/25 15:20> Allergies/Adverse reactions: Allergies Allergy/AdvReac Type Severity Reaction Status Date / Time No Known Allergies Allergy Verified 01/09/25 11:17 <Hyun Flood PA-C - Last Filed: 09/22/25 15:20> Review of Systems 2 Review of Systems: All systems reviewed & are unremarkable except as noted in HPI and below <Keny Arciniega MD - Last Filed: 09/23/25 09:12> [facility] Past Medical History Medical History: Medical History (Updated 09/23/25 @ 00:02 by Kathie Ellis) Alcohol withdrawal BMI 26.0-26.9,adult Hypertension Depression with anxiety ADHD Dyslipidemia Essential hypertension Hypothyroidism Alcoholism Diabetes mellitus hemoglobin A1c 05/29/2020 4.8 <Hyun Flood PA-C - Last Filed: 09/22/25 15:20> Surgical History Surgical History: Surgical History Fracture of humeral shaft, left, closed IM deepti 09/2020 Previous back surgery removed tumor from back 2009, [facility] History of total hysterectomy with bilateral salpingo-oophorectomy (BSO) due to fibroid Hx of tonsillectomy History of appendectomy History of colonoscopy with polypectomy <RENETTA Rios Last Filed: 09/22/25 15:20> Family History Family History: Family History Sibling Asthma Diabetes mellitus Mother Cerebrovascular accident Hypertension Sibling Diabetes mellitus Alcoholism Father Hypertension <Hyun Flood PA-C - Last Filed: 09/22/25 15:20> Social History Social History: Social History Social History: The patient [facility] with her of 12 years. She has had a struggle with alcoholism for the last 20 years. She went through alcohol treatment programs 13 years ago when her 1st . She went through alcohol treatment program again about 2 years ago at [facility]. She drinks 2 pt of vodka several times a week. She does not retain the use marijuana and states that she does not like it because it makes her sleep. She has never smoked. 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 Primary care physician: Dr. Bud Valladares Smoking status: Never smoker Second hand tobacco smoke exposure: No Alcohol intake: current Drinks per week: 70 Alcohol use details: 2 pints vodka daily Substance use: never Substance use type: does not use Other substance usage details: STATES DRANK 2PT VODKA/DAY Last use: 12/26/2024 Lack of Transportation: No Lack of Food: Never True Current Housing: I Have Housing Concerned About Future Housing: No Difficulty Paying Gas/Electric Bills: No Difficulty Paying for Meds: No Currently Unemployed: No Education: Associate Degree Difficulty w/ Childcare or Family Care: No Living arrangements: with family Gender identity (if verbalized by the patient): Female Spiritual care concerns: No <RENETTA Rios Last Filed: 09/22/25 15:20> Exam 2 Narrative: APPEARANCE: Well appearing, no pain, no distress, well-nourished. HEAD: normocephalic, atraumatic. EYES: PERRLA/EOMI, conjunctivae clear. NOSE: Normal no drainage EARS:TMS clear with good light reflex. THROAT: Pharynx clear, no exudate. NECK: Supple. No adenopathy, no masses. RESPIRATORY: Airway patent, respirations nonlabored. Clear to auscultation bilaterally, no rales, rhonchi, wheezing. CARDIOVASCULAR: Regular rate and rhythm without murmurs rubs or gallops. ABDOMINAL: Soft, nontender, nondistended, normal bowel sounds MUSCULOSKELETAL: Moves all extremities. Strength/ROM intact, No edema, No calf tenderness. NEURO: Alert. Cranial nerves II through XII intact. Good gait. Good coordination SKIN: Facial laceration over right eye PSYCHIATRIC: Normal affect/mood. <Keny Arciniega MD - Last Filed: 09/23/25 09:12> Course Vital Signs Vital signs: Vital Signs Temperature 98 F 09/22/25 15:14 Pulse Rate 100 09/22/25 15:14 Respiratory Rate 18 09/22/25 15:14 Blood Pressure 154/92 H 09/22/25 15:14 Pulse Oximetry 100 09/22/25 15:14 Oxygen Delivery Room Air 09/22/25 15:14 Temperature 98 F 09/22/25 15:14 Pulse Rate 95 09/22/25 16:22 Respiratory Rate 20 09/22/25 16:22 Blood Pressure 123/68 09/22/25 16:22 Pulse Oximetry 96 09/22/25 16:22 Oxygen Delivery Room Air 09/22/25 15:14 <Hyun Flood PA-C - Last Filed: 09/22/25 15:20> Vital Signs Temperature 98 F 09/22/25 15:14 Pulse Rate 100 09/22/25 15:14 Respiratory Rate 18 09/22/25 15:14 Blood Pressure 154/92 H 09/22/25 15:14 Pulse Oximetry 100 09/22/25 15:14 Oxygen Delivery Room Air 09/22/25 15:14 Temperature 98 F 09/22/25 15:14 Pulse Rate 95 09/22/25 16:22 Respiratory Rate 20 09/22/25 16:22 Blood Pressure 123/68 09/22/25 16:22 Pulse Oximetry 96 09/22/25 16:22 Oxygen Delivery Room Air 09/22/25 15:14 <Keny Arciniega MD - Last Filed: 09/23/25 09:12> Procedures Laceration Laceration 1: Date: 09/22/25 <Keny Arciniega MD - Last Filed: 09/23/25 09:12> Time: 16:36 <Keny Arciniega MD - Last Filed: 09/23/25 09:12> Site: face <Keny Arciniega MD - Last Filed: 09/23/25 09:12> Side (If applicable): right <Keny Arciniega MD - Last Filed: 09/23/25 09:12> Size (cm): 5 <Keny Arciniega MD - Last Filed: 09/23/25 09:12> Description: linear <Keny Arciniega MD - Last Filed: 09/23/25 09:12> Depth: simple, single layer <Keny Arciniega MD - Last Filed: 09/23/25 09:12> Local Anesthetic: lidocaine 1% and with epi <Keny Arciniega MD - Last Filed: 09/23/25 09:12> Amount of anesthesia used (mL): 3 <Keny Arciniega MD - Last Filed: 09/23/25 09:12> Pre-repair: wound explored, irrigated and irrigated extensively <Keny Arciniega MD - Last Filed: 09/23/25 09:12> ====== Skin Level ======: Skin layer closed with: prolene <Keny Arciniega MD - Last Filed: 09/23/25 09:12> Size (cm): 6-0 <Keny Arciniega MD - Last Filed: 09/23/25 09:12> Number of sutures: 8 <Keny Arciniega MD - Last Filed: 09/23/25 09:12> Technique: simple, interrupted <Keny Arciniega MD - Last Filed: 09/23/25 09:12> ====== Subcutaneous Layer ======: ====== Muscle Layer ======: ====== Tendon Layer ======: MDM MDM Narrative Medical decision making narrative: ASIA by TASHI in triage <Hyun Flood PA-C - Last Filed: 09/22/25 15:20> MSE by TASHI in triage 60-year-old female presented to the emergency department for evaluation for a right-sided facial injury. Patient fell from a vehicle that was stationary. Patient did land on the right side of her face and has a laceration over her right eye. Patient is afebrile with no leukocytosis and hemoglobin of 9.9 which is similar to her baseline. Platelet count is 125 which is higher than her previous issues with her thrombocytopenia. INR is 1.8. Creatinine is 0.63. Ethyl alcohol is 407 patient's blood alcohol as always significantly elevated. CT brain CTs cervical spine CT facial were negative. Laceration was repaired as described in the procedure note. Patient has abrasions on her nose and right chin were also cleaned and treated with triple antibiotic ointment. Patient family updated on the results of the workup and recommendation for outpatient follow-up including alcohol abuse treatment <Keny Arciniega MD - Last Filed: 09/23/25 09:12> Differential Diagnosis Differential Diagnosis: Subdural hematoma, subarachnoid hemorrhage, facial fracture, cervical spine fracture <Keny Arciniega MD - Last Filed: 09/23/25 09:12> Lab Data [facility] Lab Attestation statement: I personally reviewed the patient's lab results. <Keny Arciniega MD - Last Filed: 09/23/25 09:12> Result diagrams: 09/22/25 15:37 09/22/25 15:37 <Hyun Flood PA-C - Last Filed: 09/22/25 15:20> Labs: Lab Results 09/22/25 Range/Units 15:37 WBC 3.7 L (4.5-10.0) K/mm3 RBC 3.99 L (4.2-5.4) M/mm3 Hgb 9.9 L (12.0-15.0) g/dL Hct 32.0 L (37.0-47.0) % MCV 80.2 (80-100) fl MCH 24.8 L (26-34) pg MCHC 30.9 L (32-36) g/dl RDW 22.3 H (11.5-14.5) % Plt Count 125 L (150-375) k/mm3 MPV 8.9 (7.4-10.4) fl Immature Gran % (Auto) 0.5 (0-0.5) % Neut % (Auto) 51.4 (45.5-73.1) % Lymph % (Auto) 33.5 (18.3-44.2) % [place] % (Auto) 9.5 H (2.6-8.5) % Eos % (Auto) 3.2 (0-4.4) % Baso % (Auto) 1.9 H (0.2-1.2) % Lymph # (Auto) 1.24 (0.9-3.2) K/mm3 [place] # (Auto) 0.4 (0.1-0.6) K/mm3 Eos # (Auto) 0.1 (0-0.3) K/mm3 Baso # (Auto) 0.1 (0.0-0.1) K/mm3 Abs Immat Gran (auto) 0.02 (0.00-0.031) K/mm3 Absolute Neuts (auto) 1.9 (1.3-6.7) K/mm3 Absolute Nucleated RBC 0.000 (0.0-0.012) K/mm3 Band Neutrophils % Not Reportable Nucleated RBC % 0.0 (0.0-0.2) % Platelet Estimate Decreased (Adequate) Hypochromasia 1+ Anisocytosis 1+ Target Cells Occasional Ovalocytes Occasional Schistocytes None seen PT 20.4 H (11.1-14.7) Seconds INR 1.8 APTT 38.1 H (22.3-36.8) Seconds Sodium 145 (137-145) mmol/L Potassium 3.4 (3.4-5.0) mmol/L Chloride 107 (98-107) mmol/L Carbon Dioxide 25 (22-30) mmol/L Anion Gap 13 H (4-12) mmol/L BUN 11 (7-17) mg/dL Creatinine 0.63 L (0.7-1.0) mg/dL Estim Creat Clear Calc Not Reportable Estimated GFR > 60 (59 - ) Glucose 135 H (65-110) mg/dL Calcium 7.9 L (8.4-10.2) mg/dL Total Bilirubin 1.3 (0.2-1.3) mg/dL AST 71 H (14-36) U/L ALT 21 (6-35) U/L Alkaline Phosphatase 181 H (38-126) U/L Total Protein 7.8 (6.3-8.2) g/dL Albumin 3.6 (3.5-5.1) g/dL Ethyl Alcohol 407 H* (<10) mg/dL <Hyun Flood PA-C - Last Filed: 09/22/25 15:20> Lab Results 09/22/25 Range/Units 15:37 WBC 3.7 L (4.5-10.0) K/mm3 RBC 3.99 L (4.2-5.4) M/mm3 Hgb 9.9 L (12.0-15.0) g/dL Hct 32.0 L (37.0-47.0) % MCV 80.2 (80-100) fl MCH 24.8 L (26-34) pg MCHC 30.9 L (32-36) g/dl RDW 22.3 H (11.5-14.5) % Plt Count 125 L (150-375) k/mm3 MPV 8.9 (7.4-10.4) fl Immature Gran % (Auto) 0.5 (0-0.5) % Neut % (Auto) 51.4 (45.5-73.1) % Lymph % (Auto) 33.5 (18.3-44.2) % [place] % (Auto) 9.5 H (2.6-8.5) % Eos % (Auto) 3.2 (0-4.4) % Baso % (Auto) 1.9 H (0.2-1.2) % Lymph # (Auto) 1.24 (0.9-3.2) K/mm3 [place] # (Auto) 0.4 (0.1-0.6) K/mm3 Eos # (Auto) 0.1 (0-0.3) K/mm3 Baso # (Auto) 0.1 (0.0-0.1) K/mm3 Abs Immat Gran (auto) 0.02 (0.00-0.031) K/mm3 Absolute Neuts (auto) 1.9 (1.3-6.7) K/mm3 Absolute Nucleated RBC 0.000 (0.0-0.012) K/mm3 Band Neutrophils % Not Reportable Nucleated RBC % 0.0 (0.0-0.2) % Platelet Estimate Decreased (Adequate) Hypochromasia 1+ Anisocytosis 1+ Target Cells Occasional Ovalocytes Occasional Schistocytes None seen PT 20.4 H (11.1-14.7) Seconds INR 1.8 APTT 38.1 H (22.3-36.8) Seconds Sodium 145 (137-145) mmol/L Potassium 3.4 (3.4-5.0) mmol/L Chloride 107 (98-107) mmol/L Carbon Dioxide 25 (22-30) mmol/L Anion Gap 13 H (4-12) mmol/L BUN 11 (7-17) mg/dL Creatinine 0.63 L (0.7-1.0) mg/dL Estim Creat Clear Calc Not Reportable Estimated GFR > 60 (59 - ) Glucose 135 H (65-110) mg/dL Calcium 7.9 L (8.4-10.2) mg/dL Total Bilirubin 1.3 (0.2-1.3) mg/dL AST 71 H (14-36) U/L ALT 21 (6-35) U/L Alkaline Phosphatase 181 H (38-126) U/L Total Protein 7.8 (6.3-8.2) g/dL Albumin 3.6 (3.5-5.1) g/dL Ethyl Alcohol 407 H* (<10) mg/dL <Keny Arciniega MD - Last Filed: 09/23/25 09:12> Imaging Data Radiologist's impression: ITS Impressions Head CT 09/22/25 16:07 IMPRESSION: 1. Normal aging brain. Head/Cervical Spine/Facial Bones CT 09/22/25 16:09 IMPRESSION: 1. No fracture. 2. Severe cervical spondylosis. <Hyun Flood PA-C - Last Filed: 09/22/25 15:20> ITS Impressions Head CT 09/22/25 16:07 IMPRESSION: 1. Normal aging brain. Head/Cervical Spine/Facial Bones CT 09/22/25 16:09 IMPRESSION: 1. No fracture. 2. Severe cervical spondylosis. <Keny Arciniega MD - Last Filed: 09/23/25 09:12> Discharge Plan Discharge Clinical Impression: Facial laceration, Alcohol intoxication, Alcohol abuse <RENETTA Rios Last Filed: 09/22/25 15:20> Patient Disposition: Home <RENETTA Rios Last Filed: 09/22/25 15:20> Condition: Stable <RENETTA Rios Last Filed: 09/22/25 15:20> Instructions: Antibiotic Form, Facial Laceration (ED) <RENETTA Rios Last Filed: 09/22/25 15:20> Additional Instructions: Sutures will need to be removed in 5-7 days. Wound care as directed. Refrain from alcohol consumption. Have close follow-up with your primary care physician. <RENETTA Rios Last Filed: 09/22/25 15:20> Patient Language: Martiniquais <RENETTA Rios Last Filed: 09/22/25 15:20> Prescriptions: No Action vitamin E 200 unit capsule 200 unit PO DAILY multivitamin Tablet 1 tablet PO DAILY folic acid 1 mg tablet 1 mg PO HS magnesium oxide 400 mg magnesium tablet 400 mg PO DAILY multivitamin with folic acid [Thera] 400 mcg Tablet 1 tablet PO DAILY 0RF chlordiazepoxide HCl 25 mg Capsule 25 mg PO DIRECTED Qty: 10 0RF Rx Instructions: Take 25mg every 8 hours through December 31 then decrease to 25mg every 12hours for 2 days then decrease to 25mg every night for 2 days then off. thiamine HCl (vitamin B1) [Vitamin B-1] 100 mg Tablet 100 mg PO QAM Qty: 30 0RF ferrous sulfate 325 mg (65 mg iron) Tablet,Delayed Release (Dr/Ec) 325 mg PO DAILY Qty: 30 1RF spironolactone [Aldactone] 50 mg Tablet 100 mg PO QAM Qty: 60 0RF furosemide 40 mg Tablet 40 mg PO DAILY Qty: 30 1RF atenolol 50 mg Tablet 50 mg PO DAILY Qty: 30 1RF malathion 0.5 % lotion 1 applic topical WEEKLY Qty: 59 0RF Rx Instructions: Apply to affected area and then wash after 8 hours. Repeat again in 7 days. levothyroxine [Euthyrox] 125 mcg tablet 125 mcg PO DAILY@0630 potassium chloride 10 mEq tablet extended release 10 meq PO DAILY pravastatin 10 mg tablet 10 mg PO DAILY <Hyun Flood PA-C - Last Filed: 09/22/25 15:20> Follow-up/Referrals: Bud Valladares MD [Primary Care Provider, Internal Medicine] <Hyun Flood PA-C - Last Filed: 09/22/25 15:20>
--- OUTSIDE RECORDS SUMMARY | 2025-09-22 15:11 | XMS_ITS | Clinical Summary ---
Author Organization [facility] Address [address] [place] [address] Care Team Providers Care Security Screener Name Role Phone Unknown, Notinfile Unavailable Unavailable Unknown, Notinfile Primary Care Provider Unavail able Allergies No known active allergies Medications pravastatin (PRAVACHOL) 10 mg tablet Take 10 mg by mouth daily. Active potassium chloride ER (KLOR-CON,K-DUR ) 10 mEq CR tablet Take 10 mEq by mouth 2 (two) times a day. Active atenolol-chlort halidone (TENORETIC) 50-25 mg per tablet Take 1 tablet by mouth daily. Active levothyroxine sodium (TIROSINT) 100 mcg capsule Take 100 mcg by mouth daily. Active spironolactone (ALDACTONE) 25 mg tablet Take 25 mg by mouth daily. Active senna-docusate (PERICOLACE) 8.6-50 mg Take 2 tablets by mouth nightly 40 tablet 07/15/2025 Active acetaminophen (TYLENOL) 500 mg tabletIndicatio ns:Fever,Pain Take 2 tablets (1,000 mg total) by mouth every 6 (six) hours as needed for pain 60 tablet 07/15/2025 Active methocarbamoL (ROBAXIN) 500 mg tablet Take 1 tablet (500 mg total) by mouth 3 (three) times a day 90 tablet 07/15/2025 Active oxyCODONE (ROXICODONE) 5 mg immediate release tabletIndicatio ns:Pain Take 1 tablet (5 mg total) by mouth every 4 (four) hours as needed for pain 10 tablet 07/15/2025 Active Active Problems Problem Noted Date Diagnosed Date Acute blood loss anemia 07/15/2025 Assessment & Plan (07/15/2025 9:43 AM CDT): - Hgb (07/13): 10.3g/dL - Hgb (07/14): 8.0g/dL - Hgb (07/15): 6.7g/dL - 07/15: transfuse 1u pRBC --> post transfusion Hgb 7.7g/dL Abnormal x-ray of lungs with single pulmonary no dule 07/14/2025 Assessment & Plan (07/15/2025 9:43 AM CDT): - Chest xr (07/13): 0.8 cm nodular opacity in the right upper lung which is new compared to 2019. - Recommend follow up of the Incidental lung nodule Additional Imaging less than [address] chest Lice 07/14/2025 Assessment & Plan (07/15/2025 9:44 AM CDT): - 07/14: treated with permethrin - 07/15: recommend continued outpatient treatment Acute traumatic pain 07/14/2025 Assessment & Plan (07/14/2025 12:48 PM CDT): - Tylenol 1g q6h - Robaxin 500mg TID - Oxycodone 7.5mg q4h PRN Discharge planning issues 07/14/2025 Assessment & Plan (07/15/2025 8:45 AM CDT): - 07/14: awaiting PT/OT, treat Lice with Permethrin - 07/15: Patient is medically stable for discharge, SW/CM updated. Discharge pending anticipate discharge today Closed dislocation of metacarpophalangeal joint of finger 07/13/2025 Assessment & Plan (07/15/2025 8:44 AM CDT): - Orthopedic consult - 07/14 STRELZOW OPEN REDUCTION INTERNAL FIXATION - DIGIT; PINNING MCP JOINT Closed treatment and management of 5th metacarpal fracture - Maintain volar dorsal splint until follow up - CCWB L hand, elevate L hand - PT/OT - Will contact the patient with the details including the timing and location of their appointment once it is scheduled Laceration of left lower extremity 07/13/2025 Assessment & Plan (07/15/2025 9:44 AM CDT): - 07/14: KEIRSEY Excisional debridement of skin, subcutaneous tissue, and muscle of Left lower extremity. Complex wound closure of left anterior lower extremity - 12cm - clean with plain soap and water and pat dry daily - cover with dry gauze dressing and secure with MAINOR wrap, change daily and as needed - sutures will be removed at Trauma follow up appointment. - Follow up with Trauma on 07/30 Laceration of left lower extremity, initial enco unter 07/13/2025 Alcohol dependence 09/13/2015 Hyperlipidemia 09/13/2015 Assessment & Plan (07/14/2025 12:52 PM CDT): - Continue Pravastatin 10mg daily Thyroid activity decreased 09/13/2015 Assessment & Plan (07/14/2025 1:02 PM CDT): - Continue Levothyroxine 100mcg daily Mixed anxiety depressive disorder 09/13/2015 Hypertension 08/16/2015 Assessment & Plan (07/14/2025 12:53 PM CDT): - Continue Tenoretic 50-25mg daily - Resume Spironolactone 25mg daily Type 2 diabetes mellitus 08/16/2015 Overview (01/04/2018): Description: Hgb A1c = 5.8% (07/2015) Assessment & Plan (07/14/2025 1:02 PM CDT): - Consistent carbohydrate diet - continue to trend glucose Encounters Date Type Department Care Team Description 07/29/2025 Telephone [facility] Acute [facility] Critical Care Services [address] [place] [address] Rukhsana Kaba, RN Appointment Reminder Call 07/15/2025 Documentation [facility] [address] [place] [address] Lily Trejo RN 07/13/2025 10:55 PM CDT - 07/14/2025 12:56 AM CDT Surgery [facility] Operating Room [address] [place] [address] Reji Rabago MD COMPLEX CLOSURE; WOUND EXPLORATION LEFT LOWER EXTREMITY 07/13/2025 10:26 PM CDT Anesthesia Event [facility] Operating Room [address] [place] [phone] Parker Pérez MD Marten, Matthew Brownell, TG 07/13/2025 1:57 PM CDT - 07/15/2025 11:11 AM CDT Hospital Encounter [address] [phone] Wayne Blackwood MD Watson, Brendan Matthew, MD PhD Reji Rabago MD Closed dislocation of metacarpophalangeal joint of finger, initial encounter (Primary Dx); Laceration of left lower extremity, initial encounter; Fall, initial encounter; Closed dislocation of left little finger Discharge Disposition: Discharge to home or self care from Last 3 Months Immunizations Immunization Administration Dates Next Due Influenza, Trivalent, Preservative Free, Intramu scular 07/14/2025 Tdap 07/13/2025 Surgical History Surgery Date Site/Laterality Comments FOOT SURGERY Foot Surgery - removed cyst from right foot (Added by TW Conv) SD APPENDECTOMY Appendectomy - (1994) (Added by TW Conv) TOTAL ABDOMINAL HYSTERECTOMY Total Abdominal Hysterectomy With Removal Of Both Ovaries - cystotomy repair (09/13/2015) (Added by TW Conv) Medical History Medical History Date Comments Nonalcoholic steatohepatitis (CARTER) Steatohepatitis - (Added by TW Conv) Noninflammatory disorder of uterus Uterine mass - (Added by TW Conv) Personal history of other be nign neoplasm History of uterine leiomyoma - (Added by TW Conv) Abnormal weight loss Weight loss - (Added by TW Conv) Other specified postprocedural states S/P bladder repair - 09/07/2015 (Dr. Moreau) 1. Open cystotomy repair through an abdominal incision. 2. Cystoscopy. 3. Malone catheter placement. (Added by TW Conv) Alcoholism (HCC) Hypertension Thyroid disease Diabetes mellitus Family History Medical History Relation Name Comments Blood Clot Mother Family history of blood clots - (Added by TW Conv) Relation Name Status Comments Mother Social History Tobacco Use Types Packs/Day Years Used Date Smoking Tobacco: Never Smokeless Tobacco: Never Personal Safety Answer Date Recorded Have you ever been in or are you currently in a harmful physical or emotional relationship or is someone making you feel afraid or unsafe? 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 Gender Identity Not on file Sexual Orientation Not on file Last Filed Vital Signs Vital Sign Reading Time Taken Comments Blood Pressure 118/66 07/15/2025 9:50 AM CDT Pulse 80 07/15/2025 9:54 AM CDT Temperature 36.3 C (97.3 F) 07/15/2025 9:50 AM CDT Respiratory Rate 16 07/15/2025 7:33 AM CDT Oxygen Saturation 99% 07/15/2025 9:50 AM CDT Inhaled Oxygen Concentration - - Weight 74.8 kg (165 lb) 07/14/2025 3:00 AM CDT Height 170.2 cm (5' 7) 07/14/2025 3:00 AM CDT Body Mass Index 25.84 07/14/2025 3:00 AM CDT Plan of Treatment Health Maintenance Due Date Last Done Comments Albumin Creatinine Ratio, Urine 1965 Breast Cancer Screening-Mammogram 1965 Depression Screening 1965 Dilated Eye Exam 1965 Foot Exam 1965 Hepatitis B Screening 1983 Regular Well Visit/Exam 18-64 1983 Lipid Panel 09/14/2016 09/14/2015 Hemoglobin A1C 05/10/2019 11/10/2018 Pneumococcal vaccine <65 (2 of 2 - PCV) 09/27/2019 09/27/2018 Zoster Vaccine (2 of 2) 05/24/2022 03/29/2022 Covid-19 Vaccine (2 - 2024-2 6 season) 2025 02/13/2021 Colon Cancer Screening-Colonoscopy 08/26/2025 08/26/2015 eGFR 07/14/2026 07/14/2025, 06/25, 07/13/2025 DTaP/Tdap/Td Vaccine (3 - Td or Tdap) 07/13/2035 07/13/2025, 03/29/2022 Colon Cancer Screening-CT Colonography Discontinued 08/26/2015 Colon Cancer Screening-DNA Stool Discontinued 08/26/20 Colon Cancer Screening-FIT Discontinued 08/26/2015 Colon Cancer Screening-Sigmoidoscopy Discontinued 08/26/2015 Influenza Vaccine Completed 07/14/2025, , 06/16/2021, Additional history exists Hepatitis C Screening Completed 07/15/2025 Procedures Procedure Name Priority Date/Time Associated Diagnosis Comments CBC WITHOUT DIFFERENTIAL Timed 07/15/2025 4:53 AM CDT RPR Routine 07/15/2025 4:53 AM CDT HEPATITIS C ANTIBODY Routine 07/15/2025 4:53 AM CDT HEPATITIS B SURFACE ANTIGEN Routine 07/15/2025 4:53 AM CDT HIV 1/2 ANTIBODY PLUS P24 ANTIGEN Routine 07/15/2025 4:53 AM CDT TRANSFUSE RED BLOOD CELLS Timed 07/15/2025 12:47 AM CDT PREPARE RBC Timed 07/15/2025 12:09 AM CDT CBC WITHOUT DIFFERENTIAL STAT 07/14/2025 11:18 PM CDT EGFR Routine 07/14/2025 8:25 PM CDT DIFFERENTIAL AUTO Routine 07/14/2025 8:2 5 PM CDT PHOSPHORUS Routine 07/14/2025 8:25 PM CDT MAGNESIUM Routine 07/14/2025 8:25 PM CDT BASIC METABOLIC PANEL Routine 07/14/2025 8:25 PM CDT CBC WITH AUTO DIFFERENTIAL Routine 07/14/2025 8:25 PM CDT EGFR Routine 07/14/2025 5:32 AM CDT CBC WITHOUT DIFFERENTIAL Routine 07/14/2025 5:32 AM CDT BASIC METABOLIC PANEL Routine 07/14/2025 5:32 AM CDT URINALYSIS, MICROSCOPIC ONLY STAT 07/14/2025 4:15 AM CDT URINALYSIS AND REFLEX TO MICROSCOPIC AND CULTURE STAT 07/14/2025 4:15 AM CDT POCT GLUCOSE DEVICE Routine 07/13/2025 1 1:36 PM CDT POCT GLUCOSE DEVICE Routine 07/13/2025 1 1:17 PM CDT PERIPHERAL LINE Routine 07/13/2025 11:02 PM CDT PERIPHERAL LINE Routine 07/13/2025 11:02 PM CDT ANESTHESIA INTUBATION Routine 07/13/2025 11:00 PM CDT OPEN REDUCTION INTERNAL FIXATION - DIGIT 07/13/2025 10:26 PM CDT Laceration of left lower extremity, initial encounter Case Notes Cara [phone] CLOSURE WOUND 07/13/2025 10:26 PM CDT Laceration of left lower extremity, initial encounter Case Notes [facility] [phone] CTA LOWER EXTREMITY LEFT NOT FOR ISCHEMIA ED 07/13/2025 4:[address] HEAD AND CERVICAL SPINE WO CONTRAST ED Urgent/IP Urgent 07/13/2025 4:16 PM CDT ECG 12-LEAD STAT 07/13/2025 4:13 PM CDT SD REPAIR COMPLEX SCALP/ARM/LEG EA ADDL 5 CM/< Routine 07/13/2025 4:11 PM CDT SD REPAIR COMPLEX SCALP/ARM/LEG 2.6-7.5 CM Routine 07/13/2025 4:11 PM CDT SD CRITICAL CARE ILL/INJURED PATIENT INIT 30-74 MIN Routine 07/13/2025 3:23 PM CDT XR CHEST 1 VIEW ED Urgent/IP Urgent 07/13/2025 2:44 PM CDT EGFR STAT 07/13/2025 2:05 PM CDT DIFFERENTIAL AUTO STAT 07/13/2025 2:0 5 PM CDT CBC WITH AUTO DIFFERENTIAL STAT 07/13/2025 2:05 PM CDT COMPREHENSIVE METABOLIC PANEL STAT 07/13/2025 2:05 PM CDT TYPE AND SCREEN STAT 07/13/2025 2:05 PM CDT PROTIME-INR STAT 07/13/2025 2:05 PM CDT APTT STAT 07/13/2025 2:05 PM CDT XR WRIST RIGHT 3 OR MORE VIEWS ED 07/13/2025 12:47 PM CDT XR WRIST LEFT 3 OR MORE VIEWS ED 07/13/2025 12:46 PM CDT XR TIBIA FIBULA LEFT 2 VIEWS ED 07/13/2025 12:46 PM CDT XR HAND LEFT 3 OR MORE VIEWS ED 07/13/2025 12:46 PM CDT POCT GLUCOSE DEVICE Routine 07/13/2025 1 2:09 PM CDT HEMOGLOBIN A1C Routine 11/10/2018 4:33 AM CLERK SERUM LIPID PANEL Routine 09/14/2015 9:3 1 PM CLERK COLONOSCOPY REPORT 08/26/2015 from Last 3 Months or Most Recently Relevant to Health Maintenance Results * HIV 1/2 Antibody plus p24 Antigen Blood (07/15/2025 4:53 AM CDT) HIV 1/2 ab + p24 ag Nonreactive Nonreactive Comment:Nonreactive for HIV- 1 antigen and HIV-1/HIV-2 antibodies. No laboratory evidence of HIV infection. If acute HIV infection is suspected, consider testing for HIV-1 RNA. Current interpretive data was last revised on 22. Blood 07/15/2025 4:53 AM CDT 07/15/2025 4:59 AM CDT us Cydney Birmingham NP LAB MICROBIOLOGY - GEN ERAL ORDERABLES Final Result Performing Organization Address [facility] Co de Phone Number [facility] Department [place] [employer] [place] [address] * Hepatitis C antibody Blood (07/15/2025 4:53 AM CDT) [facility] Hep C Ab Nonreactive Nonreactive Comment:Antibodies to HCV no t detected. Does NOT exclude the possibility of recent exposure to HCV. Current interpretive data was last revised on 22 Blood 07/15/2025 4:53 AM CDT 07/15/2025 4:59 AM CDT Cydney Birmingham NP LAB MICROBIOLOGY - GEN ERAL ORDERABLES Final Result [facility] [place] [address] * RPR Blood (07/15/2025 4:53 AM CDT) Pathologist [facility] RPR Nonreactive Nonreactive Blood 07/15/2025 4:53 AM CDT 07/15/2025 5:00 AM CDT us Cydney Birmingham NP LAB MICROBIOLOGY - GEN ERAL ORDERABLES Final Result Performing Organization Address [facility] Co de Phone Number [facility] [place] [address] * Hepatitis B Surface Antigen Blood (07/15/2025 4:53 AM CDT) [facility] HepBsAg Nonreactive Nonreactive Blood 07/15/2025 4:53 AM CDT 07/15/2025 4:59 AM CDT us Cydney Birmingham NP LAB MICROBIOLOGY - GEN ERAL ORDERABLES Final Result Performing Organization Address [facility] de Phone Number [facility] Department [place] [address] * (ABNORMAL) CBC without differential (07/15/2025 4:53 AM CDT) [facility] WBC 2.94(L) 3.80 - 9.90 K/cumm Hgb 7.7(L) 11.9 - 15.5 g/dL [facility] Hct 23.9(L) 35.6 - 45.5 % [facility] Plt 95(L) 150 - 400 K/cumm [facility] MPV 9.8 9.1 - 12.3 fL [facility] RBC 2.86(L) 3.90 - 5.20 M/cumm [facility] MCV 83.6 81.3 - 96.4 fL [facility] MCH 26.9(L) 27.1 - 33.3 pg [facility] MCHC 32.2(L) 32.3 - 35.7 g/dL [facility] RDW CV 19.8(H) 11.1 - 14.9 % [facility] RDW SD 60.1(H) 35.7 - 48.1 fL [facility] NRBC abs 0.00 0.00 - 0.01 K/cumm [facility] Blood 07/15/2025 4:5 3 AM CDT 07/15/2025 5:00 AM CDT Narrative [facility] - 07/15/2025 5:28 AM CDT 1 hour after transfusion Holley Munguia MD LAB BLOOD ORDERABLES Final Result Performing Organization Address [facility] Co de Phone Number [facility] Department [place] [address] * Transfuse RBC (07/15/2025 3:09 AM CDT) Blood Reji Rabago MD BLOOD TRANSFUSION ORDERABLES Final Result Performing Organization Address [facility] de Phone Number [facility] of [employer] [place] [address] * Prepare RBC: 1 Units (07/15/2025 12:09 AM CDT) Product code [id number] Unit Number [id number] [facility] Product Blood Type BNEG [facility] Dispense Status PRESUMED TRANSFUSED [facility] Blood 07/15/2025 12:0 9 AM CDT 07/15/2025 12:08 AM CDT Narrative [facility] - 07/15/2025 4:01 PM CDT Are special requirements needed? (All products are leukoreduced and CMV- safe)- >No Date required:-[id number] LRRBC # of [id number] Reasons:-Hgb <7 g/dL} us Reji Rabago MD BLOOD BANK PRODUC T ORDERABLES Final Result Performing Organization Address [facility] de Phone Number [facility] [employer] [place] [address] * (ABNORMAL) CBC without differential (07/14/2025 11:18 PM CDT) Pathologist [facility] WBC 2.77(L) 3.80 - 9.90 K/cumm Hgb 6.7(L) 11.9 - 15.5 g/dL [facility] Hct 20.1(L) 35.6 - 45.5 % [facility] Plt 89(L) 150 - 400 K/cumm [facility] MPV 10.4 9.1 - 12.3 fL [facility] RBC 2.45(L) 3.90 - 5.20 M/cumm [facility] MCV 82.0 81.3 - 96.4 fL [facility] MCH 27.3 27.1 - 33.3 pg [facility] MCHC 33.3 32.3 - 35.7 g/dL [facility] RDW CV 20.3(H) 11.1 - 14.9 % [facility] RDW SD 60.8(H) 35.7 - 48.1 fL [facility] NRBC abs 0.00 0.00 - 0.01 K/cumm [facility] Blood 07/14/2025 11:1 8 PM CDT 07/14/2025 11:31 PM CDT Reji Rabago MD LAB BLOOD ORDERAB LES Final Result [facility] Department [place] [address] * eGFR (07/14/2025 8:25 PM CDT) Pathologist [facility] eGFR 78 >=60 mL/min/1. 73 m2 Comment: Interpretive Data Reference Interval Normal >/= 90 mL/min/1.73m2 Mildly decreased* 60 - 89 mL/min/1.73m2 Mildly to moderately decreased 45 - 59 mL/min/1.73m2 Moderately to severely decreased 30 - 44 mL/min/1.73m2 Severely decreased 15 - 29 mL/min/1.73m2 Kidney Failure < 15 mL/min/1.73m2 *Relative to young adult level Estimated glomerular filtration rate is determined by the 2020 CKD-EPI equation recommended by the National Kidney Foundation (A Unifying Approach to GFR Estimation: Recommendations of the NKF-ASK Task Force on Reassessing the Inclusion of Race in Diagnosing Kidney Disease, JASN 202). The CKD-EPI equation should not be used for patients with unstable renal function and has not been validated in children and those over 70. Current interpretive data was last reviewed 2021. Blood 07/14/2025 8:25 PM CDT 07/14/2025 9:29 PM CDT Cydney Birmingham NP LAB BLOOD ORDERABLES F inal Result [facility] Department [place] [address] * (ABNORMAL) Differential, auto (07/14/2025 8:25 PM CDT) Neutrophil abs 1.90 1.50 - 6.50 K/cumm Imm gran abs 0.02 0.00 - 0.10 K/cumm [facility] Lymphocyte abs 0.58(L) 0.80 - 3.30 K/cumm [facility] Monocyte abs 0.41 0.20 - 0.80 K/cumm [facility] Eosinophil abs 0.05 0.00 - 0.50 K/cumm [facility] Basophil abs 0.02 0.00 - 0.10 K/cumm [facility] Neutrophil pct 63.6 % [facility] Comment: Interpretive Data Percent cell count reference ranges are not reported, since discordance with absolute values may lead to misinterpretation of CBC data. Current Interpretive Data was last revised on 2018. Imm gran pct 0.7 % [facility] Comment: Interpretive Data Percent cell count reference ranges are not reported, since discordance with absolute values may lead to misinterpretation of CBC data. Current Interpretive Data was last revised on 2018. Lymphocyte pct 19.5 % [facility] Comment: Interpretive Data Percent cell count reference ranges are not reported, since discordance with absolute values may lead to misinterpretation of CBC data. Current Interpretive Data was last revised on 2018. Monocyte pct 13.8 % [facility] Comment: Interpretive Data Percent cell count reference ranges are not reported, since discordance with absolute values may lead to misinterpretation of CBC data. Current Interpretive Data was last revised on 2018. Eosinophil pct 1.7 % [facility] Comment: Interpretive Data Percent cell count reference ranges are not reported, since discordance with absolute values may lead to misinterpretation of CBC data. Current Interpretive Data was last revised on 2018. Basophil pct 0.7 % [facility] Comment: Interpretive Data Percent cell count reference ranges are not reported, since discordance with absolute values may lead to misinterpretation of CBC data. Current Interpretive Data was last revised on 2018. Blood 07/14/2025 8:25 PM CDT 07/14/2025 9:29 PM CDT Cydney Birmingham NP LAB BLOOD ORDERABLES F inal Result [facility] Department [place] [address] * (ABNORMAL) CBC with auto differential (07/14/2025 8:25 PM CDT) WBC 2.98(L) 3.80 - 9.90 K/cumm Hgb 6.9(L) 11.9 - 15.5 g/dL [facility] Hct 21.0(L) 35.6 - 45.5 % [facility] Plt 96(L) 150 - 400 K/cumm [facility] MPV 10.7 9.1 - 12.3 fL [facility] RBC 2.54(L) 3.90 - 5.20 M/cumm [facility] MCV 82.7 81.3 - 96.4 fL [facility] MCH 27.2 27.1 - 33.3 pg [facility] MCHC 32.9 32.3 - 35.7 g/dL [facility] RDW CV 20.5(H) 11.1 - 14.9 % [facility] RDW SD 61.6(H) 35.7 - 48.1 fL [facility] NRBC abs 0.00 0.00 - 0.01 K/cumm [facility] Blood 07/14/2025 8:25 PM CDT 07/14/2025 9:29 PM CDT Cydney Birmingham MED AIDE LAB BLOOD ORDERABLES F inal Result Performing Organization Address City/[facility]/ZIP Co de Phone Number [facility] [place] [employer] [place] [address] * Phosphorus (07/14/2025 8:25 PM CDT) Pathologist [facility] Phosphorus, pl 3.3 2.3 - 4.5 mg/dL Blood 07/14/2025 8:25 PM CDT 07/14/2025 9:29 PM CDT us Cydney Birmingham MED AIDE LAB BLOOD ORDERABLES F inal Result Performing Organization Address [facility] Co de Phone Number [facility] of [employer] [place] [address] * (ABNORMAL) Magnesium (07/14/2025 8:25 PM CDT) [facility] Magnesium 1.3(L) 1.4 - 2.5 mg/dL Blood 07/14/2025 8:25 PM CDT 07/14/2025 9:29 PM CDT us Cydney Birmingham MED AIDE LAB BLOOD ORDERABLES F inal Result Performing Organization Address [facility] Co de Phone Number [facility] [employer] [place] [address] * (ABNORMAL) Basic metabolic panel (07/14/2025 8:25 PM CDT) Pathologist [facility] Sodium 137 135 - 145 mmol/L Potassium, pl 3.8 3.3 - 4.9 mmol/L [facility] Chloride 99 97 - 110 mmol/L [facility] CO2 26 22 - 32 mmol/L [facility] Anion gap 12 2 - 15 mmol/L [facility] BUN 17 6 - 25 mg/dL [facility] Creatinine 0.85 0.60 - 1.10 mg/dL [facility] Glucose 184 70 - 199 mg/dL [facility] Comment: Interpretive Data Fasting glucose >/= 126 mg/dl is diagnostic for diabetes. Fasting is defined as no caloric intake for at least 8 hours. Fasting glucose between 100 mg/dl to 125 mg/dl is diagnostic of prediabetes. In a patient with classic symptoms of hyperglycemia or hyperglycemic crisis, a random glucose >/= 200 mg/dl is diagnostic for diabetes. In the absence of unequivocal hyperglycemia, results should be confirmed by repeat testing. The classification and Diagnosis of Diabetes Diabetes Care 202; 46: S19-S40. Current interpretive data was last revised 2022. Calcium 7.8(L) 8.5 - 10.3 mg/dL [facility] Blood 07/14/2025 8:25 PM CDT 07/14/2025 9:29 PM CDT Cydney Birmingham NP LAB BLOOD ORDERABLES F inal Result [facility] Department [place] [address] * eGFR (07/14/2025 5:32 AM CDT) eGFR >90 >=60 mL/min/1. 73 m2 Comment: Interpretive Data Reference Interval Normal >/= 90 mL/min/1.73m2 Mildly decreased* 60 - 89 mL/min/1.73m2 Mildly to moderately decreased 45 - 59 mL/min/1.73m2 Moderately to severely decreased 30 - 44 mL/min/1.73m2 Severely decreased 15 - 29 mL/min/1.73m2 Kidney Failure < 15 mL/min/1.73m2 *Relative to young adult level Estimated glomerular filtration rate is determined by the 2020 CKD-EPI equation recommended by the National Kidney Foundation (A Unifying Approach to GFR Estimation: Recommendations of the NKF-ASK Task Force on Reassessing the Inclusion of Race in Diagnosing Kidney Disease, JASN 202). The CKD-EPI equation should not be used for patients with unstable renal function and has not been validated in children and those over 70. Current interpretive data was last reviewed 2021. Blood 07/14/2025 5:32 AM CDT 07/14/2025 6:02 AM CDT us Reji Rabago MD LAB BLOOD ORDERAB LES Final Result [facility] Department [place] [address] * (ABNORMAL) CBC without differential (07/14/2025 5:32 AM CDT) WBC 2.81(L) 3.80 - 9.90 K/cumm Hgb 8.0(L) 11.9 - 15.5 g/dL [facility] Hct 24.1(L) 35.6 - 45.5 % [facility] Plt 94(L) 150 - 400 K/cumm [facility] MPV 10.2 9.1 - 12.3 fL [facility] RBC 2.89(L) 3.90 - 5.20 M/cumm [facility] MCV 83.4 81.3 - 96.4 fL [facility] MCH 27.7 27.1 - 33.3 pg [facility] MCHC 33.2 32.3 - 35.7 g/dL [facility] RDW CV 20.1(H) 11.1 - 14.9 % [facility] RDW SD 61.3(H) 35.7 - 48.1 fL [facility] NRBC abs 0.00 0.00 - 0.01 K/cumm [facility] Blood 07/14/2025 5:32 AM CDT 07/14/2025 6:01 AM CDT Reji Rabago MD LAB BLOOD ORDERAB LES Final Result [facility] Department [place] [address] * (ABNORMAL) Basic metabolic panel (07/14/2025 5:32 AM CDT) Pathologist [facility] Sodium 139 135 - 145 mmol/L Potassium, pl 3.8 3.3 - 4.9 mmol/L [facility] Chloride 105 97 - 110 mmol/L [facility] CO2 24 22 - 32 mmol/L [facility] Anion gap 10 2 - 15 mmol/L [facility] BUN 12 6 - 25 mg/dL [facility] Creatinine 0.61 0.60 - 1.10 mg/dL [facility] Glucose 266(H) 70 - 199 mg/dL [facility] Comment: Interpretive Data Fasting glucose >/= 126 mg/dl is diagnostic for diabetes. Fasting is defined as no caloric intake for at least 8 hours. Fasting glucose between 100 mg/dl to 125 mg/dl is diagnostic of prediabetes. In a patient with classic symptoms of hyperglycemia or hyperglycemic crisis, a random glucose >/= 200 mg/dl is diagnostic for diabetes. In the absence of unequivocal hyperglycemia, results should be confirmed by repeat testing. The classification and Diagnosis of Diabetes Diabetes Care 2021; 46: S19-S40. Current interpretive data was last revised 2022. Calcium 8.4(L) 8.5 - 10.3 mg/dL [facility] Blood 07/14/2025 5:32 AM CDT 07/14/2025 6:02 AM CDT us Reji Rabago MD LAB BLOOD ORDERAB LES Final Result Performing Organization Address City/[facility]/ZIP Co de Phone Number JOSE DAVID [facility] Department [place] [address] * (ABNORMAL) Urinalysis reflex to microscopic and culture Urine (07/14/2025 4:15 AM CDT) Pathologist [facility] Color, ur Yellow Yellow Clarity, ur Clear Clear [facility] Specific gravity, ur >1.042(H) 1.003 - 1.030 [facility] pH, urine 6.5 [facility] Comment: Interpretive Data U rine pH is affected by diet, medications, systemic acid-base disturbances, and renal tubular function. pH may affect urinary stone formation. For example, urine pH below 6.0 may help reduce the tendency for calcium phosphate stones and pH greater than 6.0 may reduce the tendency for uric acid stone formation. Source: [facility] Current Interpretive Data was last revised on 2017 Protein, ur ql 1+(A) Negative [facility] Glucose, ur ql Negative Negative [facility] Ketones, ur Trace Negative [facility] Bilirubin, ur Negative Negative [facility] Blood, ur Negative Negative [facility] Urobilinogen, ur <2.0 <2.0 mg/dL [facility] Nitrite, ur Negative Negative [facility] Leukocyte esterase, ur Negative Negative [facility] UA reflex comment Reflex to microscopic UA will be performed. [facility] Urine 07/14/2025 4:15 AM CDT 07/14/2025 5:30 AM CDT Reji Rabago MD LAB MICROBIOLOGY - GENERAL ORDERABLES Final Result [facility] [place] [address] * (ABNORMAL) Urinalysis, microscopic only (07/14/2025 4:15 AM CDT) WBC, ur 0-5 0 - 5 /HPF RBC, ur 3-5(A) 0 - 2 /HPF [facility] Epithelial cells, squamous, ur 6-10(A) 0 - 5 /HPF [facility] Comment:Suggestive of contam ination. Consider recollection by clean catch. Mucous, ur Present(A) [facility] Culture Reflex Comment Reflex conditions for urine culture (WBC >10) not met. [facility] Urine 07/14/2025 4:15 AM CDT 07/14/2025 5:30 AM CDT Beulah Kelley MD LAB URINE ORDERABLES Fin al Result Performing Organization Address [facility] de Phone Number [facility] [employer] [place] [address] * POCT glucose (07/13/2025 11:36 PM CDT) Glucose, POC 125 70 - 199 mg/dL Blood 07/13/2025 11:3 6 PM CDT 07/13/2025 11:36 PM CDT Reji Rabago MD LAB POCT ORDERABL ES - DEVICE Final Result Performing Organization Address [facility] de Phone Number [facility] [place] [address] * POCT glucose (07/13/2025 11:17 PM CDT) Glucose, POC 132 70 - 199 mg/dL Blood 07/13/2025 11:1 7 PM CDT 07/13/2025 11:17 PM CDT Reji Rabago MD LAB POCT ORDERABL ES - DEVICE Final Result Performing Organization Address [facility] de Phone Number [facility] [employer] [place] [address] * Peripheral IV Catheter (07/13/2025 11:02 PM CDT) Narrative Clem Rodriguez MD - 07/13/2025 11:02 PM CDT Clem Rodriguez MD 07/13/2025 11:02 PM Peripheral IV Catheter Patient location: OR End time: 07/13/2025 10:45 PM Staff: Placed by: Resident: Clem Rodriguez MD Preprocedure prep: Prep solution: chlorhexadine PPE: gloves and provider hat/mask PIV line: Laterality: left Site: forearm Catheter size: 20 g Technique: anatomical landmarks and direct visualization Procedure details: good blood return and occlusive dressing applied Number of attempts: 1 Assessment: Events: patient tolerated procedure well with no complications Parker Pérez MD ANESTHESIA ORDERABLES Final Result * Peripheral IV Catheter (07/13/2025 11:02 PM CDT) Narrative Clem Rodriguez MD - 07/13/2025 11:02 PM CDT Clem Rodriguez MD 07/13/2025 11:03 PM Peripheral IV Catheter Patient location: OR End time: 07/13/2025 10:45 PM Staff: Supervising provider: Parker Pérez MD Placed by: Anesthesiologist: Parker Pérez MD Preprocedure prep: Prep solution: chlorhexadine PPE: gloves and provider hat/mask PIV line: Laterality: right Site: wrist Catheter size: 20 g Technique: anatomical landmarks and direct visualization Procedure details: good blood return and occlusive dressing applied Number of attempts: 1 Assessment: Events: patient tolerated procedure well with no complications Parker Pérez MD ANESTHESIA ORDERABLES Edited Result - Final * Airway (07/13/2025 11:00 PM CDT) Narrative Clem Rodriguez MD - 07/13/2025 11:00 PM CDT Clem Rodriguez MD 07/13/2025 11:01 PM Airway Patient location: OR Urgency: elective Date/time: 07/13/2025 10:36 PM Indications for airway management: anesthesia Difficult airway: no Staff: Supervising provider: Parker Pérez MD Placed by: Resident: Clem Rodriguez MD Emergent airway documentation: Risks and benefits discussed: yes Consent obtained: yes Consent given by: parent Airway prep: Preoxygenated: yes Patient position: sniffing MILS maintained throughout: yes Mask difficulty assessment: 1 - vent by mask Spontaneous ventilation during airway: absent Sedation level during airway: GA Final airway details: Final airway type: endotracheal airway Tube type: ETT ETT size: 7.5 mm Cuffed: yes Technique used for successful ETT placement: direct laryngoscopy Devices/Methods used in placement: stylet Insertion site: oral Blade type: Diana Blade size: 3 Cormack-Lehane (direct): grade I - full view of glottis Cuff volume: 5 mL Cuff inflated with: air ETT to lips: 22 cm Placement verified by: auscultation and CO2 detection Airway secured with: silk tape Number of attempts: 1 Planned trial extubation: yes us Parker Pérez MD ANESTHESIA ORDERABLES Final Result * CT Head and Cervical Spine WO Contrast (07/13/2025 4:16 PM CDT) Anatomical Region Laterality Modality Head and Neck N/A Computed Tomogra phy 07/13/2025 4:48 PM CDT Impressions 07/13/2025 6:01 PM CDT 1. No acute intracranial process. No acute intracranial hemorrhage, mass effect or acute territorial infarct. No fractures are identified. 2. Incidental anterior skull base midline cephalocele. 3. Mild chronic white matter microvascular disease and intracranial arterial calcified atherosclerosis. 4. No evidence of acute fracture in the cervical spine. 5. There is an age-indeterminate minimal offset between C1 and C2 lateral masses. Correlate clinically. If there is a clinical concern for C1-C2 joint/ligamentous injury consider obtaining an MR cervical spine. 5. Multilevel degenerative spondylosis in the cervical spine, as described above. Dictated by: Hanna Narvaez MD The radiology attending physician has personally reviewed this study, and had reviewed and/or edited this written report and agrees with it. Electronically signed by: Barry Carr MD, PHD Narrative 07/13/2025 6:01 PM CDT EXAMINATION: 1. CT head without contrast 2. CT of the cervical spine without contrast HISTORY: 60 years old . Trauma. TECHNIQUE: CT of the head was performed with images acquired from skull base to vertex without intravenous contrast. CT of the cervical spine was performed according to the standard protocol without intravenous contrast. COMPARISON: None Available. FINDINGS: HEAD: There is an anterior skull base/planum sphenoidale encephalocele seen on image 15 of series 4 and image 29 of sequence 6. There are mild periventricular and subcortical white matter hypoattenuation consistent with small vessel ischemic disease. There is no acute intracranial hemorrhage. Ventricles are of normal size and morphology. No mass effect or midline shift is present. The desai-white matter differentiation is normal. The visualized portions of the orbits are normal. The visualized portions of the mastoids are normal. Mucosal thickening is seen in the inferior aspect of the maxillary sinuses. No fractures are identified. Intracranial arterial calcified atherosclerosis. CERVICAL SPINE: The alignment of the cervical spine is normal. There is no acute fracture. Vertebral bodies are normal in height without acute compression fractures. The craniocervical junction is normal. There is an age-indeterminate minimal offset between C1 and C2. There is multilevel degenerative spondylosis with severe C5-C6 intervertebral disc space narrowing with anterior and posterior osteophyte formation and endplate degenerative spondylosis. There is moderate C1-C2 arthritis with retrodental pannus. There is a calcified C2-C3 central disc herniation/posterior osteophyte disc complex causing effacement of the anterior CSF space and mild canal stenosis. There is severe C3-C4 and C4-C5 right facet arthropathy. Procedure Note Barry Carr MD PhD - 07/13/2025 EXAMINATION: 1. CT head without contrast 2. CT of the cervical spine without contrast HISTORY: 60 years old . Trauma. TECHNIQUE: CT of the head was performed with images acquired from skull base to vertex without intravenous contrast. CT of the cervical spine was performed according to the standard protocol without intravenous contrast. COMPARISON: None Available. FINDINGS: HEAD: There is an anterior skull base/planum sphenoidale encephalocele seen on image 15 of series 4 and image 29 of sequence 6. There are mild periventricular and subcortical white matter hypoattenuation consistent with small vessel ischemic disease. There is no acute intracranial hemorrhage. Ventricles are of normal size and morphology. No mass effect or midline shift is present. The desai-white matter differentiation is normal. The visualized portions of the orbits are normal. The visualized portions of the mastoids are normal. Mucosal thickening is seen in the inferior aspect of the maxillary sinuses. No fractures are identified. Intracranial arterial calcified atherosclerosis. CERVICAL SPINE: The alignment of the cervical spine is normal. There is no acute fracture. Vertebral bodies are normal in height without acute compression fractures. The craniocervical junction is normal. There is an age-indeterminate minimal offset between C1 and C2. There is multilevel degenerative spondylosis with severe C5-C6 intervertebral disc space narrowing with anterior and posterior osteophyte formation and endplate degenerative spondylosis. There is moderate C1-C2 arthritis with retrodental pannus. There is a calcified C2-C3 central disc herniation/posterior osteophyte disc complex causing effacement of the anterior CSF space and mild canal stenosis. There is severe C3-C4 and C4-C5 right facet arthropathy. IMPRESSION: 1. No acute intracranial process. No acute intracranial hemorrhage, mass effect or acute territorial infarct. No fractures are identified. 2. Incidental anterior skull base midline cephalocele. 3. Mild chronic white matter microvascular disease and intracranial arterial calcified atherosclerosis. 4. No evidence of acute fracture in the cervical spine. 5. There is an age-indeterminate minimal offset between C1 and C2 lateral masses. Correlate clinically. If there is a clinical concern for C1-C2 joint/ligamentous injury consider obtaining an MR cervical spine. 5. Multilevel degenerative spondylosis in the cervical spine, as described above. Dictated by: Hanna Narvaez MD The radiology attending physician has personally reviewed this study, and had reviewed and/or edited this written report and agrees with it. Electronically signed by: Barry Carr MD, PHD Beulah Kelley MD IM CT PROCEDURES Final Result * CTA Lower Extremity Left (07/13/2025 4:16 PM CDT) Anatomical Region Laterality Modality Lower Extremities Left Computed Tomog bria 07/13/2025 4:46 PM CDT Impressions 07/13/2025 4:46 PM CDT Laceration of the left anterior leg with a focus of high density material within the subjacent hematoma which is suspicious for possible extravasation, however evaluation for active extravasation is limited due to single phase of contrast. Electronically signed by: Yen Mcfarland MD Narrative 07/13/2025 4:46 PM CDT EXAMINATION: CT ANGIOGRAPHY OF THE LEFT LOWER EXTREMITY WITH CONTRAST HISTORY: Left pruett laceration TECHNIQUE: CT angiography of the left lower extremity was performed following the intravenous administration of 100 ml Optiray-350. Vascular 3D images were generated on a dedicated workstation and also reviewed. COMPARISON: Radiograph of the left tibia and fibula dated 07/13/2025 FINDINGS: VASCULAR FINDINGS: Pelvic Vessels: R. Common iliac artery: no significant stenosis R. External iliac artery: no significant stenosis R. Internal iliac artery: no significant stenosis L. Common iliac artery: no significant stenosis L. External iliac artery: no significant stenosis L. Internal iliac artery: no significant stenosis Right Lower Extremity: R. Common femoral artery: no significant stenosis R. Profunda femoris artery: The imaged portion of the right profunda femoris artery demonstrates no significant stenosis R. Superficial femoral artery: The imaged portion of the right superficial femoral artery demonstrates no significant stenosis Left Lower Extremity: There is soft tissue laceration of the left anterior leg with a hematoma measuring approximately 4.0 x 2.0 cm and additional fluid and gas extending along the fascia of the anterior compartment. There is a focus of high density material within the hematoma subjacent to the laceration which is suspicious for extravasation, however evaluation for active extravasation is limited due to single phase of contrast (series 5, images [id number]). Venous varicose veins are noted within the left thigh and leg. L. Common femoral artery: no significant stenosis L. Profunda femoris artery: no significant stenosis L. Superficial femoral artery: no significant stenosis L. Popliteal artery: no significant stenosis L. Anterior tibial artery: The proximal portion of the left anterior tibial artery demonstrates no significant stenosis, the mid to distal portion of the left anterior tibial artery is not opacified due to timing of contrast bolus L. Tibioperoneal trunk: no significant stenosis L. Posterior tibial artery: The proximal portion of the left posterior tibial artery demonstrates no significant stenosis, the mid to distal portion of the left posterior tibial artery is not opacified due to timing of contrast bolus L. Peroneal artery: The proximal portion of the left peroneal artery demonstrates no significant stenosis, the mid to distal portion of the left peroneal artery is not opacified due to timing of contrast bolus L. Dorsalis pedis artery: Not opacified due to timing of the contrast bolus L. Plantar artery: Not opacified due to timing of the contrast bolus NON-VASCULAR FINDINGS: Limited images of the pelvic viscera demonstrate a distended urinary bladder. Small volume ascites. Uterus is surgically absent. Moderate left knee effusion. There is calcification in the subcutaneous tissues of the anterolateral left leg. No acute fracture. Procedure Note Yen Mcfarland MD - 07/13/2025 EXAMINATION: CT ANGIOGRAPHY OF THE LEFT LOWER EXTREMITY WITH CONTRAST HISTORY: Left preutt laceration TECHNIQUE: CT angiography of the left lower extremity was performed following the intravenous administration of 100 ml Optiray-350. Vascular 3D images were generated on a dedicated workstation and also reviewed. COMPARISON: Radiograph of the left tibia and fibula dated 07/13/2025 FINDINGS: VASCULAR FINDINGS: Pelvic Vessels: R. Common iliac artery: no significant stenosis R. External iliac artery: no significant stenosis R. Internal iliac artery: no significant stenosis L. Common iliac artery: no significant stenosis L. External iliac artery: no significant stenosis L. Internal iliac artery: no significant stenosis Right Lower Extremity: R. Common femoral artery: no significant stenosis R. Profunda femoris artery: The imaged portion of the right profunda femoris artery demonstrates no significant stenosis R. Superficial femoral artery: The imaged portion of the right superficial femoral artery demonstrates no significant stenosis Left Lower Extremity: There is soft tissue laceration of the left anterior leg with a hematoma measuring approximately 4.0 x 2.0 cm and additional fluid and gas extending along the fascia of the anterior compartment. There is a focus of high density material within the hematoma subjacent to the laceration which is suspicious for extravasation, however evaluation for active extravasation is limited due to single phase of contrast (series 5, images [id number]). Venous varicose veins are noted within the left thigh and leg. L. Common femoral artery: no significant stenosis L. Profunda femoris artery: no significant stenosis L. Superficial femoral artery: no significant stenosis L. Popliteal artery: no significant stenosis L. Anterior tibial artery: The proximal portion of the left anterior tibial artery demonstrates no significant stenosis, the mid to distal portion of the left anterior tibial artery is not opacified due to timing of contrast bolus L. Tibioperoneal trunk: no significant stenosis L. Posterior tibial artery: The proximal portion of the left posterior tibial artery demonstrates no significant stenosis, the mid to distal portion of the left posterior tibial artery is not opacified due to timing of contrast bolus L. Peroneal artery: The proximal portion of the left peroneal artery demonstrates no significant stenosis, the mid to distal portion of the left peroneal artery is not opacified due to timing of contrast bolus L. Dorsalis pedis artery: Not opacified due to timing of the contrast bolus L. Plantar artery: Not opacified due to timing of the contrast bolus NON-VASCULAR FINDINGS: Limited images of the pelvic viscera demonstrate a distended urinary bladder. Small volume ascites. Uterus is surgically absent. Moderate left knee effusion. There is calcification in the subcutaneous tissues of the anterolateral left leg. No acute fracture. IMPRESSION: Laceration of the left anterior leg with a focus of high density material within the subjacent hematoma which is suspicious for possible extravasation, however evaluation for active extravasation is limited due to single phase of contrast. Electronically signed by: Yen Mcfarland MD Sam Gonsalves MD IMG CT PROCEDURES Final Re sult * ECG 12-LEAD (07/13/2025 4:13 PM CDT) Narrative [facility] - 07/13/2025 4:13 PM CDT Christiano Garner MD PhD 07/13/2025 4:15 PM ECG 12 lead Date/Time: 07/13/2025 4:13 PM Performed by: Christiano Garner MD PhD Authorized by: Beulah Kelley MD Rate: ECG rate: 92 ECG rate assessment: normal Rhythm: Rhythm: sinus rhythm Ectopy: Ectopy: none QRS: QRS axis: Normal QRS intervals: Normal Conduction: Conduction: normal ST segments: ST segments: Normal T waves: T waves: flattening and inverted Flattening: AVF Inverted: III Other findings: Other findings: prolonged qTc interval Previous ECG: Previous ECG: Compared to current Date of previous EC09/09/2015 Comparison ECG info: Now w/ long qtc Interpretation: Interpretation: normal Recommended Follow-up: Recommended follow up: further workup in the ED Beulah Kelley MD ECG ORDERABLES Final Re sult [facility] * SD REPAIR COMPLEX SCALP/ARM/LEG 2.6-7.5 CM, SD REPAIR COMPLEX SCALP/ARM/LEG EA ADDL 5 CM/< (07/13/2025 4:11 PM CDT) Narrative Miriam Alejandra MD - 07/13/2025 4:11 PM CDT Miriam Alejandra MD 07/20/2025 4:45 PM Laceration Repair Date/Time: 07/13/2025 4:11 PM Performed by: Beulah Kelley MD Authorized by: Miriam Alejandra MD RN Notified of Procedure: yes Informed consent: Unable to obtain due to emergent status Patient's stated name/ matches armband: Patient unable to verbalize - armband matched to name and within medical record Allergies confirmed: yes Consent form signed, dated, timed; matches correct patient, intended procedure and site: No consent form due to emergent status Imaging: Pertinent imaging reviewed, correctly oriented and match to patient identifiers Lab/Diag test results: N/a Supplies, devices and special equipment are available: yes Site/side marked: yes Anesthesia method: Local infiltration Local anesthetic: Lidocaine 1% WITH epi Sedation used: no Location: Leg Leg location: L lower leg Length (cm): 10 Depth (mm): 10 Repair type: Complex Preparation: Imaging obtained to evaluate for foreign bodies Limited defect created (wound extended): no Hemostasis achieved with: Tied off vessels, epinephrine, direct pressure and tourniquet (Patient not fully tourniqueted, but used for hemostasis while patient was bleeding significantly.) Wound exploration: wound explored through full range of motion Wound extent: areolar tissue violated, fascia violated, muscle damage and vascular damage Wound extent: no foreign body, no nerve damage, no tendon damage, no underlying fracture and no HEENT abnormality Wound extent comment: Unclear total damage. Pending CT scan. Anticipate small vascular injuries of veins and arterioles (if any arterial bleeding is found). Contaminated: no Area cleansed with: Saline Amount of cleaning: Extensive Irrigation solution: Sterile saline Irrigation volume: 1000 Visualized foreign bodies/material removed: no Debridement: Minimal Undermining: None Scar revision: no Subcutaneous suture size: See skin repair. Repair method: Sutures Suture size: 3-0 Suture material: Nylon Suture technique: Horizontal mattress Number of sutures: 5 Approximation: Loose Dressing: Non-adherent dressing Patient tolerance of procedure: Tolerated well, no immediate complications All guidewires, needles, sponges or other items are accounted for: yes Any special post procedure monitoring, testing or other considerations: yes (enter/request order) All specimens identified, labeled and matched to patient identification: n/a Responsible alliance party for transporting specimen(s) to lab determined: n/a Miriam Alejandra MD IN CLINIC/BEDSIDE ORDER LITO Final Result * SD CRITICAL CARE ILL/INJURED PATIENT INIT 30-74 MIN (07/13/2025 3:23 PM CDT) Narrative Miriam Alejandra MD - 07/13/2025 3:23 PM CDT Miriam Alejandra MD 07/20/2025 4:44 PM Critical Care Performed by: Miriam Alejandra MD Authorized by: Miriam Alejandra MD Critical care provider statement: As reflected in the history, physical exam, orders, notes, and/or MDM, I was personally present while the patient was critically ill and provided critical care services for 45 minutes, excluding time involved in separately billable procedures. Critical care was necessary to treat or prevent imminent or life-threatening deterioration of the following condition(s): severe traumatic condition Critical care was time spent by me providing the following: advanced wound care I provided emergent necessary critical care medicine services to this patient. I ordered and reviewed test results and/or imaging studies. I spent time discussing the management of this critically ill patient with consultants and the medical staff. I spent time discussing the management and therapeutic options for this critically ill patient with the patient themselves or with the appropriate designated surrogate decision-maker. I spent time documenting in the medical record. us Miriam Alejandra MD IN CLINIC/BEDSIDE ORDER [facility]ITO Final Result * XR Chest 1 View (07/13/2025 2:44 PM CDT) Anatomical Region Laterality Modality Body, Chest N/A Computed Radiogr aphy 07/13/2025 3:03 PM CDT Addenda Addendum by Yen Mcfarland MD on 08/26/2025 9:24 PM CLERK Sending a reminder letter to patient that follow up is recommended for incidental finding. Ankita CULVER RN. Edited by: Ankita Guaman Electronically signed by: Yen Mcfarland MD Impressions 07/13/2025 3:03 PM CDT Comparison is made prior chest radiograph dated 11/09/2018. There is a 0.8 cm nodular opacity in the right upper lung which is new compared to 2019. Recommend follow up of the Incidental lung nodule Additional Imaging less than [address] chest. Mild bibasilar atelectasis. No pneumothorax or pleural effusion. Cardiomediastinal silhouette is within normal limits. Electronically signed by: Yen Mcfarland MD Narrative 07/13/2025 3:03 PM CDT EXAMINATION: 1 view chest radiograph Procedure Note Yen Mcfarland MD - 07/13/2025 EXAMINATION: 1 view chest radiograph IMPRESSION: Comparison is made prior chest radiograph dated 11/09/2018. There is a 0.8 cm nodular opacity in the right upper lung which is new compared to 2019. Recommend follow up of the Incidental lung nodule Additional Imaging less than [address] chest. Mild bibasilar atelectasis. No pneumothorax or pleural effusion. Cardiomediastinal silhouette is within normal limits. Electronically signed by: Yen Mcfarland MD Beulah Kelley MD IMG XR PROCEDURES Edited Result - Final * eGFR (07/13/2025 2:05 PM CDT) eGFR >90 >=60 mL/min/1. 73 m2 Comment: Interpretive Data Reference Interval Normal >/= 90 mL/min/1.73m2 Mildly decreased* 60 - 89 mL/min/1.73m2 Mildly to moderately decreased 45 - 59 mL/min/1.73m2 Moderately to severely decreased 30 - 44 mL/min/1.73m2 Severely decreased 15 - 29 mL/min/1.73m2 Kidney Failure < 15 mL/min/1.73m2 *Relative to young adult level Estimated glomerular filtration rate is determined by the 2020 CKD-EPI equation recommended by the [employer] (A Unifying Approach to GFR Estimation: Recommendations of the NKF-ASK Task Force on Reassessing the Inclusion of Race in Diagnosing Kidney Disease, JASN 202). The CKD-EPI equation should not be used for patients with unstable renal function and has not been validated in children and those over 70. Current interpretive data was last reviewed 2021. Blood 07/13/2025 2:05 PM CDT 07/13/2025 2:19 PM CDT Beulah Kelley MD LAB BLOOD ORDERABLES Fin al Result [facility] Department [place] [address] * Differential, auto (07/13/2025 2:05 PM CDT) Neutrophil abs 3.29 1.50 - 6.50 K/cumm Imm gran abs 0.02 0.00 - 0.10 K/cumm [facility] Lymphocyte abs 1.12 0.80 - 3.30 K/cumm [facility] Monocyte abs 0.54 0.20 - 0.80 K/cumm [facility] Eosinophil abs 0.32 0.00 - 0.50 K/cumm [facility] Basophil abs 0.04 0.00 - 0.10 K/cumm [facility] Neutrophil pct 61.7 % [facility] Comment: Interpretive Data Percent cell count reference ranges are not reported, since discordance with absolute values may lead to misinterpretation of CBC data. Current Interpretive Data was last revised on 2018. Imm gran pct 0.4 % [facility] Comment: Interpretive Data Percent cell count reference ranges are not reported, since discordance with absolute values may lead to misinterpretation of CBC data. Current Interpretive Data was last revised on 2018. Lymphocyte pct 21.0 % [facility] Comment: Interpretive Data Percent cell count reference ranges are not reported, since discordance with absolute values may lead to misinterpretation of CBC data. Current Interpretive Data was last revised on 2018. Monocyte pct 10.1 % [facility] Comment: Interpretive Data Percent cell count reference ranges are not reported, since discordance with absolute values may lead to misinterpretation of CBC data. Current Interpretive Data was last revised on 2018. Eosinophil pct 6.0 % [facility] Comment: Interpretive Data Percent cell count reference ranges are not reported, since discordance with absolute values may lead to misinterpretation of CBC data. Current Interpretive Data was last revised on 2018. Basophil pct 0.8 % [facility] Comment: Interpretive Data Percent cell count reference ranges are not reported, since discordance with absolute values may lead to misinterpretation of CBC data. Current Interpretive Data was last revised on 2018. Blood 07/13/2025 2:05 PM CDT 07/13/2025 2:19 PM CDT Beulah Kelley MD LAB BLOOD ORDERABLES Fin al Result Performing Organization Address [facility] de Phone Number [facility] [place] [address] * (ABNORMAL) CBC with auto differential (07/13/2025 2:05 PM CDT) [facility] WBC 5.33 3.80 - 9.90 K/cumm Hgb 10.3(L) 11.9 - 15.5 g/dL [facility] Hct 31.5(L) 35.6 - 45.5 % [facility] Plt 121(L) 150 - 400 K/cumm [facility] MPV 9.9 9.1 - 12.3 fL [facility] RBC 3.79(L) 3.90 - 5.20 M/cumm [facility] MCV 83.1 81.3 - 96.4 fL [facility] MCH 27.2 27.1 - 33.3 pg [facility] MCHC 32.7 32.3 - 35.7 g/dL [facility] RDW CV 20.3(H) 11.1 - 14.9 % [facility] RDW SD 61.0(H) 35.7 - 48.1 fL [facility] NRBC abs 0.00 0.00 - 0.01 K/cumm [facility] Blood 07/13/2025 2:05 PM CDT 07/13/2025 2:19 PM CDT Beulah Kelley MD LAB BLOOD ORDERABLES Fin al Result Performing Organization Address [facility] Co de Phone Number [facility] of [employer] [place] [address] * aPTT (07/13/2025 2:05 PM CDT) aPTT 32 26 - 38 sec Comment: Interpretive Data Heparin therapeutic range: 66.0 - 100.0 seconds. Range based on correlation with therapeutic heparin activity range of 0.3 - 0.7 Units/mL. Current interpretive data was last revised on 2023. Blood 07/13/2025 2:05 PM CDT 07/13/2025 2:31 PM CDT Beulah Kelley MD LAB BLOOD ORDERABLES Fin al Result Performing Organization Address [facility] de Phone Number [facility] [place] [place] [address] * (ABNORMAL) Protime-INR (07/13/2025 2:05 PM CDT) Pathologist [facility] PT 18.3(H) 10.2 - 13.5 sec INR 1.64(H) 0.90 - 1.20 [facility] Comment: Interpretive data Oral anticoagulant therapeutic ranges: Venous thromboembolism prophylaxis or treatment: 2.0-3.0 CARDIOLOGY Standard range: 2.0-3.0 High-intensity range: 2.5-3.5 Refer to indication-specific guidelines for appropriate target ranges for prosthetic heart valve replacement. Current interpretive data was last revised on 2019. Blood 07/13/2025 2:05 PM CDT 07/13/2025 2:31 PM CDT Beulah Kelley MD LAB BLOOD ORDERABLES Fin al Result Performing Organization Address [facility] de Phone Number [facility] [place] [place] [address] * Type and screen (07/13/2025 2:05 PM CDT) Gena, indirect Negative ABO Rh B Negative [facility] Blood 07/13/2025 2:05 PM CDT 07/13/2025 2:41 PM CDT Narrative [facility] - 07/13/2025 3:36 PM CDT Has the patient had Daratumumab or Isatuximab in the past 6 months?->Unknown Beulah Kelley MD LAB BLOOD BANK TEST ORDE LORA Final Result [facility] Department [place] [address] * (ABNORMAL) Comprehensive metabolic panel (07/13/2025 2:05 PM CDT) Sodium 141 135 - 145 mmol/L Potassium, pl 3.9 3.3 - 4.9 mmol/L [facility] Chloride 103 97 - 110 mmol/L [facility] CO2 25 22 - 32 mmol/L [facility] Anion gap 13 2 - 15 mmol/L [facility] BUN 9 6 - 25 mg/dL [facility] Creatinine 0.60 0.60 - 1.10 mg/dL [facility] Glucose 178 70 - 199 mg/dL [facility] Comment: Interpretive Data Fasting glucose >/= 126 mg/dl is diagnostic for diabetes. Fasting is defined as no caloric intake for at least 8 hours. Fasting glucose between 100 mg/dl to 125 mg/dl is diagnostic of prediabetes. In a patient with classic symptoms of hyperglycemia or hyperglycemic crisis, a random glucose >/= 200 mg/dl is diagnostic for diabetes. In the absence of unequivocal hyperglycemia, results should be confirmed by repeat testing. The classification and Diagnosis of Diabetes Diabetes Care 2021; 46: S19-S40. Current interpretive data was last revised 2022. Calcium 8.1(L) 8.5 - 10.3 mg/dL [facility] Bilirubin, total 0.9 0.1 - 1.2 mg/dL [facility] Protein, pl 7.7 6.5 - 8.5 g/dL [facility] Albumin 3.5 3.5 - 5.0 g/dL [facility] Alk phos 153(H) 40 - 130 Units/L [facility] ALT 16 7 - 45 Units/L [facility] AST 51(H) 10 - 45 Units/L [facility] Blood 07/13/2025 2:05 PM CDT 07/13/2025 2:19 PM CDT Beulah Kelley MD LAB BLOOD ORDERABLES [facility] al Result [facility] Department [place] [address] * XR Wrist Right 3+ views (07/13/2025 12:47 PM CDT) Anatomical Region Laterality Modality Upper Extremities, Wrist Right Compute d Radiography 07/13/2025 12:5 5 PM CDT Impressions 07/13/2025 12:55 PM CDT 1. Dorsal dislocation of the metacarpal phalangeal joint of the left small finger. 2. Oblique fracture of the proximal left small finger middle phalanx with intra-articular extension. 3. Age-indeterminate right triquetral chip fracture with dorsal soft tissue swelling. 4. No fracture of the left tibia or fibula. Electronically signed by: Tommie Pickett M.D. Narrative 07/13/2025 12:55 PM CDT Examination: 3 views left hand, 3 views left wrist, 3 views right wrist, 2 views left tibia and fibula. HISTORY: Fall FINDINGS: 3 views of the left hand show a dorsal dislocation of the left small finger at the metacarpal phalangeal joint. Diffuse osteopenia is noted. 8 oblique fracture is seen at the base of the 5th metacarpal without extension into the metacarpal carpal joint. No radiopaque foreign body is seen. A fracture seen at the base of the middle phalanx of the left small finger with intra-articular extension. 3 views of the left wrist confirm the findings described above with an intra-articular extension of a fracture at the base of the 5th metacarpal and dislocation of the 5th metacarpal phalangeal joint. No additional fracture seen. 3 views of the right wrist show some mild osteopenia and an ossicle at the base of the 5th metacarpal with some irregularity likely the sequela prior trauma. There is no acute fracture seen. On the lateral view note is made of an ossicle in the region of the triquetrum which likely represents a triquetral chip fracture of unknown age. There is some mild soft tissue swelling. 2 views of the left tibia and fibula show diffuse soft tissue swelling and gas. No fractures seen. Spurs seen of the plantar aspect of the calcaneus. Procedure Note Tommie Pickett MD - 07/13/2025 Examination: 3 views left hand, 3 views left wrist, 3 views right wrist, 2 views left tibia and fibula. HISTORY: Fall FINDINGS: 3 views of the left hand show a dorsal dislocation of the left small finger at the metacarpal phalangeal joint. Diffuse osteopenia is noted. 8 oblique fracture is seen at the base of the 5th metacarpal without extension into the metacarpal carpal joint. No radiopaque foreign body is seen. A fracture seen at the base of the middle phalanx of the left small finger with intra-articular extension. 3 views of the left wrist confirm the findings described above with an intra-articular extension of a fracture at the base of the 5th metacarpal and dislocation of the 5th metacarpal phalangeal joint. No additional fracture seen. 3 views of the right wrist show some mild osteopenia and an ossicle at the base of the 5th metacarpal with some irregularity likely the sequela prior trauma. There is no acute fracture seen. On the lateral view note is made of an ossicle in the region of the triquetrum which likely represents a triquetral chip fracture of unknown age. There is some mild soft tissue swelling. 2 views of the left tibia and fibula show diffuse soft tissue swelling and gas. No fractures seen. Spurs seen of the plantar aspect of the calcaneus. IMPRESSION: 1. Dorsal dislocation of the metacarpal phalangeal joint of the left small finger. 2. Oblique fracture of the proximal left small finger middle phalanx with intra-articular extension. 3. Age-indeterminate right triquetral chip fracture with dorsal soft tissue swelling. 4. No fracture of the left tibia or fibula. Electronically signed by: Tommie Pickett M.D. Wayne Blackwood MD IM XR PROCEDURES Paulette l Result * XR Wrist Left 3+ views (07/13/2025 12:46 PM CDT) Anatomical Region Laterality Modality Upper Extremities, Wrist Left Compute d Radiography 07/13/2025 12:5 5 PM CDT Impressions 07/13/2025 12:55 PM CDT 1. Dorsal dislocation of the metacarpal phalangeal joint of the left small finger. 2. Oblique fracture of the proximal left small finger middle phalanx with intra-articular extension. 3. Age-indeterminate right triquetral chip fracture with dorsal soft tissue swelling. 4. No fracture of the left tibia or fibula. Electronically signed by: Tommie Pickett M.D. Narrative 07/13/2025 12:55 PM CDT Examination: 3 views left hand, 3 views left wrist, 3 views right wrist, 2 views left tibia and fibula. HISTORY: Fall FINDINGS: 3 views of the left hand show a dorsal dislocation of the left small finger at the metacarpal phalangeal joint. Diffuse osteopenia is noted. 8 oblique fracture is seen at the base of the 5th metacarpal without extension into the metacarpal carpal joint. No radiopaque foreign body is seen. A fracture seen at the base of the middle phalanx of the left small finger with intra-articular extension. 3 views of the left wrist confirm the findings described above with an intra-articular extension of a fracture at the base of the 5th metacarpal and dislocation of the 5th metacarpal phalangeal joint. No additional fracture seen. 3 views of the right wrist show some mild osteopenia and an ossicle at the base of the 5th metacarpal with some irregularity likely the sequela prior trauma. There is no acute fracture seen. On the lateral view note is made of an ossicle in the region of the triquetrum which likely represents a triquetral chip fracture of unknown age. There is some mild soft tissue swelling. 2 views of the left tibia and fibula show diffuse soft tissue swelling and gas. No fractures seen. Spurs seen of the plantar aspect of the calcaneus. Procedure Note Tommie Pickett MD - 07/13/2025 Examination: 3 views left hand, 3 views left wrist, 3 views right wrist, 2 views left tibia and fibula. HISTORY: Fall FINDINGS: 3 views of the left hand show a dorsal dislocation of the left small finger at the metacarpal phalangeal joint. Diffuse osteopenia is noted. 8 oblique fracture is seen at the base of the 5th metacarpal without extension into the metacarpal carpal joint. No radiopaque foreign body is seen. A fracture seen at the base of the middle phalanx of the left small finger with intra-articular extension. 3 views of the left wrist confirm the findings described above with an intra-articular extension of a fracture at the base of the 5th metacarpal and dislocation of the 5th metacarpal phalangeal joint. No additional fracture seen. 3 views of the right wrist show some mild osteopenia and an ossicle at the base of the 5th metacarpal with some irregularity likely the sequela prior trauma. There is no acute fracture seen. On the lateral view note is made of an ossicle in the region of the triquetrum which likely represents a triquetral chip fracture of unknown age. There is some mild soft tissue swelling. 2 views of the left tibia and fibula show diffuse soft tissue swelling and gas. No fractures seen. Spurs seen of the plantar aspect of the calcaneus. IMPRESSION: 1. Dorsal dislocation of the metacarpal phalangeal joint of the left small finger. 2. Oblique fracture of the proximal left small finger middle phalanx with intra-articular extension. 3. Age-indeterminate right triquetral chip fracture with dorsal soft tissue swelling. 4. No fracture of the left tibia or fibula. Electronically signed by: Tommie Pickett M.D. Wyane Blackwood MD IMG XR PROCEDURES Paulette l Result * XR Tibia Fibula Left 2 views (07/13/2025 12:46 PM CDT) Anatomical Region Laterality Modality Lower Extremities, Lower Leg Left Com puted Radiography 07/13/2025 12:5 5 PM CDT Impressions 07/13/2025 12:55 PM CDT 1. Dorsal dislocation of the metacarpal phalangeal joint of the left small finger. 2. Oblique fracture of the proximal left small finger middle phalanx with intra-articular extension. 3. Age-indeterminate right triquetral chip fracture with dorsal soft tissue swelling. 4. No fracture of the left tibia or fibula. Electronically signed by: Tommie Pickett M.D. Narrative 07/13/2025 12:55 PM CDT Examination: 3 views left hand, 3 views left wrist, 3 views right wrist, 2 views left tibia and fibula. HISTORY: Fall FINDINGS: 3 views of the left hand show a dorsal dislocation of the left small finger at the metacarpal phalangeal joint. Diffuse osteopenia is noted. 8 oblique fracture is seen at the base of the 5th metacarpal without extension into the metacarpal carpal joint. No radiopaque foreign body is seen. A fracture seen at the base of the middle phalanx of the left small finger with intra-articular extension. 3 views of the left wrist confirm the findings described above with an intra-articular extension of a fracture at the base of the 5th metacarpal and dislocation of the 5th metacarpal phalangeal joint. No additional fracture seen. 3 views of the right wrist show some mild osteopenia and an ossicle at the base of the 5th metacarpal with some irregularity likely the sequela prior trauma. There is no acute fracture seen. On the lateral view note is made of an ossicle in the region of the triquetrum which likely represents a triquetral chip fracture of unknown age. There is some mild soft tissue swelling. 2 views of the left tibia and fibula show diffuse soft tissue swelling and gas. No fractures seen. Spurs seen of the plantar aspect of the calcaneus. Procedure Note Tommie Pickett MD - 07/13/2025 Examination: 3 views left hand, 3 views left wrist, 3 views right wrist, 2 views left tibia and fibula. HISTORY: Fall FINDINGS: 3 views of the left hand show a dorsal dislocation of the left small finger at the metacarpal phalangeal joint. Diffuse osteopenia is noted. 8 oblique fracture is seen at the base of the 5th metacarpal without extension into the metacarpal carpal joint. No radiopaque foreign body is seen. A fracture seen at the base of the middle phalanx of the left small finger with intra-articular extension. 3 views of the left wrist confirm the findings described above with an intra-articular extension of a fracture at the base of the 5th metacarpal and dislocation of the 5th metacarpal phalangeal joint. No additional fracture seen. 3 views of the right wrist show some mild osteopenia and an ossicle at the base of the 5th metacarpal with some irregularity likely the sequela prior trauma. There is no acute fracture seen. On the lateral view note is made of an ossicle in the region of the triquetrum which likely represents a triquetral chip fracture of unknown age. There is some mild soft tissue swelling. 2 views of the left tibia and fibula show diffuse soft tissue swelling and gas. No fractures seen. Spurs seen of the plantar aspect of the calcaneus. IMPRESSION: 1. Dorsal dislocation of the metacarpal phalangeal joint of the left small finger. 2. Oblique fracture of the proximal left small finger middle phalanx with intra-articular extension. 3. Age-indeterminate right triquetral chip fracture with dorsal soft tissue swelling. 4. No fracture of the left tibia or fibula. Electronically signed by: Tommie Pickett M.D. Wayne Blackwood MD IMG XR PROCEDURES Paulette l Result * XR Hand Left 3+ views (07/13/2025 12:46 PM CDT) Anatomical Region Laterality Modality Upper Extremities, Hand Left Computed Radiography 07/13/2025 12:5 5 PM CDT Impressions 07/13/2025 12:55 PM CDT 1. Dorsal dislocation of the metacarpal phalangeal joint of the left small finger. 2. Oblique fracture of the proximal left small finger middle phalanx with intra-articular extension. 3. Age-indeterminate right triquetral chip fracture with dorsal soft tissue swelling. 4. No fracture of the left tibia or fibula. Electronically signed by: Tommie Pickett M.D. Narrative 07/13/2025 12:55 PM CDT Examination: 3 views left hand, 3 views left wrist, 3 views right wrist, 2 views left tibia and fibula. HISTORY: Fall FINDINGS: 3 views of the left hand show a dorsal dislocation of the left small finger at the metacarpal phalangeal joint. Diffuse osteopenia is noted. 8 oblique fracture is seen at the base of the 5th metacarpal without extension into the metacarpal carpal joint. No radiopaque foreign body is seen. A fracture seen at the base of the middle phalanx of the left small finger with intra-articular extension. 3 views of the left wrist confirm the findings described above with an intra-articular extension of a fracture at the base of the 5th metacarpal and dislocation of the 5th metacarpal phalangeal joint. No additional fracture seen. 3 views of the right wrist show some mild osteopenia and an ossicle at the base of the 5th metacarpal with some irregularity likely the sequela prior trauma. There is no acute fracture seen. On the lateral view note is made of an ossicle in the region of the triquetrum which likely represents a triquetral chip fracture of unknown age. There is some mild soft tissue swelling. 2 views of the left tibia and fibula show diffuse soft tissue swelling and gas. No fractures seen. Spurs seen of the plantar aspect of the calcaneus. Procedure Note Tommie Pickett MD - 07/13/2025 Examination: 3 views left hand, 3 views left wrist, 3 views right wrist, 2 views left tibia and fibula. HISTORY: Fall FINDINGS: 3 views of the left hand show a dorsal dislocation of the left small finger at the metacarpal phalangeal joint. Diffuse osteopenia is noted. 8 oblique fracture is seen at the base of the 5th metacarpal without extension into the metacarpal carpal joint. No radiopaque foreign body is seen. A fracture seen at the base of the middle phalanx of the left small finger with intra-articular extension. 3 views of the left wrist confirm the findings described above with an intra-articular extension of a fracture at the base of the 5th metacarpal and dislocation of the 5th metacarpal phalangeal joint. No additional fracture seen. 3 views of the right wrist show some mild osteopenia and an ossicle at the base of the 5th metacarpal with some irregularity likely the sequela prior trauma. There is no acute fracture seen. On the lateral view note is made of an ossicle in the region of the triquetrum which likely represents a triquetral chip fracture of unknown age. There is some mild soft tissue swelling. 2 views of the left tibia and fibula show diffuse soft tissue swelling and gas. No fractures seen. Spurs seen of the plantar aspect of the calcaneus. IMPRESSION: 1. Dorsal dislocation of the metacarpal phalangeal joint of the left small finger. 2. Oblique fracture of the proximal left small finger middle phalanx with intra-articular extension. 3. Age-indeterminate right triquetral chip fracture with dorsal soft tissue swelling. 4. No fracture of the left tibia or fibula. Electronically signed by: Tommie Pickett M.D. us Wayne Blackwood MD IMG XR PROCEDURES Paulette l Result * POCT glucose (07/13/2025 12:09 PM CDT) Glucose, POC 180 70 - 199 mg/dL Blood 07/13/2025 12:0 9 PM CDT 07/13/2025 12:09 PM CDT us Notinfile Unknown LAB POCT ORDERABLES - DEVICE F inal Result [facility] Department [place] [address] * (ABNORMAL) Hemoglobin A1c (11/10/2018 4:33 AM CLERK) Hemoglobin A1c % 6.4(H) 4.0 - 5.6 % 11/10/2018 10:11 AM CLERK [employer] HISTORICAL RESULTS Comment: ADA 2016 GUIDELINES: Initial Diagnostic Criteria HbA1c Result: Interpretation: <5.7% Normal 5.7-6.4% At risk for diabetes mellitus >=6.5% Consistent with diabetes mellitus Diabetes monitoring Target value (ADA Recommended) <7% 11/10/2018 4:33 AM CLERK 11/10/2018 9:55 AM CLERK us Carla Brody MD LAB BLOOD ORDERABLES Final Resul t [employer] HISTORICAL RESULTS * (ABNORMAL) Serum lipid panel (09/14/2015 9:31 PM CLERK) Cholesterol 172 0 - 200 mg/dl HISTORICAL RESULTS Comment: Interpretive Data Desirable: <200 mg/dL Borderline high: 200-239 mg/dL High: >240 mg/dL Literature Reference: National Cholesterol Education Program (NCEP) Expert Panel on Detection, Evaluation, and Treatment of High Blood Cholesterol in Adults (Adult Treatment Panel III). Circulation 2004; 110:227. Current interpretive data was last revised on 2005. Triglycerides 91 0 - 150 mg/dl HISTORICAL RESULTS Comment: Interpretive Data Desirable: < 150 mg/dL Borderline High: 150 - 199 mg/dL High: > 200 mg/dL Literature Reference: See Cholesterol Current interpretive data was last revised on 07. HDL 34(L) 40 - 199 mg/dl HISTORICAL RESULTS Comment: Interpretive Data Less than 40 mg/dL - low; A major risk factor for heart disease. Greater than or equal to 60 mg/dL - High; considered protective of heart disease. Literature Reference: See Cholesterol Current interpretive data was last revised on 2008. LDL 120 0 - 129 mg/dl HISTORICAL RESULTS Comment: Interpretive Data Optimal: < 100 mg/dL Near Optimal: 100 - 129 mg/dL Borderline High: 130 - 159 mg/dL High: > 160 mg/dL Literature Reference: See Cholesterol Current interpretive data was last revised on 07. Non-HDL cholesterol, calculated 138 mg/dl HISTORICAL RESULTS Comment: Interpretive Data When triglycerides are >200 mg/dL, non-HDL C is a secondary target of therapy, with a goal 30 mg/dL higher than the identified LDL-C goal. Reference: See Cholesterol Reference. Current interpretive data was last revised 2012. Serum 09/14/2015 9:31 PM CLERK us Sharee Cortes MD LAB BLOOD ORDERAB LES Final Result HISTORICAL RESULTS * COLONOSCOPY REPORT (08/26/2015) Anatomical Region Laterality Modality Other Narrative 08/26/2015 Ordered by an unspecified provider. us Historical Provider GI PROCEDURE ORDERABLES F inal Result from Last 3 Months or Most Recently Relevant to Health Maintenance Insurance [facility] CHOICE PLUS IDPA Advance Directives For more information, please contact: [phone] * Full Code (Latest Code Status on File) Date Activated Date Inactivated Comments 07/14/2025 3:15 AM 07/15/2025 3:11 PM Care Teams Security Screener Relationship Specialty Start Date End Date Unknown, Notinfile PCP - General 07/10/19 Unknown, Notinfile 11/09/18
--- OUTSIDE RECORDS SUMMARY | 2025-09-22 15:11 | XMS_ITS | Clinical Summary ---
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 Gender Identity Not on file Sexual Orientation Not on file Plan of Treatment Health Maintenance Due Date Last Done Comments Hepatitis C Virus (HCV) Screening 1965 TdaP Immunization 1965 Pap Smear 1986 Cervical Cancer Screening (CCS) 1995 HPV/Cotest 1995 Cologuard 2010 Colonoscopy 2010 Colorectal Cancer Screening 2010 Immunochemical Fecal Occult Blood 2010 Zoster Immunization (1 of 2) 2015 Pneumococcal Immunization (5 0+ years) (2 of 2 - PCV) 09/27/2019 09/27/2018 Influenza Immunization (#1) 2025 06/16/2019 SARS-COV-2 Immunization ( - season) 2025 Respiratory Syncytial Virus (RSV) Immunization (Adult) (1 - 1-dose 75+ series) 2040 Pneumococcal Immunization Combined Discontinued 2018 Hepatitis B Immunization Aged Out No longer eligible based on patient's age to complete this topic Human Papillomavirus (HPV) Immunization Aged Out No longer eligible b ased on patient's age to complete this topic Meningococcal Immunization (ACWY) Aged Out No longer eligible based on patient's age to complete this topic Rotavirus Immunization Aged Out No lo nger eligible based on patient's age to complete this topic
--- OUTSIDE RECORDS SUMMARY | 2025-09-22 15:11 | XMS_ITS | Encounter Summary ---
Author Organization [facility] Address 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
--- OUTSIDE RECORDS SUMMARY | 2025-09-22 15:11 | XMS_ITS | Clinical Summary ---
Author Organization [facility] Address [facility] [id number] Care Team Providers Care Automated Cutting Machine Operator Name Role Phone Unavailable Primary [...] wi th HPV 1995 Mammogram Screening 2005 Pneumococcal Vaccine: 50+ Years (2 of 2 - PCV) 09/27/2019 09/27/2018 Zoster Vaccines (2 of 2) 05/24/2022 03/29/2022 PHQ-2 (Physician [place]) 09/24/2024 COVID-19 Vaccine (2 - 2024-2 6 season) 2025 02/13/2021 Influenza Adult (#1) 2025 09/29/2022, 06/16/2021, 06/16/2019 DTaP, Tdap and Td Vaccines ( 2 - Td or Tdap) 03/29/2032 03/29/2022 RSV Immunization or 60+ Years (1 - 1-dose 75+ series) 2040 Hepatitis A Vaccines Aged Out No long er eligible based on patient's age to complete [...]
--- OUTSIDE RECORDS SUMMARY | 2025-09-22 15:11 | XMS_ITS | Clinical Summary ---
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 Gender Identity Not on file Sexual Orientation [...] 1:09 PM CDT Height 167.6 cm (5' 6) 06/18/2012 1:09 PM CDT Body Mass Index 33.89 06/18/2012 1:09 PM CDT Plan of Treatment Health Maintenance Due Date Last Done Comments DTAP/TDAP/TD VACCINES (1 - Tdap) 1984 HPV/Cotest (21-29) 1986 CERVICAL CANCER SCREENING 1995 HPV/Cotest (30-65) 1995 PAP SMEAR 1995 BREAST CANCER SCREENING 2005 COLORECTAL SCREENING 2010 Colorectal Cancer Screening 2010 FIT-DNA Q 3 years 2010 FIT/FOBT Q 1 year 2010 Flex Sig/CT Colonography Q 5 years 2010 ZOSTER VACCINE (1 of 2) 2015 INFLUENZA VACCINE (#1) 2025 RSV VACCINE (60+ or ) (1 - 1-dose 75+ series) 2040 HEPATITIS B VACCINES Aged Out No long er eligible based on patient's age to complete this topic Care Teams Machine I Trimmer Relationship Specialty Start Date End Date Bud Valladares MD [address] [place] [address] PCP - General 09/14/15
[2025-09-22 15:14] VITALS: BP 154/92; PULSE 100; RESP 18; TEMP 36.6; O2SAT 100
[2025-09-22 15:47] VITALS: BP 104/57; PULSE 101; RESP 19; O2SAT 99
[2025-09-22 15:47] LABS: Hematocrit 32.0 % (37.0-47.0); Hemoglobin 9.9 g/dL (12.0-15.0); Immature Granulocyte Percent A 0.5 % (0-0.5); Lymphocytes Absolute Auto 1.24 K/mm3 (0.9-3.2); Mean Corpuscular HGB Conc 30.9 g/dl (32-36); Mean Corpuscular Hemoglobin 24.8 pg (26-34); Mean Corpuscular Volume 80.2 fl (80-100); Nucleated Red Blood Cells Absolute Auto 0.000 K/mm3 (0.0-0.012); Nucleated Red Blood Cells Perc 0.0 % (0.0-0.2); Platelet Count Result 125 k/mm3 (150-375); Red Blood Count 3.99 M/mm3 (4.2-5.4); White Blood Count 3.7 K/mm3 (4.5-10.0)
[2025-09-22 16:02] LABS: INR 1.8; Prothrombin Time 20.4 Seconds (11.1-14.7)
[2025-09-22 16:03] LABS: Partial Thromboplastin Time 38.1 Seconds (22.3-36.8)
[2025-09-22 16:08] LABS: Anisocytosis 1+; Hypochromasia 1+; Ovalocytes Occasional; Target Cells Occasional
[2025-09-22 16:09] LABS: Schistocytes None Seen
[2025-09-22 16:10] LABS: Alanine Aminotransferase 21 U/L (6-35); Albumin Level 3.6 g/dL (3.5-5.1); Alkaline Phosphatase 181 U/L (38-126); Anion Gap 13 mmol/L (4-12); Aspartate Amino Transferase 71 U/L (14-36); Bilirubin,Total 1.3 mg/dL (0.2-1.3); Blood Urea Nitrogen 11 mg/dL (7-17); Calcium 7.9 mg/dL (8.4-10.2); Carbon Dioxide 25 mmol/L (22-30); Chloride 107 mmol/L (98-107); Estimated Glomerular Filt Rate > 60; Glucose 135 mg/dL (65-110); Potassium 3.4 mmol/L (3.4-5.0); Sodium 145 mmol/L (137-145); Total Protein 7.8 g/dL (6.3-8.2)
[2025-09-22 16:22] VITALS: BP 123/68; PULSE 95; RESP 20; O2SAT 96
--- OUTSIDE RECORDS SUMMARY | 2025-09-22 16:49 | XMS_ITS | Clinical Summary ---
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
--- OUTSIDE RECORDS SUMMARY | 2025-09-22 16:49 | XMS_ITS | Clinical Summary ---
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
--- OUTSIDE RECORDS SUMMARY | 2025-09-22 16:49 | XMS_ITS | Clinical Summary ---
Author Organization [facility] Address [address] [place] [address] Care Team Providers Care Fermenter Name Role Phone Unknown, Notinfile Unavailable Unavailable [...] Type Department Care Team Description 07/29/2025 Telephone [facility] Acute and Critical Care Services [address] [facility] [address] [place] [address] Rukhsana Kaba, RN Appointment Reminder Call 07/15/2025 Documentation [facility] [address] [place] [address] Lily Trejo RN 07/13/2025 10:55 PM CDT - 07/14/2025 12:56 AM CDT Surgery [facility] Operating Room [address] [place] [address] Reji Rabago MD COMPLEX CLOSURE; WOUND EXPLORATION LEFT LOWER EXTREMITY 07/13/2025 10:26 PM CDT Anesthesia Event [facility] Operating Room [address] [place] [phone] Parker Pérez MD Marten, Matthew Brownell, TG 07/13/2025 1:57 PM CDT - 07/15/2025 11:11 AM CDT Hospital Encounter [address] [id number] Wayne Blackwood MD Watson, Brendan Matthew, MD [...] from right foot (Added by TW Conv) ID APPENDECTOMY Appendectomy - (1994) (Added by TW [...] on file Legal Sex Female 7:06 AM [employer]LOBAL REGULATORY LEAD Gender Identity Not on file Sexual Orientation [...] lower extremity, initial encounter Case Notes Cara [phone] CLOSURE WOUND 07/13/2025 10:26 PM CDT Laceration of left lower extremity, initial encounter Case Notes Cara [phone] CTA LOWER EXTREMITY LEFT NOT FOR ISCHEMIA ED 07/13/2025 4:[address] HEAD AND CERVICAL SPINE WO CONTRAST ED Urgent/IP Urgent 07/13/2025 4:16 PM CDT ECG 12-LEAD STAT 07/13/2025 4:13 PM CDT ID REPAIR COMPLEX SCALP/ARM/LEG EA ADDL 5 CM/< Routine 07/13/2025 4:11 PM CDT ID REPAIR COMPLEX SCALP/ARM/LEG 2.6-7.5 CM Routine 07/13/2025 4:11 PM CDT ID CRITICAL CARE ILL/INJURED PATIENT INIT 30-74 MIN [...] CDT HEMOGLOBIN A1C Routine 11/10/2018 4:33 AM GLOBAL REGULATORY LEAD SERUM LIPID PANEL Routine 09/14/2015 9:3 1 PM [employer]BAL [employer]ULATORY LEAD COLONOSCOPY REPORT 08/26/2015 from Last 3 Months [...] ERAL ORDERABLES Final Result Performing Organization Address City/[facility] Co de Phone Number [facility] [place] [address] * Hepatitis C antibody Blood (07/15/2025 4:53 AM CDT) [facility] Hep C Ab Nonreactive Nonreactive Comment:Antibodies to HCV no t detected. Does NOT exclude the possibility of recent exposure to HCV. Current interpretive data was last revised on 22 Blood 07/15/2025 4:53 AM CDT 07/15/2025 4:59 AM CDT Cydney Birmingham NP LAB MICROBIOLOGY - GEN ERAL ORDERABLES Final Result [facility] [place] [address] * RPR Blood (07/15/2025 4:53 AM CDT) Pathologist [facility] RPR Nonreactive Nonreactive Blood 07/15/2025 4:53 AM CDT 07/15/2025 5:00 AM CDT us Cydney Birmingham NP LAB MICROBIOLOGY - GEN ERAL ORDERABLES Final Result Performing Organization Address City/[facility] Co de Phone Number [facility] [place] [address] * Hepatitis B Surface Antigen Blood (07/15/2025 4:53 AM CDT) [facility] HepBsAg Nonreactive Nonreactive Blood 07/15/2025 4:53 AM CDT 07/15/2025 4:59 AM CDT us Cydney Birmingham NP LAB MICROBIOLOGY - GEN ERAL ORDERABLES Final Result Performing Organization Address [facility] de Phone Number [facility] [place] [address] * (ABNORMAL) CBC without differential (07/15/2025 4:53 AM CDT) [facility] WBC 2.94(L) 3.80 - 9.90 K/cumm Hgb 7.7(L) 11.9 - 15.5 g/dL [facility] Hct 23.9(L) 35.6 - 45.5 % [facility] Plt 95(L) 150 - 400 K/cumm [facility] MPV 9.8 9.1 - 12.3 fL [facility] RBC 2.86(L) 3.90 - 5.20 M/cumm [facility] MCV 83.6 81.3 - 96.4 fL [facility] MCH 26.9(L) 27.1 - 33.3 pg [facility] MCHC 32.2(L) 32.3 - 35.7 g/dL [facility] RDW CV 19.8(H) 11.1 - 14.9 % [facility] RDW SD 60.1(H) 35.7 - 48.1 fL [facility] NRBC abs 0.00 0.00 - 0.01 K/cumm [facility] Blood 07/15/2025 4:5 3 AM CDT 07/15/2025 5:00 AM CDT Narrative [facility] - 07/15/2025 5:28 AM CDT 1 hour after transfusion Holley Munguia MD LAB BLOOD ORDERABLES Final Result Performing Organization Address [facility] Co de Phone Number [facility] [place] [address] * Transfuse RBC (07/15/2025 3:09 AM CDT) Blood Reji Rabago MD BLOOD TRANSFUSION ORDERABLES Final Result Performing Organization Address [facility] de Phone Number [facility] [address] * Prepare RBC: 1 Units (07/15/2025 12:09 AM CDT) Product code [id number] Unit Number [id number] [facility] Product Blood Type BNEG [facility] Dispense Status PRESUMED TRANSFUSED [facility] Blood 07/15/2025 12:0 9 AM CDT 07/15/2025 12:08 AM CDT Narrative [facility] - 07/15/2025 4:01 PM CDT Are special requirements needed? (All products are leukoreduced and CMV- safe)- >No Date required:-[id number] LRRBC # of [id number] Reasons:-Hgb <7 g/dL} us Reji Rabago MD BLOOD BANK PRODUC T ORDERABLES Final Result Performing Organization Address [facility] de Phone Number [facility] [place] [address] * (ABNORMAL) CBC without differential (07/14/2025 11:18 PM CDT) Pathologist [facility] WBC 2.77(L) 3.80 - 9.90 K/cumm Hgb 6.7(L) 11.9 - 15.5 g/dL [facility] Hct 20.1(L) 35.6 - 45.5 % [facility] Plt 89(L) 150 - 400 K/cumm [facility] MPV 10.4 9.1 - 12.3 fL [facility] RBC 2.45(L) 3.90 - 5.20 M/cumm [facility] MCV 82.0 81.3 - 96.4 fL [facility] MCH 27.3 27.1 - 33.3 pg [facility] MCHC 33.3 32.3 - 35.7 g/dL [facility] RDW CV 20.3(H) 11.1 - 14.9 % [facility] RDW SD 60.8(H) 35.7 - 48.1 fL [facility] NRBC abs 0.00 0.00 - 0.01 K/cumm [facility] Blood 07/14/2025 11:1 8 PM CDT 07/14/2025 11:31 PM CDT Reji Rabago MD LAB BLOOD ORDERAB LES Final Result [facility] [place] [address] * eGFR (07/14/2025 8:25 PM CDT) Pathologist [facility] eGFR 78 >=60 mL/min/1. 73 m2 Comment: [...] NP LAB BLOOD ORDERABLES F inal Result [facility] [place] [address] * (ABNORMAL) Differential, auto (07/14/2025 8:25 PM CDT) Neutrophil abs 1.90 1.50 - 6.50 K/cumm Imm gran abs 0.02 0.00 - 0.10 K/cumm [facility] Lymphocyte abs 0.58(L) 0.80 - 3.30 K/cumm [facility] Monocyte abs 0.41 0.20 - 0.80 K/cumm [facility] Eosinophil abs 0.05 0.00 - 0.50 K/cumm [facility] Basophil abs 0.02 0.00 - 0.10 K/cumm [facility] Neutrophil pct 63.6 % [facility] Comment: Interpretive Data Percent cell count reference ranges are not reported, since discordance with absolute values may lead to misinterpretation of CBC data. Current Interpretive Data was last revised on 2018. Imm gran pct 0.7 % [facility] Comment: Interpretive Data Percent cell count reference ranges are not reported, since discordance with absolute values may lead to misinterpretation of CBC data. Current Interpretive Data was last revised on 2018. Lymphocyte pct 19.5 % [facility] Comment: Interpretive Data Percent cell count reference ranges are not reported, since discordance with absolute values may lead to misinterpretation of CBC data. Current Interpretive Data was last revised on 2018. Monocyte pct 13.8 % [facility] Comment: Interpretive Data Percent cell count reference ranges are not reported, since discordance with absolute values may lead to misinterpretation of CBC data. Current Interpretive Data was last revised on 2018. Eosinophil pct 1.7 % [facility] Comment: Interpretive Data Percent cell count reference ranges are not reported, since discordance with absolute values may lead to misinterpretation of CBC data. Current Interpretive Data was last revised on 2018. Basophil pct 0.7 % [facility] Comment: Interpretive Data Percent cell count reference ranges are not reported, since discordance with absolute values may lead to misinterpretation of CBC data. Current Interpretive Data was last revised on 2018. Blood 07/14/2025 8:25 PM CDT 07/14/2025 9:29 PM CDT Cydney Birmingham NP LAB BLOOD ORDERABLES F inal Result [facility] [place] [address] * (ABNORMAL) CBC with auto differential (07/14/2025 8:25 PM CDT) WBC 2.98(L) 3.80 - 9.90 K/cumm Hgb 6.9(L) 11.9 - 15.5 g/dL [facility] Hct 21.0(L) 35.6 - 45.5 % [facility] Plt 96(L) 150 - 400 K/cumm [facility] MPV 10.7 9.1 - 12.3 fL [facility] RBC 2.54(L) 3.90 - 5.20 M/cumm [facility] MCV 82.7 81.3 - 96.4 fL [facility] MCH 27.2 27.1 - 33.3 pg [facility] MCHC 32.9 32.3 - 35.7 g/dL [facility] RDW CV 20.5(H) 11.1 - 14.9 % [facility] RDW SD 61.6(H) 35.7 - 48.1 fL [facility] NRBC abs 0.00 0.00 - 0.01 K/cumm [facility] Blood 07/14/2025 8:25 PM CDT 07/14/2025 9:29 PM CDT Cydney Birmingham WINDOW/DISTRIBUTION CLERK LAB BLOOD ORDERABLES F inal Result Performing Organization Address City/[facility]/ZIP Co de Phone Number [facility] [place] [address] * Phosphorus (07/14/2025 8:25 PM CDT) Pathologist [facility] Phosphorus, pl 3.3 2.3 - 4.5 mg/dL Blood 07/14/2025 8:25 PM CDT 07/14/2025 9:29 PM CDT us Cydney Birmingham WINDOW/DISTRIBUTION CLERK LAB BLOOD ORDERABLES F inal Result Performing Organization Address [facility] Co de Phone Number [facility] [place] [address] * (ABNORMAL) Magnesium (07/14/2025 8:25 PM CDT) [facility] Magnesium 1.3(L) 1.4 - 2.5 mg/dL Blood 07/14/2025 8:25 PM CDT 07/14/2025 9:29 PM CDT us Cydney Birmingham WINDOW/DISTRIBUTION CLERK LAB BLOOD ORDERABLES F inal Result Performing Organization Address City/[facility] Co de Phone Number [facility] [place] [address] * (ABNORMAL) Basic metabolic panel (07/14/2025 8:25 PM CDT) Pathologist [facility] Sodium 137 135 - 145 mmol/L Potassium, pl 3.8 3.3 - 4.9 mmol/L [facility] Chloride 99 97 - 110 mmol/L [facility] CO2 26 22 - 32 mmol/L [facility] Anion gap 12 2 - 15 mmol/L [facility] BUN 17 6 - 25 mg/dL [facility] Creatinine 0.85 0.60 - 1.10 mg/dL [facility] Glucose 184 70 - 199 mg/dL [facility] Comment: Interpretive Data Fasting glucose >/= [...] 2022. Calcium 7.8(L) 8.5 - 10.3 mg/dL [facility] Blood 07/14/2025 8:25 PM CDT 07/14/2025 9:29 PM CDT Cydney Birmingham NP LAB BLOOD ORDERABLES F inal Result [facility] [place] [address] * eGFR (07/14/2025 5:32 AM CDT) eGFR [...] MD LAB BLOOD ORDERAB LES Final Result [facility] [place] [address] * (ABNORMAL) CBC without differential (07/14/2025 5:32 AM CDT) WBC 2.81(L) 3.80 - 9.90 K/cumm Hgb 8.0(L) 11.9 - 15.5 g/dL [facility] Hct 24.1(L) 35.6 - 45.5 % [facility] Plt 94(L) 150 - 400 K/cumm [facility] MPV 10.2 9.1 - 12.3 fL [facility] RBC 2.89(L) 3.90 - 5.20 M/cumm [facility] MCV 83.4 81.3 - 96.4 fL [facility] MCH 27.7 27.1 - 33.3 pg [facility] MCHC 33.2 32.3 - 35.7 g/dL [facility] RDW CV 20.1(H) 11.1 - 14.9 % [facility] RDW SD 61.3(H) 35.7 - 48.1 fL [facility] NRBC abs 0.00 0.00 - 0.01 K/cumm [facility] Blood 07/14/2025 5:32 AM CDT 07/14/2025 6:01 AM CDT Reji Rabago MD LAB BLOOD ORDERAB LES Final Result [facility] DAV[facility] [place] [address] * (ABNORMAL) Basic metabolic panel (07/14/2025 5:32 AM CDT) Pathologist [facility] Sodium 139 135 - 145 mmol/L Potassium, pl 3.8 3.3 - 4.9 mmol/L [facility] Chloride 105 97 - 110 mmol/L [facility] CO2 24 22 - 32 mmol/L [facility] Anion gap 10 2 - 15 mmol/L [facility] BUN 12 6 - 25 mg/dL [facility] Creatinine 0.61 0.60 - 1.10 mg/dL [facility] Glucose 266(H) 70 - 199 mg/dL [facility] Comment: Interpretive Data Fasting glucose >/= [...] 2022. Calcium 8.4(L) 8.5 - 10.3 mg/dL [facility] Blood 07/14/2025 5:32 AM CDT 07/14/2025 6:02 AM CDT us Reji Rabago MD LAB BLOOD ORDERAB LES Final Result Performing Organization Address City/[facility]/ZIP Co de Phone Number [facility]SE [facility]ID [facility] [place] [address] * (ABNORMAL) Urinalysis reflex to microscopic and culture Urine (07/14/2025 4:15 AM CDT) Pathologist [facility] Color, ur Yellow Yellow Clarity, ur Clear Clear [facility] Specific gravity, ur >1.042(H) 1.003 - 1.030 [facility] pH, urine 6.5 [facility] Comment: Interpretive Data U rine pH is affected by diet, medications, systemic acid-base disturbances, and renal tubular function. pH may affect urinary stone formation. For example, urine pH below 6.0 may help reduce the tendency for calcium phosphate stones and pH greater than 6.0 may reduce the tendency for uric acid stone formation. Source: [facility] Current Interpretive Data was last revised on 2017 Protein, ur ql 1+(A) Negative [facility] Glucose, ur ql Negative Negative [facility] Ketones, ur Trace Negative [facility] Bilirubin, ur Negative Negative [facility] Blood, ur Negative Negative [facility] Urobilinogen, ur <2.0 <2.0 mg/dL [facility] Nitrite, ur Negative Negative [facility] Leukocyte esterase, ur Negative Negative [facility] UA reflex comment Reflex to microscopic UA will be performed. [facility] Urine 07/14/2025 4:15 AM CDT 07/14/2025 5:30 AM CDT Reji Rabago MD LAB MICROBIOLOGY - GENERAL ORDERABLES Final Result [facility] [place] [address] * (ABNORMAL) Urinalysis, microscopic only (07/14/2025 4:15 AM CDT) WBC, ur 0-5 0 - 5 /HPF RBC, ur 3-5(A) 0 - 2 /HPF [facility] Epithelial cells, squamous, ur 6-10(A) 0 - 5 /HPF [facility] Comment:Suggestive of contam ination. Consider recollection by clean catch. Mucous, ur Present(A) [facility] Culture Reflex Comment Reflex conditions for urine culture (WBC >10) not met. [facility] Urine 07/14/2025 4:15 AM CDT 07/14/2025 5:30 AM CDT Beulah Kelley MD LAB URINE ORDERABLES Fin al Result Performing Organization Address [facility] de Phone Number [facility] [place] [address] * POCT glucose (07/13/2025 11:36 PM CDT) Glucose, POC 125 70 - 199 mg/dL Blood 07/13/2025 11:3 6 PM CDT 07/13/2025 11:36 PM CDT Reji Rabago MD LAB POCT ORDERABL ES - DEVICE Final Result Performing Organization Address [facility] de Phone Number [facility] [place] [address] * POCT glucose (07/13/2025 11:17 PM CDT) Glucose, POC 132 70 - 199 mg/dL Blood 07/13/2025 11:1 7 PM CDT 07/13/2025 11:17 PM CDT Reji Rabago MD LAB POCT ORDERABL ES - DEVICE Final Result Performing Organization Address [facility] de Phone Number [facility] [place] [address] * Peripheral IV Catheter (07/13/2025 11:02 PM [...] 12-LEAD (07/13/2025 4:13 PM CDT) Narrative [facility] - 07/13/2025 4:13 PM CDT Christiano Garner [...] MD ECG ORDERABLES Final Re sult [facility] * ID REPAIR COMPLEX SCALP/ARM/LEG 2.6-7.5 CM, ID REPAIR COMPLEX SCALP/ARM/LEG EA ADDL 5 CM/< [...] and matched to patient identification: n/a Responsible constitution party for transporting specimen(s) to lab determined: n/a Miriam Alejandra MD IN CLINIC/BEDSIDE ORDER LITO Final Result * ID CRITICAL CARE ILL/INJURED PATIENT INIT 30-74 MIN [...] Yen Mcfarland MD on 08/26/2025 9:24 PM GLOBAL REGULATORY LEAD Sending a reminder letter to patient that [...] MD LAB BLOOD ORDERABLES Fin al Result [facility] [place] [address] * Differential, auto (07/13/2025 2:05 PM CDT) Neutrophil abs 3.29 1.50 - 6.50 K/cumm Imm gran abs 0.02 0.00 - 0.10 K/cumm [facility] Lymphocyte abs 1.12 0.80 - 3.30 K/cumm [facility] Monocyte abs 0.54 0.20 - 0.80 K/cumm [facility] Eosinophil abs 0.32 0.00 - 0.50 K/cumm [facility] Basophil abs 0.04 0.00 - 0.10 K/cumm [facility] Neutrophil pct 61.7 % [facility] Comment: Interpretive Data Percent cell count reference ranges are not reported, since discordance with absolute values may lead to misinterpretation of CBC data. Current Interpretive Data was last revised on 2018. Imm gran pct 0.4 % [facility] Comment: Interpretive Data Percent cell count reference ranges are not reported, since discordance with absolute values may lead to misinterpretation of CBC data. Current Interpretive Data was last revised on 2018. Lymphocyte pct 21.0 % [facility] Comment: Interpretive Data Percent cell count reference ranges are not reported, since discordance with absolute values may lead to misinterpretation of CBC data. Current Interpretive Data was last revised on 2018. Monocyte pct 10.1 % [facility] Comment: Interpretive Data Percent cell count reference ranges are not reported, since discordance with absolute values may lead to misinterpretation of CBC data. Current Interpretive Data was last revised on 2018. Eosinophil pct 6.0 % [facility] Comment: Interpretive Data Percent cell count reference ranges are not reported, since discordance with absolute values may lead to misinterpretation of CBC data. Current Interpretive Data was last revised on 2018. Basophil pct 0.8 % [facility] Comment: Interpretive Data Percent cell count reference ranges are not reported, since discordance with absolute values may lead to misinterpretation of CBC data. Current Interpretive Data was last revised on 2018. Blood 07/13/2025 2:05 PM CDT 07/13/2025 2:19 PM CDT Beulah Kelley MD LAB BLOOD ORDERABLES Fin al Result Performing Organization Address [facility] de Phone Number [facility] [place] [address] * (ABNORMAL) CBC with auto differential (07/13/2025 2:05 PM CDT) [facility] WBC 5.33 3.80 - 9.90 K/cumm Hgb 10.3(L) 11.9 - 15.5 g/dL [facility] Hct 31.5(L) 35.6 - 45.5 % [facility] Plt 121(L) 150 - 400 K/cumm [facility] MPV 9.9 9.1 - 12.3 fL [facility] RBC 3.79(L) 3.90 - 5.20 M/cumm [facility] MCV 83.1 81.3 - 96.4 fL [facility] MCH 27.2 27.1 - 33.3 pg [facility] MCHC 32.7 32.3 - 35.7 g/dL [facility] RDW CV 20.3(H) 11.1 - 14.9 % [facility] RDW SD 61.0(H) 35.7 - 48.1 fL [facility] NRBC abs 0.00 0.00 - 0.01 K/cumm [facility] Blood 07/13/2025 2:05 PM CDT 07/13/2025 2:19 PM CDT Beulah Kelley MD LAB BLOOD ORDERABLES Fin al Result Performing Organization Address [facility] Co de Phone Number [facility] [address] * aPTT (07/13/2025 2:05 PM CDT) aPTT [...] ORDERABLES Fin al Result Performing Organization Address [facility] de Phone Number [facility] [place] [address] * (ABNORMAL) Protime-INR (07/13/2025 2:05 PM CDT) Pathologist [facility] PT 18.3(H) 10.2 - 13.5 sec INR 1.64(H) 0.90 - 1.20 [facility] Comment: Interpretive data Oral anticoagulant therapeutic ranges: Venous thromboembolism prophylaxis or treatment: 2.0-3.0 CARDIOLOGY Standard range: 2.0-3.0 High-intensity range: 2.5-3.5 Refer to indication-specific guidelines for appropriate target ranges for prosthetic heart valve replacement. Current interpretive data was last revised on 2019. Blood 07/13/2025 2:05 PM CDT 07/13/2025 2:31 PM CDT Beulah Kelley MD LAB BLOOD ORDERABLES Fin al Result Performing Organization Address [facility] de Phone Number [facility] [place] [address] * Type and screen (07/13/2025 2:05 PM CDT) Gena, indirect Negative ABO Rh B Negative [facility] Blood 07/13/2025 2:05 PM CDT 07/13/2025 2:41 PM CDT Narrative [facility] - 07/13/2025 3:36 PM CDT Has the patient had Daratumumab or Isatuximab in the past 6 months?->Unknown Beulah Kelley MD LAB BLOOD BANK TEST ORDE LORA Final Result [facility] [place] [address] * (ABNORMAL) Comprehensive metabolic panel (07/13/2025 2:05 PM CDT) Sodium 141 135 - 145 mmol/L Potassium, pl 3.9 3.3 - 4.9 mmol/L [facility] Chloride 103 97 - 110 mmol/L [facility] CO2 25 22 - 32 mmol/L [facility] Anion gap 13 2 - 15 mmol/L [facility] BUN 9 6 - 25 mg/dL [facility] Creatinine 0.60 0.60 - 1.10 mg/dL [facility] Glucose 178 70 - 199 mg/dL [facility] Comment: Interpretive Data Fasting glucose >/= [...] 2022. Calcium 8.1(L) 8.5 - 10.3 mg/dL [facility] Bilirubin, total 0.9 0.1 - 1.2 mg/dL [facility] Protein, pl 7.7 6.5 - 8.5 g/dL [facility] Albumin 3.5 3.5 - 5.0 g/dL [facility] Alk phos 153(H) 40 - 130 Units/L [facility] ALT 16 7 - 45 Units/L [facility] AST 51(H) 10 - 45 Units/L [facility] Blood 07/13/2025 2:05 PM CDT 07/13/2025 2:19 PM CDT Beulah Kelley MD LAB BLOOD ORDERABLES [facility] al Result [facility] [place] [address] * XR Wrist Right 3+ views (07/13/2025 [...] POCT ORDERABLES - DEVICE F inal Result [facility] [place] [address] * (ABNORMAL) Hemoglobin A1c (11/10/2018 4:33 AM GLOBAL REGULATORY LEAD) Hemoglobin A1c % 6.4(H) 4.0 - 5.6 % 11/10/2018 10:11 AM GLOBAL REGULATORY LEAD [facility] HISTORICAL RESULTS Comment: ADA 2016 GUIDELINES: Initial Diagnostic Criteria HbA1c Result: Interpretation: <5.7% Normal 5.7-6.4% At risk for diabetes mellitus >=6.5% Consistent with diabetes mellitus Diabetes monitoring Target value (ADA Recommended) <7% 11/10/2018 4:33 AM GLOBAL REGULATORY LEAD 11/10/2018 9:55 AM GLOBAL REGULATORY LEAD us Carla Brody MD LAB BLOOD ORDERABLES Final Resul t [facility] HISTORICAL RESULTS * (ABNORMAL) Serum lipid panel (09/14/2015 9:31 PM GLOBAL REGULATORY LEAD) Cholesterol 172 0 - 200 mg/dl HISTORICAL [...] last revised 2012. Serum 09/14/2015 9:31 PM GLOBAL REGULATORY LEAD us Sharee Cortes MD LAB BLOOD ORDERAB LES Final Result HISTORICAL RESULTS * COLONOSCOPY REPORT (08/26/2015) Anatomical Region Laterality Modality Other Narrative 08/26/2015 Ordered by an unspecified provider. us Historical Provider GI PROCEDURE ORDERABLES F inal Result from Last 3 Months or Most Recently Relevant to Health Maintenance Insurance [facility] CHOICE PLUS ID[employer] Advance Directives For more information, please contact: [phone] * Full Code (Latest Code Status on File) Date Activated Date Inactivated Comments 07/14/2025 3:15 AM 07/15/2025 3:11 PM Care Teams Fermenter Relationship Specialty Start Date End Date Unknown, Notinfile PCP - General 07/10/19 Unknown, Notinfile 11/09/18
--- OUTSIDE RECORDS SUMMARY | 2025-09-22 16:49 | XMS_ITS | Encounter Summary ---
Author Organization [facility] Address [address] [place] [address] Care Team Providers Care Motor Equipment Commanding Officer Name Role Phone Bud Valladares MD Primary Care Provider [phone] Encounter Details Date Type Department Care Team [...] on file Legal Sex Female 2:41 AM [employer]ICAL [employer]ANT WORK[employer] Gender Identity Not on file Sexual Orientation Not on file documented as of this encounter Plan of Treatment Not on file documented as of this encounter Visit Diagnoses Diagnosis Acute atopic conjunctivitis- Primary documented in this encounter Care Teams Motor Equipment Commanding Officer Relationship Specialty Start Date End Date Bud Valladares MD [address] [place] [id number] PCP - General 09/14/15 documented as of this encounter
== END 2025-09-22 17:35 | disposition home or self-care (01) ==
PROVIDERS: Physician Assistant; Emergency Provider Emergency Medicine; PCP Internal Medicine
DX: S01.111A Laceration without foreign body of right eyelid and periocular area, initial encounter (principal); F10.229 Alcohol dependence with intoxication, unspecified; Y90.8 Blood alcohol level of 240 mg/100 ml or more; I10 Essential (primary) hypertension; E78.5 Hyperlipidemia, unspecified; E03.9 Hypothyroidism, unspecified; E11.9 Type 2 diabetes mellitus without complications; F41.8 Other specified anxiety disorders; F90.9 Attention-deficit hyperactivity disorder, unspecified type; W17.89XA Other fall from one level to another, initial encounter; Z90.710 Acquired absence of both cervix and uterus; Z90.79 Acquired absence of other genital organ(s); Z90.722 Acquired absence of ovaries, bilateral; M47.812 Spondylosis without myelopathy or radiculopathy, cervical region; Z79.899 Other long term (current) drug therapy
CPT/HCPCS: 12013; 36415; 70450; 70486; 72125; 80053; 82077; 85025; 85610; 85730; 99284